=== PATIENT | female | born 1945 | race African-American/Black ===

== ENCOUNTER 2016-06-30 15:20 | Emergency (ER) | payer BC ==
[~2016-06-30] VITALS: Ht 160 cm; Wt 79.5 kg
[~2016-06-30 15:20] MED LIST: ASPI81TA28 PO; ATEN-173 PO; ATOR10TA88 PO; BENZ100C84 PO; CETI10CH PO; CHOL100010 PO; CLC100 PO; CYM/30 PO; DICY10CA12 PO; ESTR1CRE PV; FLUT0.15 NAE; FLV1 PO; FLVHFA110 INH; FRS/40 PO; LACT10SO17 PO; META1TAB22 PO; MULT-506 PO; OMEP40CA PO; PRM625 PO; RANI300T2 PO; SALI1SPR3 NAE; VALS40TA2 PO; [UNRECOGNIZED DRUG - CODE] PO
[2016-06-30 15:22] VITALS: TEMP 36.4; Ht 160 cm; Wt 79.5 kg
--- NOTE | 2016-06-30 15:43 | EMERGENCY ROOM VISIT NOTE ---
History Report prepared by Jb: Mojgan Goldsmith Under the Supervision of: Dr. Leonard Chadwick M.D. First contact with patient: 15:33 Chief Complaint: SHOULDER PAIN Stated Complaint: L SHOULDER PAIN History of Present Illness The patient is a 70 year old female who presents to the Emergency Room with complaints of persistent left shoulder pain that began last night. She notes that she sleeps on her side and woke up with the pain while she was sleeping last night. Her pain is worse with movement of her left arm. She denies any recent injuries or straining. She also complains of a mild subjective fever. She has not taken her temperature, but has been feeling intermittently hot and cold today. She is right hand dominant. She has not had shoulder problems in the past. 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 She denies any acute chest pain or shortness of breath. She does not have a history of seizures. She takes 81 mg aspirin daily but is not on any other blood thinners. The patient recently received injections for chronic neck and lower back pain. Denies numbness, weakness, or other complaints. Source of History: patient, spouse/significant other Onset: last night Position: shoulder (left) Timing: other (persistent) Modifying Factors (Worsening): movement Associated Symptoms: No numbness, No weakness Review of Systems See HPI for pertinent positives & negatives. A total of 10 systems reviewed and were otherwise negative. Past Medical & Surgical Medical Problems: (1) Appendectomy (2) colon surgery (3) Heart disease (4) irritable bowel syndrome (5) Lumbar spinal fusion (6) mitral valve repair (7) skin problems (8) stomach problems Old medical records were reviewed. Nurse's notes were reviewed and I agree with. Family History FH: heart disease FH: heart disease FHx: cancer FHx: cancer Hypertension Social History Smoking Status: Never Smoker Alcohol Use: occasionally Drug Use: none Marital Status: Housing Status: lives with family Occupation Status: unemployed Current/Historical Medications Scheduled Aspirin (Aspirin Ec), 81 MG PO BID Atenolol (Tenormin), 37.5 MG PO BID Atorvastatin (Lipitor), 10 MG PO MWF Cholecalciferol (Vitamin D 400 Iu), 800 INTER.UNIT PO DAILY Docusate Sodium (Colace), 1 CAP PO BID Duloxetine HCl (Cymbalta), 1 CAP PO UD Estrogens, Conjugated (Premarin), 0.625 MG PO QAM Estrogens, Conjugated (Premarin), 1 [employer] PV 2XWK Folic Acid (Folvite), 1 MG PO DAILY Furosemide (Lasix), 40 MG PO QAM Multivitamin (Multivitamin), 1 TAB PO QAM Omeprazole (Prilosec), 40 MG PO BID Valsartan (Diovan), 20 MG PO BID Scheduled PRN Benzonatate (Tessalon Perles), 100 MG PO TID PRN for Cough Cetirizine Hcl (Cetirizine Hcl), 10 MG PO HS PRN Dicyclomine Hcl (Dicyclomine Hcl), 1 CAP PO TID PRN for anb pain Fluticasone Propionate (Flovent Hfa), 2 PUFFS INH BID PRN for SOB/Wheezing Fluticasone Propionate (Nasal) (Flonase Allergy Relief), 2 SPRAYS CHRISTOPH DAILY PRN for ALLERGIES Metaxalone (Skelaxin), 800 MG PO Q8H PRN for Muscle Spasms Ranitidine (Zantac), 300 MG PO BID PRN for HIVES Saline (Saline Nasal [place]), 1 SPRAY CHRISTOPH Q2-4H PRN for ALLERGIES Salsalate (Salsalate), 750 MG PO BID PRN for Pain Allergies Coded Allergies: Codeine (Verified Allergy, Mild, SWEATS, PALPITATIONS, RINGING IN EARS, HIVES, 06/30/16) Diazepam (Verified Allergy, Mild, SWEATING, 06/30/16) Grapefruit (Verified Allergy, Mild, "CANNOT TAKE WITH HEART MEDICATION", ) Ibuprofen (Verified Allergy, Mild, NUMBNESS, 06/30/16) Iodinated Contrast Media (Verified Allergy, Mild, HIVES, 06/30/16) Oxycodone (Verified Allergy, Mild, HEART RACES, 06/30/16) Propoxyphene (Verified Allergy, Mild, SWEATS, PALPITATIONS, RINGING IN EARS, 06/30/16) Sulfa Drugs (Verified Allergy, Mild, RASH, HIVES, 06/30/16) Thiopental (Verified Allergy, Mild, "HEART STOPPED", 06/30/16) Tramadol (Verified Allergy, Mild, SWEATS, PALPITATIONS, RINGING IN EARS, ) Aspartame (Verified Allergy, Unknown, DIZZINESS, MIGRAINES, 06/30/16) Aspirin (Verified Allergy, Unknown, SWEATS, PALPITATIONS, RINGING IN EARS , 06/30/16) Benzodiazepines (Verified Allergy, Unknown, SWEATS, PALPITATIONS, RINGING IN EARS, 06/30/16) Ferrous Sulfate (Verified Allergy, Unknown, HIVES, 06/30/16) Ioversol (Verified Allergy, Unknown, HIVES, 06/30/16) Latex1 -Allergic Contact Dermititis (Verified Allergy, Unknown, RASH AND CAN'T BREATHE, 06/30/16) Lorazepam (Verified Allergy, Unknown, HIVES AND SWEATING, 06/30/16) Morphine and Related (Verified Allergy, Unknown, HEART STOPPED AND "I STOPPED LIVING", 06/30/16) NSAIDs (Verified Allergy, Unknown, NUMBNESS, 06/30/16) Nickel (Verified Allergy, Unknown, HIVES AND RASH, 06/30/16) Pantoprazole (Verified Allergy, Unknown, HIVES, PT TAKES NEXIUM AT HOME, ) Pentobarbital (Verified Allergy, Unknown, "HEART STOPPED", 06/30/16) Phenobarbital (Verified Allergy, Unknown, "HEART STOPPED", 06/30/16) Prednisone (Verified Allergy, Unknown, HIVES, 06/30/16) Saccharin (Verified Allergy, Unknown, FROM NUTRASWEET - DIZZINESS, MIGRAINES, 06/30/16) Salicylates (Verified Allergy, Unknown, GERD, IRRITATES STOMACH, HIGH DOSE ONLY, 06/30/16) Caffeine (Verified Adverse Reaction, Mild, JITTERY, 06/30/16) Physical Exam Vital Signs Date Time Temp Pulse Resp B/P Pulse Ox O2 Delivery O2 Flow Rate FiO2 06/30/16 18:21 64 18 138/79 97 06/30/16 15:22 36.4 96 18 150/83 96 Room Air Physical Exam General: Non-ill appearing middle aged female. Well developed well nourished in no acute distress, breathing comfortably on room air. Normal speech HEENT: Normal cephalic atraumatic. Pupils are equal round and reactive to light. Extraocular movements are intact. Oropharynx is pink with moist mucous membranes. No swelling of the mouth lips or tongue. Neck: Supple with a midline trachea. No meningeal signs or stiffness, no JVD or bruits. No Stridor. Chest: Clear to auscultation bilaterally. No wheezes or rhonchi. No increased work of breathing. Heart: regular rate and rhythm. Abdomen: Soft nontender, nondistended without rebound guarding or rigidity. Extremities: No cyanosis clubbing or edema. No calf tenderness or assymetry. Left shoulder is reproducible tender with palpation and movement, particularly abduction. Normal motor and sensation distally. No redness or warmth or deformity. Spine/Back. Non tender to palpation. No CVA tenderness Skin: Good turgor without rashes. Neurologic exam: Cranial nerves two through 12 are intact. Motor and sensation are intact and symmetrical throughout. Medical Decision & Procedures ER Provider Diagnostic Interpretation: X-ray results as stated below per interpretation by me and the radiologist: LEFT SHOULDER MIN 2 VIEWS ROUTINE CLINICAL HISTORY: Left shoulder pain COMPARISON: None. DISCUSSION: No fractures or dislocations are visualized. There are no visible periarticular calcifications. There are postsurgical changes present within the cervical spine. IMPRESSION: Unremarkable conventional radiographic evaluation of the left shoulder for age Electronically signed by: Kyle Vieira M.D. 06/30/2016 5:05 PM Dictated Date/Time: 06/30/2016 5:04 PM CHEST ONE VIEW PORTABLE CLINICAL HISTORY: Atypical chest pain COMPARISON STUDY: 06/05/2013 FINDINGS: A prostatic valve ring is visualized. The heart is mildly enlarged. There is no failure. There is no focal pulmonary consolidation. There is mild elevation right hemidiaphragm. Postsurgical changes are present within the cervical spine[ IMPRESSION: Mild elevation right hemidiaphragm. No evidence of failure. No evidence of lobar consolidation. Electronically signed by: Kyle Vieira M.D. 06/30/2016 5:04 PM Dictated Date/Time: 06/30/2016 5:03 PM Laboratory Results 06/30/16 16:10 Red Blood Count 4.43, Mean Corpuscular Volume 95.0, Mean Corpuscular Hemoglobin 32.3, Mean Corpuscular Hemoglobin Concent 34.0, Mean Platelet Volume 11.6, Neutrophils (%) (Auto) 63.3, Lymphocytes (%) (Auto) 22.2, Monocytes (%) (Auto) 12.5, Eosinophils (%) (Auto) 1.4, Basophils (%) (Auto) 0.3, Neutrophils # (Auto ) 4.41, Lymphocytes # (Auto) 1.55, Monocytes # (Auto) 0.87, Eosinophils # (Auto ) 0.10, Basophils # (Auto) 0.02 06/30/16 16:10 Test 06/30/16 16:10 06/30/16 16:23 White Blood Count 6.97 K/uL (4.8-10.8) Red Blood Count 4.43 M/uL (4.2-5.4) Hemoglobin 14.3 g/dL (12.0-16.0) Hematocrit 42.1 % (37-47) Mean Corpuscular Volume 95.0 fL (80-100) Mean Corpuscular Hemoglobin 32.3 pg (25-34) Mean Corpuscular Hemoglobin Concent 34.0 g/dl (32-36) Platelet Count 283 K/uL (130-400) Mean Platelet Volume 11.6 fL (7.4-10.4) Neutrophils (%) (Auto) 63.3 % Lymphocytes (%) (Auto) 22.2 % Monocytes (%) (Auto) 12.5 % Eosinophils (%) (Auto) 1.4 % Basophils (%) (Auto) 0.3 % Neutrophils # (Auto) 4.41 K/uL (1.4-6.5) Lymphocytes # (Auto) 1.55 K/uL (1.2-3.4) Monocytes # (Auto) 0.87 K/uL (0.11-0.59) Eosinophils # (Auto) 0.10 K/uL (0-0.5) Basophils # (Auto) 0.02 K/uL (0-0.2) RDW Standard Deviation 50.3 fL (36.4-46.3) RDW Coefficient of Variation 14.5 % (11.5-14.5) Immature Granulocyte % (Auto) 0.3 % Immature Granulocyte # (Auto) 0.02 K/uL (0.00-0.02) Anion Gap 13.0 mmol/L (3-11) Est Creatinine Clear Calc Drug Dose 61.8 ml/min Estimated GFR () 79.3 Estimated GFR (Non- 68.5 BUN/Creatinine Ratio 17.2 (10-20) Calcium Level 9.2 mg/dl (8.5-10.1) Chemistry Specimen Hemolysis Bedside Troponin I 0.000 ng/ml (0-0.045) Laboratory studies as stated above per my review. Medications Administered Medications (Trade) Dose Ordered Sig/Rojas Route Start Time Stop Time Status Last Admin Dose Admin Diphenhydramine HCl (Benadryl Cap) 25 mg NOW ONCE PO 06/30/16 17:45 06/30/16 17:46 DC 06/30/16 18:04 25 MG ECG Indication: back/shoulder pain Rate (beats per minute): 65 Rhythm: normal sinus Findings: no acute ischemic change, no ectopy Comparison ECG Date: 09/13/12 Change: no significant change ED Course 153: The patient was evaluated in room C2, and a complete history and physical examination were performed. 1655: I reassessed the patient. 1744: Upon reevaluation, the patient is resting comfortably. I discussed the results and treatment plan with the patient. She verbalized agreement of the treatment plan. The patient was discharged home. Ordered Benadryl Cap 25 mg PO. Medical Decision Differential diagnosis includes infection, inflammation, tendonitis, dislocation , fracture, acute coronary syndrome. This patient comes in as described above. She is having pain in her left shoulder. She has had no injury. She has pain with abduction. She was worried about cardiac disease although her symptoms are very atypical for cardiac and she is very reproducible. IV access established and blood work was obtained .EKG does not suggest acute coronary syndrome or arrhythmia. Troponin is not elevated. She was offered pain medication but declined it and said that she is essentially allergic to all the pain medications. Topical ice was applied. She has no white count or fever to suggest infection. Chest x-ray was clear. X-ray of the shoulder was clear. I talked to the and patient length and again she cannot take any pain medication including aspirin, NSAIDs, Tylenol, narcotics, benzodiazepines. At this point, I will have her use a sling and ice and follow up with orthopedist. The family has requested Dr. Mitchell's group and I gave them contact information. She was encouraged to return if: increasing pain, fever or chills, worsening of symptoms , any new problems concerns and also recommend she follow up with her regular doctor this week for recheck. Impression Primary Impression: Left shoulder pain Scribe Attestation The scribe's documentation has been prepared under my direction and personally reviewed by me in its entirety. I confirm that the note above accurately reflects all work, treatment, procedures, and medical decision making performed by me. Departure Information Dispostion Home / Self-Care Referrals Ramon Jimenez III, M.D. (PCP) Kristopher Mitchell M.D. Forms HOME CARE DOCUMENTATION FORM, IMPORTANT VISIT INFORMATION Patient Instructions My [facility] Additional Instructions Rest Use sling. Ice intermittently. Return if: Increasing pain, fever or chills, numbness or weakness, any new problems or concerns. Follow-up with the orthopedist, Dr. Mitchell, or one of his partners- call the office on Saturday for recheck
[2016-06-30] MEDS ORDERED: OMEP40CA41 PO (15:53)
[2016-06-30] MEDS ORDERED: CHOL400C7 PO (15:53)
[2016-06-30] MEDS ORDERED: PRMVC PV (15:53)
[2016-06-30] MEDS ORDERED: DOCU-94 PO (15:53)
[2016-06-30] MEDS ORDERED: FOLI1TAB7 PO (15:53)
[2016-06-30 16:36] LABS: BASO % 0.3 %; BASO ABS # 0.02 K/uL (0-0.2); COMPLETE YES; EOS % 1.4 %; HEMATOCRIT 42.1 % (37-47); IG% 0.3 %; LYMPH % 22.2 %; LYMPH ABS # 1.55 K/uL (1.2-3.4); MEAN CORPUSCULAR HEMOGLOBIN 32.3 pg (25-34); MEAN PLATELET VOLUME 11.6 fL (7.4-10.4); MONO % 12.5 %; NEUT % 63.3 %; PLATELET COUNT 283 K/uL (130-400); RED BLOOD COUNT 4.43 M/uL (4.2-5.4); WHITE BLOOD COUNT 6.97 K/uL (4.8-10.8)
[2016-06-30 17:01] LABS: BUN/CREATININE RATIO 17.2 (10-20); CALCIUM 9.2 mg/dl (8.5-10.1); CREATININE 0.87 mg/dl (0.60-1.20); POTASSIUM 3.8 mmol/L (3.5-5.1)
--- NOTE | 2016-06-30 17:06 | DIAGNOSTIC IMAGING REPORT ---
LEFT SHOULDER MIN 2 VIEWS ROUTINE CLINICAL HISTORY: Left shoulder pain COMPARISON: None. DISCUSSION: No fractures or dislocations are visualized. There are no visible periarticular calcifications. There are postsurgical changes present within the cervical spine. IMPRESSION: Unremarkable conventional radiographic evaluation of the left shoulder for age Electronically signed by: Kyle Vieira M.D. 06/30/2016 5:05 PM Dictated Date/Time: 06/30/2016 5:04 PM
--- NOTE | 2016-06-30 17:06 | DIAGNOSTIC IMAGING REPORT ---
CHEST ONE VIEW PORTABLE CLINICAL HISTORY: Atypical chest pain COMPARISON STUDY: 06/05/2013 FINDINGS: A prostatic valve ring is visualized. The heart is mildly enlarged. There is no failure. There is no focal pulmonary consolidation. There is mild elevation right hemidiaphragm. Postsurgical changes are present within the cervical spine[ IMPRESSION: Mild elevation right hemidiaphragm. No evidence of failure. No evidence of lobar consolidation. Electronically signed by: Kyle Vieira M.D. 06/30/2016 5:04 PM Dictated Date/Time: 06/30/2016 5:03 PM
[2016-06-30 18:21] VITALS: BP 138/79; PULSE 64; O2SAT 97
== END 2016-06-30 18:22 | disposition home or self-care (01) ==
LOC: C.EDB 15:22 → C.EDC 18:22
DX: M25.512 Pain in left shoulder (principal); Z79.899 Other long term (current) drug therapy; Z79.82 Long term (current) use of aspirin; Z82.49 Family history of ischemic heart disease and other diseases of the circulatory system

== ENCOUNTER → 2017-07-01 | Day surgery (SDC) | payer BC ==
[~2017-07-01] VITALS: Ht 160 cm; Wt 77.3 kg
[~2017-07-01] MED LIST changes: +AMOX1TAB43 PO; +ATOR10TA82 PO; -ATOR10TA88 PO; +ATROPINE SULFATE 0.1 MG/ML 5ML SYR IV PRN; -CHOL100010 PO; +CHOL400C7 PO; -CLC100 PO; +DOCU-94 PO; -ESTR1CRE PV; +EpHEDrine SULFATE INJ 50 MG/ML AMP IV PRN; -FLV1 PO; +FOLI1TAB8 PO; -LACT10SO17 PO; +LIDOCAINE HCL 2% 2 ML VIAL (20MG/ML) ONE; -META1TAB22 PO; -OMEP40CA PO; +OMEP40CA41 PO; +PRMVC PV; +PROPOFOL IV EMULSION 10 MG/ML 20 ML VIAL IV ONE; +SODIUM CHLORIDE 0.9% 500ML 500 ML IV ONE
--- NOTE | 2017-07-01 09:32 | Endo History and Physical ---
History & Physical Date of Service: Jul 01, 2017. Chief Complaint: LLQ Abdominal pain, Bloating Referring Physician: Dr. Jimenez History of Present Illness 71 yo female who presents for colonoscopy secondary to LLQ abdominal pain and bloating. Past Surgical History Hx Cardiac Surgery: Yes (HEART CATH, NO STENTS; OPEN MITRAL VALVE REPAIR 2006) Hx Internal Defibrillator: No Hx Pacemaker: No Hx Abdominal Surgery: Yes (PARTIAL BOWEL RESECTION WITH 1 OOPHORECTOMY FOR TUMOR REMOVALS, APPY) Hx of Implantable Prosthesis: No Hx Post-Op Nausea and Vomiting: No Hx Cancer Surgery: Yes (STAGE 1 UTERINE CANCER, HYSTER) Hx Thoracic Surgery: No Hx Orthopedic: Yes (C2-6 FUSION (LIMITED R>L, AND SOME UP AND DOWN), L4-5 FUSION) Hx Urinary Tract Surgery: No Family History IBD Social History Smoking Status: Never Smoker Hx Substance Use: No Hx Alcohol Use: No Allergies Coded Allergies: Codeine (Verified Allergy, Mild, SWEATS, PALPITATIONS, RINGING IN EARS, HIVES, 07/01/17) Diazepam (Verified Allergy, Mild, SWEATING, 07/01/17) Grapefruit (Verified Allergy, Mild, "CANNOT TAKE WITH HEART MEDICATION", ) Ibuprofen (Verified Allergy, Mild, NUMBNESS, 07/01/17) Iodinated Contrast Media (Verified Allergy, Mild, HIVES, 07/01/17) Oxycodone (Verified Allergy, Mild, HEART RACES, 07/01/17) Propoxyphene (Verified Allergy, Mild, SWEATS, PALPITATIONS, RINGING IN EARS, 07/01/17) Sulfa Drugs (Verified Allergy, Mild, RASH, HIVES, 07/01/17) Thiopental (Verified Allergy, Mild, "HEART STOPPED", 07/01/17) Tramadol (Verified Allergy, Mild, SWEATS, PALPITATIONS, RINGING IN EARS, ) Aspartame (Verified Allergy, Unknown, DIZZINESS, MIGRAINES, 07/01/17) Aspirin (Verified Allergy, Unknown, SWEATS, PALPITATIONS, RINGING IN EARS , 07/01/17) Benzodiazepines (Verified Allergy, Unknown, SWEATS, PALPITATIONS, RINGING IN EARS, 07/01/17) Ferrous Sulfate (Verified Allergy, Unknown, HIVES, 07/01/17) Ioversol (Verified Allergy, Unknown, HIVES, 07/01/17) Latex1 -Allergic Contact Dermititis (Verified Allergy, Unknown, RASH AND CAN'T BREATHE, 07/01/17) Lorazepam (Verified Allergy, Unknown, HIVES AND SWEATING, 07/01/17) Morphine and Related (Verified Allergy, Unknown, HEART STOPPED AND "I STOPPED LIVING", 07/01/17) NSAIDs (Verified Allergy, Unknown, NUMBNESS, 07/01/17) Nickel (Verified Allergy, Unknown, HIVES AND RASH, 07/01/17) Pantoprazole (Verified Allergy, Unknown, HIVES, PT TAKES NEXIUM AT HOME, ) Pentobarbital (Verified Allergy, Unknown, "HEART STOPPED", 07/01/17) Phenobarbital (Verified Allergy, Unknown, "HEART STOPPED", 07/01/17) Prednisone (Verified Allergy, Unknown, HIVES, 07/01/17) Saccharin (Verified Allergy, Unknown, FROM NUTRASWEET - DIZZINESS, MIGRAINES, 07/01/17) Salicylates (Verified Allergy, Unknown, GERD, IRRITATES STOMACH, HIGH DOSE ONLY, 07/01/17) Caffeine (Verified Adverse Reaction, Mild, JITTERY, 07/01/17) Adhesives (Verified Adverse Reaction, Unknown, REDNESS AND HIVES, 07/01/17) Current Medications Reported Home Medications Medications Dose Route/Sig Max Daily Dose Days Date Category Dose Instructions Amoxicillin/Clavulanate P (Amoxicillin & Pot Clavulanate) 1 Tab Tab 1 Tab PO BID 06/14/17 Reported WILL COMPLETE 06-23-17 Premarin (Estrogens, Conjugated) 14 Appln/30 Gm Cr 1 Appl PV 2XWK 06/30/16 Reported Prilosec (Omeprazole) 40 Mg Cap 40 Mg PO BID 06/30/16 Reported Folvite (Folic Acid) 1 Mg Tab 1 Mg PO DAILY 06/30/16 Reported Colace (Docusate Sodium) 100 Mg Cap 1 Cap PO BID 06/30/16 Reported Vitamin D 400 Iu (Cholecalciferol) 400 Unit Cap 800 Inter.unit PO DAILY 06/30/16 Reported Flovent Hfa (Fluticasone Propionate) 120 Puffs/59597 Mcg Aero 2 Puffs INH BID PRN 03/13/16 Reported Tessalon Perles (Benzonatate) 100 Mg Cap 100 Mg PO TID PRN 03/13/16 Reported Zantac (Ranitidine HCl) 300 Mg Tab 300 Mg PO BID PRN 03/13/16 Reported Dicyclomine Hcl 10 Mg Cap 1 Cap PO TID PRN 03/13/16 Reported Lipitor (Atorvastatin Calcium) 10 Mg Tab 10 Mg PO MWF 03/13/16 Reported Lasix (Furosemide) 40 Mg Tab 40 Mg PO QAM 03/13/16 Reported Cymbalta (Duloxetine HCl) 30 Mg Cap 1 Cap PO UD 05/19/15 Reported 1 TAB every morning and 1 TAB every other evening Flonase Allergy Relief (Fluticasone Propionate (Nasal)) 50 Mcg/Act Spr 2 Sprays CHRISTOPH DAILY PRN 05/19/15 Reported Aspirin Ec (Aspirin) 81 Mg Tab 81 Mg PO BID 06/05/13 Reported Tenormin (Atenolol) 25 Mg Tab 37.5 Mg PO BID 06/05/13 Reported Diovan (Valsartan) 40 Mg Tab 20 Mg PO BID 09/15/12 Reported Saline Nasal [place] (Saline) 0.65 % Spr 1 [place] CHRISTOPH Q2-4H PRN 09/15/12 Reported Cetirizine Hcl 10 Mg Chw 10 Mg PO HS PRN 09/15/12 Reported Premarin (Estrogens Conjugated) 0.625 Mg Tab 0.625 Mg PO QAM 09/15/12 Reported Salsalate 750 Mg Tab 750 Mg PO BID PRN 09/15/12 Reported WITH FOOD Multivitamin (Multivitamins) Tab 1 Tab PO QAM 04/07/10 Reported Vital Signs Weight (Kilograms): 77.27 Height (Feet): 5 Height (Inches): 3 Physical Exam General Appearance: WD/WN, no apparent distress Respiratory/Chest: Auscultation: breath sounds normal Cardiovascular: Heart Auscultation: RRR Abdomen: Bowel Sounds: normal Inspection & Palpation: soft, non-distended, no tenderness, guarding & rebound Assessment and Plan Assessment: 71 yo female who presents for colonoscopy secondary to LLQ abdominal pain and bloating. Plan: Proceed with colonoscopy.
[2017-07-01 09:40] VITALS: Ht 160 cm; Wt 77.3 kg
--- NOTE | 2017-07-01 10:30 | Discharge Instructions ---
Endoscopy Patient Instructions Date / Procedure(s) Performed Jul 01, 2017. Colonoscopy Allergy Information Coded Allergies: Codeine (Verified Allergy, Mild, SWEATS, PALPITATIONS, RINGING IN EARS, HIVES, 07/01/17) Diazepam (Verified Allergy, Mild, SWEATING, 07/01/17) Grapefruit (Verified Allergy, Mild, "CANNOT TAKE WITH HEART MEDICATION", ) Ibuprofen (Verified Allergy, Mild, NUMBNESS, 07/01/17) Iodinated Contrast Media (Verified Allergy, Mild, HIVES, 07/01/17) Oxycodone (Verified Allergy, Mild, HEART RACES, 07/01/17) Propoxyphene (Verified Allergy, Mild, SWEATS, PALPITATIONS, RINGING IN EARS, 07/01/17) Sulfa Drugs (Verified Allergy, Mild, RASH, HIVES, 07/01/17) Thiopental (Verified Allergy, Mild, "HEART STOPPED", 07/01/17) Tramadol (Verified Allergy, Mild, SWEATS, PALPITATIONS, RINGING IN EARS, ) Aspartame (Verified Allergy, Unknown, DIZZINESS, MIGRAINES, 07/01/17) Aspirin (Verified Allergy, Unknown, SWEATS, PALPITATIONS, RINGING IN EARS , 07/01/17) Benzodiazepines (Verified Allergy, Unknown, SWEATS, PALPITATIONS, RINGING IN EARS, 07/01/17) Ferrous Sulfate (Verified Allergy, Unknown, HIVES, 07/01/17) Ioversol (Verified Allergy, Unknown, HIVES, 07/01/17) Latex1 -Allergic Contact Dermititis (Verified Allergy, Unknown, RASH AND CAN'T BREATHE, 07/01/17) Lorazepam (Verified Allergy, Unknown, HIVES AND SWEATING, 07/01/17) Morphine and Related (Verified Allergy, Unknown, HEART STOPPED AND "I STOPPED LIVING", 07/01/17) NSAIDs (Verified Allergy, Unknown, NUMBNESS, 07/01/17) Nickel (Verified Allergy, Unknown, HIVES AND RASH, 07/01/17) Pantoprazole (Verified Allergy, Unknown, HIVES, PT TAKES NEXIUM AT HOME, ) Pentobarbital (Verified Allergy, Unknown, "HEART STOPPED", 07/01/17) Phenobarbital (Verified Allergy, Unknown, "HEART STOPPED", 07/01/17) Prednisone (Verified Allergy, Unknown, HIVES, 07/01/17) Saccharin (Verified Allergy, Unknown, FROM NUTRASWEET - DIZZINESS, MIGRAINES, 07/01/17) Salicylates (Verified Allergy, Unknown, GERD, IRRITATES STOMACH, HIGH DOSE ONLY, 07/01/17) Caffeine (Verified Adverse Reaction, Mild, JITTERY, 07/01/17) Adhesives (Verified Adverse Reaction, Unknown, REDNESS AND HIVES, 07/01/17) Discharge Date / Findings Jul 01, 2017. Normal Colonoscopy Medication Instructions Stopped Medication(s): stopped all meds OK to resume all medications today as prescribed Reported Home Medications Medications Dose Route/Sig Max Daily Dose Days Date Category Dose Instructions Premarin (Estrogens, Conjugated) 14 Appln/30 Gm Cr 1 Appl PV 2XWK 06/30/16 Reported Prilosec (Omeprazole) 40 Mg Cap 40 Mg PO BID 06/30/16 Reported Folvite (Folic Acid) 1 Mg Tab 1 Mg PO DAILY 06/30/16 Reported Colace (Docusate Sodium) 100 Mg Cap 1 Cap PO BID 06/30/16 Reported Vitamin D 400 Iu (Cholecalciferol) 400 Unit Cap 800 Inter.unit PO DAILY 06/30/16 Reported Flovent Hfa (Fluticasone Propionate) 120 Puffs/25499 Mcg Aero 2 Puffs INH BID PRN 03/13/16 Reported Tessalon Perles (Benzonatate) 100 Mg Cap 100 Mg PO TID PRN 03/13/16 Reported Zantac (Ranitidine HCl) 300 Mg Tab 300 Mg PO BID PRN 03/13/16 Reported Dicyclomine Hcl 10 Mg Cap 1 Cap PO TID PRN 03/13/16 Reported Lipitor (Atorvastatin Calcium) 10 Mg Tab 10 Mg PO MWF 03/13/16 Reported Lasix (Furosemide) 40 Mg Tab 40 Mg PO QAM 03/13/16 Reported Cymbalta (Duloxetine HCl) 30 Mg Cap 1 Cap PO UD 05/19/15 Reported 1 TAB every morning and 1 TAB every other evening Flonase Allergy Relief (Fluticasone Propionate (Nasal)) 50 Mcg/Act Spr 2 Sprays CHRISTOPH DAILY PRN 05/19/15 Reported Aspirin Ec (Aspirin) 81 Mg Tab 81 Mg PO BID 06/05/13 Reported Tenormin (Atenolol) 25 Mg Tab 37.5 Mg PO BID 06/05/13 Reported Diovan (Valsartan) 40 Mg Tab 20 Mg PO BID 09/15/12 Reported Saline Nasal [place] (Saline) 0.65 % Spr 1 [place] CHRISTOPH Q2-4H PRN 09/15/12 Reported Cetirizine Hcl 10 Mg Chw 10 Mg PO HS PRN 09/15/12 Reported Premarin (Estrogens Conjugated) 0.625 Mg Tab 0.625 Mg PO QAM 09/15/12 Reported Salsalate 750 Mg Tab 750 Mg PO BID PRN 09/15/12 Reported WITH FOOD Multivitamin (Multivitamins) Tab 1 Tab PO QAM 04/07/10 Reported Provider Instructions Activity Restrictions - No exercising or heavy lifting for 24 hours. - Do not drink alcohol the day of the procedure. - Do not drive a car or operate machinery until the day after the procedure. - Do not make any important decisions or sign important papers in 24 hours after the procedure. Following Day: - Return to full activity which may include returning to work/school. Diet Start your diet with liquids and light foods (jello, soup, juice, toast). Then eat your usual diet if not nauseated. Treatment For Common After Affects For mild abdominal pain, bloating, or excessive gas: - Rest - Eat lightly - Lie on right side Follow-Up Information Follow-up with Dr. Jimenez as scheduled Anesthesia Information What You Should Know You have had a procedure that required some medicine to reduce anxiety and discomfort. This treatment is called moderate sedation. After receiving the treatment, you may be sleepy, but you will be able to breathe on your own. The effects of the treatment may last for several hours. Follow these instructions along with Activity/Diet recommendations noted above: * Do NOT do anything where dizziness or clumsiness would be dangerous. * Rest quietly at home today, then you can be up and about tomorrow. * Have a responsible person stay with you the rest of today. * You may have had an I.V. today. If so, you may take the dressing off later today. Recommendations Call your doctor if: * Trouble breathing * Continuous vomiting for more than 24 hours * Temperature above 101 degrees * Severe abdominal pain or bloating * Pain not relieved by pain medicine ordered * There is increased drainage or redness from any incision * A large amount of rectal bleeding greater than 2-3 tablespoons. (If you had a polyp/s removed or have hemorrhoids, a small amount of blood - from the rectum is to be expected.) * You have any unanswered questions or concerns. IN THE EVENT OF A SERIOUS EMERGENCY, GO TO THE NEAREST EMERGENCY ROOM Your discharge instructions were prepared by provider Aron Horton. Patient Instructions Signature Page Smitha Morgan Patient (or Guardian) Signature/Date: I have read and understand the instructions given to me by my caregivers. Caregiver/RN/Doctor Signature/Date: The above-named patient and/or guardian has received patient instructions on this date. + Original Patient Signature Page (only) stays with chart. Please make copy for patient.
--- NOTE | 2017-07-01 10:34 | GI REPORT ---
Procedure Date: 07/01/2017 9:31 AM Procedure: Colonoscopy Indications: Abdominal pain in the left lower quadrant Medicines: Monitored Anesthesia Care Complications: No immediate complications. Estimated Blood Loss: Estimated blood loss: none. Procedure: Pre-Anesthesia Assessment: - Prior to the procedure, a History and Physical was performed, and patient medications and allergies were reviewed. The patient's tolerance of previous anesthesia was also reviewed. The risks and benefits of the procedure and the sedation options and risks were discussed with the patient. All questions were answered, and informed consent was obtained. Prior Anticoagulants: The patient has taken aspirin, last dose was 4 days prior to procedure. ASA Grade Assessment: IV - A patient with severe systemic disease that is a constant threat to life. After reviewing the risks and benefits, the patient was deemed in satisfactory condition to undergo the procedure. After I obtained informed consent, the scope was passed under direct vision. Throughout the procedure, the patient's blood pressure, pulse, and oxygen saturations were monitored continuously. The scope was introduced through the anus and advanced to the terminal ileum. The colonoscopy was performed without difficulty. The patient tolerated the procedure well. The quality of the bowel preparation was good. The terminal ileum, the appendiceal orifice and the rectum were photographed. Findings: The perianal and digital rectal examinations were normal. The entire examined colon appeared normal. Impression: - The entire examined colon is normal. - No specimens collected. Recommendation: - Resume previous diet. - Continue present medications. - No repeat colonoscopy due to age and the absence of advanced adenomas. - Return to primary care physician as previously scheduled. Aron Horton DO 07/01/2017 10:33:40 AM This report has been signed electronically. Note Initiated On: 07/01/2017 9:31 AM I attest to the content of the Intraoperative Record and orders documented therein, exceptions below
--- NOTE | 2017-07-01 10:49 | Anesthesiology Progress Note ---
Anesthesia Post Op Note Date & Time Jul 01, 2017 at 10:49 Vital Signs Pain Intensity: 0 Vital Signs Past 12 Hours Date Time Temp Pulse Resp B/P (MAP) Pulse Ox O2 Delivery O2 Flow Rate FiO2 07/01/17 10:25 58 18 96/50 (65) 98 Room Air 07/01/17 09:46 36.7 70 18 141/70 (93) 99 Room Air Notes Mental Status: alert / awake / arousable, participated in evaluation Pt Amnestic to Procedure: Yes Nausea / Vomiting: adequately controlled Pain: adequately controlled Airway Patency, RR, SpO2: stable & adequate BP & HR: stable & adequate Hydration State: stable & adequate Anesthetic Complications: no major complications apparent
[2017-07-01 10:55] VITALS: BP 124/64; PULSE 63; O2SAT 100
== END | disposition home or self-care (01) ==
LOC: C.GI 08:54
PROVIDERS: ATTEND Internal Medicine
DX: R10.32 Left lower quadrant pain (principal); R14.0 Abdominal distension (gaseous); Z85.42 Personal history of malignant neoplasm of other parts of uterus; Z88.5 Allergy status to narcotic agent; Z88.8 Allergy status to other drugs, medicaments and biological substances; Z88.2 Allergy status to sulfonamides; Z88.6 Allergy status to analgesic agent; Z79.82 Long term (current) use of aspirin; Z79.899 Other long term (current) drug therapy

== ENCOUNTER 2017-07-29 12:06 | Observation (INO) | payer BC ==
[~2017-07-29] VITALS: Ht 160 cm; Wt 78.5 kg
[~2017-07-29 12:06] MED LIST changes: -AMOX1TAB43 PO; -ATROPINE SULFATE 0.1 MG/ML 5ML SYR IV PRN; -EpHEDrine SULFATE INJ 50 MG/ML AMP IV PRN; -LIDOCAINE HCL 2% 2 ML VIAL (20MG/ML) ONE; -PROPOFOL IV EMULSION 10 MG/ML 20 ML VIAL IV ONE; -SODIUM CHLORIDE 0.9% 500ML 500 ML IV ONE
[2017-07-29] MEDS ORDERED: ASPIRIN 81 MG CHEW PO STA (14:40)
[2017-07-29] MEDS ORDERED: NITROGLYCERIN 2% OINTMENT 30GM TUBE EXT ONE (14:45)
--- NOTE | 2017-07-29 14:56 | DIAGNOSTIC IMAGING REPORT ---
CHEST ONE VIEW PORTABLE CLINICAL HISTORY: Chest pain. COMPARISON STUDY: Chest radiograph June 30, 2016. FINDINGS: Note is made of an anterior cervical spine fusion and prosthetic mitral valve. Cardiomegaly is noted without evidence for pulmonary edema. No pneumothorax or pleural effusion is noted. Mild elevation/eventration of the right hemidiaphragm is unchanged. The appearance of the chest is unchanged. IMPRESSION: No acute cardiopulmonary findings. Electronically signed by: Jamil Abdi M.D. 07/29/2017 2:55 PM Dictated Date/Time: 07/29/2017 2:54 PM
[2017-07-29 15:38] LABS: HEMATOCRIT 40.2 % (37-47); HEMOGLOBIN 13.5 g/dL (12.0-16.0); MEAN CELL VOLUME 94.6 fL (80-100); MEAN CORPUSCULAR HEMOGLOBIN 31.8 pg (25-34); MEAN CORPUSCULAR HGB CONC 33.6 g/dl (32-36); MEAN PLATELET VOLUME 11.3 fL (7.4-10.4); PLATELET COUNT 208 K/uL (130-400); RED CELL DISTRIBUTION WIDTH CV 14.3 % (11.5-14.5); WHITE BLOOD COUNT 5.22 K/uL (4.8-10.8)
[2017-07-29 15:47] LABS: PTT PATIENT 23.3 SECONDS (21.0-31.0)
[2017-07-29 16:06] LABS: ALBUMIN 3.4 gm/dl (3.4-5.0); ALKALINE PHOSPHATASE 50 U/L (45-117); ALT/SGPT 16 U/L (12-78); AST/SGOT 19 U/L (15-37); BLOOD UREA NITROGEN 11 mg/dl (7-18); CARBON DIOXIDE 26 mmol/L (21-32); CKMB 0.8 ng/ml (0.5-3.6); GLUCOSE 121 mg/dl (70-99); POTASSIUM 3.9 mmol/L (3.5-5.1); SODIUM 136 mmol/L (136-145); TOTAL PROTEIN 7.2 gm/dl (6.4-8.2)
[2017-07-29] MEDS ORDERED: DC ALL ANTICOAGULANTS SCH (17:00)
--- NOTE | 2017-07-29 17:09 | Cardiology Consultation ---
Cardiology Consultation Date of Service Jul 29, 2017. Cardiology Consultation Indication: Shortness of breath and chest pain. History: This is a 71-year-old female who approximately a decade ago underwent mitral valve repair for severe mitral regurgitation at [facility]. She received a mitral annular ring. At the time of her surgery she had a cardiac catheterization that showed normal coronary arteries. She has done well until recently over the past several months she has had progressive shortness of breath which has been her main complaint. More recently however her shortness of breath has worsened but also she is having some chest pain. 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 Her primary records tech is Dr. Ford who was concerned enough about her symptoms, especially after reviewing a recent transthoracic echocardiogram which showed pulmonary hypertension and new mild to moderate mitral stenosis, that he scheduled her for a transesophageal echocardiogram and right and left heart catheterization next week. The patient's symptoms worsened over the weekend and she came to the emergency department with shortness of breath and chest pain. She was given sublingual nitroglycerin which improved her chest pain. She is currently resting comfortably. Labs are pending. Allergies: The patient has numerous allergies and I recommend that she review the medical record prior to starting medications. Reported Home Medications Medications Dose Route/Sig Max Daily Dose Days Date Category Dose Instructions Premarin (Estrogens, Conjugated) 14 Appln/30 Gm Cr 1 Appl PV 2XWK 06/30/16 Reported Prilosec (Omeprazole) 40 Mg Cap 40 Mg PO BID 06/30/16 Reported Folvite (Folic Acid) 1 Mg Tab 1 Mg PO DAILY 06/30/16 Reported Colace (Docusate Sodium) 100 Mg Cap 1 Cap PO BID 06/30/16 Reported Vitamin D 400 Iu (Cholecalciferol) 400 Unit Cap 800 Inter.unit PO DAILY 06/30/16 Reported Flovent Hfa (Fluticasone Propionate) 120 Puffs/69908 Mcg Aero 2 Puffs INH BID PRN 03/13/16 Reported Tessalon Perles (Benzonatate) 100 Mg Cap 100 Mg PO TID PRN 03/13/16 Reported Zantac (Ranitidine HCl) 300 Mg Tab 300 Mg PO BID 03/13/16 Reported Dicyclomine Hcl 10 Mg Cap 1 Cap PO TID PRN 03/13/16 Reported Lipitor (Atorvastatin Calcium) 10 Mg Tab 10 Mg PO MWF 03/13/16 Reported Lasix (Furosemide) 40 Mg Tab 40 Mg PO QAM 03/13/16 Reported Cymbalta (Duloxetine HCl) 30 Mg Cap 1 Cap PO UD 05/19/15 Reported 1 TAB every morning and 1 TAB every other evening Flonase Allergy Relief (Fluticasone Propionate (Nasal)) 50 Mcg/Act Spr 2 Sprays CHRISTOPH DAILY PRN 05/19/15 Reported Aspirin Ec (Aspirin) 81 Mg Tab 81 Mg PO BID 06/05/13 Reported Tenormin (Atenolol) 25 Mg Tab 37.5 Mg PO BID 06/05/13 Reported Diovan (Valsartan) 40 Mg Tab 20 Mg PO BID 09/15/12 Reported Saline Nasal [place] (Saline) 0.65 % Spr 1 [place] CHRISTOPH Q2-4H PRN 09/15/12 Reported Cetirizine Hcl 10 Mg Chw 10 Mg PO HS PRN 09/15/12 Reported Premarin (Estrogens Conjugated) 0.625 Mg Tab 0.625 Mg PO QAM 09/15/12 Reported Salsalate 750 Mg Tab 750 Mg PO BID PRN 09/15/12 Reported WITH FOOD Multivitamin (Multivitamins) Tab 1 Tab PO QAM 04/07/10 Reported Past medical history: Patient is a Rastafarian. She has had 2 spinal fusions including the cervical spine and lumbar spine. She is treated for hypertension and dyslipidemia. She has no prior history of diabetes. Social history: She lives with her and is a non-smoker. Family medical history: Noncontributory General: The patient denies weight change, night sweats, fever, chills. Head: The patient denies headache and prior head trauma. Cardiovascular: The patient denies chest pain or chest discomfort, dyspnea on exertion, palpitations, PND, orthopnea, edema, spontaneous shortness of breath, syncope and near syncope. Pulmonary: The patient denies cough, wheeze, pleurisy, hemoptysis, sputum, and excessive snoring. Gastrointestinal: The patient denies nausea, vomiting, diarrhea, constipation, bloating, hematemesis, hematochezia, and abdominal pain. Skin: The patient denies diaphoresis and rash. Musculoskeletal: The patient denies joint pain, joint swelling, myalgia, back pain, neck pain and prior injuries. Neurological: The patient denies prior stroke and seizures Vital Signs Past 12 Hours Date Time Temp Pulse Resp B/P (MAP) Pulse Ox O2 Delivery O2 Flow Rate FiO2 07/29/17 16:31 118/65 07/29/17 16:30 64 12 98 Room Air 07/29/17 16:00 65 18 132/81 100 Room Air 07/29/17 15:30 64 15 142/92 100 Room Air 07/29/17 15:04 68 07/29/17 14:54 68 22 130/60 100 Room Air 07/29/17 14:54 68 22 130/60 100 Room Air 07/29/17 13:54 36.6 61 18 133/82 100 07/29/17 12:15 36.4 65 18 124/80 98 Room Air General Appearance: Alert and Oriented x3. NAD. Head: Normocephalic Atraumatic. Eyes: PERRLA, EOMI, conjunctiva and sclera clear Neck: Supple. No carotid bruits noted. No JVD. No HJD. Respiratory: Breath sounds clear to auscultation bilaterally. No w/r/r. Cardiovascular: Reg rate and rhythm. There is a holosystolic murmur at the apex of the heart radiating to the axilla. PMI non displace. Abdomen: Normal bowel sounds, soft nontender. no abdominal bruits. Extremities: No edema, no clubbing or cyanosis. distal pulses 2/4 bilaterally. Neuro: No focal deficits. Psychiatric: Normal affect. Last 24 Hours Test 07/29/17 14:53 07/29/17 15:28 White Blood Count 5.22 K/uL Red Blood Count 4.25 M/uL Hemoglobin 13.5 g/dL Hematocrit 40.2 % Mean Corpuscular Volume 94.6 fL Mean Corpuscular Hemoglobin 31.8 pg Mean Corpuscular Hemoglobin Concent 33.6 g/dl RDW Standard Deviation 49.0 fL RDW Coefficient of Variation 14.3 % Platelet Count 208 K/uL Mean Platelet Volume 11.3 fL Prothrombin Time 10.0 SECONDS Prothromb Time International Ratio 1.0 Activated Partial Thromboplast Time 23.3 SECONDS Partial Thromboplastin Ratio 0.9 Sodium Level 136 mmol/L Potassium Level 3.9 mmol/L Chloride Level 101 mmol/L Carbon Dioxide Level 26 mmol/L Anion Gap 9.0 mmol/L Blood Urea Nitrogen 11 mg/dl Creatinine 0.90 mg/dl Estimated GFR () 75.6 Estimated GFR (Non- 65.2 BUN/Creatinine Ratio 11.8 Random Glucose 121 mg/dl Calcium Level 9.0 mg/dl Total Bilirubin 0.3 mg/dl Aspartate Amino Transf (AST/SGOT) 19 U/L Alanine Aminotransferase (ALT/SGPT) 16 U/L Alkaline Phosphatase 50 U/L Total Creatine Kinase 78 U/L Creatine Kinase MB 0.8 ng/ml Creatine Kinase MB Ratio 1.0 Total Protein 7.2 gm/dl Albumin 3.4 gm/dl Globulin 3.8 gm/dl Albumin/Globulin Ratio 0.9 Bedside Troponin I < 0.030 ng/ml Impression/recommendations: This is a 71-year-old female who underwent open heart surgery over a decade ago to repair a mitral valve due to severe mitral regurgitation. She has developed progressive shortness of breath over the past several months and also is having some chest pain which is somewhat atypical in that it does not always occur with activity. She does have a cervical spine fusion and she certainly could have a cervical radiculopathy causing her discomfort however, her chest pain today when she presented to the emergency department was relieved with nitroglycerin. She has been worked up by her primary records tech and by echocardiogram found that the patient had evidence of pulmonary hypertension along with at least mild to moderate mitral stenosis which is described as new. She was scheduled to undergo a EDER and heart catheterization next week but presented to the emergency department due to worsening symptoms. I would recommend that we proceed to the right and left heart catheterization as well as EDER. We will perform the a heart catheterization tomorrow. The patient understands the risk benefit and intent of the procedure. She is willing to proceed. She is a Rastafarian and will not accept blood products and hopefully we will not have any significant bleeding. She also is allergic to multiple different substances and medications. She is allergic to contrast dye and will need a dye prep. She describes an allergy to prednisone so we will try methyl prednisone orally starting tonight. She will then receive Benadryl and an H2 rubi before the procedure.
[2017-07-29] MEDS ORDERED: ACETAMINOPHEN 325 MG TAB PO PRN (17:30)
[2017-07-29] MEDS ORDERED: NITROGLYCERIN 0.4 MG SL PER TAB CHARGE SL PRN (17:30)
[2017-07-29] MEDS ORDERED: ALUMINUM/MAGNESIUM/SIMETH (MAALOX MAX) 30 ML UDC PO PRN (17:30)
[2017-07-29] MEDS ORDERED: LACT10SO17 PO (17:38)
--- NOTE | 2017-07-29 17:53 | History and Physical ---
History & Physical Date & Time of Service: Jul 29, 2017 at 17:49 Chief Complaint: Chest Pain Primary Care Physician: Ramon Jimenez III, M.D. History of Present Illness Source: patient, clinic records, hospital records Patient is a 71-year-old female with a past medical history of HTN, HLD and [place] valve [place] [facility] [place] as well as other medical problems listed below who presents to the ED with worsening chest pain starting last evening. Over the past few months, patient has had progressive shortness of breath and intermittent squeezing chest pain with exertion. Last evening, patient began experiencing constant, 7/10 squeezing chest pain with radiation to jaw that was worse with exertion. Endorses associated shortness of breath but denies diaphoresis, nausea or vomiting. Chest pain was relieved with nitro paste in the ED but now complains of headache. Denies fever, chills, lightheadedness, near syncope, visual changes, palpitations, abdominal pain, nausea, vomiting, bowel or bladder changes or LE swelling. Patient was seen last week by Dr. Ford in cardiology clinic for intermittent chest pain and shortness of breath. Per chart review, recent echo findings show pulmonary hypertension and new mild-moderate mitral stenosis. EDER and right and left heart catheterization were scheduled for next week to further assess mitral stenosis, mitral regurgitation and the tricuspid valve. 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 Patient is a Sikhism and does not want any blood products. Past Medical/Surgical History Medical Problems: (1) Cervical radiculopathy Status: Chronic (2) Fusion of spine, cervical region Status: Resolved (3) GERD (gastroesophageal reflux disease) Status: Chronic (4) HLD (hyperlipidemia) Status: Chronic (5) HTN (hypertension) Status: Chronic (6) IBS (irritable bowel syndrome) Status: Chronic (7) Rhinitis, non-allergic Status: Chronic Surgical Problems: (1) Fusion of spine of lumbar region Status: Resolved (2) Fusion of spine, cervical region Status: Resolved (3) History of appendectomy Status: Resolved (4) History of partial colectomy Status: Resolved (5) S/P mitral valve repair Status: Resolved Social History Problems: (1) skin problems Status: Chronic Family History FH: heart disease FH: heart disease FHx: cancer FHx: cancer Hypertension Social History Smoking Status: Never Smoker Alcohol Use: occasionally Drug Use: none Marital Status: Housing status: lives with family Occupational Status: unemployed Immunizations History of Influenza Vaccine: Unknown Influenza Vaccine Date: Mar 08, 2012 History of Tetanus Vaccine?: Unknown Tetanus Immunization Date: Dec 31, 2001 History of Pneumococcal: Unknown Pneumococcal Date: Mar 08, 2010 History of Hepatitis B Vaccine: Unknown Allergies Coded Allergies: Codeine (Verified Allergy, Mild, SWEATS, PALPITATIONS, RINGING IN EARS, HIVES, 07/01/17) Diazepam (Verified Allergy, Mild, SWEATING, 07/01/17) Grapefruit (Verified Allergy, Mild, "CANNOT TAKE WITH HEART MEDICATION", ) Ibuprofen (Verified Allergy, Mild, NUMBNESS, 07/01/17) Iodinated Contrast Media (Verified Allergy, Mild, HIVES, 07/01/17) Oxycodone (Verified Allergy, Mild, HEART RACES, 07/01/17) Propoxyphene (Verified Allergy, Mild, SWEATS, PALPITATIONS, RINGING IN EARS, 07/01/17) Sulfa Drugs (Verified Allergy, Mild, RASH, HIVES, 07/01/17) Thiopental (Verified Allergy, Mild, "HEART STOPPED", 07/01/17) Tramadol (Verified Allergy, Mild, SWEATS, PALPITATIONS, RINGING IN EARS, ) Aspartame (Verified Allergy, Unknown, DIZZINESS, MIGRAINES, 07/01/17) Aspirin (Verified Allergy, Unknown, SWEATS, PALPITATIONS, RINGING IN EARS , 07/01/17) Benzodiazepines (Verified Allergy, Unknown, SWEATS, PALPITATIONS, RINGING IN EARS, 07/01/17) Ferrous Sulfate (Verified Allergy, Unknown, HIVES, 07/01/17) Ioversol (Verified Allergy, Unknown, HIVES, 07/01/17) Latex1 -Allergic Contact Dermititis (Verified Allergy, Unknown, RASH AND CAN'T BREATHE, 07/01/17) Lorazepam (Verified Allergy, Unknown, HIVES AND SWEATING, 07/01/17) Morphine and Related (Verified Allergy, Unknown, HEART STOPPED AND "I STOPPED LIVING", 07/01/17) NSAIDs (Verified Allergy, Unknown, NUMBNESS, 07/01/17) Nickel (Verified Allergy, Unknown, HIVES AND RASH, 07/01/17) Pantoprazole (Verified Allergy, Unknown, UNKNOWN - PT TAKES NEXIUM AT HOME , 07/29/17) Pentobarbital (Verified Allergy, Unknown, "HEART STOPPED", 07/01/17) Phenobarbital (Verified Allergy, Unknown, "HEART STOPPED", 07/01/17) Prednisone (Verified Allergy, Unknown, HIVES, 07/01/17) Saccharin (Verified Allergy, Unknown, FROM NUTRASWEET - DIZZINESS, MIGRAINES, 07/01/17) Salicylates (Verified Allergy, Unknown, GERD, IRRITATES STOMACH, HIGH DOSE ONLY, 07/01/17) Caffeine (Verified Adverse Reaction, Mild, JITTERY, 07/01/17) Adhesives (Verified Adverse Reaction, Unknown, REDNESS AND HIVES, 07/01/17) Home Medications Scheduled Aspirin (Aspirin Ec), 81 MG PO BID Atenolol (Tenormin), 37.5 MG PO BID Atorvastatin (Lipitor), 10 MG PO MWF Cholecalciferol (Vitamin D 400 Iu), 1,000 INTER.UNIT PO DAILY Duloxetine HCl (Cymbalta), 1 CAP PO UD Estrogens, Conjugated (Premarin), 0.625 MG PO QAM Estrogens, Conjugated (Premarin), 1 APPL PV 2XWK Folic Acid (Folvite), 1 MG PO DAILY Furosemide (Lasix), 40 MG PO QAM Multivitamin (Multivitamin), 1 TAB PO QAM Omeprazole (Prilosec), 40 MG PO BID Valsartan (Diovan), 20 MG PO BID Scheduled PRN Benzonatate (Tessalon Perles), 100 MG PO TID PRN for Cough Cetirizine Hcl (Cetirizine Hcl), 10 MG PO DAILY PRN Docusate Sodium (Colace), 1 CAP PO BID PRN for Constipation Fluticasone Propionate (Flovent Hfa), 2 PUFFS INH BID PRN for SOB/Wheezing Fluticasone Propionate (Nasal) (Flonase Allergy Relief), 2 SPRAYS CHRISTOPH DAILY PRN for ALLERGIES Lactulose (Chronulac), 1 TBS PO DAILY PRN for Constipation Ranitidine (Zantac), 300 MG PO BID PRN for Allergic Reaction Saline (Saline Nasal [place]), 1 SPRAY CHRISTOPH Q2-4H PRN for ALLERGIES Salsalate (Salsalate), 750 MG PO BID PRN for Pain Review of Systems Ten systems reviewed and negative except as noted in the HPI. Physical Exam Vital Signs Date Time Temp Pulse Resp B/P (MAP) Pulse Ox O2 Delivery O2 Flow Rate FiO2 07/29/17 17:30 62 14 127/58 100 Room Air 07/29/17 17:01 153/83 07/29/17 17:00 64 17 100 Room Air 07/29/17 16:31 118/65 07/29/17 16:30 64 12 98 Room Air 07/29/17 16:00 65 18 132/81 100 Room Air 07/29/17 15:30 64 15 142/92 100 Room Air 07/29/17 15:04 68 07/29/17 14:54 68 22 130/60 100 Room Air 07/29/17 14:54 68 22 130/60 100 Room Air 07/29/17 13:54 36.6 61 18 133/82 100 07/29/17 12:15 36.4 65 18 124/80 98 Room Air General Appearance: WD/WN, no apparent distress Head: normocephalic, atraumatic Eyes: normal inspection, PERRL, sclerae normal ENT: normal ENT inspection, hearing grossly normal, pharynx normal Neck: supple, no JVD, trachea midline Respiratory/Chest: lungs clear, normal breath sounds, no respiratory distress, no accessory muscle use, + pertinent finding (L chest wall with TTP ) Cardiovascular: regular rate, rhythm, + pertinent finding (Holosystolic murmur heard throughout precordium ) Abdomen/GI: non tender, soft, no organomegaly Back: normal inspection Extremities/Musculoskelatal: normal inspection, no calf tenderness, no pedal edema Neurologic/Psych: no motor/sensory deficits, alert, normal mood/affect, oriented x 3 Skin: normal color, warm/dry Diagnostics Laboratory Results Results Past 24 Hours Test 07/29/17 14:53 07/29/17 15:28 Range/Units White Blood Count 5.22 4.8-10.8 K/uL Red Blood Count 4.25 4.2-5.4 M/uL Hemoglobin 13.5 12.0-16.0 g/dL Hematocrit 40.2 37-47 % Mean Corpuscular Volume 94.6 80-100 fL Mean Corpuscular Hemoglobin 31.8 25-34 pg Mean Corpuscular Hemoglobin Concent 33.6 32-36 g/dl RDW Standard Deviation 49.0 36.4-46.3 fL RDW Coefficient of Variation 14.3 11.5-14.5 % Platelet Count 208 130-400 K/uL Mean Platelet Volume 11.3 7.4-10.4 fL Prothrombin Time 10.0 9.0-12.0 SECONDS Prothromb Time International Ratio 1.0 0.9-1.1 Activated Partial Thromboplast Time 23.3 21.0-31.0 SECONDS Partial Thromboplastin Ratio 0.9 Sodium Level 136 136-145 mmol/L Potassium Level 3.9 3.5-5.1 mmol/L Chloride Level 101 98-107 mmol/L Carbon Dioxide Level 26 21-32 mmol/L Anion Gap 9.0 3-11 mmol/L Blood Urea Nitrogen 11 7-18 mg/dl Creatinine 0.90 0.60-1.20 mg/dl Estimated GFR () 75.6 Estimated GFR (Non- 65.2 BUN/Creatinine Ratio 11.8 10-20 Random Glucose 121 70-99 mg/dl Calcium Level 9.0 8.5-10.1 mg/dl Total Bilirubin 0.3 0.2-1 mg/dl Aspartate Amino Transf (AST/SGOT) 19 15-37 U/L Alanine Aminotransferase (ALT/SGPT) 16 12-78 U/L Alkaline Phosphatase 50 45-117 U/L Total Creatine Kinase 78 26-192 U/L Creatine Kinase MB 0.8 0.5-3.6 ng/ml Creatine Kinase MB Ratio 1.0 0-3.0 Total Protein 7.2 6.4-8.2 gm/dl Albumin 3.4 3.4-5.0 gm/dl Globulin 3.8 2.5-4.0 gm/dl Albumin/Globulin Ratio 0.9 0.9-2 Bedside Troponin I < 0.030 0-0.045 ng/ml Diagnostic Radiology CXR: IMPRESSION: No acute cardiopulmonary findings. CXR normal EKG NSR at 63 bpm Normal EKG Impression Assessment and Plan Patient is a 71-year-old female with a past medical history of HTN, HLD and mitral valve repair [place], [place] [facility] as well as other medical problems listed below who presents to the ED with worsening chest pain starting last evening. Chest pain, SOB: -R/o ACS; risk factors include HTN and HLD -H/o a mitral valve repair in 2006 2/2 severe mitral regurg -Could also be 2/2 severe cervical spine DJD -Negative Initial troponin -CXR no acute cardiopulmonary findings; EKG with NSR -Trend serial cardiac enzymes -July 2017 echo with EF 55-59%, grade II diastolic dysfunction, mild mitral stenosis, mod mitral regurg, pulm HTN -Repeat EKG in am -Cardiology consulted -Right and left heart catheterization as well as EDER - Anabaptist and will not accept blood products - Allergic to contrast dye and prednisone--will need a dye prep -Methyl prednisone orally starting tonight -Benadryl and an H2 rubi before the procedure tomorrow -NPO after midnight except meds HTN: -Normotensive -Cont home dose atenolol, diovan, lasix GERD: -Cont PPI HLD: -Cont statin DVT Ppx: SCDs for now Code status: FULL PCP: Tony Dispo: Observation telemetry. Plan to return home once medically stable. Patient seen in collaboration with Dr. Chávez. Please see addendum. ADDENDUM: I have seen and examined the patient and agree with the assessment and plan as above. NPO for cath in am per Cardiology. Steroids overnight with Ranitidine and antihistamine one hour prior to contrast. Kyler DO Resuscitation Status VTE Prophylaxis Will order VTE Prophylaxis: Yes
[2017-07-29 18:30] VITALS: BP 136/65; PULSE 65; TEMP 36.7; Ht 160 cm; Wt 78.5 kg
[2017-07-29] MEDS ORDERED: PATIENT'S HEIGHT AND/OR WEIGHT NEEDED SCH (19:00)
[2017-07-29] MEDS ORDERED: CETIRIZINE HCL 10 MG TAB PO PRN (19:30)
[2017-07-29] MEDS ORDERED: FLUTICASONE PROPIONATE NA SPR 16 GM BTL NAE PRN (19:30)
[2017-07-29] MEDS ORDERED: BENZONATATE 100MG CAP PO PRN (19:30)
[2017-07-29] MEDS ORDERED: DOCUSATE SODIUM 100 MG CAP PO PRN (19:30)
[2017-07-29] MEDS ORDERED: FLUTICASONE HFA 110MCG INHALER INH PRN (19:30)
[2017-07-29] MEDS: METHYLPREDNISOLONE 4 MG TAB PO SCH ×2 (19:42→23:54)
--- NOTE | 2017-07-29 20:01 | EMERGENCY ROOM VISIT NOTE ---
History Report prepared by Jb: Anastasia Bolton Under the Supervision of: Dr. Eddie King M.D. First contact with patient: 14:28 Chief Complaint: CHEST PAIN Stated Complaint: CHEST PAIN Nursing Triage Summary: patient states she has had chest pain since yesterday. this morning it seemed a lot worse took 81 mg asprin and was instructed to come here by dr hyde office. patient has hx of mitral valve replacement. History of Present Illness The patient is a 71 year old female who presents to the Emergency Room with complaints of constant chest pain starting last night. She describes the pain as squeezing. She rates her discomfort as a 7/10. The pain worsens with moving around and improves with lying still. She reports SOB and dizziness. She denies any nausea, diaphoresis, jaw pain, shoulder pain, or arm pain. She has tried taking 81 mg of aspirin to no significant relief. She has a history of mitral valve repair 11 years ago. She has been having more chest pain over the past couple of months. She has had an echo and EKG recently. She is scheduled for a catheterization next week. She denies any history of IA. She has a history of IBS and reflux esophagitis. Source of History: patient, spouse/significant other Onset: last night Position: chest Symptom Intensity: 7/10 Quality: other (squeezing) Timing: constant Modifying Factors (Worsening): movement Modifying Factors (Relieving): other (lying still) Associated Symptoms: + SOB, No diaphoresis, No nausea Note: Pt denies shoulder pain, jaw pain, arm pain. Pt reports dizziness. Review of Systems See HPI for pertinent positives & negatives. A total of 10 systems reviewed and were otherwise negative. Past Medical & Surgical Medical Problems: (1) Cervical radiculopathy (2) Fusion of spine, cervical region (3) GERD (gastroesophageal reflux disease) (4) HLD (hyperlipidemia) (5) HTN (hypertension) (6) IBS (irritable bowel syndrome) (7) Rhinitis, non-allergic Surgical Problems: (1) Fusion of spine of lumbar region (2) Fusion of spine, cervical region (3) History of appendectomy (4) History of partial colectomy (5) S/P mitral valve repair Social History Problems: (1) skin problems Family History FH: heart disease FH: heart disease FHx: cancer FHx: cancer Hypertension Social History Smoking Status: Never Smoker Alcohol Use: occasionally Drug Use: none Marital Status: Housing Status: lives with family Occupation Status: unemployed Current/Historical Medications Scheduled Aspirin (Aspirin Ec), 81 MG PO BID Atenolol (Tenormin), 37.5 MG PO BID Atorvastatin (Lipitor), 10 MG PO MWF Cholecalciferol (Vitamin D 400 Iu), 1,000 INTER.UNIT PO DAILY Duloxetine HCl (Cymbalta), 1 CAP PO UD Estrogens, Conjugated (Premarin), 0.625 MG PO QAM Estrogens, Conjugated (Premarin), 1 APPL PV 2XWK Folic Acid (Folvite), 1 MG PO DAILY Furosemide (Lasix), 40 MG PO QAM Multivitamin (Multivitamin), 1 TAB PO QAM Omeprazole (Prilosec), 40 MG PO BID Valsartan (Diovan), 20 MG PO BID Scheduled PRN Benzonatate (Tessalon Perles), 100 MG PO TID PRN for Cough Cetirizine Hcl (Cetirizine Hcl), 10 MG PO DAILY PRN Docusate Sodium (Colace), 1 CAP PO BID PRN for Constipation Fluticasone Propionate (Flovent Hfa), 2 PUFFS INH BID PRN for SOB/Wheezing Fluticasone Propionate (Nasal) (Flonase Allergy Relief), 2 SPRAYS CHRISTOPH DAILY PRN for ALLERGIES Lactulose (Chronulac), 1 TBS PO DAILY PRN for Constipation Ranitidine (Zantac), 300 MG PO BID PRN for Allergic Reaction Saline (Saline Nasal [place]), 1 SPRAY CHRISTOPH Q2-4H PRN for ALLERGIES Salsalate (Salsalate), 750 MG PO BID PRN for Pain Allergies Coded Allergies: Codeine (Verified Allergy, Mild, SWEATS, PALPITATIONS, RINGING IN EARS, HIVES, 07/01/17) Diazepam (Verified Allergy, Mild, SWEATING, 07/01/17) Grapefruit (Verified Allergy, Mild, "CANNOT TAKE WITH HEART MEDICATION", ) Ibuprofen (Verified Allergy, Mild, NUMBNESS, 07/01/17) Iodinated Contrast Media (Verified Allergy, Mild, HIVES, 07/01/17) Oxycodone (Verified Allergy, Mild, HEART RACES, 07/01/17) Propoxyphene (Verified Allergy, Mild, SWEATS, PALPITATIONS, RINGING IN EARS, 07/01/17) Sulfa Drugs (Verified Allergy, Mild, RASH, HIVES, 07/01/17) Thiopental (Verified Allergy, Mild, "HEART STOPPED", 07/01/17) Tramadol (Verified Allergy, Mild, SWEATS, PALPITATIONS, RINGING IN EARS, ) Aspartame (Verified Allergy, Unknown, DIZZINESS, MIGRAINES, 07/01/17) Aspirin (Verified Allergy, Unknown, SWEATS, PALPITATIONS, RINGING IN EARS , 07/01/17) Benzodiazepines (Verified Allergy, Unknown, SWEATS, PALPITATIONS, RINGING IN EARS, 07/01/17) Ferrous Sulfate (Verified Allergy, Unknown, HIVES, 07/01/17) Ioversol (Verified Allergy, Unknown, HIVES, 07/01/17) Latex1 -Allergic Contact Dermititis (Verified Allergy, Unknown, RASH AND CAN'T BREATHE, 07/01/17) Lorazepam (Verified Allergy, Unknown, HIVES AND SWEATING, 07/01/17) Morphine and Related (Verified Allergy, Unknown, HEART STOPPED AND "I STOPPED LIVING", 07/01/17) NSAIDs (Verified Allergy, Unknown, NUMBNESS, 07/01/17) Nickel (Verified Allergy, Unknown, HIVES AND RASH, 07/01/17) Pantoprazole (Verified Allergy, Unknown, UNKNOWN - PT TAKES NEXIUM AT HOME , 07/29/17) Pentobarbital (Verified Allergy, Unknown, "HEART STOPPED", 07/01/17) Phenobarbital (Verified Allergy, Unknown, "HEART STOPPED", 07/01/17) Prednisone (Verified Allergy, Unknown, HIVES, 07/01/17) Saccharin (Verified Allergy, Unknown, FROM NUTRASWEET - DIZZINESS, MIGRAINES, 07/01/17) Salicylates (Verified Allergy, Unknown, GERD, IRRITATES STOMACH, HIGH DOSE ONLY, 07/01/17) Caffeine (Verified Adverse Reaction, Mild, JITTERY, 07/01/17) Adhesives (Verified Adverse Reaction, Unknown, REDNESS AND HIVES, 07/01/17) Physical Exam Vital Signs Date Time Temp Pulse Resp B/P (MAP) Pulse Ox O2 Delivery O2 Flow Rate FiO2 07/29/17 17:01 153/83 07/29/17 17:00 64 17 100 Room Air 07/29/17 16:31 118/65 07/29/17 16:30 64 12 98 Room Air 07/29/17 16:00 65 18 132/81 100 Room Air 07/29/17 15:30 64 15 142/92 100 Room Air 07/29/17 15:04 68 07/29/17 14:54 68 22 130/60 100 Room Air 07/29/17 14:54 68 22 130/60 100 Room Air 07/29/17 13:54 36.6 61 18 133/82 100 07/29/17 12:15 36.4 65 18 124/80 98 Room Air Physical Exam GENERAL: Patient is in no acute distress. HEENT: No acute trauma, normocephalic atraumatic, mucous membranes moist, no nasal congestion, no scleral icterus. NECK: No stridor, no adenopathy, no meningismus, trachea is midline. CHEST: Mildly tender to the lower sternal chest wall primarily on the left. LUNGS: Clear to auscultation bilaterally, no wheeze, no rhonchi, breath sounds equal. HEART: 2/6 systolic murmur, regular rate and rhythm. ABDOMEN: Soft, nontender, bowel sounds positive, no hernias, no peritonitis. EXTREMITIES: No cyanosis or edema, full range of motion of all the joints without pain or difficulty, no signs for acute trauma. NEUROLOGIC: Oriented x 3, no acute motor or sensory deficits, no focal weakness. SKIN: No rash, no jaundice, no diaphoresis. Medical Decision & Procedures ER Provider Diagnostic Interpretation: X-ray results as stated below per interpretation by me and the radiologist: CHEST ONE VIEW PORTABLE CLINICAL HISTORY: Chest pain. COMPARISON STUDY: Chest radiograph June 30, 2016. FINDINGS: Note is made of an anterior cervical spine fusion and prosthetic mitral valve. Cardiomegaly is noted without evidence for pulmonary edema. No pneumothorax or pleural effusion is noted. Mild elevation/eventration of the right hemidiaphragm is unchanged. The appearance of the chest is unchanged. IMPRESSION: No acute cardiopulmonary findings. Electronically signed by: Jamil Abdi M.D. 07/29/2017 2:55 PM Dictated Date/Time: 07/29/2017 2:54 PM Laboratory Results 07/29/17 14:53 07/29/17 14:53 Test 07/29/17 14:53 07/29/17 15:27 07/29/17 15:28 Red Blood Count 4.25 M/uL (4.2-5.4) Mean Corpuscular Volume 94.6 fL (80-100) Mean Corpuscular Hemoglobin 31.8 pg (25-34) Mean Corpuscular Hemoglobin Concent 33.6 g/dl (32-36) RDW Standard Deviation 49.0 fL (36.4-46.3) RDW Coefficient of Variation 14.3 % (11.5-14.5) Mean Platelet Volume 11.3 fL (7.4-10.4) Prothrombin Time 10.0 SECONDS (9.0-12.0) Prothromb Time International Ratio 1.0 (0.9-1.1) Activated Partial Thromboplast Time 23.3 SECONDS (21.0-31.0) Partial Thromboplastin Ratio 0.9 Anion Gap 9.0 mmol/L (3-11) Estimated GFR () 75.6 Estimated GFR (Non- 65.2 BUN/Creatinine Ratio 11.8 (10-20) Calcium Level 9.0 mg/dl (8.5-10.1) Total Bilirubin 0.3 mg/dl (0.2-1) Aspartate Amino Transf (AST/SGOT) 19 U/L (15-37) Alanine Aminotransferase (ALT/SGPT) 16 U/L (12-78) Alkaline Phosphatase 50 U/L (45-117) Total Protein 7.2 gm/dl (6.4-8.2) Albumin 3.4 gm/dl (3.4-5.0) Globulin 3.8 gm/dl (2.5-4.0) Albumin/Globulin Ratio 0.9 (0.9-2) Hepatitis C Antibody Screen NEG (NEG) Bedside Troponin I < 0.030 ng/ml (0-0.045) Laboratory results reviewed by me. Medications Administered Medications (Trade) Dose Ordered Sig/Rojas Route Start Time Stop Time Status Last Admin Dose Admin Aspirin (Aspirin Chew) 324 mg NOW STAT PO 07/29/17 14:40 07/29/17 14:43 DC 07/29/17 14:52 324 MG Nitroglycerin (Nitroglycerin 2% Oint) 0.5 inch NOW ONCE EXT 07/29/17 14:45 07/29/17 14:46 DC 07/29/17 14:53 0.5 INCH ECG Per My Interpretation Indication: chest pain Rate (beats per minute): 63 Rhythm: normal sinus Findings: no ectopy, other (no ST elevation, no PVC) ED Course 1432: The patient was evaluated in room A9B. A complete history and physical exam was performed. 1440: Aspirin 324 mg PO. 1445: Nitroglycerin 0.5 inch EXT. 1455: I discussed the patient's case with Sary Schneider cardiology. He will evaluate the patient. 1558: I discussed the patient's case with VIRGIL Kenny hospitalist. The patient will be evaluated for further management. 1634: Upon reexamination the patient is resting comfortably. She feels better with the nitroglycerin. I discussed results and treatment plan with the patient. She verbalizes agreement and understanding. The patient will be evaluated for further management. Medical Decision Differential diagnoses considered include musculoskeletal pain, aortic dissection, PE, pneumothorax, IA, cardiac ischemia, anemia, electrolyte imbalance. There is no leukocytosis or concerning anemia. No significant electrolyte abnormality, kidney failure or hepatitis. EKG shows a normal sinus rhythm, no acute ischemia. Cardiac enzyme testing 1 is not consistent with acute cardiac injury. Chest x-ray does not show pneumonia, mediastinal widening or pneumothorax. On exam, the patient did have some tenderness across the chest wall although she felt this pain was different than the pain that brought her to the ED. The patient was given oral aspirin and Nitropaste, she does feel improved. Given her history, given her description of symptoms, a hospital stay for further cardiac workup was felt warranted. I talked with cardiology, I talked with the patient and case management. The on-call hospitalist was consulted. Medication Reconcilliation Current Medication List: was personally reviewed by me Blood Pressure Screening Patient's blood pressure: Elevated blood pressure Referred to hospitalist. Consults Time Called: 1444 Consulting Physician: Sary Schneider cardiology Returned Call: [phone] I discussed the patient's case with him. He will evaluate the patient. Additional Consults: Time Called: 1556 Consulted Physician: VIRGIL Kenny hospitalist Returned Call: [phone] Additional Comments: Discussed the patient's case. The patient will be evaluated for further management. Impression Primary Impression: Precordial chest pain Scribe Attestation The scribe's documentation has been prepared under my direction and personally reviewed by me in its entirety. I confirm that the note above accurately reflects all work, treatment, procedures, and medical decision making performed by me. Departure Information Dispostion Being Evaluated By Hospitalist Referrals Ramon Jimenez III, M.D. (PCP) Patient Instructions My [facility]
[2017-07-29] MEDS: VALSARTAN 80 MG TAB PO SCH (20:30)
[2017-07-29] MEDS ORDERED: ATORVASTATIN 10 MG TAB PO SCH (21:00)
[2017-07-29] MEDS: ASPIRIN 81 MG ECTAB PO SCH (21:20)
[2017-07-29] MEDS: PANTOprazole SOD 40 MG TAB PO SCH (21:20)
[2017-07-30] VITALS (11 sets, daily range): BP systolic 98–139; BP diastolic 49–91; PULSE 58–67; TEMP 36.3–36.8; O2SAT 97–100
[2017-07-30] MEDS ORDERED: SODIUM CHLORIDE 0.9% 1000ML 1,000 ML IV SCH
[2017-07-30 03:36] LABS: HEMATOCRIT 37.3 % (37-47); HEMOGLOBIN 12.5 g/dL (12.0-16.0); MEAN CORPUSCULAR HEMOGLOBIN 31.2 pg (25-34); MEAN CORPUSCULAR HGB CONC 33.5 g/dl (32-36); MEAN PLATELET VOLUME 10.8 fL (7.4-10.4); PLATELET COUNT 240 K/uL (130-400); RED CELL DISTRIBUTION WIDTH CV 14.2 % (11.5-14.5); RED CELL DISTRIBUTION WIDTH SD 48.5 fL (36.4-46.3); WHITE BLOOD COUNT 4.72 K/uL (4.8-10.8)
[2017-07-30 03:45] LABS: PTT PATIENT 24.5 SECONDS (21.0-31.0)
[2017-07-30 03:54] LABS: BLOOD UREA NITROGEN 11 mg/dl (7-18); CALCIUM 9.1 mg/dl (8.5-10.1); CARBON DIOXIDE 26 mmol/L (21-32); CREATININE 0.85 mg/dl (0.60-1.20); GLUCOSE 122 mg/dl (70-99); SODIUM 136 mmol/L (136-145)
[2017-07-30] MEDS: METHYLPREDNISOLONE 4 MG TAB PO SCH ×3 (05:32→18:26)
[2017-07-30] MEDS ORDERED: PANTOprazole SOD 40 MG TAB PO SCH (09:00)
[2017-07-30] MEDS ORDERED: FUROSEMIDE 40 MG TAB PO SCH (09:00)
[2017-07-30] MEDS: DULOXETINE (CYMBALTA) 30 MG CAP PO SCH (10:14)
[2017-07-30] MEDS: VALSARTAN 80 MG TAB PO SCH ×2 (10:14→20:38)
[2017-07-30] MEDS: PANTOprazole SOD 40 MG TAB PO SCH ×2 (10:14→20:38)
[2017-07-30] MEDS ORDERED: FENTANYL CITRATE INJ 50 MCG/1 ML 2 ML VIAL ONE (12:12)
[2017-07-30] MEDS ORDERED: MIDAZOLAM HCL 1 MG/ML 2ML VIAL ONE (12:12)
[2017-07-30] MEDS ORDERED: LIDOCAINE HCL 1% 20 ML VIAL ONE (12:13)
[2017-07-30] MEDS ORDERED: RANITIDINE HCL 25 MG/ML INJ ONE (12:33)
[2017-07-30] MEDS ORDERED: DiphenhydrAMINE HCL 50 MG/ML VIAL ONE (12:34)
[2017-07-30] MEDS ORDERED: SODIUM CHLORIDE 0.9% 1000ML 250 ML IV PRN (13:22)
[2017-07-30] MEDS ORDERED: ATROPINE SULFATE 0.1 MG/ML 5ML SYR IV PRN (13:30)
[2017-07-30] MEDS ORDERED: ACETAMINOPHEN 325 MG TAB PO PRN (13:30)
[2017-07-30] MEDS ORDERED: ONDANSETRON INJ 2 MG/ML 2 ML VIAL IV PRN (13:30)
--- NOTE | 2017-07-30 13:43 | Procedure Note ---
Cardiac Cath Report Procedure: 1. Right heart catheterization 2. Left heart catheterization 3. Coronary angiography 4. Left ventriculogram History: This is a 71-year-old female who underwent mitral valve repair approximately 11 years ago. She has had progressive shortness of breath over the past several months along with some atypical chest pain. An outpatient transthoracic echocardiogram indicated severe pulmonary hypertension along with mitral regurgitation and possible mitral stenosis. The patient is here to have her valvular heart disease further evaluated along with her coronary anatomy. Procedure summary: After informed consent was obtained the patient was prepped and and draped in usual manner for right transfemoral approach. Preformed diagnostic catheters were utilized for the coronary angiograms. A [place] catheter was utilized for the right heart pressures and cardiac outputs. A pigtail catheter was utilized for the left ventriculogram. Following the procedure the arterial site was closed with the minx device. The patient then was recovered in the holding area the Office Workforce Planner and then returned to her room in stable condition. Hemodynamic data: Cardiac output by thermal dilution was 3.1 L/min and by Bruce equation was 3.6 L/ min Right atrial pressure is 10 mmHg Right ventricular pressure is 75/15 mmHg Pulmonary artery pressure 70/36 mmHg Pulmonary capillary wedge pressure 22 mmHg Left ventricular pressure is 146/6 mmHg Aortic pressure is 158/72 mmHg The mean gradient across the mitral valve is 8.56 mmHg with an estimated mitral valve area 3.86 cm. The pulmonary capillary wedge pressure has a large V wave consistent with severe mitral regurgitation. Left ventriculogram: The left ventricle is of normal size with normal systolic function. There is severe mitral regurgitation. The aortic root and ascending aorta have normal morphology. The estimated left ventricular ejection fraction is 60%. Coronary angiography: Selective injections of the left coronary artery revealed the left main trunk to be widely patent. The left circumflex artery consists of several small release medium size marginal branches the left circumflex artery is smooth in appearance widely patent and within normal limits. The LAD gives off a medium to large size ramus branch and then bifurcates into an equal sized diagonal and LAD branch which both continue to the apex of the heart. The LAD system is smooth in appearance widely patent and within normal limits. Selective injections of the right coronary artery reveal it to be dominant. Right coronary artery is smooth appearance widely patent and within normal limits. Summary: This patient has severe mitral regurgitation by left ventriculography. There is also a large V wave noted with the pulmonary capillary wedge pressure. The morphology of the pressure tracings does not suggest mitral stenosis and calculation of the valve gradient and area of the mitral valve do not suggest significant mitral stenosis. Patient has widely patent and normal coronary arteries and normal LV function. She does however, have severe pulmonary hypertension most likely on the basis of valvular heart disease. Recommendations: Counseling and continued medical therapy. Potential re-surgery on the mitral valve with mitral valve replacement. The patient is to have a transesophageal echocardiogram next week.
--- NOTE | 2017-07-30 13:47 | Cardiac Catheterization ---
Procedure Note Procedure Date Jul 30, 2017. Pre-Procedure Diagnosis Valvular Disease AUC Score 9 Post-Procedure Diagnosis Normal Coronary Arteries, Elevated Intracardiac Pressures Procedure(s) Performed Coronary Angiography, Left Heart Cath, Right Heart Cath, LV Angiography Crop Roller Dr. Gao Color Maker Formulator(s) None Estimated Blood Loss None Medication(s) Lidocaine 1%, Diphenhydramine Summary of Findings See dictated report Hemodynamics Rest Ao: 160/78 Final Ao: 158/72 LV: 152/21 Recommendations Medical therapy and/or Counseling Specimens None Radiation Exposure (mGy) 934 Contrast (mls) 94 Procedural Complication(s) None Disposition PCU ACC Data Cardiac Status Clinical evaluation leading to the procedure CAD Presntation: No Sxs, no angina Anginal Classification: No symptoms Heart Failure: Yes, NYHA Class: CCS III Cardiogenic Shock w/in 24Hrs: No Cardiac Arrest w/in 24Hrs: No Imaging studies past 6 months: Yes Stress studies past 6 months: No Coronary Anatomy Dominant: Right Left Main (% Stenosis): Normal LAD (% Stenosis): Normal Circumflex (% Stenosis): Normal RCA (% Stenosis): Normal Left Ventricular Angiography EF (%): 60% Mitral Regurgitation: 4+ Diagnostic Status: Urgent Closure Device Percutaneous Entry Location: Femoral Closure Device: Mynx Recommendations: management recommendations (The patient's data will be reviewed and a transesophageal echocardiogram is planned to further evaluate the mitral valve.)
[2017-07-30] MEDS: CHOLECALCIFEROL 1000 INTER.UNIT TAB PO SCH (18:26)
[2017-07-30] MEDS: ASPIRIN 81 MG ECTAB PO SCH ×2 (18:26→20:39)
[2017-07-30] MEDS: ESTROGENS, CONJUGATED 0.625 MG TAB PO SCH (18:26)
--- NOTE | 2017-07-30 20:34 | Progress Note ---
Internal Med Progress Note Date of Service: Jul 30, 2017. Provider Documentation: SUBJECTIVE: resting comfortably says has chest pain whenever she moves no sob no nausea no cough afebrile awaiting cardiac cath today OBJECTIVE: Vital Signs-as noted below Exam: General-alert and oriented. Not in distress ENT-normal hearing. Neck-No neck masses Lungs-CTA b/l no wheezing or crackles Heart-S1 and S2 heard regular rate and rhythm murmur in mitral area Abdomen-soft Bowels sounds present non tender no distension Extremities-no edema no erythema Neuro-alert and oriented moves extremities Lab data as noted below. ASSESSMENT & PLAN: Patient is a 71-year-old female with a past medical history of HTN, HLD and mitral valve repair (2006, at [facility] [place] as well as other medical problems listed below who presents to the ED with worsening chest pain starting last evening. Chest pain, SOB: R/o ACS; risk factors include HTN and HLD H/o a mitral valve repair in 2006 05/ severe mitral regurg enzymes negative July 2017 echo with EF 55-59%, grade II diastolic dysfunction, mild mitral stenosis, mod mitral regurg, pulm HTN Protestant and will not accept blood products plan for left and right heart cardiac cath and EDER Allergic to contrast dye and prednisone--will need a dye prep started on Methyl prednisone Benadryl and an H2 rubi before the procedure today s/p cardiac left abd right heart cath-normal coronaries plan for TEEnext week cardiology recommends medical management and may need re repair of mitral valve or MVR. HTN: on atenolol, diovan, lasix will monitor GERD: on PPI HLD: on statin DVT Ppx: SCDs for now DISPOSITION to be determined Vital Signs: Date Time Temp Pulse Resp B/P (MAP) Pulse Ox O2 Delivery O2 Flow Rate FiO2 07/30/17 18:47 36.7 67 18 111/58 (75) 98 Room Air 07/30/17 16:00 Room Air 07/30/17 15:15 36.6 64 18 113/91 (98) 97 Room Air 07/30/17 14:45 36.7 62 18 123/60 (81) 100 Room Air 07/30/17 14:23 36.5 64 16 133/68 (89) 100 Room Air 07/30/17 14:05 36.8 65 16 109/60 (76) 100 Room Air 07/30/17 14:00 Room Air 07/30/17 13:45 65 16 118/62 (80) 95 Room Air 07/30/17 13:30 63 16 112/60 (77) 95 Room Air 07/30/17 13:24 63 16 129/60 (83) 95 Room Air 07/30/17 13:09 63 16 145/76 (99) 95 Room Air 07/30/17 11:56 36.6 58 20 139/74 (95) 99 Room Air 07/30/17 08:00 Room Air 07/30/17 07:11 36.7 61 20 127/67 (87) 100 Room Air 07/30/17 04:00 Room Air 07/30/17 03:51 36.6 62 16 98/49 (65) 97 Room Air 07/30/17 00:04 36.5 62 16 114/68 (83) 98 Room Air 07/29/17 23:59 Room Air Lab Results: Results Past 24 Hours Test 07/29/17 21:57 07/30/17 03:25 07/30/17 12:52 07/30/17 13:00 Range/Units Total Creatine Kinase 62 69 26-192 U/L Creatine Kinase MB 1.0 1.0 0.5-3.6 ng/ml Creatine Kinase MB Ratio 1.6 1.4 0-3.0 Troponin I < 0.015 < 0.015 0-0.045 ng/ml White Blood Count 4.72 4.8-10.8 K/uL Red Blood Count 4.01 4.2-5.4 M/uL Hemoglobin 12.5 12.0-16.0 g/dL Hematocrit 37.3 37-47 % Mean Corpuscular Volume 93.0 80-100 fL Mean Corpuscular Hemoglobin 31.2 25-34 pg Mean Corpuscular Hemoglobin Concent 33.5 32-36 g/dl RDW Standard Deviation 48.5 36.4-46.3 fL RDW Coefficient of Variation 14.2 11.5-14.5 % Platelet Count 240 130-400 K/uL Mean Platelet Volume 10.8 7.4-10.4 fL Prothrombin Time 10.2 9.0-12.0 SECONDS Prothromb Time International Ratio 1.0 0.9-1.1 Activated Partial Thromboplast Time 24.5 21.0-31.0 SECONDS Partial Thromboplastin Ratio 0.9 Sodium Level 136 136-145 mmol/L Potassium Level 4.0 3.5-5.1 mmol/L Chloride Level 105 98-107 mmol/L Carbon Dioxide Level 26 21-32 mmol/L Anion Gap 5.0 3-11 mmol/L Blood Urea Nitrogen 11 7-18 mg/dl Creatinine 0.85 0.60-1.20 mg/dl Est Creatinine Clear Calc Drug Dose 61.8 ml/min Estimated GFR () 81.0 Estimated GFR (Non- 69.9 BUN/Creatinine Ratio 13.2 10-20 Random Glucose 122 70-99 mg/dl Calcium Level 9.1 8.5-10.1 mg/dl Bedside Blood Gas pH (LAB) 7.42 7.48 7.35-7.45 Bedside Blood Gas pCO2 (LAB) 36 29 35-46 mmHg Bedside Blood Gas pO2 (LAB) < 32 99 80-95 mmHg Bedside Blood Gas HCO3 (LAB) 23 22 19-24 meq/L Bedside Blood Gas Total CO2 24 22 24-31 mEq/l Bedside Blood Gas Base Excess (LAB) -1.0 -2.0 -9-1.8 meq/L Bedside Blood Gas O2 Saturation 60.0 98.0 90-95 %
[2017-07-30] MEDS: SODIUM CHLORIDE 0.9% 1000ML 1,000 ML IV SCH (20:37)
[2017-07-30] MEDS ORDERED: DULOXETINE (CYMBALTA) 30 MG CAP PO SCH (21:00)
[2017-07-30] MEDS ORDERED: NURSING VERBAL MED ORDER ONE (22:00)
[2017-07-31 03:20] VITALS: BP 123/62; PULSE 55; TEMP 36.4; O2SAT 99
[2017-07-31 04:00] VITALS: O2SAT 99
[2017-07-31 07:16] VITALS: BP 133/77; PULSE 60; TEMP 36.3; O2SAT 100
[2017-07-31] MEDS: PANTOprazole SOD 40 MG TAB PO SCH (09:56)
[2017-07-31] MEDS: DULOXETINE (CYMBALTA) 30 MG CAP PO SCH (09:56)
[2017-07-31] MEDS: VALSARTAN 80 MG TAB PO SCH (09:58)
--- NOTE | 2017-07-31 11:08 | Cardiology Follow-Up ---
Subjective Subjective Date of Service: Jul 31, 2017. Pt evaluation today including: conversation w/ patient, conversation w/ family , physical exam, chart review, lab review, review of inpatient medication list Additional Details: The patient had no new complaints overnight. She is anxious to return home. She denies shortness of breath, chest pain or heart palpitations. Problem List Medical Problems: (1) Left shoulder pain Status: Acute (2) Precordial chest pain Status: Acute Social History Problems: (1) Cough Status: Acute (2) Left sided abdominal pain Status: Acute (3) skin problems Status: Chronic Objective Vital Signs Last Vital Signs Documentation Date Time Temp Pulse Resp B/P (MAP) Pulse Ox O2 Delivery O2 Flow Rate FiO2 07/31/17 07:16 36.3 60 20 133/77 (95) 100 Room Air Physical Exam: General Appearance: no apparent distress ENT: normal ENT inspection Neck: no adenopathy, thyroid normal, no JVD Respiratory/Chest: lungs clear, normal breath sounds Cardiovascular: regular rate, rhythm, no edema, no JVD, + systolic murmur Abdomen: non tender, soft, no organomegaly Extremities: non-tender, normal inspection, no pedal edema Neurologic/Psychiatric: no motor/sensory deficits, alert, normal mood/affect Skin: normal color, warm/dry, no rash Lymphatic: no adenopathy Assessment and Plan Impression: 1. Severe mitral regurgitation 2. Previous mitral valve repair 3. Pulmonary hypertension due to valvular heart disease Recommendations: I believe the patient may be discharged home with outpatient follow-up. She has a EDER scheduled for Saturday of next week which she should complete. Her primary clerical proofreader will also return next week and have further recommendations. Medications: Current Inpatient Medications Medications (Trade) Dose Ordered Sig/Rojas Route Start Time Stop Time Status Last Admin Dose Admin Miscellaneous (Dc All Anticoagulants) 1 ea UD N/A 07/29/17 17:00 08/28/17 16:59 Al Hydrox/Mg Hydrox/Simethicone (Maalox Max Susp) 15 ml Q4H PRN PO 07/29/17 17:30 08/28/17 17:29 Nitroglycerin (Nitrostat Tab) 0.4 mg UD PRN SL 07/29/17 17:30 08/28/17 17:29 Atenolol (Tenormin Tab) 37.5 mg BID PO 07/29/17 21:00 08/28/17 20:59 07/31/17 09:57 37.5 MG Atorvastatin Calcium (Lipitor Tab) 10 mg MoWeFr@HS PO 07/29/17 21:00 08/28/17 20:59 07/29/17 20:29 10 MG Benzonatate (Tessalon Perles Cap) 100 mg TID PRN PO 07/29/17 19:30 08/28/17 19:29 Cholecalciferol (Vitamin D Tab) 1,000 inter.unit DAILY PO 07/30/17 09:00 08/29/17 08:59 07/30/17 18:26 1,000 INTER.UNIT Docusate Sodium (coLACE CAP) 100 mg BID PRN PO 07/29/17 19:30 08/28/17 19:29 Duloxetine HCl (Cymbalta Cap) 30 mg DAILY PO 07/30/17 09:00 08/29/17 08:59 07/31/17 09:56 30 MG Estrogens Conjugated (Premarin Tab) 0.625 mg QAM PO 07/30/17 09:00 08/29/17 08:59 07/30/17 18:26 0.625 MG Fluticasone Propionate (Flovent Hfa 110MCG Inhaler) 2 puffs BID PRN INH 07/29/17 19:30 08/28/17 19:29 Fluticasone Propionate (Flonase Nasal [place]) 2 sprays DAILY PRN CHRISTOPH 07/29/17 19:30 08/28/17 19:29 Folic Acid (Folvite Tab) 1 mg DAILY PO 07/30/17 09:00 08/29/17 08:59 07/31/17 09:56 1 MG Furosemide (Lasix Tab) 40 mg QAM PO 07/30/17 09:00 08/29/17 08:59 Future Hold Valsartan (Diovan Tab) 20 mg BID PO 07/29/17 21:00 08/28/17 20:59 07/31/17 09:58 20 MG Cetirizine HCl (zyrTEC TAB) 10 mg DAILY PRN PO 07/29/17 19:30 08/28/17 19:29 Duloxetine HCl (Cymbalta Cap) 30 mg Q2D@HS PO 07/30/17 21:00 08/29/17 20:59 07/30/17 20:39 30 MG Pantoprazole Sodium (Protonix Tab) 40 mg BID PO 07/29/17 21:00 08/29/17 08:59 07/31/17 09:56 40 MG Aspirin (Ecotrin Tab) 81 mg BID PO 07/29/17 21:00 08/28/17 20:59 07/30/17 20:39 81 MG Sodium Chloride 1,000 ml @ 50 mls/hr Q20H IV 07/30/17 13:22 08/29/17 13:21 07/30/17 20:37 50 MLS/HR Acetaminophen (Tylenol Tab) 650 mg Q4H PRN PO 07/30/17 13:30 08/29/17 13:29 Sodium Chloride 250 ml @ 999 mls/hr Q16M PRN IV 07/30/17 13:22 08/29/17 13:21 Atropine Sulfate (Atropine Sulfate 0.1mg/ml Inj) 0.6 mg PRN PRN IV 07/30/17 13:30 08/29/17 13:29 Ondansetron HCl (Zofran Inj) 4 mg Q6H PRN IV 07/30/17 13:30 08/29/17 13:29 Lab Results: Last 24 Hours Test 07/30/17 12:52 07/30/17 13:00 Bedside Blood Gas pH (LAB) 7.42 7.48 Bedside Blood Gas pCO2 (LAB) 36 mmHg 29 mmHg Bedside Blood Gas pO2 (LAB) < 32 mmHg 99 mmHg Bedside Blood Gas HCO3 (LAB) 23 meq/L 22 meq/L Bedside Blood Gas Total CO2 24 mEq/l 22 mEq/l Bedside Blood Gas Base Excess (LAB) -1.0 meq/L -2.0 meq/L Bedside Blood Gas O2 Saturation 60.0 % 98.0 %
[2017-07-31] MEDS: ASPIRIN 81 MG ECTAB PO SCH (11:38)
[2017-07-31] MEDS: ESTROGENS, CONJUGATED 0.625 MG TAB PO SCH (11:38)
[2017-07-31] MEDS: SODIUM CHLORIDE 0.9% 1000ML 1,000 ML IV SCH (11:38)
[2017-07-31] MEDS: CHOLECALCIFEROL 1000 INTER.UNIT TAB PO SCH (11:38)
--- NOTE | 2017-07-31 12:22 | Discharge Instructions ---
Discharge Instructions Date of Service Jul 31, 2017. Admission Reason for Admission: Chest Pain Discharge Discharge Diagnosis / Problem: sob/chest pain Discharge Goals Goal(s): Decrease discomfort, Improve function Activity Recommendations Activity Limitations: resume your previous activity Lifting Limitations: no more than 5 pounds (until seen by cardiology next week) . Instructions / Follow-Up Instructions / Follow-Up FOLLOWUP WITH FAMILY DOCTOR ON July AT 1:45PM FOLLOWUP WITH CARDIOLOGY SCHEDULED. Current Hospital Diet Patient's current hospital diet: AHA Diet (Heart Healthy) Discharge Diet Recommended Diet: AHA Diet (Heart Healthy) Pending Studies Studies pending at discharge: no Medical Emergencies . Who to Call and When: Medical Emergencies: If at any time you feel your situation is an emergency, please call 911 immediately. . Non-Emergent Contact Non-Emergency issues call your: Primary Care Provider . . "Provider Documentation" section prepared by Roscoe Bush. .
[2017-07-31 12:56] VITALS: BP 133/77; PULSE 60; TEMP 36.3; O2SAT 100
--- NOTE | 2017-07-31 18:27 | Progress Note ---
Internal Med Progress Note Date of Service: Jul 31, 2017. Provider Documentation: SUBJECTIVE: resting comfortably s/p cardiac yesterday chest pain improved some sob on exertion afebrile ok for d/c today OBJECTIVE: Vital Signs-as noted below Exam: General-alert and oriented. Not in distress ENT-normal hearing. Neck-No neck masses Lungs-CTA b/l no wheezing or crackles Heart-S1 and S2 heard regular rate and rhythm murmur in mitral area Abdomen-soft Bowels sounds present non tender no distension Extremities-no edema no erythema right groin cath site fine Neuro-alert and oriented moves extremities Lab data as noted below. ASSESSMENT & PLAN: Patient is a 71-year-old female with a past medical history of HTN, HLD and mitral valve repair (2006, at [facility] [place]) as well as other medical problems listed below who presents to the ED with worsening chest pain starting last evening. Chest pain, SOB: R/o ACS; risk factors include HTN and HLD H/o a mitral valve repair in 2006 2/2 severe mitral regurg enzymes negative July 2017 echo with EF 55-59%, grade II diastolic dysfunction, mild mitral stenosis, mod mitral regurg, pulm HTN Zoroastrian and will not accept blood products plan for left and right heart cardiac cath and EDER Allergic to contrast dye and prednisone--will need a dye prep started on Methyl prednisone Benadryl and an H2 rubi before the procedure today s/p cardiac left abd right heart cath-normal coronaries plan for TEEnext week cardiology recommends medical management for now and may need re repair of mitral valve or MVR. f/u with cardiology HTN: on atenolol, diovan, lasix will monitor GERD: on PPI HLD: on statin discharged home Vital Signs: Date Time Temp Pulse Resp B/P (MAP) Pulse Ox O2 Delivery O2 Flow Rate FiO2 07/31/17 12:56 36.3 60 20 100 Room Air 07/31/17 08:00 Room Air 07/31/17 07:16 36.3 60 20 133/77 (95) 100 Room Air 07/31/17 04:00 99 Room Air 07/31/17 03:20 36.4 55 16 123/62 (82) 99 Room Air 07/30/17 23:59 99 Room Air 07/30/17 23:45 36.3 63 16 113/55 (74) 99 Room Air 07/30/17 20:00 Room Air 07/30/17 18:47 36.7 67 18 111/58 (75) 98 Room Air
--- NOTE | 2017-07-31 18:30 | Discharge Summary ---
Discharge Summary Date of Service Jul 31, 2017. Discharge Summary Admission Date: Jul 29, 2017 at 17:20 Discharge Date: Jul 31, 2017 Discharge Disposition: Home Principal Diagnosis: CHEST PAIN SOB Secondary Diagnoses/Problems: 1) Cervical radiculopathy Status: Chronic (2) Fusion of spine, cervical region Status: Resolved (3) GERD (gastroesophageal reflux disease) Status: Chronic (4) HLD (hyperlipidemia) Status: Chronic (5) HTN (hypertension) Status: Chronic (6) IBS (irritable bowel syndrome) Status: Chronic (7) Rhinitis, non-allergic Status: Chronic Procedures: CXR: No acute cardiopulmonary findings S/P RIGHT AND LEFT HEART CATH: Summary: This patient has severe mitral regurgitation by left ventriculography. There is also a large V wave noted with the pulmonary capillary wedge pressure. The morphology of the pressure tracings does not suggest mitral stenosis and calculation of the valve gradient and area of the mitral valve do not suggest significant mitral stenosis. Patient has widely patent and normal coronary arteries and normal LV function. She does however, have severe pulmonary hypertension most likely on the basis of valvular heart disease. Recommendations: Counseling and continued medical therapy. Potential re-surgery on the mitral valve with mitral valve replacement. The patient is to have a transesophageal echocardiogram next week. Consultations: CARDIOLOGY Medication Reconciliation Continued Medications: Aspirin (Aspirin Ec) 81 Mg Tab 81 MG PO BID Atenolol (Tenormin) 25 Mg Tab 37.5 MG PO BID Atorvastatin (Lipitor) 10 Mg Tab 10 MG PO MWF Benzonatate (Tessalon Perles) 100 Mg Cap 100 MG PO TID PRN for Cough Cetirizine Hcl (Cetirizine Hcl) 10 Mg Chw 10 MG PO DAILY PRN Cholecalciferol (Vitamin D 400 Iu) 400 Unit Cap 1000 INTER.UNIT PO DAILY Docusate Sodium (Colace) 100 Mg Cap 1 CAP PO BID PRN for Constipation Duloxetine HCl (Cymbalta) 30 Mg Cap 1 CAP PO UD 1 TAB every morning and 1 TAB every other evening Estrogens, Conjugated (Premarin) 0.625 Mg Tab 0.625 MG PO QAM Estrogens, Conjugated (Premarin) 14 Appln/30 Gm Cr 1 APPL PV 2XWK Fluticasone Propionate (Flovent Hfa) 120 Puffs/48049 Mcg Aero 2 PUFFS INH BID PRN for SOB/Wheezing Fluticasone Propionate (Nasal) (Flonase Allergy Relief) 50 Mcg/Act Spr 2 SPRAYS CHRISTOPH DAILY PRN for ALLERGIES Folic Acid (Folvite) 1 Mg Tab 1 MG PO DAILY Furosemide (Lasix) 40 Mg Tab 40 MG PO QAM Lactulose (Chronulac) 10 Gm/15 Ml Syrp 1 TBS PO DAILY PRN for Constipation Multivitamin (Multivitamin) Tab 1 TAB PO QAM Omeprazole (Prilosec) 40 Mg Cap 40 MG PO BID Ranitidine (Zantac) 300 Mg Tab 300 MG PO BID PRN for Allergic Reaction Saline (Saline Nasal [place]) 0.65 % Spr 1 SPRAY CHRISTOPH Q2-4H PRN for ALLERGIES Salsalate (Salsalate) 750 Mg Tab 750 MG PO BID PRN for Pain WITH FOOD Valsartan (Diovan) 40 Mg Tab 20 MG PO BID Admission Information HPI (per Admitting provider): Patient is a 71-year-old female with a past medical history of HTN, HLD and mitral valve repair (2006, at [facility]) as well as other medical problems listed below who presents to the ED with worsening chest pain starting last evening. Over the past few months, patient has had progressive shortness of breath and intermittent squeezing chest pain with exertion. Last evening, patient began experiencing constant, 7/10 squeezing chest pain with radiation to jaw that was worse with exertion. Endorses associated shortness of breath but denies diaphoresis, nausea or vomiting. Chest pain was relieved with nitro paste in the ED but now complains of headache. Denies fever, chills, lightheadedness, near syncope, visual changes, palpitations, abdominal pain, nausea, vomiting, bowel or bladder changes or LE swelling. Patient was seen last week by Dr. Ford in cardiology clinic for intermittent chest pain and shortness of breath. Per chart review, recent echo findings show pulmonary hypertension and new mild-moderate mitral stenosis. EDER and right and left heart catheterization were scheduled for next week to further assess mitral stenosis, mitral regurgitation and the tricuspid valve. 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 Patient is a Christian and does not want any blood products. Physical Exam (per Admitting): General Appearance: WD/WN, no apparent distress Head: normocephalic, atraumatic Eyes: normal inspection, PERRL, sclerae normal ENT: normal ENT inspection, hearing grossly normal, pharynx normal Neck: supple, no JVD, trachea midline Respiratory/Chest: lungs clear, normal breath sounds, no respiratory distress, no accessory muscle use, + pertinent finding (L chest wall with TTP ) Cardiovascular: regular rate, rhythm, + pertinent finding (Holosystolic murmur heard throughout precordium ) Abdomen/GI: non tender, soft, no organomegaly Back: normal inspection Extremities/Musculoskelatal: normal inspection, no calf tenderness, no pedal edema Neurologic/Psych: no motor/sensory deficits, alert, normal mood/affect, oriented x 3 Skin: normal color, warm/dry Hospital Course Patient is a 71-year-old female with a past medical history of HTN, HLD and mitral valve repair (2006, at [facility]) as well as other medical problems listed below who presents to the ED with worsening chest pain starting last evening. Chest pain, SOB: R/o ACS; risk factors include HTN and HLD H/o a mitral valve repair in 2006 2/2 severe mitral regurg enzymes negative July 2017 echo with EF 55-59%, grade II diastolic dysfunction, mild mitral stenosis, mod mitral regurg, pulm HTN Jain and will not accept blood products plan for left and right heart cardiac cath and EDER Allergic to contrast dye and prednisone--will need a dye prep started on Methyl prednisone Benadryl and an H2 rubi before the procedure today s/p cardiac left abd right heart cath-normal coronaries plan for TEEnext week cardiology recommends medical management for now and may need re repair of mitral valve or MVR. f/u with cardiology HTN: on atenolol, diovan, lasix will monitor GERD: on PPI HLD: on statin discharged home Total time spent on discharge = 35MINUTES This includes examination of the patient, discharge planning, medication reconciliation, and communication with other providers. Discharge Instructions Discharge Instructions Date of Service Jul 31, 2017. Admission Reason for Admission: Chest Pain Discharge Discharge Diagnosis / Problem: sob/chest pain Discharge Goals Goal(s): Decrease discomfort, Improve function Activity Recommendations Activity Limitations: resume your previous activity Lifting Limitations: no more than 5 pounds (until seen by cardiology next week) . Instructions / Follow-Up Instructions / Follow-Up FOLLOWUP WITH FAMILY DOCTOR ON July AT 1:45PM FOLLOWUP WITH CARDIOLOGY SCHEDULED. Current Hospital Diet Patient's current hospital diet: AHA Diet (Heart Healthy) Discharge Diet Recommended Diet: AHA Diet (Heart Healthy) Pending Studies Studies pending at discharge: no Medical Emergencies . Who to Call and When: Medical Emergencies: If at any time you feel your situation is an emergency, please call 911 immediately. . Non-Emergent Contact Non-Emergency issues call your: Primary Care Provider . .
== END 2017-07-31 13:43 | disposition home or self-care (01) ==
LOC: C.EDB 12:07 → C.2E 17:20 → ENRESERV 17:30
PROVIDERS: ADMIT Hospitalist; ATTEND Internal Medicine
DX: R07.2 Precordial pain (principal); R06.02 Shortness of breath; K21.9 Gastro-esophageal reflux disease without esophagitis; E78.5 Hyperlipidemia, unspecified; I10 Essential (primary) hypertension; K58.9 Irritable bowel syndrome, unspecified; Z98.1 Arthrodesis status; Z90.89 Acquired absence of other organs; Z82.49 Family history of ischemic heart disease and other diseases of the circulatory system; Z79.82 Long term (current) use of aspirin; Z88.2 Allergy status to sulfonamides; Z91.041 Radiographic dye allergy status; Z88.6 Allergy status to analgesic agent; Z88.5 Allergy status to narcotic agent; Z91.018 Allergy to other foods; Z91.040 Latex allergy status; Z91.048 Other nonmedicinal substance allergy status

== ENCOUNTER → 2017-08-05 | Day surgery (SDC) | payer BC ==
[2017-08-05] VITALS (11 sets, daily range): BP systolic 106–151; BP diastolic 54–99; PULSE 57–66; TEMP 36.5; O2SAT 97–100; Ht 160 cm; Wt 79.0 kg
[~2017-08-05] VITALS: Ht 160 cm; Wt 79.0 kg
[~2017-08-05] MED LIST changes: -DICY10CA12 PO; +LACT10SO17 PO; +LIDOCAINE HCL 2% 2 ML VIAL (20MG/ML) ONE; +PROPOFOL IV EMULSION 10 MG/ML 20 ML VIAL IV ONE; +SALI-3 NAE; -SALI1SPR3 NAE
--- NOTE | 2017-08-05 07:32 | History & Physical Bridge Note ---
H&P Re-Evaluation Bridge Note: I have examined the patient, reviewed the History & Physical and in the interval since the performance of the History & Physical I have noted the following changes of clinical significance: Since patient's recent outpatient visit , she was admitted last week for complaint of chest discomfort and shortness of breath. Myocardial infarction was excluded. She was seen by Dr Gao of practice and left and right heart catheterization with coronary angiography was performed with findings of no obstructive CAD and elevated PA pressures with hemodynamic tracings suggestive of severe mitral regurgitations. Plan to proceed with EDER for further evaluation of valvular heart disease. Informed consent was obtained. Exam: BP 139/71, HR 63, SR. CV: 2/6 SM. Lungs : CTAB, Ext: no edema. Plan: EDER as discussed.
--- NOTE | 2017-08-05 08:22 | Cardiology Procedure Brief Nt ---
Preliminary Cardiology Note Procedure Date Aug 05, 2017. Pre-Procedure Diagnosis mitral regurgitation Post-Procedure Diagnosis mild MS, severe MR Procedure(s) Performed EDER Policyholder Information Clerk Steph Ford DO Fiber Technician(s) GIRISH Mora Estimated Blood Loss none Preliminary Findings Severe Mitral regurgitation. Mild mitral stenosis. Recommendations Continue present medications. Plan for outpatient CT surgery consultation. Specimens none Anesthesia Propofol 220 mg Complication(s) None Disposition recover in the post cardiac cath suite, then discharge to home.
--- NOTE | 2017-08-05 08:25 | Discharge Instructions ---
Discharge Instructions Procedure Procedure Date: Aug 05, 2017. Reason for Visit: Mitral Stenosis,Mitral Regurgitation. Discharge Discharge Date: Aug 05, 2017. Discharge Diagnosis: same Last Recorded Wt (Kilograms): 79 Anesthesia Post Anesthesia Instructions: If you have had General Anesthesia or IV Sedation: * Do not drive today. * Resume driving when surgeon permits. * Do not make important decisions or sign legal documents today. * Call surgeon for: 1. Temperature elevations greater than 101 degrees F. 2. Uncontrollable pain. 3. Excessive bleeding. 4. Persistent nausea and vomiting. 5. Medication intolerance (nausea, vomiting or rash). * For nausea and vomiting use only clear liquids such as: tea, soda, bouillon until nausea subsides, then gradually increase diet as tolerated. * If you have any concerns or questions, call your surgeon's office. If physician is unavailable and it is an emergency, call 911 or go to the nearest emergency room. Instructions Activity Recommendations: limitations as noted below Recommended Home Diet: resume previous diet Allergies: Coded Allergies: Codeine (Verified Allergy, Mild, SWEATS, PALPITATIONS, RINGING IN EARS, HIVES, 07/01/17) Diazepam (Verified Allergy, Mild, SWEATING, 07/01/17) Grapefruit (Verified Allergy, Mild, "CANNOT TAKE WITH HEART MEDICATION", ) Ibuprofen (Verified Allergy, Mild, NUMBNESS, 07/01/17) Iodinated Contrast Media (Verified Allergy, Mild, HIVES, 07/01/17) Oxycodone (Verified Allergy, Mild, HEART RACES, 07/01/17) Propoxyphene (Verified Allergy, Mild, SWEATS, PALPITATIONS, RINGING IN EARS, 07/01/17) Sulfa Drugs (Verified Allergy, Mild, RASH, HIVES, 07/01/17) Thiopental (Verified Allergy, Mild, "HEART STOPPED", 07/01/17) Tramadol (Verified Allergy, Mild, SWEATS, PALPITATIONS, RINGING IN EARS, ) Aspartame (Verified Allergy, Unknown, DIZZINESS, MIGRAINES, 07/01/17) Aspirin (Verified Allergy, Unknown, SWEATS, PALPITATIONS, RINGING IN EARS , 07/01/17) Benzodiazepines (Verified Allergy, Unknown, SWEATS, PALPITATIONS, RINGING IN EARS, 07/01/17) Ferrous Sulfate (Verified Allergy, Unknown, HIVES, 07/01/17) Ioversol (Verified Allergy, Unknown, HIVES, 07/01/17) Latex1 -Allergic Contact Dermititis (Verified Allergy, Unknown, RASH AND CAN'T BREATHE, 07/01/17) Lorazepam (Verified Allergy, Unknown, HIVES AND SWEATING, 07/01/17) Morphine and Related (Verified Allergy, Unknown, HEART STOPPED AND "I STOPPED LIVING", 07/01/17) NSAIDs (Verified Allergy, Unknown, NUMBNESS, 07/01/17) Nickel (Verified Allergy, Unknown, HIVES AND RASH, 07/01/17) Pantoprazole (Verified Allergy, Unknown, UNKNOWN - PT TAKES NEXIUM AT HOME , 07/29/17) Pentobarbital (Verified Allergy, Unknown, "HEART STOPPED", 07/01/17) Phenobarbital (Verified Allergy, Unknown, "HEART STOPPED", 07/01/17) Prednisone (Verified Allergy, Unknown, HIVES, 07/01/17) Saccharin (Verified Allergy, Unknown, FROM NUTRASWEET - DIZZINESS, MIGRAINES, 07/01/17) Salicylates (Verified Allergy, Unknown, GERD, IRRITATES STOMACH, HIGH DOSE ONLY, 07/01/17) Caffeine (Verified Adverse Reaction, Mild, JITTERY, 07/01/17) Adhesives (Verified Adverse Reaction, Unknown, REDNESS AND HIVES, 07/01/17) Provider Instructions ACTIVITY RECOMMENDATIONS: Resume activities as tolerated with no limitations unless specified. _x_ No lifting over _10_ pounds for 24 hours. _x_ Do not engage in vigorous exercise, sexual activity, or sports for 24 hours. _x_ Do not drive or operate any motorized equipment for 24 hours. _x_ You may return to work/school tomorrow. _x_ Nothing to eat or drink until gag reflex returns. x__ No HOT or WARM liquids for _24_ hours. _x_ Avoid "scratchy" foods such as potato chips or pretzels for 24 hours following procedure. SPECIAL CARE: If you experience coughing up or vomiting of blood, contact _Dr Ford __ Follow Up Follow-up with: Follow up with Dr Ford. Will make arrangements for outpatient cardiac surgery consultation . Tom Covington Recommendations: Call your doctor if: * Temperature above 101 degrees * Pain not relieved by pain medicine ordered * There is increased drainage or redness from any incision * You have any unanswered questions or concerns. Your Doctors Instructions noted above were prepared by provider Bryan Ford. Patient Signature Section: Patient Instructions Signature Page Smitha Morgan Patient (or Guardian) Signature/Date: I have read and understand the instructions given to me by my caregivers. Caregiver/RN/Doctor Signature/Date: The above-named patient and/or guardian has received patient instructions on this date. + Original Patient Signature Page (only) stays with chart. Please make copy for patient.
--- NOTE | 2017-08-05 08:36 | Anesthesiology Progress Note ---
Anesthesia Post Op Note Date & Time Aug 05, 2017 at 08:36 Vital Signs Pain Intensity: 0 Vital Signs Past 12 Hours Date Time Temp Pulse Resp B/P (MAP) Pulse Ox O2 Delivery O2 Flow Rate FiO2 08/05/17 08:15 62 16 106/61 (76) 99 Room Air 08/05/17 08:13 58 18 115/88 100 Nasal Cannula 4 08/05/17 08:08 57 18 113/54 100 Nasal Cannula 4 08/05/17 08:03 65 18 118/55 100 Nasal Cannula 4 08/05/17 07:58 65 18 134/64 100 Nasal Cannula 4 08/05/17 07:53 65 18 116/58 100 Nasal Cannula 4 08/05/17 07:48 65 18 151/77 100 Nasal Cannula 4 08/05/17 07:43 64 18 147/99 100 Nasal Cannula 4 08/05/17 07:38 66 18 146/64 100 Nasal Cannula 4 08/05/17 07:33 65 18 134/74 100 Nasal Cannula 4 08/05/17 07:12 36.5 65 16 139/71 (93) 99 Room Air Notes Mental Status: alert / awake / arousable, participated in evaluation Pt Amnestic to Procedure: Yes Nausea / Vomiting: adequately controlled Pain: adequately controlled Airway Patency, RR, SpO2: stable & adequate BP & HR: stable & adequate Hydration State: stable & adequate Anesthetic Complications: no major complications apparent
--- NOTE | 2017-08-06 14:15 | TEE ---
*NOTICE TO RECEIVING LIBERTARIAN AGENCY This information is strictly Confidential and protected under [place] law. [place] law prohibits you from making any further disclosure of this information unless further disclosure is expressly permitted by the written consent of the person to whom it pertains or is authorized by law. A general authorization for the release of medical or other information is not sufficient for this purpose. Hospital accepts no responsibility if the information is made available to any other person, INCLUDING THE PATIENT. 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 * The left ventricular ejection Fraction = 60-65%. * There is evidence of a prior mitral valve repair and annuloplasty ring. * Mild mitral stenosis is present with a mean mitral valve gradient of 5 mmHg. * Mitral valve regurgitation is present. * The mitral valve regurgitation appears to be moderate in severity based on assessment of the size of the color-flow jet, and the calculated mitral regurgitation regurgitant fraction of 33%. * The color jet however is eccentric, and based on the clinical presentation, and recent invasive cardiac catheterization data suggesting severe pulmonary hypertension with tracings consistent with severe mitral regurgitation, severe mitral regurgitation is suspected clinically. * There is mild tricuspid regurgitation. * Trace aortic regurgitation. Procedure Details * EDER Probe #1 utilized for procedure. * The study was performed in Cardiac Catheterization Lab. * Time out was conducted by the physician, nurse, and astro technician with positive identification of patient and procedure. * Informed consent for Transesophageal Echocardiogram was obtained prior to the procedure. * An intravenous line was placed. A topical anesthetic agent was used for oropharangeal anesthesia. A bite block was inserted. * The patient's vital signs, including blood pressure, heart rate, pulse oximetry and cardiac rhythm were monitored throughout the procedure . * Sedation Medications: 40 LIDOCAINE \T\ 220 PROPOFOL Procedure Start Time - 729 Procedure Stop Time - 814 * Sedation performed by the anesthesia department. * A multifrequency, multiplane transesopheageal echocardiographic endoscope was inserted and manipulated in the standard fashion to achieve multiplane views. * The transesophageal probe was passed without difficulty. * Contrast injection with agitated saline was performed. * The usual views were obtained; basal, mid-esophageal, transgastric and aortic views. * The patient tolerated the procedure well without evidence of orophangeal or esophageal trauma. * A 2D transesophageal echocardiogram was performed. * A 2D transesophageal echocardiogram with color flow Doppler was performed. * A 2D transesophageal echocardiogram with Doppler and color flow Doppler was performed. Left Ventricle * The left ventricle is normal in size. * There is normal left ventricular wall thickness. * Left ventricular systolic function is normal. * Ejection Fraction = 60-65%. * The left ventricular wall motion is normal. Right Ventricle * The right ventricle is normal in size and function. Atria * The left atrium is severely dilated. * No thrombus is detected in the left atrial appendage. * No left atrial mass or thrombus visualized. * The right atrium is mildly dilated. * The interatrial septum is intact with no evidence for an atrial septal defect. Mitral Valve * There is evidence of a prior mitral valve repair and annuloplasty ring. * Mild mitral stenosis is present with a mean mitral valve gradient of 5 mmHg. * Mitral valve regurgitation is present. The mitral valve regurgitation appears to be moderate in severity based on assessment of the size of the color-flow jet, and the calculated mitral regurgitation regurgitant fraction of 33%. The color jet however is eccentric, and based on the clinical presentation, and recent invasive cardiac catheterization data suggesting severe pulmonary hypertension with tracings consistent with severe mitral regurgitation, severe mitral regurgitation is suspected clinically. Tricuspid Valve * The tricuspid valve is normal. * There is no tricuspid stenosis. * There is mild tricuspid regurgitation. Aortic Valve * The aortic valve is trileaflet. * No hemodynamically significant valvular aortic stenosis. * Trace aortic regurgitation. Pulmonic Valve * The pulmonic valve is not well seen, but is grossly normal. * Mild pulmonic valvular regurgitation. Great Vessels * The aortic root and proximal ascending aorta are normal sized. * Mild non mobile atheromatous disease is noted in the visualized portion of the descending thoracic aorta. Pericardium * There is no pericardial effusion. MMode 2D Measurements and Calculations MV Diam 1.6 cm LVOT diam 2.1 cm LVOT area 3.5 cm\S\2 Doppler Measurements and Calculations MV V2 mean 102.2 cm/sec MV mean PG 5.0 mmHg MV V2 VTI 49.4 cm MV area (1 diam) 2.0 cm\S\2 MVA(VTI) 1.5 cm\S\2 MV Flow area(1diam) 2.0 cm\S\2 MV P1/2t max el 191.1 cm/sec MV P1/2t 70.2 msec MVA(P1/2t) 3.1 cm\S\2 MV dec slope 797.4 cm/sec\S\2 LV V1 max PG 3.1 mmHg LV V1 mean PG 1.5 mmHg LV V1 max 88.0 cm/sec LV V1 mean 56.1 cm/sec LV V1 VTI 21.1 cm MR max el 655.7 cm/sec MR max PG 172.0 mmHg MR mean el 497.6 cm/sec MR mean PG 110.3 mmHg MR VTI 221.1 cm SV(MV 1 diam) 97.1 ml SI(MV 1 diam) 53.4 ml/m\S\2 SV(LVOT) 73.7 ml SI(LVOT) 40.5 ml/m\S\2 TR max el 318.2 cm/sec RF(MV,LVOT)(1diam) 0.24
== END | disposition home or self-care (01) ==
LOC: C.CATH 06:23
PROVIDERS: ATTEND Specialist
DX: I34.0 Nonrheumatic mitral (valve) insufficiency (principal); R07.9 Chest pain, unspecified; I10 Essential (primary) hypertension; E78.5 Hyperlipidemia, unspecified; K21.9 Gastro-esophageal reflux disease without esophagitis; K58.9 Irritable bowel syndrome, unspecified; Z79.899 Other long term (current) drug therapy; Z79.82 Long term (current) use of aspirin; Z98.1 Arthrodesis status; Z90.89 Acquired absence of other organs; Z95.2 Presence of prosthetic heart valve; Z82.49 Family history of ischemic heart disease and other diseases of the circulatory system; Z88.2 Allergy status to sulfonamides; Z88.6 Allergy status to analgesic agent; Z88.5 Allergy status to narcotic agent; Z88.8 Allergy status to other drugs, medicaments and biological substances; Z91.018 Allergy to other foods; Z91.041 Radiographic dye allergy status; Z91.040 Latex allergy status; Z91.048 Other nonmedicinal substance allergy status

== ENCOUNTER 2018-10-30 10:50 | Observation (INO) ==
--- NOTE | 2018-10-30 11:30 | XRay Report ---
SINGLE VIEW CHEST CLINICAL HISTORY: Atypical chest pain. FINDINGS: An AP, portable, upright chest radiograph is compared to study dated 07/29/2017. The the elizbaeth ent is status post midline sternotomy. The heart is mildly enlarged. The pulmonary vasculature is non congested. There is chronic elevation of the right hemidiaphragm with associated atelectasis. The faby gs and pleural spaces are otherwise clear. No pneumothorax is seen. The skeletal structures are osteo penic. The bony thorax is grossly intact. Fusion hardware is noted in the lower cervical spine. IMPRESSION: Mild cardiac enlargement with no acute cardiopulmonary abnormality. Electronically signed by: Eddie Pop M.D. 10/30/2018 11:29 AM
[2018-10-30 11:35] LABS: Basophils # (auto) 0.01 K/uL (0-0.2); Basophils % (auto) 0.3 %; Eosinophils # (auto) 0.11 K/uL (0-0.5); Eosinophils % (auto) 2.8 %; Hematocrit (blood only) 38.2 % (37-47); Hemoglobin 12.4 g/dL (12.0-16.0); Immature Granulocytes # (auto) 0.01 K/uL (0.00-0.02); Immature Granulocytes % (auto) 0.3 %; Lymphocytes # (auto) 1.46 K/uL (1.2-3.4); Lymphocytes % (auto) 37.2 %; Mean Corpuscular Hgb Conc 32.5 g/dL (32-36); Mean Corpuscular Volume 88.2 fL (80-100); Mean Platelet Volume 10.8 fL (7.4-10.4); Monocytes # (auto) 0.32 K/uL (0.11-0.59); Monocytes % (auto) 8.2 %; Neutrophils # (auto) 2.01 K/uL (1.4-6.5); Neutrophils % (auto) 51.2 %; Platelet Count 261 K/uL (130-400); RDW Coefficient of Variation 17.4 % (11.5-14.5); RDW Standard Deviation 56.5 fL (36.4-46.3); Red Blood Count 4.33 M/uL (4.2-5.4); White Blood Count 3.92 K/uL (4.8-10.8)
[2018-10-30 11:49] LABS: INR 1.5 (0.9-1.1); Partial Thromboplastin Ratio 0.9; Partial Thromboplastin Time 25.1 Seconds (21.0-31.0); Prothrombin Time 15.3 Seconds (9.0-12.0)
[2018-10-30 11:56] LABS: Alanine Aminotransferase 21 U/L (12-78); Albumin Level 3.3 gm/dl (3.4-5.0); Aspartate Aminotransferase 21 U/L (15-37); BUN Creatinine Ratio 19.2 (10-20); Blood Urea Nitrogen 16 mg/dl (7-18); Calcium 9.3 mg/dl (8.5-10.1); Carbon Dioxide 27 mmol/L (21-32); Chloride 106 mmol/L (98-107); Est GFR (African American) 82.8; Est GFR (Non-African American) 71.4; Glucose 101 mg/dl (70-99); Potassium 3.7 mmol/L (3.5-5.1); Sodium 141 mmol/L (136-145)
[2018-10-30] MEDS ORDERED: NITROGLYCERIN 2% OINTMENT 30GM TUBE EXT STA (11:59)
[2018-10-30 12:01] LABS: Albumin Globulin Ratio 0.8 (0.9-2); Alkaline Phosphatase 52 U/L (45-117); Bilirubin,Total 0.4 mg/dl (0.2-1); Total Protein 7.3 gm/dl (6.4-8.2); Troponin I < 0.015 ng/ml (0-0.045)
--- NOTE | 2018-10-30 14:48 | History & Physical Report ---
Date of Service October 30, 2018 Assessment & Plan (1) Chest pain: This is a 72 yo with a PMH of HTN, bioprosthetic mitral valve replacement in September 2017 on coumadin, tricuspid valve repair, atypical a flutter, GERD, HLD and other medical problems listed below who presents with intermittent chest pain x 1 week. -Left sided chest tightness resolved with nitro -EKG with sinus rhythm with PVCs, septal T wave inversion that is new since July 2017 -Initial troponin negative. CXR with mild cardiac enlargement with no acute cardiopulmonary abnormality -Trend serial cardiac enzymes -Most recent echo from Jan 2018 with EF: 50-54% (normal). There is a mitral valve bioprosthesis present. The mitral valve prosthesis systolic gradients are normal for this type prosthesis. There is evidence of previous tricuspid valve repair. -Routine cardiology consut -NPO after midnight -SL ntg PRN (2) S/P mitral valve replacement: (3) Subtherapeutic international normalized ratio (INR): S/p mitral valve replacement at [facility] in September 2017 -On Coumadin, but INR subtherapeutic at 1.5 today -Discussed with Dr. Gao, who agrees with starting IV heparin until INR is therapeutic again -Patient is a [employer] and understands risk of bleeding while on IV heparin -Monitor INR (4) HTN (hypertension): Normotensive. Continue Lopressor (5) HLD (hyperlipidemia): Continue statin (6) GERD (gastroesophageal reflux disease): Continue PPI and H2 rubi DVT Ppx: IV heparin Code status: FULL PCP: Tony Dispo: Observation telemetry. Plan to return home once medically stable. Patient seen in collaboration with Dr. Vogt. Please see addendum. History of Present Illness Chief Complaint: chest pain Primary Care Provider: Ramon Jimenez MD This is a 72yo with a PMH of HTN, bioprosthetic mitral valve replacement in September 2017 on coumadin, tricuspid valve repair, atypical a flutter, GERD, HLD and other medical problems listed below who presents with intermittent chest pain x 1 week. Patient is endorsing chest tightness since last week that is worse with exertion. Noted to have palpitations and faster heart rate this morning, so came to ED for further evaluation. Also noticed that chest tightness was extending into the jaw. Has been experiencing intermittent lightheadedness, usually when changing positions. Denies any associated shortness of breath, diaphoresis or nausea and vomiting. Was given Nitro paste and pain resolved. Has history of mitral valve repair in 2010 and then bioprosthetic replacement at [facility] in September 2017. Is on Coumadin but INR is subtherapeutic at 1.[address] Ford in clinic. Underwent a cardiac cath in July 2017 due to chest pain and was found to have normal coronary arteries. Currently, patient is asymptomatic. Denies fever, chills, headache, lightheadedness, visual changes, sore throat, cough, chest pain, palpitations, shortness of breath, abdominal pain, nausea, vomiting, dysuria or diarrhea. Allergies Allergy/AdvReac Type Severity Reaction Status Date / Time codeine Allergy Mild SWEATS, Verified 10/30/18 13:28 PALPITATIONS, RINGING IN EARS, HIVES diazepam Allergy Mild SWEATING Verified 10/30/18 13:28 grapefruit Allergy Mild "CANNOT Verified 10/30/18 13:28 TAKE WITH HEART MEDICATION" ibuprofen Allergy Mild NUMBNESS Verified 10/30/18 13:28 Iodinated Contrast- Oral and Allergy Mild HIVES Verified 10/30/18 13:28 IV Dye oxycodone Allergy Mild HEART RACES Verified 10/30/18 13:28 propoxyphene Allergy Mild SWEATS, Verified 10/30/18 13:28 PALPITATIONS, RINGING IN EARS Sulfa (Sulfonamide Allergy Mild RASH, HIVES Verified 10/30/18 13:28 Antibiotics) thiopental Allergy Mild "HEART Verified 10/30/18 13:28 STOPPED" tramadol Allergy Mild SWEATS, Verified 10/30/18 13:28 PALPITATIONS, RINGING IN EARS aspartame Allergy Unknown DIZZINESS, Verified 10/30/18 13:28 MIGRAINES aspirin Allergy Unknown SWEATS, Verified 10/30/18 13:28 PALPITATIONS, RINGING IN EARS Benzodiazepines Allergy Unknown SWEATS, Verified 10/30/18 13:28 PALPITATIONS, RINGING IN EARS ferrous sulfate Allergy Unknown HIVES Verified 10/30/18 13:28 ioversol Allergy Unknown HIVES Verified 10/30/18 13:28 latex Allergy Unknown RASH AND Verified 10/30/18 13:28 CAN'T BREATHE lorazepam Allergy Unknown HIVES AND Verified 10/30/18 13:28 SWEATING morphine Allergy Unknown HEART Verified 10/30/18 13:28 STOPPED AND "I STOPPED LIVING" nickel Allergy Unknown HIVES AND Verified 10/30/18 13:28 RASH NSAIDS (Non-Steroidal Allergy Unknown NUMBNESS Verified 10/30/18 13:28 Anti-Inflamma pantoprazole Allergy Unknown UNKNOWN - Verified 10/30/18 13:28 PT TAKES NEXIUM AT HOME pentobarbital Allergy Unknown "HEART Verified 10/30/18 13:28 STOPPED" phenobarbital Allergy Unknown "HEART Verified 10/30/18 13:28 STOPPED" prednisone Allergy Unknown HIVES Verified 10/30/18 13:28 saccharin Allergy Unknown FROM Verified 10/30/18 13:28 NUTRASWEET - DIZZINESS, MIGRAINES salicylates Allergy Unknown GERD, Verified 10/30/18 13:28 IRRITATES STOMACH, HIGH DOSE ONLY caffeine AdvReac Mild JITTERY Verified 10/30/18 13:28 adhesive AdvReac Unknown REDNESS Verified 10/30/18 13:28 AND HIVES Home Medications Home Medications Medication Instructions Recorded Confirmed Type atorvastatin 10 mg PO MOWEFR 10/30/18 10/30/18 History benzonatate [Tessalon Perles] 100 mg PO BID PRN 10/30/18 10/30/18 History cetirizine 5 mg PO DAILY PRN 10/30/18 10/30/18 History cholecalciferol (vitamin D3) 1,000 unit PO DAILY 10/30/18 10/30/18 History conjugated estrogens [Premarin] 0.625 mg PO HS 10/30/18 10/30/18 History conjugated estrogens [Premarin] 1 applic VAGINAL 2XWK 10/30/18 10/30/18 History dicyclomine 10 mg PO DAILY PRN 10/30/18 10/30/18 History docusate sodium [Colace] 100 mg PO BID PRN 10/30/18 10/30/18 History doxycycline hyclate 20 mg PO BID 10/30/18 10/30/18 History duloxetine 30 mg PO UD 10/30/18 10/30/18 History fluticasone propionate [Flonase 2 spray INTRANASAL DAILY PRN 10/30/18 10/30/18 History Allergy Relief] fluticasone propionate [Flovent 2 puff INHALATION BID PRN 10/30/18 10/30/18 History HFA] folic acid 1 mg PO DAILY 10/30/18 10/30/18 History lactulose 5 - 30 ml PO DAILY PRN 10/30/18 10/30/18 History metoprolol tartrate 50 mg PO BID 10/30/18 10/30/18 History multivitamin 1 tab PO DAILY 10/30/18 10/30/18 History omeprazole 40 mg PO BID 10/30/18 10/30/18 History potassium chloride 20 meq PO QAM 10/30/18 10/30/18 History ranitidine HCl 300 mg PO BID PRN 10/30/18 10/30/18 History sodium chloride [Saline Nose] 1 spray INTRANASAL .Q2-4H 10/30/18 10/30/18 History torsemide 10 mg PO DAILY 10/30/18 10/30/18 History warfarin 2.5 mg PO SUTUTH@1600 10/30/18 10/30/18 History warfarin 5 mg PO MOWEFRSA@1600 10/30/18 10/30/18 History Past Med/Surg History Medical History GERD (gastroesophageal reflux disease) (Chronic) Cervical radiculopathy (Chronic) HTN (hypertension) (Chronic) HLD (hyperlipidemia) (Chronic) IBS (irritable bowel syndrome) (Chronic) Surgical History History of mitral valve replacement with bioprosthetic valve (Chronic) History of partial hysterectomy (Chronic) History of tricuspid valve repair (Chronic) Hx of appendectomy (Chronic) S/P lumbar spinal fusion (Chronic) Family History Other Asthma Heart disease Hypertension Social History Preferred Language: Turkmen Communication Ability: Effective Beliefs That Will Affect Care: Taoism Taoism Beliefs: No blood products Current Living Situation: Spouse Feels Safe at Home: Yes Safety Concerns: Feels Safe At This Time Smoking Status: Never smoker Hx Alcohol Use: No Hx Substance Use: No Review of Systems Review of Systems: At least ten systems reviewed and negative except as noted in the HPI. Physical Exam Physical Exam: General Appearance: WD/WN, no apparent distress, resting comfortably Head: normocephalic, atraumatic Eyes: normal inspection, PERRL, EOMI ENT: hearing grossly normal, pharynx normal (moist mucous membranes) Neck: supple, no JVD, no adenopathy Respiratory/Chest: lungs clear to auscultation. No wheezes, rales or rhonci. No respiratory distress or accessory muscle use Cardiovascular: regular rate, rhythm, no murmur appreciated, normal peripheral pulses Abdomen/GI: normal bowel sounds, soft, non-tender to palpation Extremities/Musculoskelatal: normal inspection, no calf tenderness, normal capillary refill, no pedal edema Neurologic/Psych: alert, normal mood/affect, oriented x 3 Skin: normal color, warm/dry Results & Data Vital Signs (Past 12 Hours) Vital Signs Temp Pulse Pulse Resp BP BP Pulse Ox 10/30/18 14:31 86 17 143/71 H 98 10/30/18 14:30 87 17 96 10/30/18 14:20 93 H 18 99 10/30/18 14:10 85 29 H 100 10/30/18 14:00 82 14 150/87 H 100 10/30/18 13:50 77 18 99 10/30/18 13:40 79 13 99 10/30/18 13:30 75 18 140/76 97 10/30/18 13:20 78 10 L 100 10/30/18 13:10 79 16 100 10/30/18 13:00 83 15 100 10/30/18 12:50 88 21 100 10/30/18 12:47 88 20 139/89 99 10/30/18 12:40 83 18 99 10/30/18 12:30 90 24 100 10/30/18 12:24 79 21 139/89 99 10/30/18 12:20 83 20 88 L 10/30/18 12:10 83 23 100 10/30/18 12:00 82 16 139/89 100 10/30/18 11:50 82 13 100 10/30/18 11:40 85 18 98 10/30/18 11:30 84 13 131/79 99 10/30/18 11:20 86 15 100 10/30/18 11:17 84 20 99 10/30/18 11:11 89 14 153/89 H 100 10/30/18 10:53 36.4 C L 95 H 18 139/86 100 10/30/18 10:30 93 H 21 124/84 100 Laboratory Results Short CBC 07/11/19 Range/Units 11:14 WBC 3.92 L (4.8-10.8) K/uL Hgb 12.4 (12.0-16.0) g/dL Hct 38.2 (37-47) % Plt Count 261 (130-400) K/uL BMP 10/30/18 11:14 Sodium 141 Potassium 3.7 Chloride 106 Carbon Dioxide 27 BUN 16 Creatinine 0.83 Glucose 101 H Calcium 9.3 Cardiac Enzymes 10/30/18 Range/Units 11:14 Troponin I < 0.015 (0-0.045) ng/ml Liver Function 10/30/18 Range/Units 11:14 Total Bilirubin 0.4 (0.2-1) mg/dl AST 21 (15-37) U/L ALT 21 (12-78) U/L Alkaline Phosphatase 52 (45-117) U/L Albumin 3.3 L (3.4-5.0) gm/dl Diagnostic Findings CXR: IMPRESSION: Mild cardiac enlargement with no acute cardiopulmonary abnormality. ECG Rhythm: sinus rhythm Findings: + PVC and + T-wave inversion Supervising Physician Co-Signing Physician Notes Attending addendum The patient was seen and examined in telemetry unit He has been complaining of chest pain off and on for a while Worse this morning and that is typical of angina Has been feeling better since admission On examination Denies any symptoms during my examination Hemodynamically stable Chest-clear to auscultate bilaterally Heart-S1-S2, 2/6 systolic murmur over precordium Abdomen-benign Extremities-no edema Admission labs and EKG noted Seems to have angina with subtherapeutic INR 1.5 Please start heparin, serial cardiac enzymes and EKG, cardiology consulted Agree with assessment plan as outlined above by VIRGIL Raymond Dr
[2018-10-30] MEDS ORDERED: DICYCLOMINE HCL 10 MG CAP PO PRN (15:50)
[2018-10-30] MEDS ORDERED: FLUTICASONE PROPIONATE NA SPR 16 GM BTL NAE PRN (15:50)
[2018-10-30] MEDS ORDERED: ONDANSETRON INJ 2 MG/ML 2 ML VIAL IV PRN (15:50)
[2018-10-30] MEDS ORDERED: CETIRIZINE HCL 10 MG TABLET PO PRN (15:50)
[2018-10-30] MEDS ORDERED: DOCUSATE SODIUM 100 MG CAP PO PRN (15:50)
[2018-10-30] MEDS ORDERED: FLUTICASONE HFA 110MCG INHALER INH PRN (15:50)
[2018-10-30] MEDS ORDERED: WARFARIN SOD 2.5 MG TAB PO SCH (16:00)
[2018-10-30] MEDS ORDERED: NITROGLYCERIN SL 0.4 MG/TAB TAB SL PRN (16:05)
[2018-10-30] MEDS ORDERED: HEPARIN IV BOLUS 5,000 UNITS in SYRINGE 0 ML IV ONE (16:30)
[2018-10-30] MEDS ORDERED: HEPARIN SODIUM/DEXTROSE 25,000 UNITS/500 ML BAG IV SCH (16:30)
--- NOTE | 2018-10-30 16:44 | Emergency Department Note ---
Entered by Samuel Cheng acting as a scribe for History of Present Illness General Chief complaint: Chest Pain Stated complaint: DIZZY,SOB Source: patient Limitations: no limitations History of Present Illness Provider complaint: Chest pain Onset (ago): week(s) 1 Location: chest Radiation: non-radiation Severity: mild Pain Consistency: + constant Maximum Pain Intensity: 2 Current Pain Intensity: 2 Quality: + other (tightening) Relieved By: + none Exacerbated By: + movement Associated symptoms: + shortness of breath; no cough, no fever/chills and no weakness Treatments prior to arrival: none The patient is a 72 year old female who presents to the Emergency Department with complaints of pressure in her chest. The patient states that for the past week she has had some chest discomfort that goes up into her neck and shoulders. The patient feels a pressure on her chest that is constant, however, when the patient exerts herself it hurts more. The patient currently has rates her pain as a 2 out of 10 in severity. The patient denies any fever or cough. The patient states she always has difficulty breathing since her mitral valve rep lacement. The patient is on Coumadin. The patient has some leg swelling that is not new. She denies leg pain. Home Medications Home Medications Medication Instructions Recorded Confirmed Type atorvastatin 10 mg PO MOWEFR 10/30/18 10/30/18 History benzonatate [Tessalon Perles] 100 mg PO BID PRN 10/30/18 10/30/18 History cetirizine 5 mg PO DAILY PRN 10/30/18 10/30/18 History cholecalciferol (vitamin D3) 1,000 unit PO DAILY 10/30/18 10/30/18 History conjugated estrogens [Premarin] 0.625 mg PO HS 10/30/18 10/30/18 History conjugated estrogens [Premarin] 1 applic VAGINAL 2XWK 10/30/18 10/30/18 History dicyclomine 10 mg PO DAILY PRN 10/30/18 10/30/18 History docusate sodium [Colace] 100 mg PO BID PRN 10/30/18 10/30/18 History doxycycline hyclate 20 mg PO BID 10/30/18 10/30/18 History duloxetine 30 mg PO UD 10/30/18 10/30/18 History fluticasone propionate [Flonase 2 spray INTRANASAL DAILY PRN 10/30/18 10/30/18 History Allergy Relief] fluticasone propionate [Flovent 2 puff INHALATION BID PRN 10/30/18 10/30/18 History HFA] folic acid 1 mg PO DAILY 10/30/18 10/30/18 History lactulose 5 - 30 ml PO DAILY PRN 10/30/18 10/30/18 History metoprolol tartrate 50 mg PO BID 10/30/18 10/30/18 History multivitamin 1 tab PO DAILY 10/30/18 10/30/18 History omeprazole 40 mg PO BID 10/30/18 10/30/18 History potassium chloride 20 meq PO QAM 10/30/18 10/30/18 History ranitidine HCl 300 mg PO BID PRN 10/30/18 10/30/18 History sodium chloride [Saline Nose] 1 spray INTRANASAL .Q2-4H 10/30/18 10/30/18 History torsemide 10 mg PO DAILY 10/30/18 10/30/18 History warfarin 2.5 mg PO SUTUTH@1600 10/30/18 10/30/18 History warfarin 5 mg PO MOWEFRSA@1600 10/30/18 10/30/18 History Allergies Allergy/AdvReac Type Severity Reaction Status Date / Time codeine Allergy Mild SWEATS, Verified 10/30/18 13:28 PALPITATIONS, RINGING IN EARS, HIVES diazepam Allergy Mild SWEATING Verified 10/30/18 13:28 grapefruit Allergy Mild "CANNOT Verified 10/30/18 13:28 TAKE WITH HEART MEDICATION" ibuprofen Allergy Mild NUMBNESS Verified 10/30/18 13:28 Iodinated Contrast- Oral and Allergy Mild HIVES Verified 10/30/18 13:28 IV Dye oxycodone Allergy Mild HEART RACES Verified 10/30/18 13:28 propoxyphene Allergy Mild SWEATS, Verified 10/30/18 13:28 PALPITATIONS, RINGING IN EARS Sulfa (Sulfonamide Allergy Mild RASH, HIVES Verified 10/30/18 13:28 Antibiotics) thiopental Allergy Mild "HEART Verified 10/30/18 13:28 STOPPED" tramadol Allergy Mild SWEATS, Verified 10/30/18 13:28 PALPITATIONS, RINGING IN EARS aspartame Allergy Unknown DIZZINESS, Verified 10/30/18 13:28 MIGRAINES aspirin Allergy Unknown SWEATS, Verified 10/30/18 13:28 PALPITATIONS, RINGING IN EARS Benzodiazepines Allergy Unknown SWEATS, Verified 10/30/18 13:28 PALPITATIONS, RINGING IN EARS ferrous sulfate Allergy Unknown HIVES Verified 10/30/18 13:28 ioversol Allergy Unknown HIVES Verified 10/30/18 13:28 latex Allergy Unknown RASH AND Verified 10/30/18 13:28 CAN'T BREATHE lorazepam Allergy Unknown HIVES AND Verified 10/30/18 13:28 SWEATING morphine Allergy Unknown HEART Verified 10/30/18 13:28 STOPPED AND "I STOPPED LIVING" nickel Allergy Unknown HIVES AND Verified 10/30/18 13:28 RASH NSAIDS (Non-Steroidal Allergy Unknown NUMBNESS Verified 10/30/18 13:28 Anti-Inflamma pantoprazole Allergy Unknown UNKNOWN - Verified 10/30/18 13:28 PT TAKES NEXIUM AT HOME pentobarbital Allergy Unknown "HEART Verified 10/30/18 13:28 STOPPED" phenobarbital Allergy Unknown "HEART Verified 10/30/18 13:28 STOPPED" prednisone Allergy Unknown HIVES Verified 10/30/18 13:28 saccharin Allergy Unknown FROM Verified 10/30/18 13:28 NUTRASWEET - DIZZINESS, MIGRAINES salicylates Allergy Unknown GERD, Verified 10/30/18 13:28 IRRITATES STOMACH, HIGH DOSE ONLY caffeine AdvReac Mild JITTERY Verified 10/30/18 13:28 adhesive AdvReac Unknown REDNESS Verified 10/30/18 13:28 AND HIVES Past Med/Surg History Medical History GERD (gastroesophageal reflux disease) (Chronic) Cervical radiculopathy (Chronic) HTN (hypertension) (Chronic) HLD (hyperlipidemia) (Chronic) IBS (irritable bowel syndrome) (Chronic) Surgical History History of mitral valve replacement with bioprosthetic valve (Chronic) History of partial hysterectomy (Chronic) History of tricuspid valve repair (Chronic) Hx of appendectomy (Chronic) S/P lumbar spinal fusion (Chronic) Family History Other Asthma Heart disease Hypertension Social History Current Living Situation: Spouse Feels Safe at Home: Yes Smoking Status: Never smoker Hx Alcohol Use: No Review of Systems See HPI for pertinent positives & negatives. and A total of 10 systems reviewed and were otherwise negative Physical Exam Vital Signs Vital Signs - 24 hr 10/30/18 10:30 10/30/18 10:53 10/30/18 11:11 Temperature 36.4 C L Temperature Source Oral Sepsis Recent Fever Within 48 Hours No Sepsis New/Unexplained Change in Mental Status No Sepsis Action Taken by Nursing No Action Required Pulse Rate 93 H 95 H 89 Pulse Rate [Apical] Pulse Rate from SpO2 Sensor 93 H 85 Pulse Rhythm Respiratory Rate 21 18 14 Blood Pressure 124/84 139/86 153/89 H Blood Pressure [Left Arm] Blood Pressure Mean 97 103 110 Blood Pressure Mean [Left Arm] Pulse Oximetry 100 100 100 Oxygen Delivery Method Room Air 10/30/18 11:17 10/30/18 11:20 10/30/18 11:30 Temperature Temperature Source Sepsis Recent Fever Within 48 Hours Sepsis New/Unexplained Change in Mental Status Sepsis Action Taken by Nursing Pulse Rate 84 86 84 Pulse Rate [Apical] Pulse Rate from SpO2 Sensor 87 84 Pulse Rhythm Regular Respiratory Rate 20 15 13 Blood Pressure 131/79 Blood Pressure [Left Arm] Blood Pressure Mean 96 Blood Pressure Mean [Left Arm] Pulse Oximetry 99 100 99 Oxygen Delivery Method Room Air 10/30/18 11:40 10/30/18 11:50 10/30/18 12:00 Temperature Temperature Source Sepsis Recent Fever Within 48 Hours Sepsis New/Unexplained Change in Mental Status Sepsis Action Taken by Nursing Pulse Rate 85 82 82 Pulse Rate [Apical] Pulse Rate from SpO2 Sensor 83 82 82 Pulse Rhythm Respiratory Rate 18 13 16 Blood Pressure 139/89 Blood Pressure [Left Arm] Blood Pressure Mean 105 Blood Pressure Mean [Left Arm] Pulse Oximetry 98 100 100 Oxygen Delivery Method 10/30/18 12:10 10/30/18 12:20 10/30/18 12:24 Temperature Temperature Source Sepsis Recent Fever Within 48 Hours Sepsis New/Unexplained Change in Mental Status Sepsis Action Taken by Nursing Pulse Rate 83 83 79 Pulse Rate [Apical] Pulse Rate from SpO2 Sensor 84 85 80 Pulse Rhythm Respiratory Rate 23 20 21 Blood Pressure 139/89 Blood Pressure [Left Arm] Blood Pressure Mean 105 Blood Pressure Mean [Left Arm] Pulse Oximetry 100 88 L 99 Oxygen Delivery Method 10/30/18 12:30 10/30/18 12:40 10/30/18 12:47 Temperature Temperature Source Sepsis Recent Fever Within 48 Hours Sepsis New/Unexplained Change in Mental Status Sepsis Action Taken by Nursing Pulse Rate 90 83 Pulse Rate [Apical] 88 Pulse Rate from SpO2 Sensor 89 79 Pulse Rhythm Respiratory Rate 24 18 20 Blood Pressure Blood Pressure [Left Arm] 139/89 Blood Pressure Mean Blood Pressure Mean [Left Arm] 105 Pulse Oximetry 100 99 99 Oxygen Delivery Method Room Air 10/30/18 12:50 10/30/18 13:00 10/30/18 13:10 Temperature Temperature Source Sepsis Recent Fever Within 48 Hours Sepsis New/Unexplained Change in Mental Status Sepsis Action Taken by Nursing Pulse Rate 88 83 79 Pulse Rate [Apical] Pulse Rate from SpO2 Sensor 86 83 79 Pulse Rhythm Respiratory Rate 21 15 16 Blood Pressure Blood Pressure [Left Arm] Blood Pressure Mean Blood Pressure Mean [Left Arm] Pulse Oximetry 100 100 100 Oxygen Delivery Method 10/30/18 13:20 10/30/18 13:30 10/30/18 13:40 Temperature Temperature Source Sepsis Recent Fever Within 48 Hours Sepsis New/Unexplained Change in Mental Status Sepsis Action Taken by Nursing Pulse Rate 78 75 79 Pulse Rate [Apical] Pulse Rate from SpO2 Sensor 77 77 79 Pulse Rhythm Respiratory Rate 10 L 18 13 Blood Pressure 140/76 Blood Pressure [Left Arm] Blood Pressure Mean 97 Blood Pressure Mean [Left Arm] Pulse Oximetry 100 97 99 Oxygen Delivery Method 10/30/18 13:50 10/30/18 14:00 10/30/18 14:10 Temperature Temperature Source Sepsis Recent Fever Within 48 Hours Sepsis New/Unexplained Change in Mental Status Sepsis Action Taken by Nursing Pulse Rate 77 82 85 Pulse Rate [Apical] Pulse Rate from SpO2 Sensor 78 79 85 Pulse Rhythm Respiratory Rate 18 14 29 H Blood Pressure 150/87 H Blood Pressure [Left Arm] Blood Pressure Mean 108 Blood Pressure Mean [Left Arm] Pulse Oximetry 99 100 100 Oxygen Delivery Method 10/30/18 14:20 10/30/18 14:30 10/30/18 14:31 Temperature Temperature Source Sepsis Recent Fever Within 48 Hours Sepsis New/Unexplained Change in Mental Status Sepsis Action Taken by Nursing Pulse Rate 93 H 87 86 Pulse Rate [Apical] Pulse Rate from SpO2 Sensor 91 H 87 86 Pulse Rhythm Respiratory Rate 18 17 17 Blood Pressure 143/71 H Blood Pressure [Left Arm] Blood Pressure Mean 95 Blood Pressure Mean [Left Arm] Pulse Oximetry 99 96 98 Oxygen Delivery Method Constitutional: Vital signs reviewed. Eyes: Pupils are equal round reactive to light. Conjunctiva are noninjected. ENT: Pharynx is clear without erythema or exudate. Mucous membranes are moist. Neck supple without meningeal signs. Respiratory: Clear to auscultation bilaterally. Breath sounds are equal bilaterally. Cardiovascular: Regular rate and rhythm. No rubs or gallops. GI: Soft, nondistended and nontender. Bowel sounds are present. Musculoskeletal: No peripheral edema. No lower extremity tenderness. Integumentary: No cyanosis. Neurological: The patient is awake and alert. No focal deficits. Psychiatric: Normal affect. Course 1148: The patient was seen in room B12B. A physical examination was performed. 1242: I checked on the patient who states she still has chest pain. The patient has not received Nitro yet because she has not gotten an IV port yet. I also recommended hospitalization. 1245: The patient received the IV and is getting an EKG. 1321: The patient received Nitro and her chest discomfort has gone away. 1330: I spoke with Kyleigh Brooke PA-C under Dr. Vogt, about the patient's case and she agreed to accept the patient for further evaluation. 1335: The patient will be admitted. Consultations Consultation #1: I spoke with Kyleigh Brooke PA-C under Dr. Vogt, about the patient's case and she agreed to accept the patient for further evaluation. Time: 13:30 Administered Medications Discontinued Medications Nitroglycerin (Nitro-Bid 2%) 0.5 inch EXT NOW STA Stop: 10/30/18 12:00 Last Admin: 10/30/18 13:00 Dose: 0.5 inch Documented by: [id number] Medical Decision Making Differential Diagnosis Differential Diagnosis: Unstable angina, MS, GERD, PNA, pleurisy Medical Records Attestation: I reviewed the patient's medical records. I did perform a limited focused review of portions of the patient's old chart on the electronic medical record. The patient had a cardiac catheterization on August 07, 2017. Home Medications Current Medication List: was personally reviewed by me Laboratory Data Attestation: I reviewed the patient's lab results. Result diagrams: 10/30/18 11:14 10/30/18 11:14 Lab Results 10/30/18 10/30/18 10/30/18 Range/Units 11:14 11:14 11:14 WBC 3.92 L (4.8-10.8) K/uL RBC 4.33 (4.2-5.4) M/uL Hgb 12.4 (12.0-16.0) g/dL Hct 38.2 (37-47) % MCV 88.2 (80-100) fL MCH 28.6 (25-34) pg MCHC 32.5 (32-36) g/dL RDW Std Deviation 56.5 H (36.4-46.3) fL RDW Coeff of Angelique 17.4 H (11.5-14.5) % Plt Count 261 (130-400) K/uL MPV 10.8 H (7.4-10.4) fL Immature Gran % (Auto) 0.3 % Neut % (Auto) 51.2 % Lymph % (Auto) 37.2 % [place] % (Auto) 8.2 % Eos % (Auto) 2.8 % Baso % (Auto) 0.3 % Immature Gran # (Auto) 0.01 (0.00-0.02) K/uL Neut # (Auto) 2.01 (1.4-6.5) K/uL Lymph # (Auto) 1.46 (1.2-3.4) K/uL [place] # (Auto) 0.32 (0.11-0.59) K/uL Eos # (Auto) 0.11 (0-0.5) K/uL Baso # (Auto) 0.01 (0-0.2) K/uL PT 15.3 H (9.0-12.0) Seconds INR 1.5 H (0.9-1.1) APTT 25.1 (21.0-31.0) Seconds PTT Ratio 0.9 Sodium 141 (136-145) mmol/L Potassium 3.7 (3.5-5.1) mmol/L Chloride 106 (98-107) mmol/L Carbon Dioxide 27 (21-32) mmol/L Anion Gap 8.0 (3-11) BUN 16 (7-18) mg/dl Creatinine 0.83 (0.6-1.2) mg/dl Est Cr Clr Drug Dosing 64.0 ml/min Est GFR ( Amer) 82.8 Est GFR (Non-Af Amer) 71.4 BUN/Creatinine Ratio 19.2 (10-20) Glucose 101 H (70-99) mg/dl Calcium 9.3 (8.5-10.1) mg/dl Total Bilirubin 0.4 (0.2-1) mg/dl AST 21 (15-37) U/L ALT 21 (12-78) U/L Alkaline Phosphatase 52 (45-117) U/L Troponin I < 0.015 (0-0.045) ng/ml Total Protein 7.3 (6.4-8.2) gm/dl Albumin 3.3 L (3.4-5.0) gm/dl Globulin 4.0 (2.5-4.0) gm/dl Albumin/Globulin Ratio 0.8 L (0.9-2) Imaging Data Attestation: I personally reviewed and interpreted this imaging study as follows: Radiologist's Impression: Radiology results as stated below per my review and the radiologist's interpretation: SINGLE VIEW CHEST CLINICAL HISTORY: Atypical chest pain. FINDINGS: An AP, portable, upright chest radiograph is compared to study dated 07/29/2017. The the patient is status post midline sternotomy. The heart is mildly enlarged. The pulmonary vasculature is noncongested. There is chronic elevation of the right hemidiaphragm with associated atelectasis. The lungs and pleural spaces are otherwise clear. No pneumothorax is seen. The skeletal structures are osteopenic. The bony thorax is grossly intact. Fusion hardware is noted in the lower cervical spine. IMPRESSION: Mild cardiac enlargement with no acute cardiopulmonary abnormality. Electronically signed by: Eddie Pop M.D. 10/30/2018 11:29 AM ECG Data Attestation: I personally reviewed and interpreted this ECG as follows: Indication: chest pain Rate (beats per minute): 82 Rhythm: normal sinus Findings: + PVC and + T-wave inversion (persistent in V2 and V3) Comparison ECG Date: from (August 07, 2017) Change: the following changes noted (T-waves are new) Blood Pressure Blood Pressure Findings: Elevated blood pressure MDM Narrative I did evaluate the patient as noted above. Patient is presenting with chest pressure radiating to her shoulders and neck. She states is been going on for about a week. It is worse with exertion. IV access was established. The patient was placed on a continuous equipment monitor phototypesetting. I did order and personally review the patient's 12-lead EKG as described above. Her twelve-lead EKG is abnormal with T wave inversions septally. I did treat the patient with nitroglycerin paste. Her chest discomfort resolved with the nitroglycerin. A repeat twelve-lead EKG was obtained which per my interpretation shows persistent T wave inversions without STEMI. I did order and personally reviewed the images of the patient's chest x-ray as described above. There is no evidence of acute cardiopulmonary disease. I did order and review the patient's blood work as noted in the electronic medical record. Troponin is negative. I did discuss the test results with the patient. I did recommend hospitalization for further evaluation of her symptoms. I did discuss case with the hospitalist and family preservation caseworker. Impression & Plan Chest pain, exertional, Subtherapeutic international normalized ratio (INR), Abnormal EKG Discharge Plan Visit Data *Final* Discharge Date/Time: 10/30/18 15:30 Chief Complaint: Chest Pain Stated Complaint: DIZZY,SOB ED Provider: Matt Tadeo Discharge Problem: Chest pain, exertional, Subtherapeutic international normalized ratio (INR), Abnormal EKG Patient Disposition: Being Evaluated by Hospitalist Discharge Instructions Interventions: ED Discharge Assessment Last Done: 10/30/18 15:30 The scribe's documentation has been prepared under my direction and personally reviewed by me in its entirety. I confirm that the note above accurately reflects all work, treatment, procedures, and medical decision making performed by me.
--- NOTE | 2018-10-30 16:46 | Cardiology Consultation ---
Date of Consultation October 30, 2018 Assessment & Plan (1) Chest pain, exertional: The patient will be admitted to the telemetry unit. Cardiac markers will be obtained. An echocardiogram is planned. We will have further recommendations following the above. (2) S/P mitral valve replacement: (3) GERD (gastroesophageal reflux disease): History of Present Illness Attending Physician: Nigel Vogt MD History of Present Illness This is a 72-year-old female who is well-known to myself and Dr. Ford with a complex valvular history as outlined below. She had done well following her recent surgery in [place]. It should be noted that she has never had coronary artery disease and with both open heart surgery she has never had bypasses. She has some chest heaviness which has been intermittent and she presented to the emergency department where she is been admitted. She is also noted some tachypnea and shortness of breath which is of concern to her. She has a history of atrial arrhythmias but denies heart palpitations or tachycardia. She is now admitted for further observation and management. 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 for which she underwent complex mitral valve repair in 2006 -patient ultimately underwent redo open heart surgery on 10/15/2017 at the [facility] receiving a number [phone] Biocor bioprosthetic mitral valve replacement, and tricuspid valve repair 2.Status post tricuspid valve repair 3.Paroxysmal atrial flutter, without documented recent recurrence 4.Baptist, declines use of blood products Allergies Allergy/AdvReac Type Severity Reaction Status Date / Time codeine Allergy Mild SWEATS, Verified 10/30/18 13:28 PALPITATIONS, RINGING IN EARS, HIVES diazepam Allergy Mild SWEATING Verified 10/30/18 13:28 grapefruit Allergy Mild "CANNOT Verified 10/30/18 13:28 TAKE WITH HEART MEDICATION" ibuprofen Allergy Mild NUMBNESS Verified 10/30/18 13:28 Iodinated Contrast- Oral and Allergy Mild HIVES Verified 10/30/18 13:28 IV Dye oxycodone Allergy Mild HEART RACES Verified 10/30/18 13:28 propoxyphene Allergy Mild SWEATS, Verified 10/30/18 13:28 PALPITATIONS, RINGING IN EARS Sulfa (Sulfonamide Allergy Mild RASH, HIVES Verified 10/30/18 13:28 Antibiotics) thiopental Allergy Mild "HEART Verified 10/30/18 13:28 STOPPED" tramadol Allergy Mild SWEATS, Verified 10/30/18 13:28 PALPITATIONS, RINGING IN EARS aspartame Allergy Unknown DIZZINESS, Verified 10/30/18 13:28 MIGRAINES aspirin Allergy Unknown SWEATS, Verified 10/30/18 13:28 PALPITATIONS, RINGING IN EARS Benzodiazepines Allergy Unknown SWEATS, Verified 10/30/18 13:28 PALPITATIONS, RINGING IN EARS ferrous sulfate Allergy Unknown HIVES Verified 10/30/18 13:28 ioversol Allergy Unknown HIVES Verified 10/30/18 13:28 latex Allergy Unknown RASH AND Verified 10/30/18 13:28 CAN'T BREATHE lorazepam Allergy Unknown HIVES AND Verified 10/30/18 13:28 SWEATING morphine Allergy Unknown HEART Verified 10/30/18 13:28 STOPPED AND "I STOPPED LIVING" nickel Allergy Unknown HIVES AND Verified 10/30/18 13:28 RASH NSAIDS (Non-Steroidal Allergy Unknown NUMBNESS Verified 10/30/18 13:28 Anti-Inflamma pantoprazole Allergy Unknown UNKNOWN - Verified 10/30/18 13:28 PT TAKES NEXIUM AT HOME pentobarbital Allergy Unknown "HEART Verified 10/30/18 13:28 STOPPED" phenobarbital Allergy Unknown "HEART Verified 10/30/18 13:28 STOPPED" prednisone Allergy Unknown HIVES Verified 10/30/18 13:28 saccharin Allergy Unknown FROM Verified 10/30/18 13:28 NUTRASWEET - DIZZINESS, MIGRAINES salicylates Allergy Unknown GERD, Verified 10/30/18 13:28 IRRITATES STOMACH, HIGH DOSE ONLY caffeine AdvReac Mild JITTERY Verified 10/30/18 13:28 adhesive AdvReac Unknown REDNESS Verified 10/30/18 13:28 AND HIVES Home Medications Home Medications Medication Instructions Recorded Confirmed Type atorvastatin 10 mg PO MOWEFR 10/30/18 10/30/18 History benzonatate [Tessalon Perles] 100 mg PO BID PRN 10/30/18 10/30/18 History cetirizine 5 mg PO DAILY PRN 10/30/18 10/30/18 History cholecalciferol (vitamin D3) 1,000 unit PO DAILY 10/30/18 10/30/18 History conjugated estrogens [Premarin] 0.625 mg PO HS 10/30/18 10/30/18 History conjugated estrogens [Premarin] 1 applic VAGINAL 2XWK 10/30/18 10/30/18 History dicyclomine 10 mg PO DAILY PRN 10/30/18 10/30/18 History docusate sodium [Colace] 100 mg PO BID PRN 10/30/18 10/30/18 History doxycycline hyclate 20 mg PO BID 10/30/18 10/30/18 History duloxetine 30 mg PO UD 10/30/18 10/30/18 History fluticasone propionate [Flonase 2 spray INTRANASAL DAILY PRN 10/30/18 10/30/18 History Allergy Relief] fluticasone propionate [Flovent 2 puff INHALATION BID PRN 10/30/18 10/30/18 History HFA] folic acid 1 mg PO DAILY 10/30/18 10/30/18 History lactulose 5 - 30 ml PO DAILY PRN 10/30/18 10/30/18 History metoprolol tartrate 50 mg PO BID 10/30/18 10/30/18 History multivitamin 1 tab PO DAILY 10/30/18 10/30/18 History omeprazole 40 mg PO BID 10/30/18 10/30/18 History potassium chloride 20 meq PO QAM 10/30/18 10/30/18 History ranitidine HCl 300 mg PO BID PRN 10/30/18 10/30/18 History sodium chloride [Saline Nose] 1 spray INTRANASAL .Q2-4H 10/30/18 10/30/18 History torsemide 10 mg PO DAILY 10/30/18 10/30/18 History warfarin 2.5 mg PO SUTUTH@1600 10/30/18 10/30/18 History warfarin 5 mg PO MOWEFRSA@1600 10/30/18 10/30/18 History Patient History Medical History GERD (gastroesophageal reflux disease) (Chronic) Cervical radiculopathy (Chronic) HTN (hypertension) (Chronic) HLD (hyperlipidemia) (Chronic) IBS (irritable bowel syndrome) (Chronic) Surgical History History of mitral valve replacement with bioprosthetic valve (Chronic) History of partial hysterectomy (Chronic) History of tricuspid valve repair (Chronic) Hx of appendectomy (Chronic) S/P lumbar spinal fusion (Chronic) Family History Other Asthma Heart disease Hypertension Social History Preferred Language: Croatian Communication Ability: Effective Beliefs That Will Affect Care: Roman Catholic Roman Catholic Beliefs: No blood products Current Living Situation: Spouse Feels Safe at Home: Yes Safety Concerns: Feels Safe At This Time Smoking Status: Never smoker Hx Alcohol Use: No Hx Substance Use: No Review of Systems Review of Systems: All systems reviewed & are unremarkable except as noted in HPI & below No additional information Physical Exam Physical Exam: General: no acute distress and stated age Head: normocephalic, no masses, lesions, tenderness or abnormalities Eyes: conjunctiva are pink and non-injected, sclera clear Neck: supple, no adenopathy, no bruits, normal jugular venous pulse, no hepatojugular reflux Chest: normal shape and normal respiratory effort Lungs: clear to auscultation and percussion Cardiac Exam: - regular rate & rhythm, no murmurs gallops or rubs - normal S1, normal S2 Pulses: 2(+) throughout Abdomen: abdomen soft, non-tender, no abnormal masses and no hepatosplenomegaly Musculoskeletal: no gait disturbance, no joint inflammation, no deforming arthritis Extremities: no edema and no cyanosis Neuro: grossly normal exam Results & Data Vital Signs (Past 12 Hours) Vital Signs Temp Pulse Pulse Resp BP BP BP 10/30/18 15:59 36.7 C 86 17 141/79 H 10/30/18 15:30 21 10/30/18 15:07 86 21 150/70 H 10/30/18 14:31 86 17 143/71 H 10/30/18 14:30 87 17 10/30/18 14:20 93 H 18 10/30/18 14:10 85 29 H 10/30/18 14:00 82 14 150/87 H 10/30/18 13:50 77 18 10/30/18 13:40 79 13 10/30/18 13:30 75 18 140/76 10/30/18 13:20 78 10 L 10/30/18 13:10 79 16 10/30/18 13:00 83 15 10/30/18 12:50 88 21 10/30/18 12:47 88 20 139/89 10/30/18 12:40 83 18 10/30/18 12:30 90 24 10/30/18 12:24 79 21 139/89 10/30/18 12:20 83 20 10/30/18 12:10 83 23 10/30/18 12:00 82 16 139/89 10/30/18 11:50 82 13 10/30/18 11:40 85 18 10/30/18 11:30 84 13 131/79 10/30/18 11:20 86 15 10/30/18 11:17 84 20 10/30/18 11:11 89 14 153/89 H 10/30/18 10:53 36.4 C L 95 H 18 139/86 10/30/18 10:30 93 H 21 124/84 Pulse Ox 10/30/18 15:59 99 10/30/18 15:30 98 10/30/18 15:07 98 10/30/18 14:31 98 10/30/18 14:30 96 10/30/18 14:20 99 10/30/18 14:10 100 10/30/18 14:00 100 10/30/18 13:50 99 10/30/18 13:40 99 10/30/18 13:30 97 10/30/18 13:20 100 10/30/18 13:10 100 10/30/18 13:00 100 10/30/18 12:50 100 10/30/18 12:47 99 10/30/18 12:40 99 10/30/18 12:30 100 10/30/18 12:24 99 10/30/18 12:20 88 L 10/30/18 12:10 100 10/30/18 12:00 100 10/30/18 11:50 100 10/30/18 11:40 98 10/30/18 11:30 99 10/30/18 11:20 100 10/30/18 11:17 99 10/30/18 11:11 100 10/30/18 10:53 100 10/30/18 10:30 100 Laboratory Results Laboratory Results - last 24 hr 10/30/18 10/30/18 10/30/18 11:14 11:14 11:14 WBC 3.92 L RBC 4.33 Hgb 12.4 Hct 38.2 MCV 88.2 MCH 28.6 MCHC 32.5 RDW Std Deviation 56.5 H RDW Coeff of Angelique 17.4 H Plt Count 261 MPV 10.8 H Immature Gran % (Auto) 0.3 Neut % (Auto) 51.2 Lymph % (Auto) 37.2 [place] % (Auto) 8.2 Eos % (Auto) 2.8 Baso % (Auto) 0.3 Immature Gran # (Auto) 0.01 Neut # (Auto) 2.01 Lymph # (Auto) 1.46 [place] # (Auto) 0.32 Eos # (Auto) 0.11 Baso # (Auto) 0.01 PT 15.3 H INR 1.5 H APTT 25.1 PTT Ratio 0.9 Sodium 141 Potassium 3.7 Chloride 106 Carbon Dioxide 27 Anion Gap 8.0 BUN 16 Creatinine 0.83 Est Cr Clr Drug Dosing 64.0 Est GFR ( Amer) 82.8 Est GFR (Non-Af Amer) 71.4 BUN/Creatinine Ratio 19.2 Glucose 101 H Calcium 9.3 Total Bilirubin 0.4 AST 21 ALT 21 Alkaline Phosphatase 52 Troponin I < 0.015 Total Protein 7.3 Albumin 3.3 L Globulin 4.0 Albumin/Globulin Ratio 0.8 L Medications Administered Current Inpatient Medications Acetaminophen (Tylenol) 650 mg PO Q4H PRN PRN Reason: Pain or Fever Stop: 11/29/18 15:49 Atorvastatin Calcium (Lipitor) 10 mg PO MoWeFr@0900 [facility] Stop: 11/30/18 08:59 Cetirizine HCl (Zyrtec) 5 mg PO DAILY PRN PRN Reason: allergies Stop: 11/29/18 15:49 Dicyclomine HCl (Bentyl) 10 mg PO DAILY PRN PRN Reason: Abdominal Pain/Cramping Stop: 11/29/18 15:49 Docusate Sodium (Colace) 100 mg PO BID PRN PRN Reason: Constipation Stop: 11/29/18 15:49 Duloxetine HCl (Cymbalta) 30 mg PO DAILY [facility] Stop: 11/30/18 08:59 Duloxetine HCl (Cymbalta) 30 mg PO Q2D@2100 [facility] Stop: 11/29/18 20:59 Estrogens Conjugated (Premarin) 0.625 mg PO HS [facility] Stop: 11/29/18 20:59 Fluticasone Propionate (Flovent Hfa 110mch) 2 puffs INH BID PRN PRN Reason: Breathing difficulties Stop: 11/29/18 15:49 Fluticasone Propionate (Flonase) 2 sprays CHRISTOPH DAILY PRN PRN Reason: allergies Stop: 11/29/18 15:49 Folic Acid (Folvite) 1 mg PO DAILY [facility] Stop: 11/30/18 08:59 Heparin Sodium/Dextrose (Heparin Sodium/Dextrose) 25,000 units in 500 mls @ 23 mls/hr IV .[id number] [facility]; Protocol Stop: 11/29/18 16:29 Metoprolol Tartrate (Lopressor) 50 mg PO BID [facility] Stop: 11/29/18 15:59 Miscellaneous (Order Awaiting Action) 1 ea N/A QS [facility] Stop: 11/30/18 00:00 Multivitamins (Multivitamin Tab) 1 tab PO DAILY [facility] Stop: 11/30/18 08:59 Nitroglycerin (Nitrostat) 0.4 mg SL PRN PRN PRN Reason: Chest Pain Stop: 11/29/18 16:04 Omeprazole (Prilosec) 40 mg PO BID [facility] Stop: 11/29/18 20:59 Ondansetron HCl (Zofran) 4 mg IV Q6H PRN PRN Reason: Nausea Stop: 11/29/18 15:49 Potassium Chloride (Klor-Con M10) 20 meq PO QAM [facility] Stop: 11/30/18 08:59 Ranitidine HCl (Zantac) 300 mg PO BID PRN PRN Reason: Acid Reflux Stop: 11/29/18 15:49 Sodium Chloride ([place] Nasal) 1 sprays CHRISTOPH Q4HWA [facility] Stop: 11/29/18 15:59 Torsemide (Demadex) 10 mg PO DAILY [facility] Stop: 11/30/18 08:59 Vitamin D (Vitamin D3) 1,000 units PO DAILY [facility] Stop: 11/30/18 08:59 Warfarin Sodium (Coumadin) 2.5 mg PO SUTUTH@1600 [facility] Stop: 11/29/18 15:59 Warfarin Sodium (Coumadin) 5 mg PO MOWEFRSA@1600 [facility] Stop: 11/30/18 15:59
[2018-10-30] MEDS: METOPROLOL TARTRATE 50 MG TAB PO SCH ×2 (17:42→20:28)
[2018-10-30] MEDS: SODIUM CHLORIDE 0.65% NA SOLN 45 ML (OCEAN) NAE SCH ×2 (18:03→19:52)
[2018-10-30] MEDS: OMEPRAZOLE 20 MG CAPCR PO SCH (20:37)
[2018-10-30] MEDS: ACETAMINOPHEN 325 MG TAB PO PRN (20:40)
[2018-10-30] MEDS ORDERED: DULOXETINE HCL 30 MG CAP PO SCH (21:00)
[2018-10-30] MEDS ORDERED: ESTROGENS, CONJUGATED 0.625 MG TAB PO SCH (21:00)
[2018-10-31 00:16] LABS: Partial Thromboplastin Ratio 3.3
[2018-10-31 00:33] LABS: Partial Thromboplastin Time 89.9 Seconds (21.0-31.0)
[2018-10-31] MEDS: ACETAMINOPHEN 325 MG TAB PO PRN ×2 (01:29→08:16)
[2018-10-31 07:02] LABS: Hemoglobin 11.3 g/dL (12.0-16.0); Mean Corpuscular Hgb Conc 32.3 g/dL (32-36); Mean Corpuscular Volume 87.3 fL (80-100); Mean Platelet Volume 10.3 fL (7.4-10.4); Platelet Count 239 K/uL (130-400); RDW Coefficient of Variation 17.1 % (11.5-14.5); RDW Standard Deviation 54.7 fL (36.4-46.3); Red Blood Count 4.01 M/uL (4.2-5.4); White Blood Count 4.65 K/uL (4.8-10.8)
[2018-10-31 07:21] LABS: INR 1.3 (0.9-1.1); Partial Thromboplastin Ratio 2.3; Prothrombin Time 13.4 Seconds (9.0-12.0)
[2018-10-31 07:38] LABS: Partial Thromboplastin Time 62.7 Seconds (21.0-31.0)
[2018-10-31 07:41] LABS: BUN Creatinine Ratio 17.3 (10-20); Calcium 8.4 mg/dl (8.5-10.1); Creatinine Clr Calc Pharmacy 69.2 ml/min; Est GFR (African American) 90.7; Est GFR (Non-African American) 78.2; Potassium 3.7 mmol/L (3.5-5.1)
[2018-10-31] MEDS: SODIUM CHLORIDE 0.65% NA SOLN 45 ML (OCEAN) NAE SCH ×2 (08:01→13:41)
[2018-10-31] MEDS: METOPROLOL TARTRATE 50 MG TAB PO SCH (08:02)
[2018-10-31] MEDS: OMEPRAZOLE 20 MG CAPCR PO SCH (08:02)
[2018-10-31] MEDS ORDERED: CHOLECALCIFEROL 1,000 UNITS TAB PO SCH (09:00)
[2018-10-31] MEDS ORDERED: POTASSIUM CHLORIDE 10 MEQ TABCR PO SCH (09:00)
[2018-10-31] MEDS ORDERED: TORSEMIDE 10 MG TAB PO SCH (09:00)
[2018-10-31] MEDS ORDERED: MULTIVITAMIN TAB PO SCH (09:00)
[2018-10-31] MEDS ORDERED: ATORVASTATIN 10 MG TAB PO SCH (09:00)
[2018-10-31] MEDS ORDERED: FOLIC ACID 1 MG TAB PO SCH (09:00)
[2018-10-31] MEDS ORDERED: DULOXETINE HCL 30 MG CAP PO SCH (09:00)
--- NOTE | 2018-10-31 09:10 | Cardiology Progress Note ---
Date of Service October 31, 2018 Assessment & Plan (1) Chest pain, exertional: The patient has maintained sinus rhythm throughout her hospital stay. As mentioned above her chest discomfort is reproducible with palpation of the sternum. Cardiac markers have been negative x6 and her EKG has not changed. I would recommend no additional cardiac testing. I would recommend conservative treatment of her chest pain with Tylenol. She is well-known to our group and I believe we can follow her as an outpatient. (2) S/P mitral valve replacement: (3) GERD (gastroesophageal reflux disease): Subjective The patient had an uneventful night. Despite having continuous chest discomfort, her cardiac markers have been negative x6 and her EKG has not changed. She states that her chest discomfort has started to diminish overnight and although it is not gone it is improved. Review of Systems Review of Systems: All systems reviewed & are unremarkable except as noted in HPI & below No additional information Physical Exam Physical Exam: General: no acute distress and stated age Head: normocephalic, no masses, lesions, tenderness or abnormalities Eyes: conjunctiva are pink and non-injected, sclera clear Neck: supple, no adenopathy, no bruits, normal jugular venous pulse, no hepatojugular reflux Chest: Chest pain is reproduced with palpation along the sternum. Lungs: clear to auscultation and percussion Cardiac Exam: - regular rate & rhythm, no murmurs gallops or rubs - normal S1, normal S2 Pulses: 2(+) throughout Abdomen: abdomen soft, non-tender, no abnormal masses and no hepatosplenomegaly Musculoskeletal: no gait disturbance, no joint inflammation, no deforming arthritis Extremities: no edema and no cyanosis Neuro: grossly normal exam Results & Data Vital Signs (Past 12 Hours) Vital Signs Temp Pulse Resp BP Pulse Ox Pulse Ox 10/31/18 08:10 69 18 126/68 99 10/31/18 07:02 37.0 C 75 17 147/76 H 93 10/31/18 04:00 98 10/31/18 03:49 37.0 C 71 17 128/84 96 10/31/18 00:01 36.7 C 67 17 109/61 97 Laboratory Results Laboratory Results - last 24 hr 10/30/18 10/30/18 10/30/18 11:14 11:14 11:14 WBC 3.92 L RBC 4.33 Hgb 12.4 Hct 38.2 MCV 88.2 MCH 28.6 MCHC 32.5 RDW Std Deviation 56.5 H RDW Coeff of Angelique 17.4 H Plt Count 261 MPV 10.8 H Immature Gran % (Auto) 0.3 Neut % (Auto) 51.2 Lymph % (Auto) 37.2 [place] % (Auto) 8.2 Eos % (Auto) 2.8 Baso % (Auto) 0.3 Immature Gran # (Auto) 0.01 Neut # (Auto) 2.01 Lymph # (Auto) 1.46 [place] # (Auto) 0.32 Eos # (Auto) 0.11 Baso # (Auto) 0.01 PT 15.3 H INR 1.5 H APTT 25.1 PTT Ratio 0.9 Sodium 141 Potassium 3.7 Chloride 106 Carbon Dioxide 27 Anion Gap 8.0 BUN 16 Creatinine 0.83 Est Cr Clr Drug Dosing 64.0 Est GFR ( Amer) 82.8 Est GFR (Non-Af Amer) 71.4 BUN/Creatinine Ratio 19.2 Glucose 101 H Calcium 9.3 Total Bilirubin 0.4 AST 21 ALT 21 Alkaline Phosphatase 52 Troponin I < 0.015 Total Protein 7.3 Albumin 3.3 L Globulin 4.0 Albumin/Globulin Ratio 0.8 L 10/30/18 10/30/18 10/30/18 17:14 23:38 23:38 WBC RBC Hgb Hct MCV MCH MCHC RDW Std Deviation RDW Coeff of Angelique Plt Count MPV Immature Gran % (Auto) Neut % (Auto) Lymph % (Auto) [place] % (Auto) Eos % (Auto) Baso % (Auto) Immature Gran # (Auto) Neut # (Auto) Lymph # (Auto) [place] # (Auto) Eos # (Auto) Baso # (Auto) PT INR APTT 89.9 H* PTT Ratio 3.3 Sodium Potassium Chloride Carbon Dioxide Anion Gap BUN Creatinine Est Cr Clr Drug Dosing Est GFR ( Amer) Est GFR (Non-Af Amer) BUN/Creatinine Ratio Glucose Calcium Total Bilirubin AST ALT Alkaline Phosphatase Troponin I < 0.015 < 0.015 Total Protein Albumin Globulin Albumin/Globulin Ratio 10/31/18 10/31/18 10/31/18 06:38 06:38 06:38 WBC 4.65 L RBC 4.01 L Hgb 11.3 L Hct 35.0 L MCV 87.3 MCH 28.2 MCHC 32.3 RDW Std Deviation 54.7 H RDW Coeff of Angelique 17.1 H Plt Count 239 MPV 10.3 Immature Gran % (Auto) Neut % (Auto) Lymph % (Auto) [place] % (Auto) Eos % (Auto) Baso % (Auto) Immature Gran # (Auto) Neut # (Auto) Lymph # (Auto) [place] # (Auto) Eos # (Auto) Baso # (Auto) PT Cancelled INR Cancelled APTT PTT Ratio Sodium 137 Potassium 3.7 Chloride 105 Carbon Dioxide 25 Anion Gap 7.0 BUN 13 Creatinine 0.77 Est Cr Clr Drug Dosing 69.2 Est GFR ( Amer) 90.7 Est GFR (Non-Af Amer) 78.2 BUN/Creatinine Ratio 17.3 Glucose 96 Calcium 8.4 L Total Bilirubin AST ALT Alkaline Phosphatase Troponin I Total Protein Albumin Globulin Albumin/Globulin Ratio 10/31/18 06:38 WBC RBC Hgb Hct MCV MCH MCHC RDW Std Deviation RDW Coeff of Angelique Plt Count MPV Immature Gran % (Auto) Neut % (Auto) Lymph % (Auto) [place] % (Auto) Eos % (Auto) Baso % (Auto) Immature Gran # (Auto) Neut # (Auto) Lymph # (Auto) [place] # (Auto) Eos # (Auto) Baso # (Auto) PT 13.4 H INR 1.3 H APTT 62.7 H* PTT Ratio 2.3 Sodium Potassium Chloride Carbon Dioxide Anion Gap BUN Creatinine Est Cr Clr Drug Dosing Est GFR ( Amer) Est GFR (Non-Af Amer) BUN/Creatinine Ratio Glucose Calcium Total Bilirubin AST ALT Alkaline Phosphatase Troponin I Total Protein Albumin Globulin Albumin/Globulin Ratio Medications Administered Current Inpatient Medications Acetaminophen (Tylenol) 650 mg PO Q4H PRN PRN Reason: Pain or Fever Stop: 11/29/18 15:49 Last Admin: 10/31/18 08:16 Dose: 650 mg Documented by: Atorvastatin Calcium (Lipitor) 10 mg PO MoWeFr@0900 [facility] Stop: 11/30/18 08:59 Last Admin: 10/31/18 07:59 Dose: 10 mg Documented by: Cetirizine HCl (Zyrtec) 5 mg PO DAILY PRN PRN Reason: allergies Stop: 11/29/18 15:49 Dicyclomine HCl (Bentyl) 10 mg PO DAILY PRN PRN Reason: Abdominal Pain/Cramping Stop: 11/29/18 15:49 Docusate Sodium (Colace) 100 mg PO BID PRN PRN Reason: Constipation Stop: 11/29/18 15:49 Duloxetine HCl (Cymbalta) 30 mg PO DAILY [facility] Stop: 11/30/18 08:59 Last Admin: 10/31/18 07:59 Dose: 30 mg Documented by: Duloxetine HCl (Cymbalta) 30 mg PO Q2D@2100 [facility] Stop: 11/29/18 20:59 Last Admin: 10/30/18 20:30 Dose: 30 mg Documented by: Estrogens Conjugated (Premarin) 0.625 mg PO HS [facility] Stop: 11/29/18 20:59 Last Admin: 10/30/18 20:28 Dose: 0.625 mg Documented by: Fluticasone Propionate (Flovent Hfa 110mch) 2 puffs INH BID PRN PRN Reason: Breathing difficulties Stop: 11/29/18 15:49 Fluticasone Propionate (Flonase) 2 sprays CHRISTOPH DAILY PRN PRN Reason: allergies Stop: 11/29/18 15:49 Folic Acid (Folvite) 1 mg PO DAILY [facility] Stop: 11/30/18 08:59 Last Admin: 10/31/18 07:58 Dose: 1 mg Documented by: Heparin Sodium/Dextrose (Heparin Sodium/Dextrose) 25,000 units in 500 mls @ 20 mls/hr IV .Q24H [facility]; Protocol Stop: 11/29/18 16:29 Last Titration: 10/31/18 07:52 Dose: 1,000 units/hr, 20 mls/hr Documented by: Metoprolol Tartrate (Lopressor) 50 mg PO BID [facility] Stop: 11/29/18 15:59 Last Admin: 10/31/18 08:02 Dose: 50 mg Documented by: Miscellaneous (Order Awaiting Action) 1 ea N/A QS [facility] Stop: 11/30/18 00:00 Last Admin: 10/31/18 08:00 Dose: Not Given Documented by: Multivitamins (Multivitamin Tab) 1 tab PO DAILY [facility] Stop: 11/30/18 08:59 Last Admin: 10/31/18 07:59 Dose: 1 tab Documented by: Nitroglycerin (Nitrostat) 0.4 mg SL PRN PRN PRN Reason: Chest Pain Stop: 11/29/18 16:04 Omeprazole (Prilosec) 40 mg PO BID [facility] Stop: 11/29/18 20:59 Last Admin: 10/31/18 08:02 Dose: 40 mg Documented by: Ondansetron HCl (Zofran) 4 mg IV Q6H PRN PRN Reason: Nausea Stop: 11/29/18 15:49 Potassium Chloride (Klor-Con M10) 20 meq PO QAM [facility] Stop: 11/30/18 08:59 Last Admin: 10/31/18 07:58 Dose: 20 meq Documented by: Ranitidine HCl (Zantac) 300 mg PO BID PRN PRN Reason: Acid Reflux Stop: 11/29/18 15:49 Sodium Chloride ([place] Nasal) 1 sprays CHRISTOPH Q4HWA [facility] Stop: 11/29/18 15:59 Last Admin: 10/31/18 08:01 Dose: 1 sprays Documented by: Torsemide (Demadex) 10 mg PO DAILY [facility] Stop: 11/30/18 08:59 Last Admin: 10/31/18 07:59 Dose: 10 mg Documented by: Vitamin D (Vitamin D3) 1,000 units PO DAILY [facility] Stop: 11/30/18 08:59 Last Admin: 10/31/18 07:59 Dose: 1,000 units Documented by: Warfarin Sodium (Coumadin) 2.5 mg PO SUTUTH@1600 [facility] Stop: 11/29/18 15:59 Last Admin: 10/30/18 17:40 Dose: 2.5 mg Documented by: Warfarin Sodium (Coumadin) 5 mg PO MOWEFRSA@1600 [facility] Stop: 11/30/18 15:59
--- NOTE | 2018-10-31 11:46 | Hospitalist Progress Note ---
Date of Service October 31, 2018 Assessment & Plan (1) Chest pain: This is a 72 yo with a PMH of HTN, bioprosthetic mitral valve replacement in September 2017 on coumadin, tricuspid valve repair, atypical a flutter, GERD, HLD and other medical problems listed below who presents with intermittent chest pain x 1 week. -Left sided chest tightness resolved with nitro -EKG with sinus rhythm with PVCs, septal T wave inversion that is new since July 2017 -Initial troponin negative. CXR with mild cardiac enlargement with no acute cardiopulmonary abnormality -Trend serial cardiac enzymes and EKGs remain unremarkable -Most recent echo from Jan 2018 with EF: 50-54% (normal). There is a mitral valv e bioprosthesis present. The mitral valve prosthesis systolic gradients are normal for this type prosthesis. There is evidence of previous tricuspid valve repair. -Appreciate cardiology input and recommendation -No further cardiac work-up -Patient can go home today and will have regular follow-up with the inside barrel polisher as an outpatient (2) S/P mitral valve replacement: S/p mitral valve replacement at [facility] in September 2017 -On Coumadin, but INR subtherapeutic at 1.5 today -Discussed with Dr. 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 Continue Lopressor (5) HLD (hyperlipidemia): Continue statin (6) GERD (gastroesophageal reflux disease): Continue PPI and H2 rubi DVT Ppx: IV heparin Code status: FULL PCP: Tony Dispo: Observation telemetry. Plan to return home once medically stable. Discussed with the patient has been We will send her home this afternoon Will have follow-up with primary care doctor.Coagulation clinic on Saturday Subjective 10/30 The patient was seen and examined in telemetry unit He has been complaining of chest pain off and on for a while Worse this morning and that is typical of angina Has been feeling better since admission 10/31 The patient was seen and examined in telemetry unit She has had some chest pressure this morning but resolved now She did not have any EKG changes with the chest pain and a troponin x6 remained unremarkable Her chest pain seems to be noncardiac She wants to go home today Review of Systems Review of Systems: All systems reviewed and are unremarkable except as noted below Respiratory: Chest pressure without any pain with tenderness of the left costochondral junction Physical Exam Physical Exam: No apparent distress at rest Constitutional: well developed and well nourished; no acute distress and not ill appearing Eyes: PERRL, conjunctivae normal, anicteric sclerae ENMT: external ear and nose normal, oropharynx normal Neck: trachea midline, no thyromegaly Respiratory: normal respiratory effort Auscultation: lungs clear to auscultation bilaterally Cardiovascular: Rate/Rhythm: regular rate and regular rhythm Heart Sounds: + murmur (2/6 ESM precordial) Gastrointestinal (Abdomen): Inspection/Auscultation: abdomen normal to inspection and normal bowel sounds Percussion/Palpation: + abdomen rigid; abdomen nontender Musculoskeletal: Tenderness over left costochondral junctions Neurologic: PERRL, EOMI, accommodation nl, no face palsy, no dysarthria Lymphatic: no cervical or axillary lymphadenopathy Results & Data Vital Signs (Past 12 Hours) Vital Signs Temp Pulse Resp BP Pulse Ox Pulse Ox 10/31/18 08:10 69 18 126/68 99 10/31/18 07:02 37.0 C 75 17 147/76 H 93 10/31/18 04:00 98 10/31/18 03:49 37.0 C 71 17 128/84 96 10/31/18 00:01 36.7 C 67 17 109/61 97 Laboratory Results Short CBC 10/31/18 Range/Units 06:38 WBC 4.65 L (4.8-10.8) K/uL Hgb 11.3 L (12.0-16.0) g/dL Hct 35.0 L (37-47) % Plt Count 239 (130-400) K/uL BMP 07/11/19 07/12/19 11:14 06:38 Sodium 141 137 Potassium 3.7 3.7 Chloride 106 105 Carbon Dioxide 27 25 BUN 16 13 Creatinine 0.83 0.77 Glucose 101 H 96 Calcium 9.3 8.4 L Cardiac Enzymes 10/30/18 10/30/18 10/30/18 Range/Units 11:14 17:14 23:38 Troponin I < 0.015 < 0.015 < 0.015 (0-0.045) ng/ml Liver Function 10/30/18 Range/Units 11:14 Total Bilirubin 0.4 (0.2-1) mg/dl AST 21 (15-37) U/L ALT 21 (12-78) U/L Alkaline Phosphatase 52 (45-117) U/L Albumin 3.3 L (3.4-5.0) gm/dl Medications Administered Current Inpatient Medications Acetaminophen (Tylenol) 650 mg PO Q4H PRN PRN Reason: Pain or Fever Stop: 11/29/18 15:49 Last Admin: 10/31/18 08:16 Dose: 650 mg Documented by: Atorvastatin Calcium (Lipitor) 10 mg PO MoWeFr@0900 [facility] Stop: 11/30/18 08:59 Last Admin: 10/31/18 07:59 Dose: 10 mg Documented by: Cetirizine HCl (Zyrtec) 5 mg PO DAILY PRN PRN Reason: allergies Stop: 11/29/18 15:49 Dicyclomine HCl (Bentyl) 10 mg PO DAILY PRN PRN Reason: Abdominal Pain/Cramping Stop: 11/29/18 15:49 Docusate Sodium (Colace) 100 mg PO BID PRN PRN Reason: Constipation Stop: 11/29/18 15:49 Duloxetine HCl (Cymbalta) 30 mg PO DAILY [facility] Stop: 11/30/18 08:59 Last Admin: 10/31/18 07:59 Dose: 30 mg Documented by: Duloxetine HCl (Cymbalta) 30 mg PO Q2D@2100 [facility] Stop: 11/29/18 20:59 Last Admin: 10/30/18 20:30 Dose: 30 mg Documented by: Estrogens Conjugated (Premarin) 0.625 mg PO HS [facility] Stop: 11/29/18 20:59 Last Admin: 10/30/18 20:28 Dose: 0.625 mg Documented by: Fluticasone Propionate (Flovent Hfa 110mch) 2 puffs INH BID PRN PRN Reason: Breathing difficulties Stop: 11/29/18 15:49 Fluticasone Propionate (Flonase) 2 sprays CHRISTOPH DAILY PRN PRN Reason: allergies Stop: 11/29/18 15:49 Folic Acid (Folvite) 1 mg PO DAILY [facility] Stop: 11/30/18 08:59 Last Admin: 10/31/18 07:58 Dose: 1 mg Documented by: Heparin Sodium/Dextrose (Heparin Sodium/Dextrose) 25,000 units in 500 mls @ 20 mls/hr IV .Q24H [facility]; Protocol Stop: 11/29/18 16:29 Last Titration: 10/31/18 07:52 Dose: 1,000 units/hr, 20 mls/hr Documented by: Metoprolol Tartrate (Lopressor) 50 mg PO BID [facility] Stop: 11/29/18 15:59 Last Admin: 10/31/18 08:02 Dose: 50 mg Documented by: Miscellaneous (Order Awaiting Action) 1 ea N/A QS [facility] Stop: 11/30/18 00:00 Last Admin: 10/31/18 08:00 Dose: Not Given Documented by: Multivitamins (Multivitamin Tab) 1 tab PO DAILY [facility] Stop: 11/30/18 08:59 Last Admin: 10/31/18 07:59 Dose: 1 tab Documented by: Nitroglycerin (Nitrostat) 0.4 mg SL PRN PRN PRN Reason: Chest Pain Stop: 11/29/18 16:04 Omeprazole (Prilosec) 40 mg PO BID [facility] Stop: 11/29/18 20:59 Last Admin: 10/31/18 08:02 Dose: 40 mg Documented by: Ondansetron HCl (Zofran) 4 mg IV Q6H PRN PRN Reason: Nausea Stop: 11/29/18 15:49 Potassium Chloride (Klor-Con M10) 20 meq PO QAM [facility] Stop: 11/30/18 08:59 Last Admin: 10/31/18 07:58 Dose: 20 meq Documented by: Ranitidine HCl (Zantac) 300 mg PO BID PRN PRN Reason: Acid Reflux Stop: 11/29/18 15:49 Sodium Chloride ([place] Nasal) 1 sprays CHRISTOPH Q4HWA [facility] Stop: 11/29/18 15:59 Last Admin: 10/31/18 08:01 Dose: 1 sprays Documented by: Torsemide (Demadex) 10 mg PO DAILY [facility] Stop: 11/30/18 08:59 Last Admin: 10/31/18 07:59 Dose: 10 mg Documented by: Vitamin D (Vitamin D3) 1,000 units PO DAILY [facility] Stop: 11/30/18 08:59 Last Admin: 10/31/18 07:59 Dose: 1,000 units Documented by: Warfarin Sodium (Coumadin) 2.5 mg PO SUTUTH@1600 [facility] Stop: 11/29/18 15:59 Last Admin: 10/30/18 17:40 Dose: 2.5 mg Documented by: Warfarin Sodium (Coumadin) 5 mg PO MOWEFRSA@1600 [facility] Stop: 11/30/18 15:59
[2018-10-31] MEDS ORDERED: WARFARIN SOD 5 MG TAB PO SCH (16:00)
--- NOTE | 2018-11-01 07:53 | Discharge Summary ---
Date of Service November 01, 2018 Admission HPI Per Admitting Provider This is a 72yo with a PMH of HTN, bioprosthetic mitral valve replacement in September 2017 on coumadin, tricuspid valve repair, atypical a flutter, GERD, HLD and other medical problems listed below who presents with intermittent chest pain x 1 week. Patient is endorsing chest tightness since last week that is worse with exertion. Noted to have palpitations and faster heart rate this morning, so came to ED for further evaluation. Also noticed that chest tightness was extending into the jaw. Has been experiencing intermittent lightheadedness, usually when changing positions. Denies any associated shortness of breath, diaphoresis or nausea and vomiting. Was given Nitro paste and pain resolved. Has history of mitral valve repair in 2010 and then bioprosthetic replacement at [facility] in September 2017. Is on Coumadin but INR is subtherapeutic at 1.[address] Ford in clinic. Underwent a cardiac cath in July 2017 due to chest pain and was found to have normal coronary arteries. Currently, patient is asymptomatic. Denies fever, chills, headache, lightheadedness, visual changes, sore throat, cough, chest pain, palpitations, shortness of breath, abdominal pain, nausea, vomiting, dysuria or diarrhea. Admission Exam Per Admitting Provider Physical Exam: General Appearance: WD/WN, no apparent distress, resting comfortably Head: normocephalic, atraumatic Eyes: normal inspection, PERRL, EOMI ENT: hearing grossly normal, pharynx normal (moist mucous membranes) Neck: supple, no JVD, no adenopathy Respiratory/Chest: lungs clear to auscultation. No wheezes, rales or rhonci. No respiratory distress or accessory muscle use Cardiovascular: regular rate, rhythm, no murmur appreciated, normal peripheral pulses Abdomen/GI: normal bowel sounds, soft, non-tender to palpation Extremities/Musculoskelatal: normal inspection, no calf tenderness, normal capillary refill, no pedal edema Neurologic/Psych: alert, normal mood/affect, oriented x 3 Skin: normal color, warm/dry Principal Diagnosis Noncardiac chest pain, history of bioprosthetic mitral valve replacement, GERD Discharge Exam Constitutional well developed and well nourished; no acute distress and not ill appearing Eyes PERRL, conjunctivae normal, anicteric sclerae ENMT external ear and nose normal, oropharynx normal Neck trachea midline, no thyromegaly Respiratory normal respiratory effort Auscultation: lungs clear to auscultation bilaterally Cardiovascular Rate/Rhythm: regular rate and regular rhythm Heart Sounds: + murmur (2/6 ESM precordial) Gastrointestinal (Abdomen) Inspection/Auscultation: abdomen normal to inspection and normal bowel sounds Percussion/Palpation: + abdomen rigid; abdomen nontender Neurologic PERRL, EOMI, accommodation nl, no face palsy, no dysarthria Lymphatic no cervical or axillary lymphadenopathy Discharge Data Allergies Allergy/AdvReac Type Severity Reaction Status Date / Time codeine Allergy Mild SWEATS, Verified 10/30/18 13:28 PALPITATIONS, RINGING IN EARS, HIVES diazepam Allergy Mild SWEATING Verified 10/30/18 13:28 grapefruit Allergy Mild "CANNOT Verified 10/30/18 13:28 TAKE WITH HEART MEDICATION" ibuprofen Allergy Mild NUMBNESS Verified 10/30/18 13:28 Iodinated Contrast- Oral and Allergy Mild HIVES Verified 10/30/18 13:28 IV Dye oxycodone Allergy Mild HEART RACES Verified 10/30/18 13:28 propoxyphene Allergy Mild SWEATS, Verified 10/30/18 13:28 PALPITATIONS, RINGING IN EARS Sulfa (Sulfonamide Allergy Mild RASH, HIVES Verified 10/30/18 13:28 Antibiotics) thiopental Allergy Mild "HEART Verified 10/30/18 13:28 STOPPED" tramadol Allergy Mild SWEATS, Verified 10/30/18 13:28 PALPITATIONS, RINGING IN EARS aspartame Allergy Unknown DIZZINESS, Verified 10/30/18 13:28 MIGRAINES aspirin Allergy Unknown SWEATS, Verified 10/30/18 13:28 PALPITATIONS, RINGING IN EARS Benzodiazepines Allergy Unknown SWEATS, Verified 10/30/18 13:28 PALPITATIONS, RINGING IN EARS ferrous sulfate Allergy Unknown HIVES Verified 10/30/18 13:28 ioversol Allergy Unknown HIVES Verified 10/30/18 13:28 latex Allergy Unknown RASH AND Verified 10/30/18 13:28 CAN'T BREATHE lorazepam Allergy Unknown HIVES AND Verified 10/30/18 13:28 SWEATING morphine Allergy Unknown HEART Verified 10/30/18 13:28 STOPPED AND "I STOPPED LIVING" nickel Allergy Unknown HIVES AND Verified 10/30/18 13:28 RASH NSAIDS (Non-Steroidal Allergy Unknown NUMBNESS Verified 10/30/18 13:28 Anti-Inflamma pantoprazole Allergy Unknown UNKNOWN - Verified 10/30/18 13:28 PT TAKES NEXIUM AT HOME pentobarbital Allergy Unknown "HEART Verified 10/30/18 13:28 STOPPED" phenobarbital Allergy Unknown "HEART Verified 10/30/18 13:28 STOPPED" prednisone Allergy Unknown HIVES Verified 10/30/18 13:28 saccharin Allergy Unknown FROM Verified 10/30/18 13:28 NUTRASWEET - DIZZINESS, MIGRAINES salicylates Allergy Unknown GERD, Verified 10/30/18 13:28 IRRITATES STOMACH, HIGH DOSE ONLY caffeine AdvReac Mild JITTERY Verified 10/30/18 13:28 adhesive AdvReac Unknown REDNESS Verified 10/30/18 13:28 AND HIVES Consultations 10/30/18 13:28 ED Decision to Admit Stat 10/30/18 15:50 Consult Cardiology Routine Hospital Course (1) Chest pain: This is a 72 yo with a PMH of HTN, bioprosthetic mitral valve replacement in September 2017 on coumadin, tricuspid valve repair, atypical a flutter, GERD, HLD and other medical problems listed below who presents with intermittent chest brennon n x 1 week. -Left sided chest tightness resolved with nitro -EKG with sinus rhythm with PVCs, septal T wave inversion that is new since July 2017 -Initial troponin negative. CXR with mild cardiac enlargement with no acute cardiopulmonary abnormality -Trend serial cardiac enzymes and EKGs remain unremarkable -Most recent echo from Jan 2018 with EF: 50-54% (normal). There is a mitral valve bioprosthesis present. The mitral valve prosthesis systolic gradients are normal for this type prosthesis. There is evidence of previous tricuspid valve repair. -Appreciate cardiology input and recommendation -No further cardiac work-up -Patient can go home today and will have regular follow-up with the paraprofessional aide teacher as an outpatient (2) S/P mitral valve replacement: S/p mitral valve replacement at [facility] in September 2017 -On Coumadin, but INR subtherapeutic at 1.5 today -Discussed with Dr. 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 Continue Lopressor (5) HLD (hyperlipidemia): Continue statin (6) GERD (gastroesophageal reflux disease): Continue PPI and H2 rubi DVT Ppx: IV heparin Code status: FULL PCP: Tony Dispo: Observation telemetry. Plan to return home once medically stable. Discussed with the patient has been We will send her home this afternoon Will have follow-up with primary care doctor.Coagulation clinic on Saturday Total Time Total Time Spent Total Time Spent (In Minutes): 35 minutes Total Time Includes: Examination of the Patient, Discharge Planning, Medication Reconciliation and Communication With Other Providers Discharge Plan Discharge Items Patient Disposition: Home - Self-Care Reason For Visit: CHEST PAIN Discharge Diagnosis: Noncardiac chest pain, history of bioprosthetic mitral valve replacement, GERD Condition: Good Discharge Goals: Decrease discomfort, Increase independence and Improve nutritional status Activity: Resume your previous activity Non-emergency contact: Primary Care Provider Call non-emergency contact if: you have any medication questions Follow-up/Referrals: Ramon Jimenez MD [Primary Care Provider] - 11/06/18 1:45 pm (Please follow-up with coagulation clinic on Saturday) Diet: Heart Healthy Addtl Provider Instructions: No change in your medications. Please take Coumadin 5 mg today, tomorrow and day after before you go for the follow-up in Coag Clinic on Saturday Prescriptions: Continued cetirizine 10 mg Tablet 5 mg PO DAILY PRN (Reason: allergies) RF: 0 atorvastatin 10 mg tablet 10 mg PO MOWEFR RF: 0 torsemide 10 mg tablet 10 mg PO DAILY RF: 0 omeprazole 40 mg capsule,delayed release(DR/EC) 40 mg PO BID RF: 0 benzonatate [Tessalon Perles] 100 mg Capsule 100 mg PO BID PRN (Reason: Cough) RF: 0 Premarin 0.625 mg/gram cream 1 applic vaginal 2XWK RF: 0 warfarin 5 mg tablet 2.5 mg PO SUTUTH@1600 RF: 0 warfarin 5 mg tablet 5 mg PO MOWEFRSA@1600 RF: 0 Premarin 0.625 mg tablet 0.625 mg PO HS RF: 0 metoprolol tartrate 50 mg tablet 50 mg PO BID RF: 0 docusate sodium [Colace] 100 mg Capsule 100 mg PO BID PRN (Reason: Constipation) RF: 0 Flovent HFA 110 mcg/actuation Hfa Aerosol Inhaler 2 puff INHALATION BID PRN (Reason: Breathing difficulties) RF: 0 duloxetine 30 mg capsule,delayed release(DR/EC) 30 mg PO UD RF: 0 cholecalciferol (vitamin D3) 1,000 unit Tablet 1,000 unit PO DAILY RF: 0 multivitamin Tablet 1 tab PO DAILY RF: 0 ranitidine HCl 300 mg Tablet 300 mg PO BID PRN (Reason: Acid Reflux) RF: 0 folic acid 1 mg Tablet 1 mg PO DAILY RF: 0 fluticasone propionate [Flonase Allergy Relief] 50 mcg/actuation [place],Suspension 2 spray INTRANASAL DAILY PRN (Reason: allergies) RF: 0 dicyclomine 10 mg Capsule 10 mg PO DAILY PRN (Reason: Abdominal Pain/Cramping) RF: 0 sodium chloride [Saline Nose] 0.65 % Aerosol,[place] 1 spray intranasal .Q2-4H RF: 0 lactulose 10 gram/15 mL Solution 5 - 30 ml PO DAILY PRN (Reason: Constipation) RF: 0 potassium chloride 10 mEq tablet extended release 20 meq PO QAM RF: 0 doxycycline hyclate 20 mg tablet 20 mg PO BID RF: 0 Stand-Alone Forms: Call Back Authorization, [facility]/Other Patient Handouts: Heart Attack Warning Signs, ED Chest Pain NonCardiac, ED GERD Discharge Orders: Discharge Order (Routine); Ordered 10/31/18 Ordered By: Nigel Vogt Admission Data Admit Date/Time: 10/30/18 14:45 Attending Provider: Nigel Vogt Admit Provider: Nigel Vogt Primary Care Provider: Ramon Jimenez Other Providers: Nigel Vogt ; Brendan Gao Service: Telemetry Other Interventions: Discharge Summary Assessment (RN) Last Done: 10/31/18 13:49 DC Date/Time DO NOT enter until pt leaves facility: 10/31/18 14:47
== END 2018-10-31 14:47 | disposition home or self-care (01) ==
LOC: ED 10:50 → 2E 10:50

== ENCOUNTER 2021-10-05 10:19 | Inpatient (IN) ==
[2021-10-05] MEDS ORDERED: SODIUM CHLORIDE 0.9% 1000ML 1,000 ML IV ONE (11:09)
--- NOTE | 2021-10-05 11:11 | Emergency Department Note ---
Impression & Plan Abdominal pain, Abnormal ultrasound of gallbladder, Elevated bilirubin ED Provider Note NAME: MEME TELLEZ AGE: 75 SEX: F : 1945 ARRIVES VIA: Walk-In INFORMANT: Patient ED PROVIDER(S): Jovani Jolly DO CHIEF COMPLAINT: RUQ abd pain HPI: Patient is a 75-year-old female with a past medical history of a cystocele, rectocele, appendectomy, removal of bowel secondary to obstruction, hysterectomy that presents to the ER for right upper quadrant abdominal pain which has been present for the past month. Has been getting worse. She has not been eating and drinking. She admits to nausea but no vomiting. No dysuria, urgency or frequency. She has had a work-up as an outpatient and had an ultrasound which showed a dilated CBD with sludge likely in the CBD as well as the gallbladder. She was referred in. ROS: See above HPI for pertinent positives & negatives. A total of 10 systems reviewed and were otherwise negative. PAST MEDICAL HISTORY:See Below PAST SURGICAL HISTORY:See Below FAMILY HISTORY:See Below SOCIAL HISTORY:See Below HOME MEDICATIONS:See Below ALLERGIES:See Below VITALS:See Below PHYSICAL EXAMINATION: GENERAL: Sitting up in bed, alert, well appearing, well nourished, no distress, non-toxic EYE EXAM: normal conjunctiva. OROPHARYNX: mucous membranes are moist NECK: supple, no nuchal rigidity, no adenopathy, non-tender LUNGS: Clear to auscultation. Normal chest wall mechanics HEART: no murmurs, S1 normal and S2 normal ABDOMEN: abdomen soft, non-tender, normo-active bowel sounds, no masses, no rebound or guarding. UPPER EXTREMITIES: upper extremities are grossly normal. LOWER EXTREMITIES: No pitting edema. NEURO EXAM: Normal sensorium, cranial nerves II-XII grossly intact, normal speech, no gross weakness of arms, no gross weakness of legs. MEDICAL DECISION MAKING: Patient 75-year-old female who presents ER for the above-stated complaint. IV was established blood work was obtained. Labs show mild leukopenia 4.4. No significant anemia. INR 3.7. BMP with mild hypokalemia at 3.4. Mild transaminitis. T bili is up at 2.1. Alk phos at 138. Lipase normal. COVID- negative. Ultrasound performed as an outpatient showed a CBD dilation with likely sludge in the common bile duct as well as sludge in the gallbladder. I favor that this likely choledocholithiasis. Patient denies any fevers. She was given a small dose of morphine. She was given a IV fluids as well as Zofran and a dose of IV Dilaudid. She is updated bedside. Discussed with the hospitalist sreedhar Lam as well as Dr. Horton from gastroenterology and they will follow. Triage Nursing notes reviewed. Limited review of prior medical records performed Vital Signs: reviewed and remarkable for no significant abnormalities Differential diagnosis: Differential diagnoses includes but is not limited to gastritis, peptic ulcer disease, GERD, gallbladder disease, pancreatitis, small bowel obstruction, acute coronary syndrome, pericarditis, ischemic bowel, irritable bowel disease, irritable bowel syndrome, appendicitis, diverticulitis, malignancy, hernia, urinary tract infection, torsion, perforation, trauma, infectious. ER treatment provided: See below Diagnostics interpreted by me: ECG: none Cardiac Monitoring: An order was placed for continuous cardiac monitoring. The monitor shows a rate of 70 with sinus rhythm. Laboratory studies: As stated above and show below. Imaging studies: System reviewed as an outpatient Consultation(s): Discussed with Dr. Horton as stated above Discussed with Georgina Wynn as stated above Procedures: none Critical Care: None Past Med/Surg History Medical History Del Valle's palsy Cervical radiculopathy Chest pain Degenerative disc disease Family history of reaction to anesthesia Gastroparesis GERD (gastroesophageal reflux disease) History of migraine headaches HLD (hyperlipidemia) HTN (hypertension) IBS (irritable bowel syndrome) Lumbar radiculopathy Murmur, heart On anticoagulant therapy Restless leg syndrome Shortness of breath Uterine cancer Surgical History Fusion of spine H/O bilateral salpingo-oophorectomy History of anesthesia reaction History of bilateral tubal ligation History of bowel resection History of cardiac cath History of cataract surgery History of colonoscopy History of esophagogastroduodenoscopy (EGD) History of mitral valve replacement with bioprosthetic valve History of partial hysterectomy History of tooth extraction Hx of appendectomy Hx of mitral valve repair Family History Other Asthma Family history of reaction to anesthesia Heart disease Hypertension Social History Smoking Status: Never smoker Second Hand Exposure: No; Hx Alcohol Use: No Hx Substance Use: No Preferred Language: [place] Communication Ability: Effective Dining Room Supervisor Required: No Beliefs That Will Affect Care: Caodaism Caodaism Beliefs: Jehova's Witness Current Living Situation: Spouse current occupational status: retired Other Information That Helps Us Care for You: No Feels Safe at Home: Yes Safety Concerns: Feels Safe At This Time Assistive Devices: None Allergies Allergies Allergy/AdvReac Type Severity Reaction Status Date / Time latex Allergy Severe RASH AND Verified 10/05/21 11:48 CAN'T BREATHE, HIVES morphine Allergy Severe HEART Verified 10/05/21 11:48 STOPPED AND "I STOPPED LIVING" pentobarbital Allergy Severe "HEART Verified 10/05/21 11:48 STOPPED" phenobarbital Allergy Severe "HEART Verified 10/05/21 11:48 STOPPED" thiopental Allergy Severe "HEART Verified 10/05/21 11:48 STOPPED" adhesive Allergy Intermediate REDNESS Verified 10/05/21 11:48 AND HIVES-TAPE ferrous sulfate Allergy Intermediate HIVES Verified 10/05/21 11:48 Iodinated Contrast Media Allergy Intermediate HIVES Verified 10/05/21 11:48 ioversol Allergy Intermediate HIVES Verified 10/05/21 11:48 lorazepam Allergy Intermediate HIVES AND Verified 10/05/21 11:48 SWEATING nickel Allergy Intermediate HIVES AND Verified 10/05/21 11:48 RASH pantoprazole Allergy Intermediate HIVES AND Verified 10/05/21 11:48 ITCHING prednisone Allergy Intermediate HIVES Verified 10/05/21 11:48 Sulfa (Sulfonamide Allergy Intermediate RASH, HIVES Verified 10/05/21 11:48 Antibiotics) aspartame AdvReac Intermediate DIZZINESS, Verified 10/05/21 11:48 MIGRAINES aspirin AdvReac Intermediate SWEATS, Verified 10/05/21 11:48 PALPITATIONS, RINGING IN EARS Benzodiazepines AdvReac Intermediate SWEATS, Verified 10/05/21 11:48 PALPITATIONS, RINGING IN EARS caffeine AdvReac Intermediate JITTERY Verified 10/05/21 11:48 codeine AdvReac Intermediate SWEATS, Verified 10/05/21 11:48 PALPITATIONS, RINGING IN EARS, HIVES diazepam AdvReac Intermediate SWEATING Verified 10/05/21 11:48 oxycodone AdvReac Intermediate HEART RACES Verified 10/05/21 11:48 propoxyphene AdvReac Intermediate SWEATS, Verified 10/05/21 11:48 PALPITATIONS, RINGING IN EARS saccharin AdvReac Intermediate FROM Verified 10/05/21 11:48 NUTRASWEET - DIZZINESS, MIGRAINES salicylates AdvReac Intermediate GERD, Verified 10/05/21 11:48 IRRITATES STOMACH, HIGH DOSE ONLY tramadol AdvReac Intermediate SWEATS, Verified 10/05/21 11:48 PALPITATIONS, RINGING IN EARS ibuprofen AdvReac Mild NUMBNESS Verified 10/05/21 11:48 NSAIDS (Non-Steroidal AdvReac Mild NUMBNESS Verified 10/05/21 11:48 Anti-Inflamma grapefruit AdvReac Unknown "CANNOT Verified 10/05/21 11:48 TAKE WITH HEART MEDICATION" Home Meds Home Medications Medication Instructions Recorded Confirmed atorvastatin 10 mg tablet 10 mg PO 3XWK 10/30/18 10/05/21 cholecalciferol (vitamin D3) 25 1,000 unit PO QAM 10/30/18 10/05/21 mcg (1,000 unit) tablet docusate sodium 100 mg capsule 100 mg PO BID 10/30/18 10/05/21 (Colace) folic acid 1 mg tablet 1 mg PO QAM 10/30/18 10/05/21 lactulose 10 gram/15 mL oral 5 - 30 ml PO DAILY PRN 10/30/18 10/05/21 solution metoprolol tartrate 50 mg tablet 50 mg PO BID 10/30/18 10/05/21 multivitamin 1 tab PO DAILY 10/30/18 10/05/21 potassium chloride 10 mEq 20 meq PO QAM 10/30/18 10/05/21 tablet,extended release sodium chloride 0.65 % nasal spray 1 spray INTRANASAL .Q2-4H PRN 10/30/18 10/05/21 aerosol (Saline Nose) warfarin 5 mg tablet See Rx Instructions .ROUTE .COMPLEX 10/30/18 10/05/21 albuterol sulfate 90 mcg/actuation 2 puff INHALATION QID PRN 04/19/19 10/05/21 aerosol inhaler (ProAir HFA) duloxetine 60 mg capsule,delayed 60 mg PO QAM 04/19/19 10/05/21 release cyanocobalamin (vitamin B-12) 1,000 mcg PO DAILY 10/19/19 10/05/21 1,000 mcg tablet (Vitamin B-12) gabapentin 300 mg capsule 300 mg PO BID 02/23/21 10/05/21 bioflavonoid products tablet 1 tab PO DAILY 10/05/21 10/05/21 fluticasone propionate 50 2 spray INTRANASAL DAILY PRN 10/05/21 10/05/21 mcg/actuation nasal spray,suspension magnesium oxide 400 mg PO DAILY 10/05/21 10/05/21 omeprazole 40 mg capsule,delayed 40 mg PO BID 10/05/21 10/05/21 release riboflavin (vitamin B2) 400 mg 400 mg PO DAILY 10/05/21 10/05/21 tablet torsemide 20 mg tablet 20 mg PO DAILY 10/05/21 10/05/21 Previous Rx's Medication Instructions Recorded conjugated estrogens 0.625 mg 0.625 mg PO HS #90 tab 05/08/21 tablet (Premarin) conjugated estrogens 0.625 mg/gram 1 applic VAGINAL 2XWK #60 g 05/08/21 vaginal cream (Premarin) dicyclomine 10 mg capsule 10 mg PO TID PRN #270 cap 07/03/21 Results & Data (ED) Vital Signs Vital Signs - 24 hr 10/05/21 10:30 10/05/21 11:06 10/05/21 11:10 Temperature 36.7 C Temperature Source Temporal Artery Scan Pulse Rate 79 80 75 Pulse Rate from SpO2 Sensor 80 72 Respiratory Rate 14 16 16 Blood Pressure 122/78 Blood Pressure Mean 92 Pulse Oximetry 99 100 100 Oxygen Delivery Method Room Air Sepsis Recent Fever Within 48 Hours No Sepsis New/Unexplained Change in Mental Status No Sepsis Action Taken by Nursing No Action Required 10/05/21 11:20 10/05/21 11:30 10/05/21 11:40 Temperature Temperature Source Pulse Rate 73 69 69 Pulse Rate from SpO2 Sensor 73 69 69 Respiratory Rate 19 15 14 Blood Pressure 107/75 Blood Pressure Mean 85 Pulse Oximetry 99 100 100 Oxygen Delivery Method Sepsis Recent Fever Within 48 Hours Sepsis New/Unexplained Change in Mental Status Sepsis Action Taken by Nursing 10/05/21 11:50 10/05/21 12:00 10/05/21 12:01 Temperature Temperature Source Pulse Rate 68 67 66 Pulse Rate from SpO2 Sensor 69 66 66 Respiratory Rate 13 15 13 Blood Pressure 141/55 H Blood Pressure Mean 83 Pulse Oximetry 99 100 100 Oxygen Delivery Method Sepsis Recent Fever Within 48 Hours Sepsis New/Unexplained Change in Mental Status Sepsis Action Taken by Nursing 10/05/21 12:10 10/05/21 12:20 Temperature Temperature Source Pulse Rate 67 67 Pulse Rate from SpO2 Sensor 67 69 Respiratory Rate 16 16 Blood Pressure Blood Pressure Mean Pulse Oximetry 100 100 Oxygen Delivery Method Sepsis Recent Fever Within 48 Hours Sepsis New/Unexplained Change in Mental Status Sepsis Action Taken by Nursing Laboratory Data Result diagrams: 10/05/21 11:06 10/05/21 12:09 Lab Results 10/05/21 10/05/21 10/05/21 Range/Units 11:06 11:06 11:06 WBC 4.49 L (4.8-10.8) K/uL RBC 4.30 (4.2-5.4) M/uL Hgb 13.5 (12.0-16.0) g/dL Hct 39.9 (37-47) % MCV 92.8 (80-100) fL MCH 31.4 (25-34) pg MCHC 33.8 (32-36) g/dL RDW Std Deviation 50.2 H (36.4-46.3) fL RDW Coeff of Angelique 14.8 H (11.5-14.5) % Plt Count 252 (130-400) K/uL MPV 11.7 H (7.4-10.4) fL Immature Gran % (Auto) 0.2 % Neut % (Auto) 59.5 % Lymph % (Auto) 27.8 % Crosby % (Auto) 9.4 % Eos % (Auto) 2.9 % Baso % (Auto) 0.2 % Neut # (Auto) 2.67 (1.4-6.5) K/uL Lymph # (Auto) 1.25 (1.2-3.4) K/uL Crosby # (Auto) 0.42 (0.11-0.59) K/uL Eos # (Auto) 0.13 (0-0.5) K/uL Baso # (Auto) 0.01 (0-0.2) K/uL Immature Gran # (Auto) 0.01 (0.00-0.02) K/uL PT 36.9 H (9.0-12.0) Seconds INR 3.7 H (0.9-1.1) Sodium 141 (136-145) mmol/L Potassium TNP Chloride 101 (98-107) mmol/L Carbon Dioxide 30 (21-32) mmol/L Anion Gap 10 (3-11) BUN 14 (6-23) mg/dl Creatinine 0.93 (0.6-1.2) mg/dl Est Cr Clr Drug Dosing 51.6 ml/min Est GFR ( Amer) 70.7 ml/min Est GFR (Non-Af Amer) 61.0 ml/min BUN/Creatinine Ratio 15.1 (10-20) Glucose 128 H (70-99(Fasting)) mg/dl Calcium 9.3 (8.5-10.1) mg/dl Total Bilirubin 2.1 H (0.2-1.0) mg/dl AST TNP ALT 59 H (7-52) U/L Alkaline Phosphatase 138 H (34-104) U/L Total Protein 7.4 (6.0-8.3) gm/dl Albumin 4.1 (3.4-5.0) gm/dl Globulin 3.3 (2.5-4.0) gm/dl Albumin/Globulin Ratio 1.2 (0.9-2) Lipase 66 (11-82) U/L SARS-CoV-2, RNA, NAAT (NEGATIVE) 10/05/21 10/05/21 Range/Units 11:20 12:09 WBC (4.8-10.8) K/uL RBC (4.2-5.4) M/uL Hgb (12.0-16.0) g/dL Hct (37-47) % MCV (80-100) fL MCH (25-34) pg MCHC (32-36) g/dL RDW Std Deviation (36.4-46.3) fL RDW Coeff of Angelique (11.5-14.5) % Plt Count (130-400) K/uL MPV (7.4-10.4) fL Immature Gran % (Auto) % Neut % (Auto) % Lymph % (Auto) % Crosby % (Auto) % Eos % (Auto) % Baso % (Auto) % Neut # (Auto) (1.4-6.5) K/uL Lymph # (Auto) (1.2-3.4) K/uL Crosby # (Auto) (0.11-0.59) K/uL Eos # (Auto) (0-0.5) K/uL Baso # (Auto) (0-0.2) K/uL Immature Gran # (Auto) (0.00-0.02) K/uL PT (9.0-12.0) Seconds INR (0.9-1.1) Sodium (136-145) mmol/L Potassium 3.4 L Chloride (98-107) mmol/L Carbon Dioxide (21-32) mmol/L Anion Gap (3-11) BUN (6-23) mg/dl Creatinine (0.6-1.2) mg/dl Est Cr Clr Drug Dosing ml/min Est GFR ( Amer) ml/min Est GFR (Non-Af Amer) ml/min BUN/Creatinine Ratio (10-20) Glucose (70-99(Fasting)) mg/dl Calcium (8.5-10.1) mg/dl Total Bilirubin (0.2-1.0) mg/dl AST 46 H ALT (7-52) U/L Alkaline Phosphatase (34-104) U/L Total Protein (6.0-8.3) gm/dl Albumin (3.4-5.0) gm/dl Globulin (2.5-4.0) gm/dl Albumin/Globulin Ratio (0.9-2) Lipase (11-82) U/L SARS-CoV-2, RNA, NAAT NEGATIVE (NEGATIVE) Administered Medications Discontinued Medications Hydromorphone HCl (Hydromorphone Inj 0.5 Mg/0.5 Ml Syr) 0.25 mg IV NOW STA Stop: 10/05/21 13:00 Last Admin: 10/05/21 13:20 Dose: 0.25 mg Documented by: [id number] Sodium Chloride (Nss 1000ml) 1,000 mls @ 999 mls/hr IV .Q1H1M ONE Stop: 10/05/21 12:09 Last Infusion: 10/05/21 15:14 Dose: 0 mls/hr Documented by: [id number] Admin: 10/05/21 11:24 Dose: 999 mls/hr Documented by: [id number] Potassium Chloride (Potassium Chloride Crtab 20 Meq Tabcr) 40 meq PO NOW STA Stop: 10/05/21 13:04 Last Admin: 10/05/21 13:20 Dose: 40 meq Documented by: [id number] Discharge Plan Visit Data Chief Complaint: Abdominal Pain Stated Complaint: GALLBLADDER PAIN, ABDOMINAL PAIN ED Provider: Jovani Jolly Discharge Problem: Abdominal pain, Abnormal ultrasound of gallbladder, Elevated bilirubin Patient Disposition: Admitted As Inpatient Discharge Instructions Interventions: ED Discharge Assessment Last Done: 10/05/21 16:17
[2021-10-05 11:24] LABS: Basophils # (auto) 0.01 K/uL (0-0.2); Basophils % (auto) 0.2 %; Eosinophils # (auto) 0.13 K/uL (0-0.5); Eosinophils % (auto) 2.9 %; Hematocrit (blood only) 39.9 % (37-47); Hemoglobin 13.5 g/dL (12.0-16.0); Immature Granulocytes # (auto) 0.01 K/uL (0.00-0.02); Immature Granulocytes % (auto) 0.2 %; Lymphocytes # (auto) 1.25 K/uL (1.2-3.4); Lymphocytes % (auto) 27.8 %; Mean Corpuscular Hemoglobin 31.4 pg (25-34); Mean Corpuscular Hgb Conc 33.8 g/dL (32-36); Mean Corpuscular Volume 92.8 fL (80-100); Mean Platelet Volume 11.7 fL (7.4-10.4); Monocytes # (auto) 0.42 K/uL (0.11-0.59); Monocytes % (auto) 9.4 %; Neutrophils # (auto) 2.67 K/uL (1.4-6.5); Neutrophils % (auto) 59.5 %; Platelet Count 252 K/uL (130-400); RDW Coefficient of Variation 14.8 % (11.5-14.5); RDW Standard Deviation 50.2 fL (36.4-46.3); White Blood Count 4.49 K/uL (4.8-10.8)
[2021-10-05 11:51] LABS: Alanine Aminotransferase 59 U/L (7-52); Albumin Globulin Ratio 1.2 (0.9-2); Albumin Level 4.1 gm/dl (3.4-5.0); Alkaline Phosphatase 138 U/L (34-104); Anion Gap 10 (3-11); BUN Creatinine Ratio 15.1 (10-20); Bilirubin,Total 2.1 mg/dl (0.2-1.0); Blood Urea Nitrogen 14 mg/dl (6-23); Calcium 9.3 mg/dl (8.5-10.1); Carbon Dioxide 30 mmol/L (21-32); Chloride 101 mmol/L (98-107); Creatinine Clr Calc Pharmacy 51.6 ml/min; Est GFR (African American) 70.7 ml/min; Globulin 3.3 gm/dl (2.5-4.0); Glucose 128 mg/dl (70-99(Fasting)); Lipase 66 U/L (11-82); Sodium 141 mmol/L (136-145); Total Protein 7.4 gm/dl (6.0-8.3)
[2021-10-05 12:35] LABS: Potassium 3.4 mmol/L (3.5-5.1)
[2021-10-05] MEDS ORDERED: HYDROmorphone INJ 0.5 MG/0.5 ML SYR IV STA (12:59)
--- NOTE | 2021-10-05 13:00 | Communication Note ---
Date of Service: October 05, 2021 History and physical exam performed by me History notable for 75-year-old woman who presents with abdominal pain. Patient reports right-sided abdominal pain, chronic intermittent but worsened over the past 2 days, severe, symptoms feels as if radiating to the throat, associated with nausea. Reports stools have become pale over the past couple of weeks and orange urine On physical exam, General: Elderly woman, no acute distress Eyes: PERRL, not pale, EOM intact bilaterally ENMT: External ear and nose normal, oropharynx normal Respiratory: Normal respiratory effort, no respiratory distress, lungs clear to auscultation, no crackles and no wheezes Cardiovascular: RRR S1 S2 Gastrointestinal (Abdomen): Abdomen is not distended, soft, +RUQ tenderness, no guarding, no palpable hepatosplenomegaly, normal bowel sounds Musculoskeletal: No cyanosis or clubbing, all extremities motor strength 5/5, no pedal edema Neurologic: Alert and oriented x 3, No focal weakness, sensation grossly intact Psychiatric: Alert and oriented x 3, euthymic affect, no depressed affect Labs notable for potassium of 3.4, total bilirubin of 2.1, AST of 46, ALT of 59, alkaline phosphatase of 138 Liver ultrasound done yesterday noted dilated CBD measuring 11 mm in caliber, internal echoes which could reflect sludge. No CBD calculi noted though distal CBD was obscured. Large amount of sludge in gallbladder which is moderately distended. No convincing evidence of acute cholecystitis or gallstones. Abdominal pain Obstructive hyberbilirubinemia Possible choledocholithiasis or CBD sludge GI consult for evaluation for ERCP. Will defer to GI about possible cholecystectomy if indicated. Patient is a Jehovah witness and would not like any blood transfusion and request possible bloodless procedures Continue to hold home warfarin for possible procedure. Patient reports that she held it for the past 2 days as her INR was above 4 Follow-up INR pending. Agree with other plans as detailed by Georgina TOVAR
[2021-10-05] MEDS ORDERED: POTASSIUM CHLORIDE CRTAB 20 MEQ TABCR PO STA (13:03)
[2021-10-05 13:16] LABS: INR 3.7 (0.9-1.1); Prothrombin Time 36.9 Seconds (9.0-12.0)
--- NOTE | 2021-10-05 15:22 | Gastrointestinal Consultation ---
Date of Consultation October 05, 2021 Assessment & Plan (1) Elevated LFTs: Likely secondary to passage of gallbladder sludge. MRCP this afternoon. If choledocholithiasis then will go forward with ERCP tomorrow. INR needs to be 1.4 or lower to undergo procedure tomorrow. Supervising Physician Co-Signing Physician Notes Late entry: Patient was seen and examine don 10/05 with GUY Foley whose note reflects our findings and plan. History of Present Illness Reason for Consultation: gallstones, elevated LFTs Requesting Physician: Shante Attending Physician: Tess Frey MD History of Present Illness Ms. Smitha Morgan is a 75 yr old female pt of Dr. Tony acevedo a hx of mitral valve replacement w porcine valve on warfarin who has felt, "no well, some dizziness, poor appetite," for about a month. Abdomen feels ,like a "low storm starting to build up," - present for a month, then "lightening bolt," type intermittent pain for the past 4 days. Has had nausea, dark urine, believes her whites of her eyes were a bit yellow this morning. Had some diarrhea a few days ago. BMs were, "like chalk," a few days ago. BMs are now formed and back to regular color. She follows with Dixie Diaz for IBS-C and had seen her a few wks ago and then Kim Boudreaux yesterday for continued symptoms. US yesterday with dilated Bile duct at 11mm, no clear choledocholithiasis. Here in the ED, she has mildly elevated LFTsT Bili 2.1, AST 46, ALT 59, Alk Phos 138. Lipase is normal at 66. Pt's imaging, labs, hx was reviewed by Dr. Barkley who ordered urgent MRCP and plans for ERCP tomorrow. Pt is NPO, nauseated, but she is awake, alert oriented, pleasantly conversive and hemodynamically stable. Labs do not show any leukocytosis and she is afebrile. Allergies Allergy/AdvReac Type Severity Reaction Status Date / Time latex Allergy Severe RASH AND Verified 10/13/21 12:09 CAN'T BREATHE, HIVES morphine Allergy Severe HEART Verified 10/13/21 12:09 STOPPED AND "I STOPPED LIVING" pentobarbital Allergy Severe "HEART Verified 10/13/21 12:09 STOPPED" phenobarbital Allergy Severe "HEART Verified 10/13/21 12:09 STOPPED" thiopental Allergy Severe "HEART Verified 10/13/21 12:09 STOPPED" adhesive Allergy Intermediate REDNESS Verified 10/13/21 12:09 AND HIVES-TAPE ferrous sulfate Allergy Intermediate HIVES Verified 10/13/21 12:09 Iodinated Contrast Media Allergy Intermediate HIVES Verified 10/13/21 12:09 ioversol Allergy Intermediate HIVES Verified 10/13/21 12:09 lorazepam Allergy Intermediate HIVES AND Verified 10/13/21 12:09 SWEATING nickel Allergy Intermediate HIVES AND Verified 10/13/21 12:09 RASH pantoprazole Allergy Intermediate HIVES AND Verified 10/13/21 12:09 ITCHING prednisone Allergy Intermediate HIVES Verified 10/13/21 12:09 Sulfa (Sulfonamide Allergy Intermediate RASH, HIVES Verified 10/13/21 12:09 Antibiotics) aspartame AdvReac Intermediate DIZZINESS, Verified 10/13/21 12:09 MIGRAINES aspirin AdvReac Intermediate SWEATS, Verified 10/13/21 12:09 PALPITATIONS, RINGING IN EARS Benzodiazepines AdvReac Intermediate SWEATS, Verified 10/13/21 12:09 PALPITATIONS, RINGING IN EARS caffeine AdvReac Intermediate JITTERY Verified 10/13/21 12:09 codeine AdvReac Intermediate SWEATS, Verified 10/13/21 12:09 PALPITATIONS, RINGING IN EARS, HIVES diazepam AdvReac Intermediate SWEATING Verified 10/13/21 12:09 oxycodone AdvReac Intermediate HEART RACES Verified 10/13/21 12:09 propoxyphene AdvReac Intermediate SWEATS, Verified 10/13/21 12:09 PALPITATIONS, RINGING IN EARS saccharin AdvReac Intermediate FROM Verified 10/13/21 12:09 NUTRASWEET - DIZZINESS, MIGRAINES salicylates AdvReac Intermediate GERD, Verified 10/13/21 12:09 IRRITATES STOMACH, HIGH DOSE ONLY tramadol AdvReac Intermediate SWEATS, Verified 10/13/21 12:09 PALPITATIONS, RINGING IN EARS ibuprofen AdvReac Mild NUMBNESS Verified 10/13/21 12:09 NSAIDS (Non-Steroidal AdvReac Mild NUMBNESS Verified 10/13/21 12:09 Anti-Inflamma grapefruit AdvReac Unknown "CANNOT Verified 10/13/21 12:09 TAKE WITH HEART MEDICATION" Home Medications Medication Instructions Recorded Confirmed Type atorvastatin 10 mg tablet 10 mg PO Q2D 10/30/18 10/13/21 History cholecalciferol (vitamin D3) 25 1,000 unit PO QAM 10/30/18 10/13/21 History mcg (1,000 unit) tablet docusate sodium 100 mg capsule 100 mg PO BID 10/30/18 10/13/21 History (Colace) folic acid 1 mg tablet 1 mg PO QAM 10/30/18 10/13/21 History lactulose 10 gram/15 mL oral 5 - 30 ml PO DAILY PRN 10/30/18 10/13/21 History solution metoprolol tartrate 50 mg tablet 50 mg PO BID 10/30/18 10/13/21 History multivitamin 1 tab PO QAM 10/30/18 10/13/21 History potassium chloride 10 mEq 20 meq PO QAM 10/30/18 10/13/21 History tablet,extended release sodium chloride 0.65 % nasal spray 1 spray INTRANASAL .[id number] PRN 10/30/18 10/13/21 History aerosol (Saline Nose) warfarin 5 mg tablet See Rx Instructions .ROUTE .COMPLEX 10/30/18 10/05/21 History albuterol sulfate 90 mcg/actuation 2 puff INHALATION QID PRN 04/19/19 10/13/21 History aerosol inhaler (ProAir HFA) duloxetine 60 mg capsule,delayed 60 mg PO QAM 04/19/19 10/13/21 History release cyanocobalamin (vitamin B-12) 1,000 mcg PO QAM 10/19/19 10/13/21 History 1,000 mcg tablet (Vitamin B-12) gabapentin 300 mg capsule 300 mg PO BID 02/23/21 10/13/21 History conjugated estrogens 0.625 mg 0.625 mg PO HS #90 tab 05/08/21 10/13/21 Rx tablet (Premarin) dicyclomine 10 mg capsule 10 mg PO TID PRN #270 cap 07/03/21 10/13/21 Rx bioflavonoid products tablet 1 tab PO QAM 10/05/21 10/13/21 History fluticasone propionate 50 2 spray INTRANASAL DAILY PRN 10/05/21 10/13/21 History mcg/actuation nasal spray,suspension magnesium oxide 400 mg PO QAM 10/05/21 10/13/21 History omeprazole 40 mg capsule,delayed 40 mg PO BID 10/05/21 10/13/21 History release riboflavin (vitamin B2) 400 mg 400 mg PO QAM 10/05/21 10/13/21 History tablet torsemide 20 mg tablet 20 mg PO QAM 10/05/21 10/13/21 History conjugated estrogens 0.625 mg/gram 1 applic VAGINAL Q3D 10/13/21 10/13/21 History vaginal cream (Premarin) ondansetron 4 mg disintegrating 4 mg PO QAM PRN 10/13/21 10/13/21 History tablet Patient History Medical History (Updated 10/28/21 @ 00:10 by Piero Cruz) Atrial flutter 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 Kemp On anticoagulant therapy S/P MVR 09/2017 Rectocele Restless leg syndrome Rhinitis, non-allergic Shortness of breath SOB ON EXERTION - REASON FOR INHALER - NO USE OF INHALERS COUPLE YEARS PER PT Uterine cancer DX STAGE 1 - SURGERY Surgical History (Updated 10/13/21 @ 12:21 by Nimo Marquez) Fusion of spine HX LUMBAR AND CERVICAL (5 TOTAL SURGERIES) LIMITED ROM FOR NECK MOVING SIDE TO SIDE History of anesthesia reaction SLOW TO WAKE UP + SEE ALLERGIES-"LEFT LEG STAYS NUMB AND CAN'T MOVE LONGER PERIOD OF TIME POST OP History of bowel resection D/T BOWEL OBSTRUCTION History of cardiac cath 2017 (NO STENTS) History of cataract surgery bilat History of colonoscopy History of esophagogastroduodenoscopy (EGD) History of mitral valve replacement with bioprosthetic valve SEPTEMBER 2017 AT [facility] (WILL BRING CARD) (pig valve > [place])-ON WARFARIN History of tooth extraction Hx of appendectomy Hx of mitral valve repair 2006; f/u Dr. 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 + weakness, + dizziness; weight loss approx 3-4 lbs in a month. Eyes: + cataract surgery/procedure was scheduled for today for a hazy vision - but cancelled due to this admission. No eye redness, or pain. Resp: No SOB, no cough Cardio: + lower ant chest pain steady - like a constant heartburn also for a month; No palpitations/irregular beats, no chest pain GI: As per HPI : Denies pain on urination Skin: No jaundice, itching or new rashes Physical Exam Constitutional: well developed, + ill appearing and cooperative Eyes: PERRL, conjunctivae normal, anicteric sclerae Respiratory: normal respiratory effort, lungs clear to auscultation Cardiovascular: RRR, no murmur, no edema Gastrointestinal (Abdomen): normal bowel sounds, soft, nontender, no hepatosplenomegaly Percussion/Palpation: + abdomen tender (Mild diffuse adbdominal msk tenderness. No signs of acute abdomen.) and abdomen soft; no guarding and abdomen not rigid Skin: no rashes, warm and dry normal turgor and + pallor Neurologic: PERRL, EOMI, accommodation nl, no face palsy, no dysarthria awake; not confused Psychiatric: A+Ox3, euthymic affect Results & Data ([facility]) Vital Signs (Past 12 Hours) Vital Signs Temp Pulse Pulse Resp BP BP Pulse Ox 10/05/21 15:15 72 18 144/84 H 100 10/05/21 14:50 68 16 98 10/05/21 14:40 68 15 97 10/05/21 14:31 66 18 143/79 H 98 10/05/21 14:30 66 18 98 10/05/21 14:20 66 22 98 10/05/21 14:10 69 13 99 10/05/21 14:00 68 16 116/74 98 10/05/21 13:50 67 21 98 10/05/21 13:40 72 15 99 10/05/21 13:30 65 13 139/70 98 10/05/21 13:21 67 18 100 10/05/21 13:10 68 17 99 10/05/21 13:00 68 10 L 142/77 H 100 10/05/21 12:50 67 12 100 10/05/21 12:40 69 17 100 10/05/21 12:30 69 20 140/78 100 10/05/21 12:20 67 16 100 10/05/21 12:10 67 16 100 10/05/21 12:01 66 13 141/55 H 100 10/05/21 12:00 67 15 100 10/05/21 11:50 68 13 99 10/05/21 11:40 69 14 100 10/05/21 11:30 69 15 107/75 100 10/05/21 11:20 73 19 99 10/05/21 11:10 75 16 100 10/05/21 11:06 80 16 100 10/05/21 10:30 36.7 C 79 14 122/78 99 Laboratory Results WBC 4.49, Hb 13.5, Hct 39.9, plts 252, PT 36, INR 3.7, Na 141, K 3.4, Cl 101, Co2 30, BUN 14, Cr 0.93. T Bili 2.1, AST 46, ALT 59, Alk Phos 138, lipase 66. Diagnostic Findings US 10/05/21: 1. Dilated common bile duct, measuring 11 mm in caliber. Internal echoes within the common bile duct which could reflect sludge or artifact. No common bile duct calculi identified although distal common bile duct obscured. Correlation with liver function tests is recommended. ERCP might be considered for further evaluation. 2. Large amount of sludge within the gallbladder which is moderately distended. No convincing evidence for acute cholecystitis. No gallstones identified. 3. Partially obscured pancreas.
[2021-10-05] MEDS ORDERED: PHYTONADIONE 5 MG TAB PO STA (16:12)
[2021-10-05] MEDS ORDERED: PIPERACILLIN/TAZOBACTAM 4.5 GM/120 ML BAG IV STA (16:20)
[2021-10-05] MEDS ORDERED: ONDANSETRON INJ 2 MG/ML 2 ML VIAL IV PRN (17:06)
[2021-10-05] MEDS ORDERED: DICYCLOMINE HCL 10 MG CAP PO PRN (17:06)
--- NOTE | 2021-10-05 17:46 | History & Physical Report ---
Date of Service October 05, 2021 Assessment & Plan (1) Elevated LFTs: Plan: Admit to [facility] Patient presenting from home with reports of intermittent, sharp RUQ and RLQ pain x 1 month. Outpatient RUQ US showed dilated CBD and sludge within gallbladder. T bili 2.1, AST 46, ALT 59, alk phos 138. Lipase 66 Transaminitis likely due to passage of gallbladder sludge GI consult MRCP, likely planning for ERCP tomorrow Due to reports of chills, Zosyn added May need general surgery consult for cholecystectomy (2) Atrial flutter: Plan: Anticoagulated on Coumadin, INR 3.7 --received vitamin K in anticipation of ERCP tomorrow Rate controlled on metoprolol (3) Diastolic dysfunction: Plan: Volume status acceptable, hold torsemide for now (4) HLD (hyperlipidemia): Plan: Hold statin due to elevated LFTs (5) DVT prophylaxis: Plan: SCDs when INR <2.0 Admission and Anticipated Discharge Date Admission Date: October 05, 2021 History of Present Illness Chief Complaint: Abdominal pain Primary Care Provider: Ramon Jimenez MD 75-year-old female with PMH dyslipidemia, atrial flutter anticoagulant on Coumadin, history of bioprosthetic mitral valve replacement, tricuspid valve repair, HTN, GERD, IBS, diastolic dysfunction, and other problems listed below who presents the ED for evaluation of abdominal pain. Patient reports intermittent right upper and right lower quadrant pain for the past 1 month. Patient describes intermittent, sharp, shooting pains. She reports some intermittent nausea however no vomiting. Notes that she was having some diarrhea and stools were very light in color. Patient was evaluated by GI and had a right upper quadrant ultrasound showing dilated CBD and large amount of sludge within the gallbladder. Patient was referred to the ED for further evaluation. Patient reports some chills and night sweats however did not take her temperature. No chest pain or shortness of breath. Denies lightheadedness, dizziness, diaphoresis, syncopal events. Reports urine has been very dark in color however denies dysuria. In the ED, patient is found to have mild transaminitis. She is hemodynamically stable and other labs are unremarkable. Patient was given IVF and IV Dilaudid. Allergies Allergy/AdvReac Type Severity Reaction Status Date / Time latex Allergy Severe RASH AND Verified 10/05/21 11:48 CAN'T BREATHE, HIVES morphine Allergy Severe HEART Verified 10/05/21 11:48 STOPPED AND "I STOPPED LIVING" pentobarbital Allergy Severe "HEART Verified 10/05/21 11:48 STOPPED" phenobarbital Allergy Severe "HEART Verified 10/05/21 11:48 STOPPED" thiopental Allergy Severe "HEART Verified 10/05/21 11:48 STOPPED" adhesive Allergy Intermediate REDNESS Verified 10/05/21 11:48 AND HIVES-TAPE ferrous sulfate Allergy Intermediate HIVES Verified 10/05/21 11:48 Iodinated Contrast Media Allergy Intermediate HIVES Verified 10/05/21 11:48 ioversol Allergy Intermediate HIVES Verified 10/05/21 11:48 lorazepam Allergy Intermediate HIVES AND Verified 10/05/21 11:48 SWEATING nickel Allergy Intermediate HIVES AND Verified 10/05/21 11:48 RASH pantoprazole Allergy Intermediate HIVES AND Verified 10/05/21 11:48 ITCHING prednisone Allergy Intermediate HIVES Verified 10/05/21 11:48 Sulfa (Sulfonamide Allergy Intermediate RASH, HIVES Verified 10/05/21 11:48 Antibiotics) aspartame AdvReac Intermediate DIZZINESS, Verified 10/05/21 11:48 MIGRAINES aspirin AdvReac Intermediate SWEATS, Verified 10/05/21 11:48 PALPITATIONS, RINGING IN EARS Benzodiazepines AdvReac Intermediate SWEATS, Verified 10/05/21 11:48 PALPITATIONS, RINGING IN EARS caffeine AdvReac Intermediate JITTERY Verified 10/05/21 11:48 codeine AdvReac Intermediate SWEATS, Verified 10/05/21 11:48 PALPITATIONS, RINGING IN EARS, HIVES diazepam AdvReac Intermediate SWEATING Verified 10/05/21 11:48 oxycodone AdvReac Intermediate HEART RACES Verified 10/05/21 11:48 propoxyphene AdvReac Intermediate SWEATS, Verified 10/05/21 11:48 PALPITATIONS, RINGING IN EARS saccharin AdvReac Intermediate FROM Verified 10/05/21 11:48 NUTRASWEET - DIZZINESS, MIGRAINES salicylates AdvReac Intermediate GERD, Verified 10/05/21 11:48 IRRITATES STOMACH, HIGH DOSE ONLY tramadol AdvReac Intermediate SWEATS, Verified 10/05/21 11:48 PALPITATIONS, RINGING IN EARS ibuprofen AdvReac Mild NUMBNESS Verified 10/05/21 11:48 NSAIDS (Non-Steroidal AdvReac Mild NUMBNESS Verified 10/05/21 11:48 Anti-Inflamma grapefruit AdvReac Unknown "CANNOT Verified 10/05/21 11:48 TAKE WITH HEART MEDICATION" Home Medications Medication Instructions Recorded Confirmed Type atorvastatin 10 mg tablet 10 mg PO 3XWK 10/30/18 10/05/21 History cholecalciferol (vitamin D3) 25 1,000 unit PO QAM 10/30/18 10/05/21 History mcg (1,000 unit) tablet docusate sodium 100 mg capsule 100 mg PO BID 10/30/18 10/05/21 History (Colace) folic acid 1 mg tablet 1 mg PO QAM 10/30/18 10/05/21 History lactulose 10 gram/15 mL oral 5 - 30 ml PO DAILY PRN 10/30/18 10/05/21 History solution metoprolol tartrate 50 mg tablet 50 mg PO BID 10/30/18 10/05/21 History multivitamin 1 tab PO DAILY 10/30/18 10/05/21 History potassium chloride 10 mEq 20 meq PO QAM 10/30/18 10/05/21 History tablet,extended release sodium chloride 0.65 % nasal spray 1 spray INTRANASAL .Q2-4H PRN 10/30/18 10/05/21 History aerosol (Saline Nose) warfarin 5 mg tablet See Rx Instructions .ROUTE .COMPLEX 10/30/18 10/05/21 History albuterol sulfate 90 mcg/actuation 2 puff INHALATION QID PRN 04/19/19 10/05/21 History aerosol inhaler (ProAir HFA) duloxetine 60 mg capsule,delayed 60 mg PO QAM 04/19/19 10/05/21 History release cyanocobalamin (vitamin B-12) 1,000 mcg PO DAILY 10/19/19 10/05/21 History 1,000 mcg tablet (Vitamin B-12) gabapentin 300 mg capsule 300 mg PO BID 02/23/21 10/05/21 History conjugated estrogens 0.625 mg 0.625 mg PO HS #90 tab 05/08/21 10/05/21 Rx tablet (Premarin) conjugated estrogens 0.625 mg/gram 1 applic VAGINAL 2XWK #60 g 05/08/21 10/05/21 Rx vaginal cream (Premarin) dicyclomine 10 mg capsule 10 mg PO TID PRN #270 cap 07/03/21 10/05/21 Rx bioflavonoid products tablet 1 tab PO DAILY 10/05/21 10/05/21 History fluticasone propionate 50 2 spray INTRANASAL DAILY PRN 10/05/21 10/05/21 History mcg/actuation nasal spray,suspension magnesium oxide 400 mg PO DAILY 10/05/21 10/05/21 History omeprazole 40 mg capsule,delayed 40 mg PO BID 10/05/21 10/05/21 History release riboflavin (vitamin B2) 400 mg 400 mg PO DAILY 10/05/21 10/05/21 History tablet torsemide 20 mg tablet 20 mg PO DAILY 10/05/21 10/05/21 History Past Med/Surg History Medical History Atrial flutter 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 Kemp On anticoagulant therapy S/P MVR 09/2017 Rectocele Restless leg syndrome Rhinitis, non-allergic Shortness of breath SOB ON EXERTION - REASON FOR INHALER - NO USE OF INHALERS COUPLE YEARS PER PT Uterine cancer DX STAGE 1 - SURGERY Surgical History Fusion of spine HX LUMBAR AND CERVICAL (5 TOTAL SURGERIES) LIMITED ROM FOR NECK MOVING SIDE TO SIDE H/O bilateral salpingo-oophorectomy History of anesthesia reaction SLOW TO WAKE UP + SEE ALLERGIES-"LEFT LEG STAYS NUMB AND CAN'T MOVE LONGER PERIOD OF TIME POST OP History of bilateral tubal ligation History of bowel resection D/T BOWEL OBSTRUCTION History of cardiac cath 2017 (NO STENTS) History of cataract surgery bilat History of colonoscopy History of esophagogastroduodenoscopy (EGD) History of mitral valve replacement with bioprosthetic valve SEPTEMBER 2017 AT [facility] (WILL BRING CARD) (pig valve > [place])-ON WARFARIN History of partial hysterectomy History of tooth extraction Hx of appendectomy Hx of mitral valve repair 2007 Family History Other Asthma Family history of reaction to anesthesia Heart disease Hypertension Social History Smoking Status: Never smoker Second Hand Exposure: No; Hx Alcohol Use: No Hx Substance Use: No Preferred Language: Tamazight Communication Ability: Effective Fire Code Inspector Required: No Beliefs That Will Affect Care: Alevism Alevism Beliefs: Jehova's Witness Current Living Situation: Spouse current occupational status: retired Other Information That Helps Us Care for You: No Feels Safe at Home: Yes Safety Concerns: Feels Safe At This Time Assistive Devices: None Review of Systems Review of Systems: ROS per HPI, all other systems reviewed and negative Physical Exam Physical Exam: please refer to Dr. Frey's addendum for physical exam Results & Data Results & Data ([facility]) Vital Signs (Past 12 Hours) Vital Signs Temp Pulse Pulse Resp BP BP BP 10/05/21 17:10 36.7 C 72 18 115/84 10/05/21 17:07 36.7 C 72 18 115/84 10/05/21 16:04 70 18 126/62 10/05/21 15:15 72 18 144/84 H 10/05/21 14:50 68 16 10/05/21 14:40 68 15 10/05/21 14:31 66 18 143/79 H 10/05/21 14:30 66 18 10/05/21 14:20 66 22 10/05/21 14:10 69 13 10/05/21 14:00 68 16 116/74 10/05/21 13:50 67 21 10/05/21 13:40 72 15 10/05/21 13:30 65 13 139/70 10/05/21 13:21 67 18 10/05/21 13:10 68 17 10/05/21 13:00 68 10 L 142/77 H 10/05/21 12:50 67 12 10/05/21 12:40 69 17 10/05/21 12:30 69 20 140/78 10/05/21 12:20 67 16 10/05/21 12:10 67 16 10/05/21 12:01 66 13 141/55 H 10/05/21 12:00 67 15 10/05/21 11:50 68 13 10/05/21 11:40 69 14 10/05/21 11:30 69 15 107/75 10/05/21 11:20 73 19 10/05/21 11:10 75 16 10/05/21 11:06 80 16 10/05/21 10:30 36.7 C 79 14 122/78 Pulse Ox 10/05/21 17:10 99 10/05/21 17:07 99 10/05/21 16:04 99 10/05/21 15:15 100 10/05/21 14:50 98 10/05/21 14:40 97 10/05/21 14:31 98 10/05/21 14:30 98 10/05/21 14:20 98 10/05/21 14:10 99 10/05/21 14:00 98 10/05/21 13:50 98 10/05/21 13:40 99 10/05/21 13:30 98 10/05/21 13:21 100 10/05/21 13:10 99 10/05/21 13:00 100 10/05/21 12:50 100 10/05/21 12:40 100 10/05/21 12:30 100 10/05/21 12:20 100 10/05/21 12:10 100 10/05/21 12:01 100 10/05/21 12:00 100 10/05/21 11:50 99 10/05/21 11:40 100 10/05/21 11:30 100 10/05/21 11:20 99 10/05/21 11:10 100 10/05/21 11:06 100 10/05/21 10:30 99 Laboratory Results Short CBC 10/05/21 Range/Units 11:06 WBC 4.49 L (4.8-10.8) K/uL Hgb 13.5 (12.0-16.0) g/dL Hct 39.9 (37-47) % Plt Count 252 (130-400) K/uL BMP 10/05/21 10/05/21 11:06 12:09 Sodium 141 Potassium TNP 3.4 L Chloride 101 Carbon Dioxide 30 BUN 14 Creatinine 0.93 Glucose 128 H Calcium 9.3 Liver Function 06/16/22 06/16/22 Range/Units 11:06 12:09 Total Bilirubin 2.1 H (0.2-1.0) mg/dl AST TNP 46 H ALT 59 H (7-52) U/L Alkaline Phosphatase 138 H (34-104) U/L Albumin 4.1 (3.4-5.0) gm/dl Code Status & VTE Plan Code Status Patient is a full code as per Dr. Frey's discussion with her. Supervising Physician Co-Signing Physician Notes Date of Service: October 05, 2021 History and physical exam performed by co History notable for 75-year-old woman who presents with abdominal pain. Patient reports right-sided abdominal pain, chronic intermittent but worsened over the past 2 days, severe, symptoms feels as if radiating to the throat, associated with nausea. Reports stools have become pale over the past couple of weeks and orange urine On physical exam, General: Elderly woman, no acute distress Eyes: PERRL, not pale, EOM intact bilaterally ENMT: External ear and nose normal, oropharynx normal Respiratory: Normal respiratory effort, no respiratory distress, lungs clear to auscultation, no crackles and no wheezes Cardiovascular: RRR S1 S2 Gastrointestinal (Abdomen): Abdomen is not distended, soft, +RUQ tenderness, no guarding, no palpable hepatosplenomegaly, normal bowel sounds Musculoskeletal: No cyanosis or clubbing, all extremities motor strength 5/5, no pedal edema Neurologic: Alert and oriented x 3, No focal weakness, sensation grossly intact Psychiatric: Alert and oriented x 3, euthymic affect, no depressed affect Labs notable for potassium of 3.4, total bilirubin of 2.1, AST of 46, ALT of 59, alkaline phosphatase of 138 Liver ultrasound done yesterday noted dilated CBD measuring 11 mm in caliber, internal echoes which could reflect sludge. No CBD calculi noted though distal CBD was obscured. Large amount of sludge in gallbladder which is moderately distended. No convincing evidence of acute cholecystitis or gallstones. Abdominal pain Obstructive hyberbilirubinemia Possible choledocholithiasis or CBD sludge GI consult for evaluation for ERCP. Will defer to GI about possible cholecystectomy if indicated. Patient is a Jehovah witness and would not like any blood transfusion and request possible bloodless procedures Continue to hold home warfarin for possible procedure. Patient reports that she held it for the past 2 days as her INR was above 4 Got Vit K by GI to correct supratherapeutic INR in view of possible ERCP Agree with other plans as detailed by Georgina TOVAR
[2021-10-05] MEDS: ACETAMINOPHEN 325 MG TAB PO PRN (18:29)
--- NOTE | 2021-10-05 19:18 | Magnetic Resonance Report ---
MR MRCP CLINICAL HISTORY: eval for CBD stones TECHNIQUE: Multiplanar multisequence MR images of the abdomen were obtained, as per MRCP protocol. . COMPARISON: None available at the time of this dictation. FINDINGS: Lower chest: No acute abnormality Liver: A few hepatic cysts are seen. Gallbladder and biliary tree: The gallbladder is markedly distended. No definite pericholecystic flui d is seen. There is dilation and tortuosity of the cystic duct and proximal extrahepatic bile duct. T here is a rounded filling density in the mid to distal common bile duct measuring approximately 7 mm. The intrahepatic bile ducts are relatively under distended. Pancreas: Dilation of the pancreatic duct is noted. Spleen: Unremarkable. Adrenals: Unremarkable. Kidneys and ureters: Unremarkable. Bowel: Unremarkable. Lymph nodes Retroperitoneal: Unremarkable. Mesenteric: Unremarkable. Peritoneum: Normal Vessels: Unremarkable. Abdominal wall: Unremarkable. Bones: Unremarkable. IMPRESSION: Findings are compatible with obstructive stone in the mid to distal common bile duct measuring approx imately 7 mm. Prominence of the pancreatic duct is seen which also likely reflects this distal obstru ction. ACT 112: Negative or not required by law. Electronically signed by: Mariusz Wallace M.D. 10/05/2021 7:16 PM
[2021-10-05] MEDS: GABAPENTIN 300 MG CAP PO SCH (21:11)
[2021-10-05] MEDS: OMEPRAZOLE 20 MG CAPCR PO SCH (21:11)
[2021-10-05] MEDS: METOPROLOL TARTRATE 50 MG TAB PO SCH (21:11)
[2021-10-05] MEDS: ESTROGENS, CONJUGATED 0.625 MG TAB PO SCH (21:11)
[2021-10-05] MEDS: PIPERACILLIN/TAZOBACTAM 3.375 GM in DEXTROSE 5% 100 ML IV SCH (22:18)
[2021-10-06 02:42] LABS: Appearance Urine Clear (Clear); Bacteria Urine Automated Negative (Negative); Blood Urine Negative (Negative); Cast Urine Automated 0 /lpf (0-5); Color Urine Dark Yellow; Epithelial Cell Urine Auto 20-30 /lpf (0-5); Glucose Urine UA Negative (Negative); Ketones Urine Negative (Negative); Leukocyte Esterase Urine Trace (Negative); Nitrite Urine Negative (Negative); Protein Urine Negative (Negative); Urobilinogen Urine Negative (Negative)
[2021-10-06 03:45] LABS: Bilirubin Urine 1+ (Negative)
[2021-10-06] MEDS: PIPERACILLIN/TAZOBACTAM 3.375 GM in DEXTROSE 5% 100 ML IV SCH ×3 (06:13→22:11)
[2021-10-06] MEDS: METOPROLOL TARTRATE 50 MG TAB PO SCH ×2 (08:37→20:05)
[2021-10-06] MEDS: GABAPENTIN 300 MG CAP PO SCH ×2 (08:37→20:05)
[2021-10-06] MEDS: OMEPRAZOLE 20 MG CAPCR PO SCH ×2 (08:37→20:05)
[2021-10-06 08:55] LABS: Basophils # (auto) 0.01 K/uL (0-0.2); Basophils % (auto) 0.3 %; Eosinophils # (auto) 0.16 K/uL (0-0.5); Eosinophils % (auto) 4.3 %; Hematocrit (blood only) 39.8 % (37-47); Hemoglobin 13.3 g/dL (12.0-16.0); Lymphocytes # (auto) 1.28 K/uL (1.2-3.4); Lymphocytes % (auto) 34.3 %; Mean Corpuscular Hemoglobin 31.3 pg (25-34); Mean Corpuscular Hgb Conc 33.4 g/dL (32-36); Mean Corpuscular Volume 93.6 fL (80-100); Mean Platelet Volume 11.4 fL (7.4-10.4); Monocytes # (auto) 0.31 K/uL (0.11-0.59); Monocytes % (auto) 8.3 %; Neutrophils # (auto) 1.97 K/uL (1.4-6.5); Neutrophils % (auto) 52.8 %; Platelet Count 255 K/uL (130-400); RDW Coefficient of Variation 14.8 % (11.5-14.5); RDW Standard Deviation 50.4 fL (36.4-46.3); Red Blood Count 4.25 M/uL (4.2-5.4); White Blood Count 3.73 K/uL (4.8-10.8)
[2021-10-06] MEDS ORDERED: DULoxetine HCL 60 MG CAP PO SCH (09:00)
[2021-10-06] MEDS ORDERED: MAGNESIUM OXIDE 400 MG TAB PO SCH (09:00)
[2021-10-06] MEDS ORDERED: POTASSIUM CHLORIDE CRTAB 20 MEQ TABCR PO SCH (09:00)
[2021-10-06 09:04] LABS: INR 2.6 (0.9-1.1); Prothrombin Time 26.6 Seconds (9.0-12.0)
[2021-10-06] MEDS ORDERED: PHYTONADIONE 5 MG TAB PO STA (09:07)
[2021-10-06 09:25] LABS: Albumin Globulin Ratio 1.2 (0.9-2); Albumin Level 3.8 gm/dl (3.4-5.0); BUN Creatinine Ratio 14.3 (10-20); Bilirubin,Total 3.6 mg/dl (0.2-1.0); Calcium 8.8 mg/dl (8.5-10.1); Est GFR (African American) 66.3 ml/min; Est GFR (Non-African American) 57.2 ml/min; Globulin 3.1 gm/dl (2.5-4.0); Total Protein 6.9 gm/dl (6.0-8.3)
--- NOTE | 2021-10-06 10:16 | Surgery Consultation ---
Date of Consultation October 06, 2021 Assessment & Plan (1) Choledocholithiasis: This is a 75yF with a PMH of mitral valve replacement, HTN, GERD, aflutter on coumadin, HLD, h/o bowel resection for SBO, hysterectomy, appendectomy, b/l salpingo oophorectomy who presents to the [facility] ED on 10/05/21 with complaints of abdominal pain. An outpatient RUQ US revealed findings of a dilated common bile duct measuring 11mm and cannot rule out stones/sludge in the CBD. Along with a sludge filled and moderately distended gallbladder. She was admitted under medicine and GI consultation placed. She underwent an MRCP that confirmed choledocholithiasis. Today WBC 3.7. LFTs are elevated with Tb: 3.6, AST: 50, ALT: 52, ALkP: 126. Her INR is currently 2.6. Vital signs are stable. On exam patient's abdomen is . GI is planning on performing an ERCP today As above. Patient seen. Agree she will need laparoscopic cholecystectomy. Would be preferable to do under 1 anesthetic this afternoon if we can get her INR at 1.5 or lower. Discussed the options with her and her . Discussed risks which include bleeding, infection, injury to another organ, bile duct leaks or injury, DVT, PE, MO, CVA etc. Following our discussion I answered all their questions. They are agreeable. We will plan laparoscopic cholecystectomy in coordination with her ERCP once the INR is adequate. History of Present Illness Attending Physician: Alfie Mason MD History of Present Illness This is a 75yF with a PMH of mitral valve replacement, HTN, GERD, aflutter on coumadin, HLD, h/o bowel resection for SBO, hysterectomy, appendectomy, b/l salpingo oophorectomy who presents to the [facility] ED on 10/05/21 with complaints of abdominal pain. An outpatient RUQ US revealed findings of a dilated common bile duct measuring 11mm and cannot rule out stones/sludge in the CBD, along with a sludge filled and moderately distended gallbladder and she was referred here. She was admitted under medicine and GI consultation placed. She underwent an MRCP that confirmed choledocholithiasis. Allergies Allergy/AdvReac Type Severity Reaction Status Date / Time latex Allergy Severe RASH AND Verified 10/05/21 11:48 CAN'T BREATHE, HIVES morphine Allergy Severe HEART Verified 10/05/21 11:48 STOPPED AND "I STOPPED LIVING" pentobarbital Allergy Severe "HEART Verified 10/05/21 11:48 STOPPED" phenobarbital Allergy Severe "HEART Verified 10/05/21 11:48 STOPPED" thiopental Allergy Severe "HEART Verified 10/05/21 11:48 STOPPED" adhesive Allergy Intermediate REDNESS Verified 10/05/21 11:48 AND HIVES-TAPE ferrous sulfate Allergy Intermediate HIVES Verified 10/05/21 11:48 Iodinated Contrast Media Allergy Intermediate HIVES Verified 10/05/21 11:48 ioversol Allergy Intermediate HIVES Verified 10/05/21 11:48 lorazepam Allergy Intermediate HIVES AND Verified 10/05/21 11:48 SWEATING nickel Allergy Intermediate HIVES AND Verified 10/05/21 11:48 RASH pantoprazole Allergy Intermediate HIVES AND Verified 10/05/21 11:48 ITCHING prednisone Allergy Intermediate HIVES Verified 10/05/21 11:48 Sulfa (Sulfonamide Allergy Intermediate RASH, HIVES Verified 10/05/21 11:48 Antibiotics) aspartame AdvReac Intermediate DIZZINESS, Verified 10/05/21 11:48 MIGRAINES aspirin AdvReac Intermediate SWEATS, Verified 10/05/21 11:48 PALPITATIONS, RINGING IN EARS Benzodiazepines AdvReac Intermediate SWEATS, Verified 10/05/21 11:48 PALPITATIONS, RINGING IN EARS caffeine AdvReac Intermediate JITTERY Verified 10/05/21 11:48 codeine AdvReac Intermediate SWEATS, Verified 10/05/21 11:48 PALPITATIONS, RINGING IN EARS, HIVES diazepam AdvReac Intermediate SWEATING Verified 10/05/21 11:48 oxycodone AdvReac Intermediate HEART RACES Verified 10/05/21 11:48 propoxyphene AdvReac Intermediate SWEATS, Verified 10/05/21 11:48 PALPITATIONS, RINGING IN EARS saccharin AdvReac Intermediate FROM Verified 10/05/21 11:48 NUTRASWEET - DIZZINESS, MIGRAINES salicylates AdvReac Intermediate GERD, Verified 10/05/21 11:48 IRRITATES STOMACH, HIGH DOSE ONLY tramadol AdvReac Intermediate SWEATS, Verified 10/05/21 11:48 PALPITATIONS, RINGING IN EARS ibuprofen AdvReac Mild NUMBNESS Verified 10/05/21 11:48 NSAIDS (Non-Steroidal AdvReac Mild NUMBNESS Verified 10/05/21 11:48 Anti-Inflamma grapefruit AdvReac Unknown "CANNOT Verified 10/05/21 11:48 TAKE WITH HEART MEDICATION" Home Medications Medication Instructions Recorded Confirmed Type atorvastatin 10 mg tablet 10 mg PO 3XWK 10/30/18 10/05/21 History cholecalciferol (vitamin D3) 25 1,000 unit PO QAM 10/30/18 10/05/21 History mcg (1,000 unit) tablet docusate sodium 100 mg capsule 100 mg PO BID 10/30/18 10/05/21 History (Colace) folic acid 1 mg tablet 1 mg PO QAM 10/30/18 10/05/21 History lactulose 10 gram/15 mL oral 5 - 30 ml PO DAILY PRN 10/30/18 10/05/21 History solution metoprolol tartrate 50 mg tablet 50 mg PO BID 10/30/18 10/05/21 History multivitamin 1 tab PO DAILY 10/30/18 10/05/21 History potassium chloride 10 mEq 20 meq PO QAM 10/30/18 10/05/21 History tablet,extended release sodium chloride 0.65 % nasal spray 1 spray INTRANASAL .Q2-4H PRN 10/30/18 10/05/21 History aerosol (Saline Nose) warfarin 5 mg tablet See Rx Instructions .ROUTE .COMPLEX 10/30/18 10/05/21 History albuterol sulfate 90 mcg/actuation 2 puff INHALATION QID PRN 04/19/19 10/05/21 History aerosol inhaler (ProAir HFA) duloxetine 60 mg capsule,delayed 60 mg PO QAM 04/19/19 10/05/21 History release cyanocobalamin (vitamin B-12) 1,000 mcg PO DAILY 10/19/19 10/05/21 History 1,000 mcg tablet (Vitamin B-12) gabapentin 300 mg capsule 300 mg PO BID 02/23/21 10/05/21 History conjugated estrogens 0.625 mg 0.625 mg PO HS #90 tab 05/08/21 10/05/21 Rx tablet (Premarin) conjugated estrogens 0.625 mg/gram 1 applic VAGINAL 2XWK #60 g 05/08/21 10/05/21 Rx vaginal cream (Premarin) dicyclomine 10 mg capsule 10 mg PO TID PRN #270 cap 07/03/21 10/05/21 Rx bioflavonoid products tablet 1 tab PO DAILY 10/05/21 10/05/21 History fluticasone propionate 50 2 spray INTRANASAL DAILY PRN 10/05/21 10/05/21 History mcg/actuation nasal spray,suspension magnesium oxide 400 mg PO DAILY 10/05/21 10/05/21 History omeprazole 40 mg capsule,delayed 40 mg PO BID 10/05/21 10/05/21 History release riboflavin (vitamin B2) 400 mg 400 mg PO DAILY 10/05/21 10/05/21 History tablet torsemide 20 mg tablet 20 mg PO DAILY 10/05/21 10/05/21 History Patient History Medical History Atrial 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 Kemp On anticoagulant therapy S/P MVR 09/2017 Rectocele Restless leg syndrome Rhinitis, non-allergic Shortness of breath SOB ON EXERTION - REASON FOR INHALER - NO USE OF INHALERS COUPLE YEARS PER PT Uterine cancer DX STAGE 1 - SURGERY Surgical History Fusion of spine HX LUMBAR AND CERVICAL (5 TOTAL SURGERIES) LIMITED ROM FOR NECK MOVING SIDE TO SIDE H/O bilateral salpingo-oophorectomy History of anesthesia reaction SLOW TO WAKE UP + SEE ALLERGIES-"LEFT LEG STAYS NUMB AND CAN'T MOVE LONGER PERIOD OF TIME POST OP History of bilateral tubal ligation History of bowel resection D/T BOWEL OBSTRUCTION History of cardiac cath 2017 (NO STENTS) History of cataract surgery bilat History of colonoscopy History of esophagogastroduodenoscopy (EGD) History of mitral valve replacement with bioprosthetic valve SEPTEMBER 2017 AT [facility] (WILL BRING CARD) (pig valve > [facility])-ON WARFARIN History of partial hysterectomy History of tooth extraction Hx of appendectomy Hx of mitral valve repair 2007 Family History Other Asthma Family history of reaction to anesthesia Heart disease Hypertension Social History Smoking Status: Never smoker Second Hand Exposure: No; Hx Alcohol Use: No Hx Substance Use: No Preferred Language: Romanian Communication Ability: Effective Political Director Required: No Beliefs That Will Affect Care: Catholic Catholic Beliefs: Jehova's Witness Current Living Situation: Spouse current occupational status: retired Other Information That Helps Us Care for You: No Feels Safe at Home: Yes Safety Concerns: Feels Safe At This Time Assistive Devices: None Results & Data ([facility]) Vital Signs (Past 12 Hours) Vital Signs Temp Pulse Resp BP BP Pulse Ox 10/06/21 07:06 36.6 C 66 16 98/54 L 126/72 100 10/05/21 22:32 36.6 C 60 16 103/66 100 Diagnostic Findings US liver CLINICAL HISTORY: R19.5 - Other fecal abnormalities. Acholic stool. COMPARISON STUDY: Abdominal ultrasound October 26, 2006. CT of the abdomen and pelvis August 12, 2017. FINDINGS: Several hepatic cysts are noted, including a 2.5 cm cluster of cysts within the right hepatic lobe. No intrahepatic biliary ductal dilatation is identified. The common bile duct is dilated, measuring 11 mm in caliber. Risk Tech al echoes within the common bile duct are noted. These could be artifactual or reflect sludge. No common bile duct calculi are identified although the distal common bile duct is obscured. The gallbladder is moderately distended. There is extensive sludge within the gallbladder. Possible sludge within the cystic duct is also noted. There is no gallbladder wall thickening. No sonographic Mercer sign was elicited. No gallstones are identified. Pancreatic body is normal. Head and tail are obscured. There is no right hydronephrosis. IMPRESSION: 1. Dilated common bile duct, measuring 11 mm in caliber. Internal echoes within the common bile duct which could reflect sludge or artifact. No common bile duct calculi identified although distal common bile duct obscured. Correlation with liver function tests is recommended. ERCP might be considered for further evaluation. 2. Large amount of sludge within the gallbladder which is moderately distended. No convincing evidence for acute cholecystitis. No gallstones identified. 3. Partially obscured pancreas. ACT 112: Negative or not required by law Electronically signed by: Jamil Abdi M.D. 10/04/2021 6:07 PM MR MRCP CLINICAL HISTORY: eval for CBD stones TECHNIQUE: Multiplanar multisequence MR images of the abdomen were obtained, as per MRCP protocol. . COMPARISON: None available at the time of this dictation. FINDINGS: Lower chest: No acute abnormality Liver: A few hepatic cysts are seen. Gallbladder and biliary tree: The gallbladder is markedly distended. No definite pericholecystic fluid is seen. There is dilation and tortuosity of the cystic duct and proximal extrahepatic bile duct. There is a rounded filling density in the mid to distal common bile duct measuring approximately 7 mm. The intrahepatic bile ducts are relatively under distended. Pancreas: Dilation of the pancreatic duct is noted. Spleen: Unremarkable. Adrenals: Unremarkable. Kidneys and ureters: Unremarkable. Bowel: Unremarkable. Lymph nodes Retroperitoneal: Unremarkable. Mesenteric: Unremarkable. Peritoneum: Normal Vessels: Unremarkable. Abdominal wall: Unremarkable. Bones: Unremarkable. IMPRESSION: Findings are compatible with obstructive stone in the mid to distal common bile duct measuring approximately 7 mm. Prominence of the pancreatic duct is seen which also likely reflects this distal obstruction. ACT 112: Negative or not required by law. Electronically signed by: Mariusz Wallace M.D. 10/05/2021 7:16 PM PG Care Time/CCT Total # of Minutes Spent Total Time Spent with Patient: Total time spent is greater than 50% in coordination of care (as documented) at patient's floor/unit and/or counseling patient: Coding Level of Care Code 66676 Initial Inpt Care Lvl 3 Diagnoses Choledocholithiasis K80.50
--- NOTE | 2021-10-06 10:48 | Gastroenterology Progress Note ---
Date of Service October 06, 2021 Assessment & Plan (1) Choledocholithiasis: Plan: And symptomatic cholelithiasis. (2) Blood transfusion declined because patient is Protestant: Plan: Unable to give FFPs. Plan: A second dose of Vit K was given this morning to reverse the INR. Will recheck INR and hopefully be able to go forward with ERCP for choledocholithiasis this afternoon. Seen by surgery who will do eventual cholecystectomy. They may be able to follow the ERCP case this afternoon. Admission and Anticipated Discharge Date Admission Date: October 05, 2021 Supervising Physician Co-Signing Physician Notes I saw and evaluated the patient. She has a history of intermittent abdominal discomfort and was found to have jaundice as an outpatient. She also notes having fevers and chills at home. Given this we are somewhat concerned about underlying cholangitis. Thus we are planning to proceed with ERCP today for urgent biliary decompression. I have discussed the risks and benefits of the procedures to include bleeding, infection perforation, pain bleeding and need for follow-up studies. Subjective 75 yr old female admitted on 10/05 for upper abd pain. Some chills/sweats at night, no measured fevers. Imaging with cholelithiasis and choledocholithiasis. On INR for porcine mitral valve replacement and repair. Vit K 10mg given yesterday. INR this morning 2.6. Another dose of VIt K given at 9Am and INR is ordered for noon. Protestant - so does not agree to any blood products. This morning she is awake, alert, oriented and free of pain. NPO except med. Review of Systems Review of Systems: ROS: Gen: + night sweats for 3-4 wks but no measured fevers. + weakness, + dizziness; weight loss approx 3-4 lbs in a month. Eyes: + cataract surgery/procedure was scheduled for today for a hazy vision - but cancelled due to this admission. No eye redness, or pain. Resp: No SOB, no cough Cardio: + lower ant chest pain steady - like a constant heartburn also for a month; No palpitations/irregular beats, no chest pain GI: As per HPI : Denies pain on urination Skin: No jaundice, itching or new rashes Physical Exam Constitutional: well developed, + ill appearing and cooperative Eyes: PERRL, conjunctivae normal, anicteric sclerae Respiratory: normal respiratory effort, lungs clear to auscultation Cardiovascular: RRR, no murmur, no edema Gastrointestinal (Abdomen): normal bowel sounds, soft, nontender, no hepatosplenomegaly Percussion/Palpation: + abdomen tender (Mild diffuse upper adbdominal tenderness. No signs of acute abdomen.) and abdomen soft; no guarding and abdomen not rigid Skin: no rashes, warm and dry normal turgor and + pallor Neurologic: PERRL, EOMI, accommodation nl, no face palsy, no dysarthria awake; not confused Psychiatric: A+Ox3, euthymic affect Lymphatic: no cervical or axillary lymphadenopathy Results & Data ([facility]) Vital Signs (Past 12 Hours) Vital Signs Temp Pulse Resp BP BP Pulse Ox 10/06/21 07:06 36.6 C 66 16 98/54 L 126/72 100 Laboratory Results WBC 3.3, Hb 13.3, Hct 89.9, [id number], INR 2.6, Na 138, K 3.0, Cl 100, CO2 29, BUN 14, Cr 0.9, glucose 128 Diagnostic Findings MRCP 10/05/21: Findings are compatible with obstructive stone in the mid to distal common bile duct measuring approximately 7 mm. Prominence of the pancreatic duct is seen which also likely reflects this distal obstruction.
[2021-10-06] MEDS: POTASSIUM CHLORIDE / WTR 10 MEQ/100 ML PLCT IV SCH ×3 (12:21→16:41)
[2021-10-06 13:36] LABS: INR 2.5 (0.9-1.1); Prothrombin Time 24.9 Seconds (9.0-12.0)
--- NOTE | 2021-10-06 14:20 | History & Physical Bridge Note ---
Date of Service October 06, 2021 History & Physical Bridge Note I have examined the patient, reviewed the History & Physical and in the interval since the performance of the History & Physical I have noted the following changes of clinical significance: no changes noted. As the patient has choledocholithiasis and I am concerned about underlying cholangitis we have decided to proceed with urgent ERCP for biliary decompression. The patient her I did discuss the risks and benefits of the procedure and the higher than average risk for complications given her coagulopathy of 2.4.
[2021-10-06] MEDS ORDERED: ATROPINE SULFATE 0.1 MG/ML 10ML SYR IV PRN (14:36)
[2021-10-06] MEDS ORDERED: PROMETHAZINE HCL 12.5 MG in SODIUM CHLORIDE 0.9% 50 ML IV PRN (14:36)
[2021-10-06] MEDS ORDERED: ePHEDrine sulfate 50 MG/ML AMP IV PRN (14:36)
[2021-10-06] MEDS ORDERED: NALOXONE HCL 0.4 MG/1 ML VIAL/CARP IV PRN (14:36)
[2021-10-06] MEDS ORDERED: ONDANSETRON INJ 2 MG/ML 2 ML VIAL IV PRN (14:36)
[2021-10-06] MEDS ORDERED: fentaNYL citrate 100 MCG/2 ML VIAL IV PRN (14:36)
[2021-10-06] MEDS ORDERED: LABETALOL HCL IV 5 MG/ML 20ML IV PRN (14:36)
--- NOTE | 2021-10-06 14:36 | Anesthesiology Consultation ---
Date of Service October 06, 2021 Assessment & Plan Chart Review Chart Review: Acceptable Risk for Surgery and Patient NOT seen in Pre Admission Testing Consults Requested none ASA ASA3 Proposed Anesthesia Anesthesia Type: General Risk / Benefits Reviewed With: PT / POA / Parent / Guardian, Accepts Plan and Informed Consent Obtained Additional Comments: covid test neg. History Surgery Operation Date: 10/06/21 12:55 Proposed Procedures p Endoscopic Retrograde Cholangiopancreatogram, - Bruno Barkley, Operation Date: 10/07/21 07:30 Proposed Procedures p Laparoscopic Cholecystectomy - Larry Hess, Height/Weight Height: 5 ft 3 in Weight: 73.2 kg Allergies Allergy/AdvReac Type Severity Reaction Status Date / Time latex Allergy Severe RASH AND Verified 10/05/21 11:48 CAN'T BREATHE, HIVES morphine Allergy Severe HEART Verified 10/05/21 11:48 STOPPED AND "I STOPPED LIVING" pentobarbital Allergy Severe "HEART Verified 10/05/21 11:48 STOPPED" phenobarbital Allergy Severe "HEART Verified 10/05/21 11:48 STOPPED" thiopental Allergy Severe "HEART Verified 10/05/21 11:48 STOPPED" adhesive Allergy Intermediate REDNESS Verified 10/05/21 11:48 AND HIVES-TAPE ferrous sulfate Allergy Intermediate HIVES Verified 10/05/21 11:48 Iodinated Contrast Media Allergy Intermediate HIVES Verified 10/05/21 11:48 ioversol Allergy Intermediate HIVES Verified 10/05/21 11:48 lorazepam Allergy Intermediate HIVES AND Verified 10/05/21 11:48 SWEATING nickel Allergy Intermediate HIVES AND Verified 10/05/21 11:48 RASH pantoprazole Allergy Intermediate HIVES AND Verified 10/05/21 11:48 ITCHING prednisone Allergy Intermediate HIVES Verified 10/05/21 11:48 Sulfa (Sulfonamide Allergy Intermediate RASH, HIVES Verified 10/05/21 11:48 Antibiotics) aspartame AdvReac Intermediate DIZZINESS, Verified 10/05/21 11:48 MIGRAINES aspirin AdvReac Intermediate SWEATS, Verified 10/05/21 11:48 PALPITATIONS, RINGING IN EARS Benzodiazepines AdvReac Intermediate SWEATS, Verified 10/05/21 11:48 PALPITATIONS, RINGING IN EARS caffeine AdvReac Intermediate JITTERY Verified 10/05/21 11:48 codeine AdvReac Intermediate SWEATS, Verified 10/05/21 11:48 PALPITATIONS, RINGING IN EARS, HIVES diazepam AdvReac Intermediate SWEATING Verified 10/05/21 11:48 oxycodone AdvReac Intermediate HEART RACES Verified 10/05/21 11:48 propoxyphene AdvReac Intermediate SWEATS, Verified 10/05/21 11:48 PALPITATIONS, RINGING IN EARS saccharin AdvReac Intermediate FROM Verified 10/05/21 11:48 NUTRASWEET - DIZZINESS, MIGRAINES salicylates AdvReac Intermediate GERD, Verified 10/05/21 11:48 IRRITATES STOMACH, HIGH DOSE ONLY tramadol AdvReac Intermediate SWEATS, Verified 10/05/21 11:48 PALPITATIONS, RINGING IN EARS ibuprofen AdvReac Mild NUMBNESS Verified 10/05/21 11:48 NSAIDS (Non-Steroidal AdvReac Mild NUMBNESS Verified 10/05/21 11:48 Anti-Inflamma grapefruit AdvReac Unknown "CANNOT Verified 10/05/21 11:48 TAKE WITH HEART MEDICATION" Medications Home Medications Medication Instructions Recorded Confirmed Last Taken atorvastatin 10 mg tablet 10 mg PO 3XWK 10/30/18 10/05/21 10/04/21 cholecalciferol (vitamin D3) 25 1,000 unit PO QAM 10/30/18 10/05/21 10/04/21 mcg (1,000 unit) tablet docusate sodium 100 mg capsule 100 mg PO BID 10/30/18 10/05/21 10/04/21 (Colace) folic acid 1 mg tablet 1 mg PO QAM 10/30/18 10/05/21 10/04/21 lactulose 10 gram/15 mL oral 5 - 30 ml PO DAILY PRN 10/30/18 10/05/21 06/04/21 solution metoprolol tartrate 50 mg tablet 50 mg PO BID 10/30/18 10/05/21 10/04/21 multivitamin 1 tab PO DAILY 10/30/18 10/05/21 10/04/21 potassium chloride 10 mEq 20 meq PO QAM 10/30/18 10/05/21 10/04/21 tablet,extended release sodium chloride 0.65 % nasal spray 1 spray INTRANASAL .Q2-4H PRN 10/30/18 10/05/21 01/07/19 aerosol (Saline Nose) warfarin 5 mg tablet See Rx Instructions .ROUTE .COMPLEX 10/30/18 10/05/21 10/03/21 albuterol sulfate 90 mcg/actuation 2 puff INHALATION QID PRN 04/19/19 10/05/21 Unknown aerosol inhaler (ProAir HFA) duloxetine 60 mg capsule,delayed 60 mg PO QAM 04/19/19 10/05/21 10/04/21 release cyanocobalamin (vitamin B-12) 1,000 mcg PO DAILY 10/19/19 10/05/21 10/04/21 1,000 mcg tablet (Vitamin B-12) gabapentin 300 mg capsule 300 mg PO BID 02/23/21 10/05/21 10/04/21 conjugated estrogens 0.625 mg 0.625 mg PO HS #90 tab 05/08/21 10/05/21 10/04/21 tablet (Premarin) conjugated estrogens 0.625 mg/gram 1 applic VAGINAL 2XWK #60 g 05/08/21 10/05/21 10/02/21 vaginal cream (Premarin) dicyclomine 10 mg capsule 10 mg PO TID PRN #270 cap 07/03/21 10/05/21 Unknown bioflavonoid products tablet 1 tab PO DAILY 10/05/21 10/05/21 10/04/21 fluticasone propionate 50 2 spray INTRANASAL DAILY PRN 10/05/21 10/05/21 Unknown mcg/actuation nasal spray,suspension magnesium oxide 400 mg PO DAILY 10/05/21 10/05/21 10/04/21 omeprazole 40 mg capsule,delayed 40 mg PO BID 10/05/21 10/05/21 10/04/21 release riboflavin (vitamin B2) 400 mg 400 mg PO DAILY 10/05/21 10/05/21 10/04/21 tablet torsemide 20 mg tablet 20 mg PO DAILY 10/05/21 10/05/21 Unknown Active Medications Generic Name Dose Route Start Last Admin Trade Name Freq PRN Reason Stop Dose Admin Acetaminophen 650 mg 10/05/21 17:06 10/05/21 18:29 Acetaminophen 325 Mg Tab PO 11/04/21 17:05 650 mg Q4H PRN Administration pain/fever Duloxetine HCl 60 mg 10/06/21 09:00 10/06/21 08:37 Duloxetine Hcl 60 Mg Cap PO 11/05/21 08:59 60 mg QAM SHWETA Administration Estrogens Conjugated 0.625 mg 06/16/22 21:00 10/05/21 21:11 Estrogens, Conjugated 0.625 Mg Tab PO 11/04/21 20:59 0.625 mg HS SHWETA Administration Gabapentin 300 mg 10/05/21 21:00 10/06/21 08:37 Gabapentin 300 Mg Cap PO 11/04/21 20:59 300 mg BID SHWETA Administration Piperacillin Sod/Tazobactam 115 mls @ 28.75 mls/hr 10/05/21 22:00 10/06/21 10:20 Sod 3.375 gm/ Dextrose IV 10/15/21 21:59 Infused Q8H SHWETA Infusion Protocol Potassium Chloride 10 meq in 100 mls @ 100 mls/hr 10/06/21 12:15 10/06/21 14:08 K Levon / Wtr IV 10/06/21 16:14 Infused Q1H SHWETA Infusion Protocol Magnesium Oxide 400 mg 10/06/21 09:00 10/06/21 08:37 Magnesium Oxide 400 Mg Tab PO 11/05/21 08:59 400 mg DAILY SHWETA Administration Metoprolol Tartrate 50 mg 10/05/21 21:00 10/06/21 08:37 Metoprolol Tartrate 50 Mg Tab PO 11/04/21 20:59 50 mg BID SHWETA Administration Omeprazole 40 mg 10/05/21 21:00 10/06/21 08:37 Omeprazole 20 Mg Capcr PO 11/04/21 20:59 40 mg BID SHWETA Administration Potassium Chloride 20 meq 10/06/21 09:00 10/06/21 08:37 Potassium Chloride Crtab 20 Meq Tabcr PO 11/05/21 08:59 20 meq QAM SHWETA Administration NPO Date Last Intake of Fluids: 10/05/21 Time Last Intake of Fluids: 18:00 Date Last Intake of Solids: 10/04/21 Time Last Intake of Solids: 23:59 Past Medical History Medical History Atrial flutter 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 Kemp On anticoagulant therapy S/P MVR 09/2017 Rectocele Restless leg syndrome Rhinitis, non-allergic Shortness of breath SOB ON EXERTION - REASON FOR INHALER - NO USE OF INHALERS COUPLE YEARS PER PT Uterine cancer DX STAGE 1 - SURGERY Exercise / Class Metabolic Activity II 4-5 Yardwork/Stairs/Walk up hill Past Family History Family History Other Asthma Family history of reaction to anesthesia Heart disease Hypertension Past Surgical History Surgical History Fusion of spine HX LUMBAR AND CERVICAL (5 TOTAL SURGERIES) LIMITED ROM FOR NECK MOVING SIDE TO SIDE H/O bilateral salpingo-oophorectomy History of anesthesia reaction SLOW TO WAKE UP + SEE ALLERGIES-"LEFT LEG STAYS NUMB AND CAN'T MOVE LONGER PERIOD OF TIME POST OP History of bilateral tubal ligation History of bowel resection D/T BOWEL OBSTRUCTION History of cardiac cath 2017 (NO STENTS) History of cataract surgery bilat History of colonoscopy History of esophagogastroduodenoscopy (EGD) History of mitral valve replacement with bioprosthetic valve SEPTEMBER [address] [facility] (WILL BRING CARD) (pig valve > [facility])-ON WARFARIN History of partial hysterectomy History of tooth extraction Hx of appendectomy Hx of mitral valve repair 2006 Past Anesthesia History No Hx of Anesthesia Complications and No Family Hx of Anesthesia Complications History of PONV No Hx of PONV and No Hx of Motion Sickness Social History Smoking Status: Never smoker Hx Alcohol Use: No alcohol intake frequency: holidays/special occasions only Hx Substance Use: No substance use type: does not use Physical Exam Vital Signs Last Vital Signs Temp 36.5 C 10/06/21 14:17 Pulse 65 10/06/21 14:17 Resp 18 10/06/21 14:17 BP 147/70 H 10/06/21 14:17 Pulse Ox 100 10/06/21 14:17 Constitutional + obese ENMT Mouth: no dentition abnormality Thyromental Distance: < 3.5 Finger Breadths Mallampati Class: II Neck normal visual inspection and trachea midline; neck extension not limited Respiratory normal respiratory effort Auscultation: lungs clear to auscultation bilaterally Cardiovascular Rate/Rhythm: regular rate and regular rhythm Heart Sounds: no murmur Vessels: no carotid bruit Musculoskeletal Spine: normal cervical ROM Extremities: extremities normal to inspection Neurologic moves all extremities Motor/Sensory: no sensory deficit Psychiatric Orientation: alert and oriented x 3 Testing Laboratory Results 10/06/21 08:27 10/06/21 12:58 PT 24.9 Seconds (9.0-12.0) H 10/06/21 12:58 INR 2.5 (0.9-1.1) H 10/06/21 12:58 Urine Color Dark Yellow 10/06/21 02:30 Urine Appearance Clear (Clear) 10/06/21 02:30 Urine pH 5.0 (4.5-7.5) 10/06/21 02:30 Ur Specific Magna 1.020 (1.000-1.030) 10/06/21 02:30 Urine Protein Negative (Negative) 10/06/21 02:30 Urine Glucose (UA) Negative (Negative) 10/06/21 02:30 Urine Ketones Negative (Negative) 10/06/21 02:30 Urine Nitrite Negative (Negative) 10/06/21 02:30 Ur Leukocyte Esterase Trace (Negative) H 10/06/21 02:30 Urine WBC (Auto) 10-30 /hpf (0-5) H 10/06/21 02:30 Urine RBC (Auto) 5-10 /hpf (0-4) H 10/06/21 02:30 U Hyaline Cast (Auto) 0 /lpf (0-5) 10/06/21 02:30 U Epithel Cells (Auto) 20-30 /lpf (0-5) H 10/06/21 02:30 Urine Bacteria (Auto) Negative (Negative) 10/06/21 02:30
--- NOTE | 2021-10-06 14:42 | Communication Note ---
Date of Service: October 06, 2021 Unfortunately the hospital has run out of the disposable tip that is used for the ERCP endoscopes. It is unclear when this will be available. Thus the pat ient will need to be referred to a tertiary center with ERCP capabilities. I did discuss this with the patient and her family who are quite upset, unfortunately this type of issue is out of my personal control.
[2021-10-06] MEDS: ACETAMINOPHEN 325 MG TAB PO PRN ×2 (15:52→20:04)
[2021-10-06] MEDS ORDERED: D5W AND 1/2NSS 1,000 ML IV SCH (16:15)
[2021-10-06] MEDS ORDERED: POTASSIUM CHLORIDE CRTAB 20 MEQ TABCR PO ONE (16:38)
--- NOTE | 2021-10-06 19:44 | Discharge Summary ---
Date of Service October 06, 2021 Admission HPI Per Admitting Provider 75-year-old female with PMH dyslipidemia, atrial flutter anticoagulant on Coumadin, history of bioprosthetic mitral valve replacement, tricuspid valve repair, HTN, GERD, IBS, diastolic dysfunction, and other problems listed below who presents the ED for evaluation of abdominal pain. Patient reports intermittent right upper and right lower quadrant pain for the past 1 month. Patient describes intermittent, sharp, shooting pains. She reports some intermittent nausea however no vomiting. Notes that she was having some diarrhea and stools were very light in color. Patient was evaluated by GI and had a right upper quadrant ultrasound showing dilated CBD and large amount of sludge within the gallbladder. Patient was referred to the ED for further evaluation. Patient reports some chills and night sweats however did not take her temperature. No chest pain or shortness of breath. Denies lightheadedness, dizziness, diaphoresis, syncopal events. Reports urine has been very dark in color however denies dysuria. In the ED, patient is found to have mild transaminitis. She is hemodynamically stable and other labs are unremarkable. Patient was given IVF and IV Dilaudid. Admission Exam Per Admitting Provider General: Elderly woman, no acute distress Eyes: PERRL, not pale, EOM intact bilaterally ENMT: External ear and nose normal, oropharynx normal Respiratory: Normal respiratory effort, no respiratory distress, lungs clear to auscultation, no crackles and no wheezes Cardiovascular: RRR S1 S2 Gastrointestinal (Abdomen): Abdomen is not distended, soft, +RUQ tenderness, no guarding, no palpable hepatosplenomegaly, normal bowel sounds Musculoskeletal: No cyanosis or clubbing, all extremities motor strength 5/5, no pedal edema Neurologic: Alert and oriented x 3, No focal weakness, sensation grossly intact Psychiatric: Alert and oriented x 3, euthymic affect, no depressed affect Principal Diagnosis Choledocholithiasis with possible cholangitis Supratherapeutic INR Jehovah witness Discharge Exam General: Sitting in bed, not in acute distress, on room air HEENT: EOMI, ANASTACIO, MMM Chest: Clear breath sounds bilaterally, no wheezes or crackles CVS: Regular rate and rhythm, normal heart sounds, no murmur Abdomen: Soft, RUQ tenderness, normal bowel sounds Neuro: Awake, alert, oriented, conversing well, non focal Extremities: No cyanosis, clubbing or edema Discharge Data Allergies Allergy/AdvReac Type Severity Reaction Status Date / Time latex Allergy Severe RASH AND Verified 10/05/21 11:48 CAN'T BREATHE, HIVES morphine Allergy Severe HEART Verified 10/05/21 11:48 STOPPED AND "I STOPPED LIVING" pentobarbital Allergy Severe "HEART Verified 10/05/21 11:48 STOPPED" phenobarbital Allergy Severe "HEART Verified 10/05/21 11:48 STOPPED" thiopental Allergy Severe "HEART Verified 10/05/21 11:48 STOPPED" adhesive Allergy Intermediate REDNESS Verified 10/05/21 11:48 AND HIVES-TAPE ferrous sulfate Allergy Intermediate HIVES Verified 10/05/21 11:48 Iodinated Contrast Media Allergy Intermediate HIVES Verified 10/05/21 11:48 ioversol Allergy Intermediate HIVES Verified 10/05/21 11:48 lorazepam Allergy Intermediate HIVES AND Verified 10/05/21 11:48 SWEATING nickel Allergy Intermediate HIVES AND Verified 10/05/21 11:48 RASH pantoprazole Allergy Intermediate HIVES AND Verified 10/05/21 11:48 ITCHING prednisone Allergy Intermediate HIVES Verified 10/05/21 11:48 Sulfa (Sulfonamide Allergy Intermediate RASH, HIVES Verified 10/05/21 11:48 Antibiotics) aspartame AdvReac Intermediate DIZZINESS, Verified 10/05/21 11:48 MIGRAINES aspirin AdvReac Intermediate SWEATS, Verified 10/05/21 11:48 PALPITATIONS, RINGING IN EARS Benzodiazepines AdvReac Intermediate SWEATS, Verified 10/05/21 11:48 PALPITATIONS, RINGING IN EARS caffeine AdvReac Intermediate JITTERY Verified 10/05/21 11:48 codeine AdvReac Intermediate SWEATS, Verified 10/05/21 11:48 PALPITATIONS, RINGING IN EARS, HIVES diazepam AdvReac Intermediate SWEATING Verified 10/05/21 11:48 oxycodone AdvReac Intermediate HEART RACES Verified 10/05/21 11:48 propoxyphene AdvReac Intermediate SWEATS, Verified 10/05/21 11:48 PALPITATIONS, RINGING IN EARS saccharin AdvReac Intermediate FROM Verified 10/05/21 11:48 NUTRASWEET - DIZZINESS, MIGRAINES salicylates AdvReac Intermediate GERD, Verified 10/05/21 11:48 IRRITATES STOMACH, HIGH DOSE ONLY tramadol AdvReac Intermediate SWEATS, Verified 10/05/21 11:48 PALPITATIONS, RINGING IN EARS ibuprofen AdvReac Mild NUMBNESS Verified 10/05/21 11:48 NSAIDS (Non-Steroidal AdvReac Mild NUMBNESS Verified 10/05/21 11:48 Anti-Inflamma grapefruit AdvReac Unknown "CANNOT Verified 10/05/21 11:48 TAKE WITH HEART MEDICATION" Consultations 10/05/21 12:17 ED Decision to Admit Stat 10/05/21 17:06 Consult Gastroenterology Routine 10/06/21 09:04 Consult General Surgery Routine 10/06/21 17:37 Burn CD for patient Routine Procedures Performed Operation Date: 10/06/21 12:55 <No data on this case meets the specified criteria> Operation Date: 10/07/21 07:30 <No data on this case meets the specified criteria> Ordered Studies 10/05/21 13:14 MR MRCP Stat Hospital Course (1) Choledocholithiasis: (2) Supratherapeutic INR: (3) Patient is Buddhism: (4) Abnormal urinalysis: (5) Paroxysmal atrial flutter: (6) Diastolic dysfunction: (7) HLD (hyperlipidemia): 75 year old female who presented to the ED yesterday with right sided abdominal pain with nausea, chills, night sweats at home. Found to have choledocholithiasis with 7 mm stone in mid-distal CBD with obstruction. Bili trending up, ALP and AST mildly up. No leucocytosis. Afebrile here. Started on zosyn- seen by GI with plan for ERCP as well as surgery with plan for lap norman. Also has paroxysmal A flutter on coumadin and had supratherapeutic INR with INR of 3.7 on arrival. Since she is a Jehovah witness, no FFP could be given. Given oral vitamin K 10 mg x2 per GI and INR was down to 2.[address] ([address] above 1.4), however GI decided to do ERCP given the concern for cholangitis. However, ran out of disposable endoscope tip and ERCP could not be done and unclear when this will be available. GI recommended transfer to tertiary center for ERCP. Spoke to [facility], however with her insurance, she required prior auth first and it could not be done until Saturday per CM. Spoke to [facility] (Dr Gibbs, hospitalist and Dr Ramirez, GI) and patient was accepted for transfer. Spoke in length with patient and at bedside who were very upset with the whole scenario and in the end were appreciative of my efforts. She is currently on IVF and zosyn for possible cholangitis as well as suspected UTI, pending culture results. Her hypokalemia was repleted prior to discharge. Total Time Total Time Spent Total Time Spent (In Minutes): 50 Discharge Plan Discharge Items Patient Disposition: Transfer Acute Care Hospital Reason For Visit: CHOLEDOCHOLITHIASIS Discharge Diagnosis: choledocolithiasis with possible cholangitis, supratherapeutic INR, Jehovah witness Activity: Per Instructions section Non-emergency contact: Primary Care Provider Call non-emergency contact if: you have any medication questions and you have a fever Follow-up/Referrals: Ramon Jimenez MD [Primary Care Provider] - Diet: Other - See Diet Comment Diet Comment: npo Addtl Attending Provider Instructions: Continue zosyn for cholangitis and UTI You will need ERCP and lap cholecystectomy Further management per GI and surgery You were on the following medications here and [facility] Current Inpatient Medications Acetaminophen (Acetaminophen 325 Mg Tab) 650 mg PO Q4H PRN PRN Reason: pain/fever Stop: 11/04/21 17:05 Last Admin: 10/06/21 15:52 Dose: 650 mg Documented by: Atropine Sulfate (Atropine Sulfate 0.1 Mg/Ml 10ml Syr) 0.5 mg IV Q1M PRN PRN Reason: PACU Use-HR<40 &/or Bradycardi Stop: 10/06/21 22:37 Duloxetine HCl (Duloxetine Hcl 60 Mg Cap) 60 mg PO QAM SHWETA Stop: 11/05/21 08:59 Last Admin: 10/06/21 08:37 Dose: 60 mg Documented by: Ephedrine Sulfate (Ephedrine Sulfate 50 Mg/Ml Amp) 5 mg IV Q5M PRN PRN Reason: PACU Use Only-SBP<90 mmHg Stop: 10/06/21 22:37 Estrogens Conjugated (Estrogens, Conjugated 0.625 Mg Tab) 0.625 mg PO HS SHWETA Stop: 11/04/21 20:59 Last Admin: 10/05/21 21:11 Dose: 0.625 mg Documented by: Fentanyl Citrate (Fentanyl Citrate 100 Mcg/2 Ml Vial) 25 mcg IV Q5M PRN PRN Reason: PACU Use Only-Pain Stop: 10/06/21 22:37 Gabapentin (Gabapentin 300 Mg Cap) 300 mg PO BID [facility] Stop: 11/04/21 20:59 Last Admin: 10/06/21 08:37 Dose: 300 mg Documented by: Piperacillin Sod/Tazobactam (Sod 3.375 gm/ Dextrose) 115 mls @ 28.75 mls/hr IV Q8H [facility]; Protocol Stop: 10/15/21 21:59 Last Admin: 10/06/21 15:38 Dose: 28.8 mls/hr Documented by: Promethazine HCl 12.5 mg/ (Sodium Chloride) 50.5 mls @ 204 mls/hr IV ONCE PRN PRN Reason: PACU Use Only-Nausea/Vomiting Stop: 10/06/21 22:37 Dextrose/Sodium Chloride (D5w And 1/2nss) 1,000 mls @ 80 mls/hr IV .[id number] [facility] Stop: 11/05/21 16:14 Labetalol HCl (Labetalol Hcl Iv 5 Mg/Ml 20ml) 5 mg IV Q5M PRN PRN Reason: PACU Use-SBP>160 or DBP>100 Stop: 10/06/21 22:38 Magnesium Oxide (Magnesium Oxide 400 Mg Tab) 400 mg PO DAILY [facility] Stop: 11/05/21 08:59 Last Admin: 10/06/21 08:37 Dose: 400 mg Documented by: Metoprolol Tartrate (Metoprolol Tartrate 50 Mg Tab) 50 mg PO BID [facility] Stop: 11/04/21 20:59 Last Admin: 10/06/21 08:37 Dose: 50 mg Documented by: Naloxone HCl (Naloxone Hcl 0.4 Mg/1 Ml Vial/Carp) 0.2 mg IV Q2M PRN PRN Reason: PACU Use Only-Opiate Reversal Stop: 10/06/21 22:37 Omeprazole (Omeprazole 20 Mg Capcr) 40 mg PO BID [facility] Stop: 11/04/21 20:59 Last Admin: 10/06/21 08:37 Dose: 40 mg Documented by: Ondansetron HCl (Ondansetron Inj 2 Mg/Ml 2 Ml Vial) 4 mg IV Q6H PRN PRN Reason: Nausea And Vomiting Stop: 11/04/21 17:05 Ondansetron HCl (Ondansetron Inj 2 Mg/Ml 2 Ml Vial) 4 mg IV ONCE PRN PRN Reason: PACU Use Only-Nausea/Vomiting Stop: 10/06/21 22:37 Potassium Chloride (Potassium Chloride Crtab 20 Meq Tabcr) 20 meq PO QAM SHWETA Stop: 11/05/21 08:59 Last Admin: 10/06/21 08:37 Dose: 20 meq Documented by: Pending Studies at Discharge: Yes (urine culture) Stand-Alone Forms: My [facility] Skilled Items Patient informed of condition?: Yes DNR: No Discharge Level of Care: Other Communicable Disease: No Discharge Prognosis: Stable Lines: Peripheral IV Urinary Catheter: No Medications and DC Order Prescriptions: Continued Premarin 0.625 mg tablet 0.625 mg PO HS Qty: 90 RF: 2 Premarin 0.625 mg/gram cream 1 applic vaginal 2XWK Qty: 60 RF: 2 gabapentin 300 mg capsule 300 mg PO BID RF: 0 dicyclomine 10 mg capsule 10 mg PO TID PRN (Reason: Abdominal Pain/Cramping) Qty: 270 RF: 1 atorvastatin 10 mg tablet 10 mg PO 3XWK RF: 0 warfarin 5 mg tablet See Rx Instructions .ROUTE .COMPLEX RF: 0 metoprolol tartrate 50 mg tablet 50 mg PO BID RF: 0 docusate sodium [Colace] 100 mg Capsule 100 mg PO BID RF: 0 cholecalciferol (vitamin D3) 1,000 unit Tablet 1,000 unit PO QAM RF: 0 multivitamin Tablet 1 tab PO DAILY RF: 0 folic acid 1 mg Tablet 1 mg PO QAM RF: 0 Saline Nose 0.65 % Aerosol,Cameron 1 spray intranasal .Q2-4H PRN (Reason: Nasal Congestion) RF: 0 lactulose 10 gram/15 mL Solution 5 - 30 ml PO DAILY PRN (Reason: Constipation) RF: 0 potassium chloride 10 mEq tablet extended release 20 meq PO QAM RF: 0 albuterol sulfate [ProAir HFA] 90 mcg/actuation HFA aerosol inhaler 2 puff INHALATION QID PRN (Reason: Shortness Of Breath Or Wheezing) RF: 0 duloxetine 60 mg capsule,delayed release(DR/EC) 60 mg PO QAM RF: 0 cyanocobalamin (vitamin B-12) [Vitamin B-12] 1,000 mcg Tablet 1,000 mcg PO DAILY RF: 0 bioflavonoid products Tablet 1 tab PO DAILY RF: 0 fluticasone propionate [Flonase] 50 mcg/actuation Cameron,Suspension 2 spray INTRANASAL DAILY PRN (Reason: Congestion) RF: 0 riboflavin (vitamin B2) 400 mg Tablet 400 mg PO DAILY RF: 0 magnesium oxide 400 mg magnesium Tablet 400 mg PO DAILY RF: 0 omeprazole 40 mg capsule,delayed release(DR/EC) 40 mg PO BID RF: 0 torsemide 20 mg tablet 20 mg PO DAILY RF: 0 Discharge Orders: Discharge Order (Routine); Ordered 10/06/21 Ordered By: Alfie Mason Admission Data Admit Date/Time: 10/05/21 12:28 Attending Provider: Alfie Mason Admit Provider: Tess Frey I. Primary Care Provider: Ramon Jimenez Other Providers: Tess Fery I. ; Aron Horton ; Jonnie Richards ; Wade Ma ; Radha Choe ; Lissette Barkley ; Dk Leon ; Brendan Rey ; Marcela Ugalde ; Aby Baker ; Ciro Mccallum Jr ; Joselito Aj ; Larry Reynolds ; Sindy García
[2021-10-06] MEDS: ESTROGENS, CONJUGATED 0.625 MG TAB PO SCH (20:05)
== END 2021-10-06 23:10 | disposition short-term general hospital (02) | DRG 445 ==
LOC: ED 10:19 → EDINP 12:28 → SUATTDRO 12:28 → 3N 16:17

== ENCOUNTER 2022-08-15 20:52 | Inpatient (IN) ==
[2022-08-15] MEDS ORDERED: ONDANSETRON INJ 2 MG/ML 2 ML VIAL IV STA (21:55)
[2022-08-15] MEDS ORDERED: FAMOTIDINE 20MG IV PUSH 20 MG/5 ML SYR IV STA (21:55)
[2022-08-15] MEDS ORDERED: SODIUM CHLORIDE 0.9% 1000ML 1,000 ML IV SCH (22:00)
--- NOTE | 2022-08-15 22:15 | Emergency Department Note ---
History of Present Illness General Chief complaint: Vomiting Stated complaint: CANCER PT,VOMIT,NAUSEA,BLOOD IN VOMIT Time Seen by Provider: 08/15/22 21:51 History of Present Illness This is a 76-year-old female presenting to the emergency department for evaluation of hematemesis that began earlier today. The patient has a history of pancreatic cancer and is following through the [facility] for treatment. She saw oncology yesterday for an infusion treatment for her cancer. She has had some vomiting symptoms for 2 to 3 days, and it was recommended that she try Compazine. Patient did take Compazine and Bentyl today without significant improvement of symptoms. She is on Coumadin for history of atrial fibrillation, but was unable to take the medication today because of her emesis. She has had some fatigue symptoms but no distinct fever. She will occasionally have pain associated with treatments and her cancer, for which she has Dilaudid at home. She has not required any pain medication today. She states that she had some streaking blood in the emesis bag today. She reached out to the [facility] hematology team, and they recommended that she come to the ER for evaluation. Home Medications Medication Instructions Recorded Confirmed Type atorvastatin 10 mg tablet 10 mg PO Q2D 10/30/18 08/16/22 History cholecalciferol (vitamin D3) 25 1,000 unit PO QAM 10/30/18 08/16/22 History mcg (1,000 unit) tablet docusate sodium 100 mg capsule 100 mg PO BID 10/30/18 08/16/22 History (Colace) folic acid 1 mg tablet 1 mg PO QAM 10/30/18 08/16/22 History lactulose 10 gram/15 mL oral 5 - 30 ml PO DAILY PRN Constipation 10/30/18 08/16/22 History solution metoprolol tartrate 50 mg tablet 50 mg PO BID 10/30/18 08/16/22 History multivitamin 1 tab PO QAM 10/30/18 08/16/22 History potassium chloride 10 mEq 20 meq PO QAM 10/30/18 08/16/22 History tablet,extended release sodium chloride 0.65 % nasal spray 1 spray intranasal .[id number] PRN 10/30/18 08/16/22 History aerosol (Saline Nose) Nasal Congestion warfarin 5 mg tablet 5 mg PO DIRECTED 10/30/18 08/16/22 History albuterol sulfate 90 mcg/actuation 2 puff inhalation QID PRN 04/19/19 08/16/22 History aerosol inhaler (ProAir HFA) Shortness Of Breath Or Wheezing duloxetine 60 mg capsule,delayed 60 mg PO QAM 04/19/19 08/16/22 History release cyanocobalamin (vitamin B-12) 1,000 mcg PO QAM 10/19/19 08/16/22 History 1,000 mcg tablet (Vitamin B-12) gabapentin 300 mg capsule 300 mg PO BID 02/23/21 08/16/22 History dicyclomine 10 mg capsule 10 mg PO TID PRN Abdominal 07/03/21 08/16/22 Rx Pain/Cramping #270 caps bioflavonoid products tablet 1 tab PO QAM 10/05/21 08/16/22 History fluticasone propionate 50 2 spray intranasal DAILY PRN 10/05/21 08/16/22 History mcg/actuation nasal Congestion spray,suspension magnesium oxide 400 mg PO QAM 10/05/21 08/16/22 History riboflavin (vitamin B2) 400 mg 400 mg PO QAM 10/05/21 08/16/22 History tablet torsemide 20 mg tablet 20 mg PO QAM 10/05/21 08/16/22 History ondansetron 4 mg disintegrating 4 mg PO QAM PRN nausea and vomiting 10/13/21 08/16/22 History tablet omeprazole 40 mg capsule,delayed 40 mg PO BID #180 caps 06/05/22 08/16/22 Rx release conjugated estrogens 0.625 mg/gram 0.625 mg vaginal 2XWK #30 grams 07/11/22 08/16/22 Rx vaginal cream (Premarin) hydromorphone 2 mg tablet 1 - 2 mg PO Q4 PRN Pain 08/16/22 08/16/22 History gdnemf-nhwpswwg-lcvkkyx 2 cap PO .SNACKS 08/16/22 08/16/22 History 24,000-76,000-120,000 unit capsule,delayed rel (Creon) lmcjiq-phhskwfr-nlasgtw 3 - 4 cap PO TIDWMEAL 08/16/22 08/16/22 History 24,000-76,000-120,000 unit capsule,delayed rel (Creon) Allergies Allergy/AdvReac Type Severity Reaction Status Date / Time latex Allergy Severe RASH AND Verified 08/16/22 01:43 CAN'T BREATHE, HIVES morphine Allergy Severe HEART Verified 08/16/22 01:43 STOPPED AND "I STOPPED LIVING" pentobarbital Allergy Severe "HEART Verified 08/16/22 01:43 STOPPED" phenobarbital Allergy Severe "HEART Verified 08/16/22 01:43 STOPPED" thiopental Allergy Severe "HEART Verified 08/16/22 01:43 STOPPED" adhesive Allergy Intermediate REDNESS Verified 08/16/22 01:43 AND HIVES-TAPE ferrous sulfate Allergy Intermediate HIVES Verified 08/16/22 01:43 Iodinated Contrast Media Allergy Intermediate HIVES Verified 08/16/22 01:43 ioversol Allergy Intermediate HIVES Verified 08/16/22 01:43 lorazepam Allergy Intermediate HIVES AND Verified 08/16/22 01:43 SWEATING nickel Allergy Intermediate HIVES AND Verified 08/16/22 01:43 RASH pantoprazole Allergy Intermediate HIVES AND Verified 08/16/22 01:43 ITCHING prednisone Allergy Intermediate HIVES Verified 08/16/22 01:43 Sulfa (Sulfonamide Allergy Intermediate RASH, HIVES Verified 08/16/22 01:43 Antibiotics) aspartame AdvReac Intermediate DIZZINESS, Verified 08/16/22 01:43 MIGRAINES aspirin AdvReac Intermediate SWEATS, Verified 08/16/22 01:43 PALPITATIONS, RINGING IN EARS Benzodiazepines AdvReac Intermediate SWEATS, Verified 08/16/22 01:43 PALPITATIONS, RINGING IN EARS caffeine AdvReac Intermediate JITTERY Verified 08/16/22 01:43 codeine AdvReac Intermediate SWEATS, Verified 08/16/22 01:43 PALPITATIONS, RINGING IN EARS, HIVES diazepam AdvReac Intermediate SWEATING Verified 08/16/22 01:43 oxycodone AdvReac Intermediate HEART RACES Verified 08/16/22 01:43 propoxyphene AdvReac Intermediate SWEATS, Verified 08/16/22 01:43 PALPITATIONS, RINGING IN EARS saccharin AdvReac Intermediate FROM Verified 08/16/22 01:43 NUTRASWEET - DIZZINESS, MIGRAINES salicylates AdvReac Intermediate GERD, Verified 08/16/22 01:43 IRRITATES STOMACH, HIGH DOSE ONLY tramadol AdvReac Intermediate SWEATS, Verified 08/16/22 01:43 PALPITATIONS, RINGING IN EARS ibuprofen AdvReac Mild NUMBNESS Verified 08/16/22 01:43 NSAIDS (Non-Steroidal AdvReac Mild NUMBNESS Verified 08/16/22 01:43 Anti-Inflamma grapefruit AdvReac Unknown "CANNOT Verified 08/16/22 01:43 TAKE WITH HEART MEDICATION" Past Med/Surg History Medical History Atrial flutter 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 Kemp On anticoagulant therapy S/P MVR 09/2017 Rectocele Restless leg syndrome Rhinitis, non-allergic Shortness of breath SOB ON EXERTION - REASON FOR INHALER - NO USE OF INHALERS COUPLE YEARS PER PT Uterine cancer DX STAGE 1 - SURGERY Surgical History Fusion of spine HX LUMBAR AND CERVICAL (5 TOTAL SURGERIES) LIMITED ROM FOR NECK MOVING SIDE TO SIDE History of anesthesia reaction SLOW TO WAKE UP + SEE ALLERGIES-"LEFT LEG STAYS NUMB AND CAN'T MOVE LONGER PERIOD OF TIME POST OP History of bowel resection D/T BOWEL OBSTRUCTION History of cardiac cath 2017 (NO STENTS) History of cataract surgery bilat History of colonoscopy History of esophagogastroduodenoscopy (EGD) History of mitral valve replacement with bioprosthetic valve SEPTEMBER 2017 AT [facility] (WILL BRING CARD) (pig valve > [place])-ON WARFARIN History of tooth extraction Hx of appendectomy Hx of mitral valve repair 2006; f/u Dr. Kemp Hx of total hysterectomy with removal of both tubes and ovaries Family History Other Asthma Family history of reaction to anesthesia Heart disease Hypertension Social History Smoking Status: Never smoker Second Hand Exposure: No; Hx Alcohol Use: No Hx Substance Use: No Preferred Language: Qatari Communication Ability: Effective Quencher Operator Required: No Beliefs That Will Affect Care: Judaism Judaism Beliefs: Lutheran Current Living Situation: Spouse current occupational status: retired Feels Safe at Home: Yes Assistive Devices: Cane and Glasses Review of Systems A total of 10 systems reviewed and were otherwise negative Physical Exam Vital Signs Vital Signs - 24 hr 08/15/22 20:58 08/16/22 00:25 08/16/22 00:23 Temperature 36.8 C Temperature Source Temporal Artery Scan Pulse Rate 113 H 91 H 93 H Pulse Rate from SpO2 Sensor 91 H Respiratory Rate 18 17 Respiratory Depth Normal Blood Pressure 135/84 Blood Pressure Mean 101 Pulse Oximetry 99 100 Oxygen Delivery Method Room Air Sepsis Recent Fever Within 48 Hours No Sepsis New/Unexplained Change in Mental Status No Sepsis Action Taken by Nursing No Action Required 08/16/22 00:30 08/16/22 01:00 08/16/22 01:00 Temperature Temperature Source Pulse Rate 90 93 H Pulse Rate from SpO2 Sensor 89 Respiratory Rate 23 17 Respiratory Depth Blood Pressure 136/73 Blood Pressure Mean 94 Pulse Oximetry 100 Oxygen Delivery Method Sepsis Recent Fever Within 48 Hours Sepsis New/Unexplained Change in Mental Status Sepsis Action Taken by Nursing 08/16/22 01:30 08/16/22 02:33 Temperature Temperature Source Pulse Rate 87 89 Pulse Rate from SpO2 Sensor 87 90 Respiratory Rate 16 18 Respiratory Depth Blood Pressure Blood Pressure Mean Pulse Oximetry 98 100 Oxygen Delivery Method Sepsis Recent Fever Within 48 Hours Sepsis New/Unexplained Change in Mental Status Sepsis Action Taken by Nursing VITALS: Vitals are noted on the nurse's note and reviewed by myself. Vital signs stable. GENERAL: Elderly black female who appears in no acute distress. She is comfortable and answering questions appropriately. HEAD: Normocephalic atraumatic. HEART: Regular rate and rhythm without murmurs gallops or rubs. LUNGS: Clear to auscultation bilaterally without wheezes, rales or rhonchi. No retractions or accessory muscle use. ABDOMEN: Positive normal bowel sounds x 4. Soft, nontender, without masses or organomegaly. No guarding or rebound tenderness. MUSCULOSKELETAL: No muscle atrophy, erythema, or edema noted. Full range of motion in all extremities. NEURO: Patient was alert and oriented to person place and time. CN II through XII grossly intact. Course Administered Medications Magnesium Sulfate/Dextrose (Magnesium Sulfate / D5w) 1 gm in 100 mls @ 50 mls/hr IV Q2H SHWETA Stop: 08/16/22 05:29 Last Admin: 08/16/22 03:29 Dose: 50 mls/hr Documented By: ENS Discontinued Medications Sodium Chloride (Nss 1000ml) 1,000 mls @ 999 mls/hr IV .Q1H1M SHWETA Stop: 08/15/22 23:00 Last Admin: 08/15/22 23:27 Dose: 999 mls/hr Documented By: ENS Famotidine (Pepcid 20mg Iv Push) 20 mg in 5 mls @ 2.5 mls/min IV NOW STA Stop: 08/15/22 21:56 Last Admin: 08/15/22 23:26 Dose: 2.5 mls/min Documented By: Potassium Chloride (K Levon / Wtr) 10 meq in 100 mls @ 100 mls/hr IV ONE ONE; Protocol Stop: 08/16/22 00:22 Last Admin: 08/16/22 00:50 Dose: 100 mls/hr Documented By: Vancomycin HCl 1,250 mg/ (Sodium Chloride) 525 mls @ 200 mls/hr IV NOW ONE Stop: 08/16/22 02:10 Last Admin: 08/16/22 00:51 Dose: 200 mls/hr Documented By: Piperacillin Sod/Tazobactam Sod (Zosyn) 4.5 gm in 120 mls @ 240 mls/hr IV NOW ONE Stop: 08/16/22 00:02 Last Admin: 08/15/22 23:55 Dose: 240 mls/hr Documented By: Ondansetron HCl (Ondansetron Inj 2 Mg/Ml 2 Ml Vial) 4 mg IV NOW STA Stop: 08/15/22 21:56 Last Admin: 08/15/22 23:26 Dose: 4 mg Documented By: Potassium Chloride (Potassium Chloride Crtab 20 Meq Tabcr) 40 meq PO NOW STA Stop: 08/16/22 01:02 Last Admin: 08/16/22 03:31 Dose: 40 meq Documented By: Medical Decision Making Differential Diagnosis Differential diagnosis: Etiologies such as gastroenteritis, food borne illness, infections, appendicitis, diverticulitis, inflammatory bowel disease, obstruction, GI bleed, biliary pathology, cardiac process, intracranial process, as well as others were entertained. Laboratory Data 08/15/22 22:48 08/15/22 22:48 Lab Results 08/15/22 08/15/22 08/15/22 Range/Units 22:48 22:48 22:48 WBC 20.03 H (4.8-10.8) K/ul RBC 3.63 L (4.20-5.40) M/uL Hgb 11.1 L (12.0-16.0) g/dl Hct 32.3 L (37.0-47.0) % MCV 89.0 (80.0-100.0) fL MCH 30.6 (25.0-34.0) pg MCHC 34.4 (32.0-36.0) g/dL RDW Std Deviation 45.9 (36.4-46.3) fL RDW Coeff of Angelique 14.5 (11.5-14.5) % Plt Count 116 L (130-400) K/uL MPV 9.9 (9.4-12.4) fL Immature Gran % (Auto) 6.9 % Neut % (Auto) 76.2 % Lymph % (Auto) 4.9 % [place] % (Auto) 11.3 % Eos % (Auto) 0.0 % Baso % (Auto) 0.7 % Neut # (Auto) 15.22 H (1.40-6.50) K/uL Lymph # (Auto) 0.99 L (1.2-3.4) K/uL [place] # (Auto) 2.27 H (0.11-0.59) K/uL Eos # (Auto) 0.01 (0-0.50) K/uL Baso # (Auto) 0.15 (0-0.2) K/uL Immature Gran # (Auto) 1.39 H (0.01-0.20) K/uL Absolute Nucleated RBC 0.02 (0-0.12) K/uL Nucleated RBC % (auto) 0.1 % RBC Morphology Unremarkable PT 21.0 H (9.0-12.0) Seconds INR 2.0 H (0.9-1.1) APTT 33.8 H (21.0-31.0) Seconds PTT Ratio 1.2 Sodium 141 (136-145) mmol/L Potassium 2.8 L (3.5-5.1) mmol/L Chloride 102 (98-107) mmol/L Carbon Dioxide 27 (21-32) mmol/L Anion Gap 12 H (3-11) BUN 9 (6-23) mg/dl Creatinine 0.92 (0.6-1.2) mg/dl Est Cr Clr Drug Dosing 48.0 ml/min Est GFR ( Amer) 71.1 ml/min Est GFR (Non-Af Amer) 61.3 ml/min BUN/Creatinine Ratio 9.8 L (10-20) Glucose 162 H (70-99(Fasting)) mg/dl Lactate (0.4-2.0) mmol/L Calcium 9.7 (8.6-10.3) mg/dl Magnesium 1.6 L (1.7-2.4) mg/dl Total Bilirubin 0.4 (0.2-1.0) mg/dl AST 35 (13-39) U/L ALT 42 (7-52) U/L Alkaline Phosphatase 230 H (34-104) U/L Troponin I High Sens 37.6 H (0-14) pg/ml Total Protein 7.1 (6.0-8.3) gm/dl Albumin 3.6 (3.4-5.0) gm/dl Globulin 3.5 (2.5-4.0) gm/dl Albumin/Globulin Ratio 1.0 (0.9-2) Lipase 6 L (11-82) U/L Adenovirus (PCR) (NotDetected) B. pertussis DNA (PCR) (NotDetected) B.parapertussis DNA PCR (NotDetected) C. pneumoniae DNA (PCR) (NotDetected) Coronavirus OC43 (PCR) (NotDetected) Coronavirus HKU1 (PCR) (NotDetected) Coronavirus 229E (PCR) (NotDetected) SARS-CoV-2 (PCR) (NotDetected) Coronavirus NL63 (PCR) (NotDetected) Human Metapneumovir PCR (NotDetected) Influenza Type A (PCR) (NotDetected) Influenza Type B (PCR) (NotDetected) M. pneumoniae (PCR) (NotDetected) Parainfluenza 1 (PCR) (NotDetected) Parainfluenza 2 (PCR) (NotDetected) Parainfluenza 3 (PCR) (NotDetected) Parainfluenza 4 (PCR) (NotDetected) RSV (PCR) (NotDetected) Entero/Rhino (PCR) (NotDetected) Blood Type Antibody Screen 08/15/22 08/15/22 08/15/22 Range/Units 22:48 22:50 23:45 WBC (4.8-10.8) K/ul RBC (4.20-5.40) M/uL Hgb (12.0-16.0) g/dl Hct (37.0-47.0) % MCV (80.0-100.0) fL MCH (25.0-34.0) pg MCHC (32.0-36.0) g/dL RDW Std Deviation (36.4-46.3) fL RDW Coeff of Angelique (11.5-14.5) % Plt Count (130-400) K/uL MPV (9.4-12.4) fL Immature Gran % (Auto) % Neut % (Auto) % Lymph % (Auto) % [place] % (Auto) % Eos % (Auto) % Baso % (Auto) % Neut # (Auto) (1.40-6.50) K/uL Lymph # (Auto) (1.2-3.4) K/uL [place] # (Auto) (0.11-0.59) K/uL Eos # (Auto) (0-0.50) K/uL Baso # (Auto) (0-0.2) K/uL Immature Gran # (Auto) (0.01-0.20) K/uL Absolute Nucleated RBC (0-0.12) K/uL Nucleated RBC % (auto) % RBC Morphology PT (9.0-12.0) Seconds INR (0.9-1.1) APTT (21.0-31.0) Seconds PTT Ratio Sodium (136-145) mmol/L Potassium (3.5-5.1) mmol/L Chloride (98-107) mmol/L Carbon Dioxide (21-32) mmol/L Anion Gap (3-11) BUN (6-23) mg/dl Creatinine (0.6-1.2) mg/dl Est Cr Clr Drug Dosing ml/min Est GFR ( Amer) ml/min Est GFR (Non-Af Amer) ml/min BUN/Creatinine Ratio (10-20) Glucose (70-99(Fasting)) mg/dl Lactate 2.3 H* (0.4-2.0) mmol/L Calcium (8.6-10.3) mg/dl Magnesium (1.7-2.4) mg/dl Total Bilirubin (0.2-1.0) mg/dl AST (13-39) U/L ALT (7-52) U/L Alkaline Phosphatase (34-104) U/L Troponin I High Sens (0-14) pg/ml Total Protein (6.0-8.3) gm/dl Albumin (3.4-5.0) gm/dl Globulin (2.5-4.0) gm/dl Albumin/Globulin Ratio (0.9-2) Lipase (11-82) U/L Adenovirus (PCR) Not Detected (NotDetected) B. pertussis DNA (PCR) Not Detected (NotDetected) B.parapertussis DNA PCR Not Detected (NotDetected) C. pneumoniae DNA (PCR) Not Detected (NotDetected) Coronavirus OC43 (PCR) Not Detected (NotDetected) Coronavirus HKU1 (PCR) Not Detected (NotDetected) Coronavirus 229E (PCR) Not Detected (NotDetected) SARS-CoV-2 (PCR) Not Detected (NotDetected) Coronavirus NL63 (PCR) Not Detected (NotDetected) Human Metapneumovir PCR Not Detected (NotDetected) Influenza Type A (PCR) Not Detected (NotDetected) Influenza Type B (PCR) Not Detected (NotDetected) M. pneumoniae (PCR) Not Detected (NotDetected) Parainfluenza 1 (PCR) Not Detected (NotDetected) Parainfluenza 2 (PCR) Not Detected (NotDetected) Parainfluenza 3 (PCR) Not Detected (NotDetected) Parainfluenza 4 (PCR) Not Detected (NotDetected) RSV (PCR) Not Detected (NotDetected) Entero/Rhino (PCR) Not Detected (NotDetected) Blood Type A Positive Antibody Screen NEGATIVE 08/16/22 Range/Units 01:16 WBC (4.8-10.8) K/ul RBC (4.20-5.40) M/uL Hgb (12.0-16.0) g/dl Hct (37.0-47.0) % MCV (80.0-100.0) fL MCH (25.0-34.0) pg MCHC (32.0-36.0) g/dL RDW Std Deviation (36.4-46.3) fL RDW Coeff of Angelique (11.5-14.5) % Plt Count (130-400) K/uL MPV (9.4-12.4) fL Immature Gran % (Auto) % Neut % (Auto) % Lymph % (Auto) % [place] % (Auto) % Eos % (Auto) % Baso % (Auto) % Neut # (Auto) (1.40-6.50) K/uL Lymph # (Auto) (1.2-3.4) K/uL [place] # (Auto) (0.11-0.59) K/uL Eos # (Auto) (0-0.50) K/uL Baso # (Auto) (0-0.2) K/uL Immature Gran # (Auto) (0.01-0.20) K/uL Absolute Nucleated RBC (0-0.12) K/uL Nucleated RBC % (auto) % RBC Morphology PT (9.0-12.0) Seconds INR (0.9-1.1) APTT (21.0-31.0) Seconds PTT Ratio Sodium (136-145) mmol/L Potassium (3.5-5.1) mmol/L Chloride (98-107) mmol/L Carbon Dioxide (21-32) mmol/L Anion Gap (3-11) BUN (6-23) mg/dl Creatinine (0.6-1.2) mg/dl Est Cr Clr Drug Dosing ml/min Est GFR ( Amer) ml/min Est GFR (Non-Af Amer) ml/min BUN/Creatinine Ratio (10-20) Glucose (70-99(Fasting)) mg/dl Lactate 2.0 (0.4-2.0) mmol/L Calcium (8.6-10.3) mg/dl Magnesium (1.7-2.4) mg/dl Total Bilirubin (0.2-1.0) mg/dl AST (13-39) U/L ALT (7-52) U/L Alkaline Phosphatase (34-104) U/L Troponin I High Sens (0-14) pg/ml Total Protein (6.0-8.3) gm/dl Albumin (3.4-5.0) gm/dl Globulin (2.5-4.0) gm/dl Albumin/Globulin Ratio (0.9-2) Lipase (11-82) U/L Adenovirus (PCR) (NotDetected) B. pertussis DNA (PCR) (NotDetected) B.parapertussis DNA PCR (NotDetected) C. pneumoniae DNA (PCR) (NotDetected) Coronavirus OC43 (PCR) (NotDetected) Coronavirus HKU1 (PCR) (NotDetected) Coronavirus 229E (PCR) (NotDetected) SARS-CoV-2 (PCR) (NotDetected) Coronavirus NL63 (PCR) (NotDetected) Human Metapneumovir PCR (NotDetected) Influenza Type A (PCR) (NotDetected) Influenza Type B (PCR) (NotDetected) M. pneumoniae (PCR) (NotDetected) Parainfluenza 1 (PCR) (NotDetected) Parainfluenza 2 (PCR) (NotDetected) Parainfluenza 3 (PCR) (NotDetected) Parainfluenza 4 (PCR) (NotDetected) RSV (PCR) (NotDetected) Entero/Rhino (PCR) (NotDetected) Blood Type Antibody Screen Imaging Data Radiologist's Impression: Abdomen/Pelvis CT 08/15/22 23:39 Exam(s): CT ABDOMEN + PELVIS Without Contrast EXAM: CT Abdomen and Pelvis Without Intravenous Contrast CLINICAL HISTORY: Reason for exam: n/v. Hx pancreatic cancer. Sepsis.. TECHNIQUE: Axial computed tomography images of the abdomen and pelvis without intravenous contrast. CTDI is 5.71 mGy and DLP is 268.89 mGy-cm. Automated exposure control was utilized for the study. A dose lowering technique was utilized adhering to the principles of ALARA. COMPARISON: No relevant prior studies available. FINDINGS: Lung bases: Unremarkable. No mass. No consolidation. Mediastinum: Small hiatus hernia. ABDOMEN: Liver: Cyst within the right lobe of the liver. Liver otherwise unremarkable. Gallbladder and bile ducts: Large common bile duct stent in place. Intrahepatic pneumobilia. No calcified stones. Pancreas: Clips in the region of the pancreatic head. Spleen: Unremarkable. No splenomegaly. Adrenals: Unremarkable. No mass. Kidneys and ureters: Unremarkable. No obstructing stones. No hydronephrosis. Stomach and bowel: There is ill definition of the colon wall from the distal left colon through the sigmoid colon with mild inflammation in the surrounding fat. This is consistent with colitis. No obstruction. PELVIS: Appendix: No findings to suggest acute appendicitis. Bladder: Unremarkable. No stones. Reproductive: Hysterectomy. ABDOMEN and PELVIS: Intraperitoneal space: Small amount of free fluid. No free air. Bones/joints: No acute fracture. No dislocation. Soft tissues: Unremarkable. Vasculature: Unremarkable. No abdominal aortic aneurysm. Lymph nodes: Unremarkable. No enlarged lymph nodes. IMPRESSION: Evidence of nonspecific colitis involving the lower left colon and sigmoid colon. Electronically signed by: Ciro Arriola MD 08/16/22 00:51 AM MDM Narrative Physical exam and history were performed. Nursing notes, EMR, and Medication List were personally reviewed. No social concerns were identified as barriers to patients care. Patient appears to have nausea and vomiting bringing her to the ER. She does have a history of pancreatic cancer and is being followed through the [facility] system. The patient did have hematemesis today and is on Coumadin. IV access was established and labs were obtained. We were able to access her port. She was hydrated with normal saline. Cultures were gathered. An order was placed for continuous cardiac monitoring. The monitor shows a rate of 90 with normal sinus rhythm. Patient's blood work is as above and was reviewed. She does have an elevated white blood cell count of greater than 20,000. It is difficult to determine if this is infectious or related to her chemotherapy. She does not have significant anemia. Her potassium is low and this was repleted in part through her IV. INR is 2.0. Her troponin is slightly elevated at 38, but her EKG is nonischemic. I do not have other comparable troponins to know if this is her baseline. Initial lactic was 2.3 and she was hydrated with 2 L total normal saline, and this did normalize to 2.0. She was given vancomycin and Zosyn here in the ER. Bio fire was performed and negative. CT scan of the belly was performed and reviewed by myself and radiology showing no acute process to account for the patient's symptoms. Case was discussed with both my attending, Dr. Dickerson, as well as the on-call hospitalist for [facility]. The patient does not seem well for discharge home. She could certainly could be septic contributing to many of her symptoms. It is also difficult to determine the reason for her elevated troponin and white count at this time. Please see the hospitalist dictation for further patient course, plan, and disposition. The chart was completed utilizing [employer] Speech Voice Recognition Software. Grammatical errors, random word insertions, pronoun errors, and incomplete s entences are an occasional consequence of this system due to software limitations, ambient noise, and hardware issues. Any formal questions or concerns about the content, text, or information contained within the body of this dictation should be directly addressed to the provider for clarification. . Impression & Plan Hematemesis, Pancreatic cancer, Patient on antineoplastic chemotherapy regimen, Elevated lactic acid level, Elevated troponin Discharge Plan Visit Data Chief Complaint: Vomiting Stated Complaint: CANCER PT,VOMIT,NAUSEA,BLOOD IN VOMIT ED Provider: Ramon Dickerson ED Midlevel Provider: Bryan Lozano Discharge Problem: Hematemesis, Pancreatic cancer, Patient on antineoplastic chemotherapy regimen, Elevated lactic acid level, Elevated troponin Forms Stand Alone Forms: My [facility] [employer] Prescriptions Prescriptions: No Action omeprazole 40 mg capsule,delayed release(DR/EC) 40 mg PO BID Qty: 180 3RF Rx Instructions: Take 1 capsule by mouth twice daily Premarin 0.625 mg/gram cream 0.625 mg vaginal 2XWK Qty: 30 1RF Rx Instructions: Use on Mon and Fri gabapentin 300 mg capsule 300 mg PO BID dicyclomine 10 mg capsule 10 mg PO TID PRN (Reason: Abdominal Pain/Cramping) Qty: 270 1RF atorvastatin 10 mg tablet 10 mg PO Q2D Rx Instructions: TAKES MON, WED, & FRI. warfarin 5 mg tablet 5 mg PO DIRECTED Rx Instructions: as directed by anti-coagulation clinic metoprolol tartrate 50 mg tablet 50 mg PO BID docusate sodium [Colace] 100 mg Capsule 100 mg PO BID cholecalciferol (vitamin D3) 1,000 unit Tablet 1,000 unit PO QAM multivitamin Tablet 1 tab PO QAM folic acid 1 mg Tablet 1 mg PO QAM Saline Nose 0.65 % Aerosol,[place] 1 spray intranasal .[id number] PRN (Reason: Nasal Congestion) lactulose 10 gram/15 mL Solution 5 - 30 ml PO DAILY PRN (Reason: Constipation) potassium chloride 10 mEq tablet extended release 20 meq PO QAM albuterol sulfate [ProAir HFA] 90 mcg/actuation HFA aerosol inhaler 2 puff INHALATION QID PRN (Reason: Shortness Of Breath Or Wheezing) duloxetine 60 mg capsule,delayed release(DR/EC) 60 mg PO QAM cyanocobalamin (vitamin B-12) [Vitamin B-12] 1,000 mcg Tablet 1,000 mcg PO QAM Creon 24,000-76,000 -120,000 unit capsule,delayed release(DR/EC) 3 - 4 cap PO TIDWMEAL Creon 24,000-76,000 -120,000 unit capsule,delayed release(DR/EC) 2 cap PO .SNACKS hydromorphone 2 mg tablet 1 - 2 mg PO Q4 PRN (Reason: Pain) ondansetron 4 mg tablet,disintegrating 4 mg PO QAM PRN (Reason: nausea and vomiting) bioflavonoid products Tablet 1 tab PO QAM fluticasone propionate 50 mcg/actuation [place],Suspension 2 spray INTRANASAL DAILY PRN (Reason: Congestion) riboflavin (vitamin B2) 400 mg Tablet 400 mg PO QAM magnesium oxide 400 mg magnesium Tablet 400 mg PO QAM torsemide 20 mg tablet 20 mg PO QAM Referrals Referrals: Ramon Jimenez MD [Primary Care Provider] -
[2022-08-15 23:06] LABS: Hematocrit (blood only) 32.3 % (37.0-47.0); Hemoglobin 11.1 g/dl (12.0-16.0); Mean Corpuscular Hemoglobin 30.6 pg (25.0-34.0); Mean Corpuscular Hgb Conc 34.4 g/dL (32.0-36.0); Mean Platelet Volume 9.9 fL (9.4-12.4); Nucleated RBC # (auto) 0.02 K/uL (0-0.12); Nucleated RBC % (auto) 0.1 %; Platelet Count 116 K/uL (130-400); RDW Coefficient of Variation 14.5 % (11.5-14.5); RDW Standard Deviation 45.9 fL (36.4-46.3); Red Blood Count 3.63 M/uL (4.20-5.40); White Blood Count 20.03 K/ul (4.8-10.8)
[2022-08-15 23:21] LABS: Albumin Level 3.6 gm/dl (3.4-5.0); BUN Creatinine Ratio 9.8 (10-20); Bilirubin,Total 0.4 mg/dl (0.2-1.0); Calcium 9.7 mg/dl (8.6-10.3); Est GFR (African American) 71.1 ml/min; Est GFR (Non-African American) 61.3 ml/min; Globulin 3.5 gm/dl (2.5-4.0); Magnesium 1.6 mg/dl (1.7-2.4); Potassium 2.8 mmol/L (3.5-5.1); Total Protein 7.1 gm/dl (6.0-8.3)
[2022-08-15] MEDS ORDERED: POTASSIUM CHLORIDE / WTR 10 MEQ/100 ML PLCT IV ONE (23:23)
[2022-08-15 23:26] LABS: Troponin I High Sensitivity 37.6 pg/ml (0-14)
[2022-08-15] MEDS ORDERED: PIPERACILLIN/TAZOBACTAM 4.5 GM/120 ML BAG IV ONE (23:33)
[2022-08-15] MEDS ORDERED: VANCOMYCIN HCL 1,250 MG in SODIUM CHLORIDE 0.9% 500 ML IV ONE (23:33)
[2022-08-15] MEDS ORDERED: VANCOMYCIN CONSULT ACTIVE PRN (23:33)
[2022-08-15 23:36] LABS: Partial Thromboplastin Ratio 1.2; Partial Thromboplastin Time 33.8 Seconds (21.0-31.0)
[2022-08-15 23:44] LABS: Basophils # (auto) 0.15 K/uL (0-0.2); Basophils % (auto) 0.7 %; Eosinophils # (auto) 0.01 K/uL (0-0.50); Immature Granulocytes # (auto) 1.39 K/uL (0.01-0.20); Immature Granulocytes % (auto) 6.9 %; Lymphocytes # (auto) 0.99 K/uL (1.2-3.4); Lymphocytes % (auto) 4.9 %; Monocytes # (auto) 2.27 K/uL (0.11-0.59); Monocytes % (auto) 11.3 %; Neutrophils # (auto) 15.22 K/uL (1.40-6.50); Neutrophils % (auto) 76.2 %; RBC Morphology Unremarkable
[2022-08-16 00:40] LABS: Adenovirus PCR Not Detected (NotDetected); Bordetella parapertussis PCR Not Detected (NotDetected); Bordetella pertussis PCR Not Detected (NotDetected); Chlamydia pneumoniae PCR Not Detected (NotDetected); Coronavirus 229E PCR Not Detected (NotDetected); Coronavirus CoV-2 (COVID19)PCR Not Detected (NotDetected); Coronavirus HKU1 PCR Not Detected (NotDetected); Coronavirus NL63 PCR Not Detected (NotDetected); Coronavirus OC43PCR Not Detected (NotDetected); Human Metapneumovirus PCR Not Detected (NotDetected); Influenza A PCR Not Detected (NotDetected); Influenza B PCR Not Detected (NotDetected); Mycoplasma pneumoniae PCR Not Detected (NotDetected); Parainfluenza Virus 1 PCR Not Detected (NotDetected); Parainfluenza Virus 2 PCR Not Detected (NotDetected); Parainfluenza Virus 3 PCR Not Detected (NotDetected); Parainfluenza Virus 4 PCR Not Detected (NotDetected); Respiratory Syncytial VirusPCR Not Detected (NotDetected); Rhinovirus/Enterovirus PCR Not Detected (NotDetected)
--- NOTE | 2022-08-16 00:53 | CT Scan Report ---
Exam(s): CT ABDOMEN + PELVIS Without Contrast EXAM: CT Abdomen and Pelvis Without Intravenous Contrast CLINICAL HISTORY: Reason for exam: n/v. Hx pancreatic cancer. Sepsis.. TECHNIQUE: Axial computed tomography images of the abdomen and pelvis without intravenous contrast. CTDI is 5.71 mGy and DLP is 268.89 mGy-cm. Automated exposure control was utilized for the study. A dose lowering technique was utilized adhering to the principles of ALARA. COMPARISON: No relevant prior studies available. FINDINGS: Lung bases: Unremarkable. No mass. No consolidation. Mediastinum: Small hiatus hernia. ABDOMEN: Liver: Cyst within the right lobe of the liver. Liver otherwise unremarkable. Gallbladder and bile ducts: Large common bile duct stent in place. Intrahepatic pneumobilia. No calcified stones. Pancreas: Clips in the region of the pancreatic head. Spleen: Unremarkable. No splenomegaly. Adrenals: Unremarkable. No mass. Kidneys and ureters: Unremarkable. No obstructing stones. No hydronephrosis. Stomach and bowel: There is ill definition of the colon wall from the distal left colon through the sigmoid colon with mild inflammation in the surrounding fat. This is consistent with colitis. No obstruction. PELVIS: Appendix: No findings to suggest acute appendicitis. Bladder: Unremarkable. No stones. Reproductive: Hysterectomy. ABDOMEN and PELVIS: Intraperitoneal space: Small amount of free fluid. No free air. Bones/joints: No acute fracture. No dislocation. Soft tissues: Unremarkable. Vasculature: Unremarkable. No abdominal aortic aneurysm. Lymph nodes: Unremarkable. No enlarged lymph nodes. IMPRESSION: Evidence of nonspecific colitis involving the lower left colon and sigmoid colon. Electronically signed by: Ciro Arriola MD 08/16/22 00:51 AM
[2022-08-16] MEDS ORDERED: POTASSIUM CHLORIDE CRTAB 20 MEQ TABCR PO STA (01:01)
[2022-08-16] MEDS: POTASSIUM CHLORIDE / WTR 10 MEQ/100 ML PLCT IV SCH ×4 (02:25→07:52)
[2022-08-16] MEDS ORDERED: HYDROmorphone INJ 0.5 MG/0.5 ML SYR IV STA (03:16)
[2022-08-16] MEDS ORDERED: PROMETHAZINE HCL 12.5 MG in SODIUM CHLORIDE 0.9% 50 ML IV STA (03:16)
[2022-08-16] MEDS ORDERED: PROMETHAZINE 12.5 MG/50.5 ML BAG IV STA (03:28)
[2022-08-16] MEDS: MAGNESIUM SULFATE / D5W 1 GM/100 ML BAG IV SCH ×2 (03:29→07:52)
[2022-08-16] MEDS ORDERED: FLUTICASONE PROPIONATE NA SPR 16 GM BTL PRN (04:24)
[2022-08-16] MEDS ORDERED: PANTOprazole 80 MG in DEXTROSE 5% 100 ML IV ONE (04:24)
[2022-08-16] MEDS ORDERED: PANTOprazole 40 MG in DEXTROSE 5% 100 ML IV SCH (04:24)
[2022-08-16] MEDS ORDERED: PANCREAZE (LIPASE 16,800U) CAP PO PRN (04:24)
[2022-08-16] MEDS ORDERED: ALBUTEROL HFA 8 GM INHALER INH PRN (04:24)
[2022-08-16] MEDS ORDERED: ACETAMINOPHEN 325 MG TAB PO PRN (04:24)
[2022-08-16] MEDS ORDERED: NITROGLYCERIN SL 0.4 MG/TAB TAB SL PRN (04:24)
[2022-08-16] MEDS ORDERED: METOPROLOL TARTRATE 1 MG/ML VIAL IV PRN (04:24)
[2022-08-16] MEDS ORDERED: SODIUM CHLORIDE 0.65% NA SOLN 45 ML (OCEAN) PRN (04:24)
[2022-08-16] MEDS ORDERED: PHYTONADIONE 2.5 MG in DEXTROSE 5% 50 ML IV ONE (04:45)
[2022-08-16] MEDS: SODIUM CHLORIDE 0.9% 1000ML 1,000 ML IV SCH ×3 (05:26→20:24)
[2022-08-16] MEDS: PROMETHAZINE HCL 12.5 MG in SODIUM CHLORIDE 0.9% 50 ML IV PRN ×2 (05:26→22:26)
--- NOTE | 2022-08-16 05:33 | History and Physical Report ---
Error. Please delete the document. Thank you LISSET
[2022-08-16 06:08] LABS: BUN Creatinine Ratio 8.4 (10-20); Calcium 8.4 mg/dl (8.6-10.3); Creatinine Clr Calc Pharmacy 49.2 ml/min; Est GFR (African American) 80.5 ml/min; Est GFR (Non-African American) 69.5 ml/min; Potassium 3.1 mmol/L (3.5-5.1)
[2022-08-16 06:15] LABS: Troponin I High Sensitivity 47.3 pg/ml (0-14)
[2022-08-16] MEDS: PIPERACILLIN/TAZOBACTAM 4.5 GM in DEXTROSE 5% 100 ML IV SCH ×3 (06:23→21:42)
[2022-08-16 06:33] LABS: Hemoglobin 9.3 g/dl (12.0-16.0); Mean Corpuscular Hemoglobin 31.5 pg (25.0-34.0); Mean Corpuscular Hgb Conc 34.4 g/dL (32.0-36.0); Mean Corpuscular Volume 91.5 fL (80.0-100.0); Mean Platelet Volume 10.1 fL (9.4-12.4); Platelet Count 101 K/uL (130-400); RDW Coefficient of Variation 14.3 % (11.5-14.5); RDW Standard Deviation 46.5 fL (36.4-46.3); Red Blood Count 2.95 M/uL (4.20-5.40); White Blood Count 18.88 K/ul (4.8-10.8)
[2022-08-16 06:39] LABS: INR 1.9 (0.9-1.1); Prothrombin Time 19.7 Seconds (9.0-12.0)
[2022-08-16 06:52] LABS: Basophils # (auto) 0.06 K/uL (0-0.2); Basophils % (auto) 0.3 %; Dohle Bodies 1+; Eosinophils # (auto) 0.02 K/uL (0-0.50); Eosinophils % (auto) 0.1 %; Immature Granulocytes % (auto) 7.9 %; Lymphocytes # (auto) 0.64 K/uL (1.2-3.4); Lymphocytes % (auto) 3.4 %; Monocytes % (auto) 11.7 %; Neutrophils # (auto) 14.46 K/uL (1.40-6.50); Neutrophils % (auto) 76.6 %; Toxic Granulation 1+
--- NOTE | 2022-08-16 07:07 | History and Physical Report ---
DATE OF ADMISSION: 08/16/2022. CHIEF COMPLAINT: Nausea, vomiting, hematemesis. HISTORY OF PRESENT ILLNESS: A 76-year-old female with past medical history significant for pancreatic cancer, status post surgery, radiation, currently on chemo, history of hyperlipidemia, diabetes, chronic cough, chronic pharyngitis, atrial flutter, hypertension, irritable bowel syndrome, esophagitis, GERD, history of dysphagia, history of cervical radiculopathy, history of status post mitral valve replacement with bioprosthetic valve, status post tricuspid valve repair, Denominational, lives at home, ambulates with a cane. Lives with her , presents with nausea, vomiting, diarrhea going on for the last 2-3 days. She says she also had couple episodes of 2 spoons of blood in the vomitus. She has chronic abdominal pain, feeling dizzy. Denies any headache. No blurred visions, no earache, no runny nose, no sore throat, no chest pain, no shortness of breath. Denies any blood in the stools. Normal bladder movements. Currently, resting comfortably and hemodynamically stable. Patient was her in 10/11 with abdominal pain and was transferred to [place] for ercp for gall stones and found to have pancreatic cancer. HAd Surgery at [facility]. Planned for whipple procedure but when opened found some spots on abdominal wall as per so whipple was not done. S/p radiation treatment and first chem. Currently on second chemo as per which she gets weekly for 3 weeks and then one week off. Currently she is off week. ALLERGIES: LATEX, MORPHINE, PHENOBARBITAL, THIOPENTAL, ADHESIVE, FERROUS SULFATE, IODINATED CONTRAST MEDIA, IOVERSOL, LORAZEPAM, NICKEL, PROTONIX, PREDNISONE, SULFA ANTIBIOTICS, ASPARTAME, ASPIRIN, BENZODIAZEPINE, CAFFEINE, CODEINE, DIAZEPAM, OXYCODONE, PROPOXYPHENE,SACCHARIN, SALICYLATES, TRAMADOL, IBUPROFEN, NSAIDS, GRAPEFRUIT. PAST MEDICAL HISTORY: As mentioned above. PAST SURGICAL HISTORY: Colonoscopy, Pap screen, lumbar fusion surgery, cervical fusion surgery, partial hysterectomy, mitral valve repair, removal of ruptured appendix, removal of ovaries for tumor, repair of tricuspid valve. MEDICATIONS: The patient is on albuterol 2 puffs inhalation q.i.d. p.r.n., atorvastatin 10 mg p.o. every other day, vitamin D 1000 units p.o. daily, conjugated estrogen 0.625 mg vaginally 2 times a week, vitamin B12 1000 mcg p.o. daily, dicyclomine 10 mg p.o. t.i.d. p.r.n., Colace 100 mg p.o. b.i.d., duloxetine 60 mg p.o. a.m., Flonase 2 sprays intranasal daily p.r.n., folic acid 1 mg p.o. daily, gabapentin 300 mg p.o. b.i.d., hydromorphone 1-2 mg p.o. q. 4 hours p.r.n., lactulose 500 mL p.o. daily p.r.n., Creon 3-4 capsules with meals, Creon 2 capsules with snacks, magnesium oxide 400 mg p.o. daily, metoprolol tartrate 50 mg p.o. b.i.d., multivitamin 1 tablet p.o. daily, omeprazole 40 mg p.o. b.i.d., Zofran 4 mg p.o. p.r.n., potassium chloride 20 mEq p.o. daily, vitamin B12 400 mg p.o. daily, nasal spray p.r.n., furosemide 20 mg p.o. a.m., warfarin 5 mg as directed. FAMILY HISTORY: Significant for mother has allergies, asthma, cirrhosis, heart disorder, hypertension. Brother has heart disorder. SOCIAL HISTORY: , no smoking, no alcohol, no drug use. REVIEW OF SYSTEMS: As per HPI. Rest of review of systems is negative. PHYSICAL EXAMINATION: GENERAL: The patient is of moderate build, not in acute distress. VITAL SIGNS: Temperature 36.8, pulse 89, respiratory rate 18, blood pressure 136/73, and oxygen 100% on room air. HEENT: Pupils equal, round and reactive to light. Oral mucosa moist. NECK: No JVD. No neck masses. CARDIOVASCULAR: S1 and S2 heard. Regular rate and rhythm. No murmur, no gallop. RESPIRATORY SYSTEM: Normal AP diameter. No accessory muscle use. No wheezing or crackles. ABDOMEN: Soft, bowel sounds present. Mild diffuse tenderness. No guarding. No rigidity. No distention. CENTRAL NERVOUS SYSTEM: Alert and oriented. Speech is clear. No facial droop. Obeys simple commands. Moves extremities. EXTREMITIES: No edema, no erythema. LABORATORY DATA: WBC 20, hemoglobin 11.1, hematocrit 32.3, platelets 116. PT 21, INR 2, APTT 33.8. Sodium 141, potassium 2.8, chloride 102, bicarbonate 27, BUN 9, creatinine 0.9, serum glucose 162. Lactate was 2.3, repeat is 2, calcium 9.7, magnesium 1.6, total bilirubin 0.4, AST 35, ALT 42, alkaline phosphatase 238. Troponin I high sensitivity 37.6. Lipase 6. Respiratory BioFire negative. IMAGING DATA: CT abdomen and pelvis without contrast shows evidence of nonspecific colitis involving the left colon and sigmoid colon. Chest x-ray, no acute findings. EKG, normal sinus rhythm, rate of 97, nonspecific T-wave abnormalities. ASSESSMENT AND PLAN: This is a 76-year-old female, who presents with nausea, vomiting, diarrhea, and also hematemesis. 1. Nausea, vomiting, hematemesis. The patient is Orthodox. Hemoglobin stable at 11.1. Allergic to PROTONIX. Placed on IV Pepcid, antiemetics, IV fluids, n.p.o. Consult GI in the a.m. Closely monitor in the tele floor. 2. Diarrhea, nonspecific colitis in the CAT scan elevated white count and also lactic acid 2.2 at presentation. Possible sepsis. Empirically started on vancomycin and Zosyn, which will be continued. Follow the cultures. Await GI input. 3. Pancreatic cancer. Had surgery at [facility] and for chemo following with Lana. she is status post chemoradiation, currently undergoing chemo every week for 3 weeks and a week off. Currently, she is on off week. She also had Neulasta last week.. Elevated white count could be from Neulasta. We will monitor. If any concern, we will discuss with oncology at [place]. 4. Thrombocytopenia, platelets 116, mostly from chemo. We will follow the repeat labs. 5. History of atrial flutter. Continue her metoprolol. Holding Coumadin because of hematemesis. INR is 2. We will give a dose of vitamin K. 6. History of hypokalemia. We will replace.follow labs 7. Hypomagnesemia. We will replace. 8. Hyperlipidemia, on statin. 9. Diabetes, not on any medication. We will place on insulin sliding scale as the patient is in hospital. Follow HbA1c levels. 10. Status post mitral valve repair with prosthetic valve on diuretic which is on hold. Monitor for any volume overload. 11. Mild elevation of troponin. Mostly demand ischemia. Will follow serial ce. 12. Deep venous thrombosis prophylaxis. Sequential compression devices for now. DISPOSITION: Closely monitor in the tele floor. Level 1 full code. Expect to discharge home and follow with family doctor. Job ID: [id number] [facility]
--- NOTE | 2022-08-16 08:06 | XRay Report ---
XR chest 1V portable HISTORY: vomiting blood COMPARISON: Chest 02/20/2020. FINDINGS: The lungs are clear. Cardiac silhouette is normal in size. No pleural effusions. No pneumot horax. There are poststernotomy changes. There is elevation of the right hemidiaphragm, unchanged. Ri ght Port-A-Cath terminates in the SVC. Cervical spinal fusion hardware is partially visualized. IMPRESSION: No significant change compared to the prior study. No acute process. ACT 112: Negative or not required by law. Electronically signed by: Michael Heart M.D. 08/16/2022 8:05 AM
[2022-08-16] MEDS: FOLIC ACID 1 MG TAB PO SCH (09:30)
[2022-08-16] MEDS: CYANOCOBALAMIN (B-12) 500 MCG TABLET PO SCH (09:31)
[2022-08-16] MEDS: CHOLECALCIFEROL 1,000 UNITS 25 MCG TAB PO SCH (09:31)
[2022-08-16] MEDS: PANCREAZE (LIPASE 16,800U) CAP PO SCH ×3 (09:32→16:44)
[2022-08-16] MEDS: METOPROLOL TARTRATE 50 MG TAB PO SCH ×2 (09:33→20:23)
[2022-08-16] MEDS: MULTIVITAMIN TAB PO SCH (09:33)
[2022-08-16] MEDS: DULoxetine HCL 60 MG CAP PO SCH (09:34)
[2022-08-16] MEDS: FAMOTIDINE 20 MG in SYRINGE 3 ML IV SCH ×2 (09:34→20:23)
[2022-08-16] MEDS: MAGNESIUM OXIDE 400 MG TAB PO SCH (09:34)
[2022-08-16] MEDS: GABAPENTIN 300 MG CAP PO SCH ×2 (09:34→20:22)
--- NOTE | 2022-08-16 09:40 | Gastrointestinal Consultation ---
Date of Consultation August 16, 2022 Assessment & Plan (1) Pancreatic cancer: (2) Hematemesis: Plan Patient is a 76 y.o. female with a history of GERD, IBS and pancreatic CA s/p Whipple on chemotherapy admitted with abdominal pain, n/v, single episode of hematemesis and abnormal CT of nonspecific colitis. Suspect sx related to known malignancy and treatment. She is not having any diarrhea at this time. -Continue IV Zosyn to cover for enteric pathogens. -NPO for now. Hold off on invasive GI work up unless sig drop in H&H or further overt GIB. -As allergic to Protonix and no other PPI on formulary, continue BID Famotidine. -Add Carafate 1g ACHS x 10 days. -IV Emend 150 mg x 1 dose now for n/v. -Continue supportive care. -Will continue to follow and make further recommendations pending clinical response. Thank you for allowing us to participate in the care of this patient. If you have any questions or concerns, please do not hesitate to contact us. History of Present Illness Reason for Consultation: Hematemesis and colitis Requesting Physician: Dr. Bush Attending Physician: Nigel Vogt MD History of Present Illness Patient is a very pleasant 76 y.o. female known to our office for GERD and IBS diagnosed with pancreatic CA. She is status post Whipple at [facility] and receiving chemotherapy. Last dose was one week ago. She reports that over the past several days, she has had intractable nausea with vomiting and unable to tolerate PO intake. Yesterday, she developed a single episode of hematemesis of approximately one teaspoon. Last emesis was last evening. She has chronic abdominal pain which is currently rated as 5/10 in intensity but increases to 7/10 with movement. The pain increases her nausea as well. She has been using PO Compazine at home and is prescribed Zofran but has only taken a single dose due to concerns of arrhythmias. On admission, H&H remains relatively stable. CT with findings on nonspecific colitis. She denies any significant diarrhea. Has been placed on IV Zosyn. Allergies Allergy/AdvReac Type Severity Reaction Status Date / Time latex Allergy Severe RASH AND Verified 08/16/22 01:43 CAN'T BREATHE, HIVES morphine Allergy Severe HEART Verified 08/16/22 01:43 STOPPED AND "I STOPPED LIVING" pentobarbital Allergy Severe "HEART Verified 08/16/22 01:43 STOPPED" phenobarbital Allergy Severe "HEART Verified 08/16/22 01:43 STOPPED" thiopental Allergy Severe "HEART Verified 08/16/22 01:43 STOPPED" adhesive Allergy Intermediate REDNESS Verified 08/16/22 01:43 AND HIVES-TAPE ferrous sulfate Allergy Intermediate HIVES Verified 08/16/22 01:43 Iodinated Contrast Media Allergy Intermediate HIVES Verified 08/16/22 01:43 ioversol Allergy Intermediate HIVES Verified 08/16/22 01:43 lorazepam Allergy Intermediate HIVES AND Verified 08/16/22 01:43 SWEATING nickel Allergy Intermediate HIVES AND Verified 08/16/22 01:43 RASH pantoprazole Allergy Intermediate HIVES AND Verified 08/16/22 01:43 ITCHING prednisone Allergy Intermediate HIVES Verified 08/16/22 01:43 Sulfa (Sulfonamide Allergy Intermediate RASH, HIVES Verified 08/16/22 01:43 Antibiotics) aspartame AdvReac Intermediate DIZZINESS, Verified 08/16/22 01:43 MIGRAINES aspirin AdvReac Intermediate SWEATS, Verified 08/16/22 01:43 PALPITATIONS, RINGING IN EARS Benzodiazepines AdvReac Intermediate SWEATS, Verified 08/16/22 01:43 PALPITATIONS, RINGING IN EARS caffeine AdvReac Intermediate JITTERY Verified 08/16/22 01:43 codeine AdvReac Intermediate SWEATS, Verified 08/16/22 01:43 PALPITATIONS, RINGING IN EARS, HIVES diazepam AdvReac Intermediate SWEATING Verified 08/16/22 01:43 oxycodone AdvReac Intermediate HEART RACES Verified 08/16/22 01:43 propoxyphene AdvReac Intermediate SWEATS, Verified 08/16/22 01:43 PALPITATIONS, RINGING IN EARS saccharin AdvReac Intermediate FROM Verified 08/16/22 01:43 NUTRASWEET - DIZZINESS, MIGRAINES salicylates AdvReac Intermediate GERD, Verified 08/16/22 01:43 IRRITATES STOMACH, HIGH DOSE ONLY tramadol AdvReac Intermediate SWEATS, Verified 08/16/22 01:43 PALPITATIONS, RINGING IN EARS ibuprofen AdvReac Mild NUMBNESS Verified 08/16/22 01:43 NSAIDS (Non-Steroidal AdvReac Mild NUMBNESS Verified 08/16/22 01:43 Anti-Inflamma grapefruit AdvReac Unknown "CANNOT Verified 08/16/22 01:43 TAKE WITH HEART MEDICATION" Home Medications Medication Instructions Recorded Confirmed Type atorvastatin 10 mg tablet 10 mg PO Q2D 10/30/18 08/16/22 History cholecalciferol (vitamin D3) 25 1,000 unit PO QAM 10/30/18 08/16/22 History mcg (1,000 unit) tablet docusate sodium 100 mg capsule 100 mg PO BID 10/30/18 08/16/22 History (Colace) folic acid 1 mg tablet 1 mg PO QAM 10/30/18 08/16/22 History lactulose 10 gram/15 mL oral 5 - 30 ml PO DAILY PRN Constipation 10/30/18 08/16/22 History solution metoprolol tartrate 50 mg tablet 50 mg PO BID 10/30/18 08/16/22 History multivitamin 1 tab PO QAM 10/30/18 08/16/22 History potassium chloride 10 mEq 20 meq PO QAM 10/30/18 08/16/22 History tablet,extended release sodium chloride 0.65 % nasal spray 1 spray intranasal .[id number] PRN 10/30/18 08/16/22 History aerosol (Saline Nose) Nasal Congestion warfarin 5 mg tablet 5 mg PO DIRECTED 10/30/18 08/16/22 History albuterol sulfate 90 mcg/actuation 2 puff inhalation QID PRN 04/19/19 08/16/22 History aerosol inhaler (ProAir HFA) Shortness Of Breath Or Wheezing duloxetine 60 mg capsule,delayed 60 mg PO QAM 04/19/19 08/16/22 History release cyanocobalamin (vitamin B-12) 1,000 mcg PO QAM 10/19/19 08/16/22 History 1,000 mcg tablet (Vitamin B-12) gabapentin 300 mg capsule 300 mg PO BID 02/23/21 08/16/22 History dicyclomine 10 mg capsule 10 mg PO TID PRN Abdominal 07/03/21 08/16/22 Rx Pain/Cramping #270 caps bioflavonoid products tablet 1 tab PO QAM 10/05/21 08/16/22 History fluticasone propionate 50 2 spray intranasal DAILY PRN 10/05/21 08/16/22 History mcg/actuation nasal Congestion spray,suspension magnesium oxide 400 mg PO QAM 10/05/21 08/16/22 History riboflavin (vitamin B2) 400 mg 400 mg PO QAM 10/05/21 08/16/22 History tablet torsemide 20 mg tablet 20 mg PO QAM 10/05/21 08/16/22 History ondansetron 4 mg disintegrating 4 mg PO QAM PRN nausea and vomiting 10/13/21 08/16/22 History tablet omeprazole 40 mg capsule,delayed 40 mg PO BID #180 caps 06/05/22 08/16/22 Rx release conjugated estrogens 0.625 mg/gram 0.625 mg vaginal 2XWK #30 grams 07/11/22 08/16/22 Rx vaginal cream (Premarin) hydromorphone 2 mg tablet 1 - 2 mg PO Q4 PRN Pain 08/16/22 08/16/22 History mhvlez-rwzpilzi-umkfhjp 2 cap PO .SNACKS 08/16/22 08/16/22 History 24,000-76,000-120,000 unit capsule,delayed rel (Creon) elvbpg-rhssuqdy-elyrets 3 - 4 cap PO TIDWMEAL 08/16/22 08/16/22 History 24,000-76,000-120,000 unit capsule,delayed rel (Creon) Patient History Medical History Atrial flutter 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 Kemp On anticoagulant therapy S/P MVR 09/2017 Rectocele Restless leg syndrome Rhinitis, non-allergic Shortness of breath SOB ON EXERTION - REASON FOR INHALER - NO USE OF INHALERS COUPLE YEARS PER PT Uterine cancer DX STAGE 1 - SURGERY Surgical History Fusion of spine HX LUMBAR AND CERVICAL (5 TOTAL SURGERIES) LIMITED ROM FOR NECK MOVING SIDE TO SIDE History of anesthesia reaction SLOW TO WAKE UP + SEE ALLERGIES-"LEFT LEG STAYS NUMB AND CAN'T MOVE LONGER PERIOD OF TIME POST OP History of bowel resection D/T BOWEL OBSTRUCTION History of cardiac cath 2017 (NO STENTS) History of cataract surgery bilat History of colonoscopy History of esophagogastroduodenoscopy (EGD) History of mitral valve replacement with bioprosthetic valve SEPTEMBER 2017 AT [facility] (WILL BRING CARD) (pig valve > [place])-ON [place] History of tooth extraction Hx of appendectomy Hx of mitral valve repair 2006; f/u Dr. 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 Beliefs That Will Affect Care: Tenriism Tenriism Beliefs: Jainism Current Living Situation: Spouse current occupational status: retired Feels Safe at Home: Yes Safety Concerns: Feels Safe At This Time Assistive Devices: Cane and Glasses Review of Systems Constitutional: + fatigue; no fever Respiratory: no problem reported Cardiovascular: no problem reported Gastrointestinal: as per Subjective / HPI Physical Exam Constitutional: + thin; no acute distress Eyes: EOM intact bilaterally Neck: normal visual inspection Respiratory: normal respiratory effort, lungs clear to auscultation Cardiovascular: Rate/Rhythm: regular rate and regular rhythm Gastrointestinal (Abdomen): Inspection/Auscultation: abdomen normal to inspection and normal bowel sounds Percussion/Palpation: + abdomen tender and abdomen soft; no guarding and abdomen not rigid Psychiatric: A+Ox3, euthymic affect Results & Data Vital Signs (Past 12 Hours) Vital Signs Temp Pulse Pulse Resp BP BP Pulse Ox 08/16/22 07:42 36.6 C 82 16 105/59 L 99 08/16/22 04:43 98 H 08/16/22 06:12 37 C 18 109/55 L 100 08/16/22 04:45 08/16/22 04:15 36.7 C 18 154/77 H 100 08/16/22 05:51 37 C 18 112/62 100 08/16/22 02:33 89 18 100 08/16/22 01:30 87 16 98 08/16/22 01:00 93 H 17 08/16/22 01:00 136/73 08/16/22 00:30 90 23 100 08/16/22 00:23 93 H 17 100 08/16/22 00:25 91 H O2 Del Method 08/16/22 07:42 Room Air 08/16/22 04:43 08/16/22 06:12 Room Air 08/16/22 04:45 Room Air 08/16/22 04:15 Room Air 08/16/22 05:51 Room Air 08/16/22 02:33 08/16/22 01:30 08/16/22 01:00 08/16/22 01:00 08/16/22 00:30 08/16/22 00:23 08/16/22 00:25 Diagnostic Findings Laboratory Results WBC 18.88 K/ul (4.8-10.8) H 08/16/22 05:34 RBC 2.95 M/uL (4.20-5.40) L 08/16/22 05:34 Hgb 9.3 g/dl (12.0-16.0) L 08/16/22 05:34 Hct 27.0 % (37.0-47.0) L 08/16/22 05:34 MCV 91.5 fL (80.0-100.0) 08/16/22 05:34 MCH 31.5 pg (25.0-34.0) 08/16/22 05:34 MCHC 34.4 g/dL (32.0-36.0) 08/16/22 05:34 RDW Std Deviation 46.5 fL (36.4-46.3) H 08/16/22 05:34 RDW Coeff of Angelique 14.3 % (11.5-14.5) 08/16/22 05:34 Plt Count 101 K/uL (130-400) L 08/16/22 05:34 MPV 10.1 fL (9.4-12.4) 08/16/22 05:34 Immature Gran % (Auto) 7.9 % 08/16/22 05:34 Neut % (Auto) 76.6 % 08/16/22 05:34 Lymph % (Auto) 3.4 % 08/16/22 05:34 [place] % (Auto) 11.7 % 08/16/22 05:34 Eos % (Auto) 0.1 % 08/16/22 05:34 Baso % (Auto) 0.3 % 08/16/22 05:34 Neut # (Auto) 14.46 K/uL (1.40-6.50) H 08/16/22 05:34 Lymph # (Auto) 0.64 K/uL (1.2-3.4) L 08/16/22 05:34 [place] # (Auto) 2.20 K/uL (0.11-0.59) H 08/16/22 05:34 Eos # (Auto) 0.02 K/uL (0-0.50) 08/16/22 05:34 Baso # (Auto) 0.06 K/uL (0-0.2) 08/16/22 05:34 Immature Gran # (Auto) 1.50 K/uL (0.01-0.20) H 08/16/22 05:34 Absolute Nucleated RBC 0.02 K/uL (0-0.12) 08/15/22 22:48 Nucleated RBC % (auto) 0.1 % 08/15/22 22:48 Toxic Granulation 1+ 08/16/22 05:34 Dohle Bodies 1+ 08/16/22 05:34 RBC Morphology Unremarkable 08/15/22 22:48 PT 19.7 Seconds (9.0-12.0) H 08/16/22 05:34 INR 1.9 (0.9-1.1) H 08/16/22 05:34 APTT 33.8 Seconds (21.0-31.0) H 08/15/22 22:48 PTT Ratio 1.2 08/15/22 22:48 Sodium 139 mmol/L (136-145) 08/16/22 05:34 Potassium 3.1 mmol/L (3.5-5.1) L 08/16/22 05:34 Chloride 108 mmol/L (98-107) H 08/16/22 05:34 Carbon Dioxide 23 mmol/L (21-32) 08/16/22 05:34 Anion Gap 8 (3-11) 08/16/22 05:34 BUN 7 mg/dl (6-23) 08/16/22 05:34 Creatinine 0.83 mg/dl (0.6-1.2) 08/16/22 05:34 Est Cr Clr Drug Dosing 49.2 ml/min 08/16/22 05:34 Est GFR ( Amer) 80.5 ml/min 08/16/22 05:34 Est GFR (Non-Af Amer) 69.5 ml/min 08/16/22 05:34 BUN/Creatinine Ratio 8.4 (10-20) L 08/16/22 05:34 Glucose 171 mg/dl (70-99(Fasting)) H 08/16/22 05:34 Lactate 2.0 mmol/L (0.4-2.0) 08/16/22 01:16 Calcium 8.4 mg/dl (8.6-10.3) L 08/16/22 05:34 Magnesium 2.0 mg/dl (1.7-2.4) 08/16/22 05:34 Total Bilirubin 0.4 mg/dl (0.2-1.0) 08/15/22 22:48 AST 35 U/L (13-39) 08/15/22 22:48 ALT 42 U/L (7-52) 08/15/22 22:48 Alkaline Phosphatase 230 U/L (34-104) H 08/15/22 22:48 Troponin I High Sens 47.3 pg/ml (0-14) H 08/16/22 05:34 Total Protein 7.1 gm/dl (6.0-8.3) 08/15/22 22:48 Albumin 3.6 gm/dl (3.4-5.0) 08/15/22 22:48 Globulin 3.5 gm/dl (2.5-4.0) 08/15/22 22:48 Albumin/Globulin Ratio 1.0 (0.9-2) 08/15/22 22:48 Lipase 6 U/L (11-82) L 08/15/22 22:48 Adenovirus (PCR) Not Detected (NotDetected) 08/15/22 23:45 B. pertussis DNA (PCR) Not Detected (NotDetected) 08/15/22 23:45 B.parapertussis DNA PCR Not Detected (NotDetected) 08/15/22 23:45 C. pneumoniae DNA (PCR) Not Detected (NotDetected) 08/15/22 23:45 Coronavirus OC43 (PCR) Not Detected (NotDetected) 08/15/22 23:45 Coronavirus HKU1 (PCR) Not Detected (NotDetected) 08/15/22 23:45 Coronavirus 229E (PCR) Not Detected (NotDetected) 08/15/22 23:45 SARS-CoV-2 (PCR) Not Detected (NotDetected) 08/15/22 23:45 Coronavirus NL63 (PCR) Not Detected (NotDetected) 08/15/22 23:45 Human Metapneumovir PCR Not Detected (NotDetected) 08/15/22 23:45 Influenza Type A (PCR) Not Detected (NotDetected) 08/15/22 23:45 Influenza Type B (PCR) Not Detected (NotDetected) 08/15/22 23:45 M. pneumoniae (PCR) Not Detected (NotDetected) 08/15/22 23:45 Parainfluenza 1 (PCR) Not Detected (NotDetected) 08/15/22 23:45 Parainfluenza 2 (PCR) Not Detected (NotDetected) 08/15/22 23:45 Parainfluenza 3 (PCR) Not Detected (NotDetected) 08/15/22 23:45 Parainfluenza 4 (PCR) Not Detected (NotDetected) 08/15/22 23:45 RSV (PCR) Not Detected (NotDetected) 08/15/22 23:45 Entero/Rhino (PCR) Not Detected (NotDetected) 08/15/22 23:45 Blood Type A Positive 08/15/22 22:48 Antibody Screen NEGATIVE 08/15/22 22:48 Impressions Chest X-Ray 08/15/22 22:01 XR chest 1V portable HISTORY: vomiting blood COMPARISON: Chest 02/20/2020. FINDINGS: The lungs are clear. Cardiac silhouette is normal in size. No pleural effusions. No pneumothorax. There are poststernotomy changes. There is elevation of the right hemidiaphragm, unchanged. Right Port-A-Cath terminates in the SVC. Cervical spinal fusion hardware is partially visualized. IMPRESSION: No significant change compared to the prior study. No acute process. ACT 112: Negative or not required by law. Electronically signed by: Michael Heart M.D. 08/16/2022 8:05 AM Abdomen/Pelvis CT 08/15/22 23:39 Exam(s): CT ABDOMEN + PELVIS Without Contrast EXAM: CT Abdomen and Pelvis Without Intravenous Contrast CLINICAL HISTORY: Reason for exam: n/v. Hx pancreatic cancer. Sepsis.. TECHNIQUE: Axial computed tomography images of the abdomen and pelvis without intravenous contrast. CTDI is 5.71 mGy and DLP is 268.89 mGy-cm. Automated exposure control was utilized for the study. A dose lowering technique was utilized adhering to the principles of ALARA. COMPARISON: No relevant prior studies available. FINDINGS: Lung bases: Unremarkable. No mass. No consolidation. Mediastinum: Small hiatus hernia. ABDOMEN: Liver: Cyst within the right lobe of the liver. Liver otherwise unremarkable. Gallbladder and bile ducts: Large common bile duct stent in place. Intrahepatic pneumobilia. No calcified stones. Pancreas: Clips in the region of the pancreatic head. Spleen: Unremarkable. No splenomegaly. Adrenals: Unremarkable. No mass. Kidneys and ureters: Unremarkable. No obstructing stones. No hydronephrosis. Stomach and bowel: There is ill definition of the colon wall from the distal left colon through the sigmoid colon with mild inflammation in the surrounding fat. This is consistent with colitis. No obstruction. PELVIS: Appendix: No findings to suggest acute appendicitis. Bladder: Unremarkable. No stones. Reproductive: Hysterectomy. ABDOMEN and PELVIS: Intraperitoneal space: Small amount of free fluid. No free air. Bones/joints: No acute fracture. No dislocation. Soft tissues: Unremarkable. Vasculature: Unremarkable. No abdominal aortic aneurysm. Lymph nodes: Unremarkable. No enlarged lymph nodes. IMPRESSION: Evidence of nonspecific colitis involving the lower left colon and sigmoid colon. Electronically signed by: Ciro Arriola MD 08/16/22 00:51 AM PG Care Time/CCT Total # of Minutes Spent Total Time Spent with Patient: Total time spent is greater than 50% in coordination of care (as documented) at patient's floor/unit and/or counseling patient: Coding Level of Care Code 61721 INT INP/OBS CARE 3/75MIN Diagnoses Pancreatic cancer C25.9 Hematemesis K92.0
[2022-08-16] MEDS ORDERED: FOSAPREPITANT DIMEGLUMINE 150 MG in SODIUM CHLORIDE 0.9% 145 ML IV ONE (09:45)
--- NOTE | 2022-08-16 10:02 | Pharmacy Report ---
Pharmacy Vanc AUC Short Note - Date of Service August 16, 2022 - Assessment & Plan Assessment 76 year old F started on vancomycin/zosyn empirically. PMHx significant for pancreatic cancer - receiving chemotherapy. Admitted with hematemesis and abnormal CT indicating colitis. Leukocytosis on admission, but afebrile. GI consulted to determine if symptoms related to infection vs. malignancy. Blood cultures currently pending. Day # 1 of antimicrobial therapy. Plan Vancomycin * AUC/SHANDRA is the preferred PK/PD target for vancomycin * AUC guided dosing is effective and associated with decreased risk of nephrotoxicity compared to traditional trough targets * Received loading dose of vancomycin 1250 mg x 1 this morning, will start vancomycin 1000 mg iv q 18 hrs * This dosing is estimated to achieve a trough level of ~16 mcg/ml, AUC/SHANDRA of 400-600 mg/L.hr and may be associated with a 11 % risk of nephrotoxicity * Plan to order vancomycin random level if plan is to continue with abx >48 hours Pharmacy will continue to follow and will adjust dose/frequency as necessary. Thank you.
[2022-08-16 11:35] LABS: Hematocrit (blood only) 26.6 % (37.0-47.0); Hemoglobin 8.9 g/dl (12.0-16.0)
[2022-08-16 12:00] LABS: Estimated Average Glucose 171 mg/dl; Hemoglobin A1C 7.6 % (4.5-5.6)
[2022-08-16] MEDS: VANCOMYCIN HCL 1,000 MG in SODIUM CHLORIDE 0.9% 250 ML IV SCH (12:02)
[2022-08-16] MEDS: SUCRALFATE 1 GM/10 ML UDC PO SCH ×3 (12:45→20:22)
--- NOTE | 2022-08-16 15:22 | Hospitalist Progress Note ---
Date of Service August 16, 2022 Assessment & Plan (1) Hematemesis: Plan: She has been getting chemotherapy weekly for 3 weeks with 1 week of from [place] This is her off week and has been complaining of nausea vomiting and diarrhea She has hematemesis and she was admitted to hospital with hemoglobin of 11.1 Has been on Protonix drip and feels a little better since admission without any more hematemesis No melena and diarrhea seems to be stable Appreciate GI input-no plan for EGD Profuse nausea and vomiting Likely secondary to chemotherapy Could be due to epigastric discomfort from pancreatic cancer Appreciate Emend given by GI (2) Colitis: Plan: Noted to have colitis nonspecific on CAT scan Started on IV vancomycin and Zosyn given immunosuppressed condition Lactic acid was 2.2 and which has been normalized (3) Pancreatic cancer: Plan: Has pancreatic cancer and has been getting chemotherapy weekly for 3 weeks and then 1 week off This is her off week (4) Patient on antineoplastic chemotherapy regimen: Plan: As above (5) Patient is [employer]: Plan: Will not get any blood transfusion even though hemoglobin is up to that level (6) Paroxysmal atrial flutter: Plan: Rate is controlled Continue beta-rubi Holding Coumadin due to hematemesis Status post mitral valve repair with prosthetic valve Monitor for any fluid overload Admission and Anticipated Discharge Date Admission Date: August 16, 2022 Subjective 08/16/2022 The patient was seen and examined in telemetry unit She has been feeling better since admission Her abdominal pain is little better, nausea and vomiting are better too Does not have any more hematemesis and did not have any black tarry stool Review of Systems Review of Systems: All systems reviewed and are unremarkable except as noted below Physical Exam Physical Exam: Lying in bed with minimal distress due to abdominal pain Constitutional: + ill appearing and average body habitus Eyes: PERRL, conjunctivae normal, anicteric sclerae ENMT: external ear and nose normal, oropharynx normal Neck: trachea midline, no thyromegaly Respiratory: no respiratory distress Auscultation: lungs clear to auscultation bilaterally Cardiovascular: Rate/Rhythm: regular rate and regular rhythm; not tachycardic Heart Sounds: normal S1 and normal S2; no murmur Extremities: no edema Gastrointestinal (Abdomen): Inspection/Auscultation: + abdomen distended (Mildly distended) and normal bowel sounds Percussion/Palpation: + abdomen tender (Epigastric tenderness) and abdomen soft Musculoskeletal: No acute arthritis involving any joint Neurologic: Alert, awake and oriented x3. She is generally weak and lethargic Results & Data Results & Data Vital Signs (Past 12 Hours) Vital Signs Temp Pulse Pulse Resp BP Pulse Ox O2 Del Method 08/16/22 11:11 36.3 C L 86 16 116/72 97 Room Air 08/16/22 09:00 88 08/16/22 07:42 36.6 C 82 16 105/59 L 99 Room Air 08/16/22 04:43 98 H 08/16/22 06:12 37 C 18 109/55 L 100 Room Air 08/16/22 04:45 Room Air 08/16/22 04:15 36.7 C 18 154/77 H 100 Room Air 08/16/22 05:51 37 C 18 112/62 100 Room Air Laboratory Results Short CBC 08/15/22 08/16/22 08/16/22 Range/Units 22:48 05:34 11:04 WBC 20.03 H 18.88 H (4.8-10.8) K/ul Hgb 11.1 L 9.3 L 8.9 L (12.0-16.0) g/dl Hct 32.3 L 27.0 L 26.6 L (37.0-47.0) % Plt Count 116 L 101 L (130-400) K/uL BMP 08/15/22 08/16/22 22:48 05:34 Sodium 141 139 Potassium 2.8 L 3.1 L Chloride 102 108 H Carbon Dioxide 27 23 BUN 9 7 Creatinine 0.92 0.83 Glucose 162 H 171 H Calcium 9.7 8.4 L Liver Function 08/15/22 Range/Units 22:48 Total Bilirubin 0.4 (0.2-1.0) mg/dl AST 35 (13-39) U/L ALT 42 (7-52) U/L Alkaline Phosphatase 230 H (34-104) U/L Albumin 3.6 (3.4-5.0) gm/dl Medications Administered Current Inpatient Medications Acetaminophen (Acetaminophen 325 Mg Tab) 650 mg PO Q4H PRN PRN Reason: Pain or Fever Stop: 09/15/22 04:23 Albuterol (Albuterol Hfa 8 Gm Inhaler) 2 puffs INH QID PRN PRN Reason: Shortness Of Breath Or Wheezin Stop: 09/15/22 04:23 Lipase/Protease/Amylase (Pancreaze (Lipase 16,800u) Cap) 5 cap PO TIDM [facility] Stop: 09/15/22 08:29 Last Admin: 08/16/22 12:00 Dose: Not Given Lipase/Protease/Amylase (Pancreaze (Lipase 16,800u) Cap) 3 cap PO PRN PRN PRN Reason: with snacks Stop: 09/15/22 04:23 Cyanocobalamin (Cyanocobalamin (B-12) 500 Mcg Tablet) 1,000 mcg PO QAM [facility] Stop: 09/15/22 08:59 Last Admin: 08/16/22 09:31 Dose: Not Given Dicyclomine HCl (Dicyclomine Hcl 10 Mg Cap) 10 mg PO TID PRN PRN Reason: Abdominal Pain/Cramping Stop: 09/15/22 04:23 Duloxetine HCl (Duloxetine Hcl 60 Mg Cap) [facility] [place] Stop: 09/15/22 08:59 Last Admin: 08/16/22 09:34 Dose: 60 mg Fluticasone Propionate (Fluticasone Propionate Na Spr 16 Gm Btl) 2 sprays NA DAILY PRN PRN Reason: Congestion Stop: 09/15/22 04:23 Folic Acid (Folic Acid 1 Mg Tab) 1 mg PO QAM [facility] Stop: 09/15/22 08:59 Last Admin: 08/16/22 09:30 Dose: Not Given Gabapentin (Gabapentin 300 Mg Cap) 300 mg PO BID [facility] Stop: 09/15/22 08:59 Last Admin: 08/16/22 09:34 Dose: 300 mg Hydromorphone HCl (Hydromorphone Inj 0.5 Mg/0.5 Ml Syr) 0.5 mg IV Q3H PRN PRN Reason: Pain Stop: 08/30/22 04:23 Sodium Chloride (Nss 1000ml) 1,000 mls @ 125 mls/hr IV .Q8H [facility] Stop: 09/15/22 04:23 Last Admin: 08/16/22 12:03 Dose: 125 mls/hr Promethazine HCl 12.5 mg/ (Sodium Chloride) 50.5 mls @ 202 mls/hr IV Q6H PRN PRN Reason: Nausea And Vomiting Stop: 09/15/22 04:23 Last Infusion: 08/16/22 05:48 Dose: Infused Piperacillin Sod/Tazobactam (Sod 4.5 gm/ Dextrose) 120 mls @ 30 mls/hr IV Q8H [facility]; Protocol Stop: 08/26/22 05:59 Last Admin: 08/16/22 14:06 Dose: 30 mls/hr Famotidine 20 mg/ Syringe 5 mls @ 2.5 mls/min IV BID [facility] Stop: 09/15/22 08:59 Last Admin: 08/16/22 09:34 Dose: 2.5 mls/min Vancomycin HCl 1,000 mg/ (Sodium Chloride) 270 mls @ 200 mls/hr IV Q18H [facility]; Protocol Stop: 08/26/22 11:59 Last Infusion: 08/16/22 13:40 Dose: Infused Magnesium Oxide (Magnesium Oxide 400 Mg Tab) 400 mg PO QAM [facility] Stop: 09/15/22 08:59 Last Admin: 08/16/22 09:34 Dose: 400 mg Metoprolol Tartrate (Metoprolol Tartrate 50 Mg Tab) 50 mg PO BID [facility] Stop: 09/15/22 08:59 Last Admin: 08/16/22 09:33 Dose: Not Given Metoprolol Tartrate (Metoprolol Tartrate 1 Mg/Ml Vial) 5 mg IV Q6 PRN PRN Reason: Tachycardia Stop: 09/15/22 04:23 Miscellaneous Information (Vancomycin Consult Active) 1 each N/A UD PRN PRN Reason: Consult Stop: 09/14/22 23:32 Multivitamins (Multivitamin Tab) 1 tab PO QAM [facility] Stop: 09/15/22 08:59 Last Admin: 08/16/22 09:33 Dose: Not Given Nitroglycerin (Nitroglycerin Sl 0.4 Mg/Tab Tab) 0.4 mg SL UD PRN PRN Reason: Chest Pain Stop: 09/15/22 04:23 Sodium Chloride (Sodium Chloride 0.65% Na Soln 45 Ml ([place])) 1 sprays NA Q2H PRN PRN Reason: Nasal Congestion Stop: 09/15/22 04:23 Sucralfate (Sucralfate 1 Gm/10 Ml Udc) 1 gm PO QID [facility] Stop: 09/15/22 12:59 Last Admin: 08/16/22 12:45 Dose: 1 gm Vitamin D (Cholecalciferol 1,000 Units 25 Mcg Tab) 1,000 [facility] [place] Stop: 09/15/22 08:59 Last Admin: 08/16/22 09:31 Dose: Not Given
[2022-08-16 17:12] LABS: Hematocrit (blood only) 25.6 % (37.0-47.0); Hemoglobin 8.5 g/dl (12.0-16.0)
[2022-08-16 17:55] LABS: A calco-baum cmplx NotReported Not Detected (NotDetected); Bact fragilis Not Reported Not Detected (NotDetected); C auris Not Reported Not Detected (NotDetected); CTX-M Resistant Gene Not Detected (NotDetected); Calbicans Not Reported Not Detected (NotDetected); Candida glabrata Not Reported Not Detected (NotDetected); Candida krusei Not Reported Not Detected (NotDetected); Cneoformans/gatti Not Reported Not Detected (NotDetected); Cparapsilosis Not Reported Not Detected (NotDetected); Ctropicalis Not Reported Not Detected (NotDetected); E cloacae compx Not Reported Not Detected (NotDetected); Efaecalis Not Reported Not Detected (NotDetected); Efaecium Not Reported Not Detected (NotDetected); Enterobacterales DETECTED (NotDetected); Enterobacterales Not Reported DETECTED (NotDetected); Escherichia coli Not Reported Not Detected (NotDetected); H influenzae Not Reported Not Detected (NotDetected); IMP Resistant Gene Not Detected (NotDetected); K aerogenes Not Reported Not Detected (NotDetected); KPC Resistant Gene Not Detected (NotDetected); Koxytoca Not Reported DETECTED (NotDetected); Kpneumoniae grp Not Reported Not Detected (NotDetected); Lmonocyt Not Reported Not Detected (NotDetected); N meningitidis Not Reported Not Detected (NotDetected); NDM Resistant Gene Not Detected (NotDetected); OXA 48 Like Resistant Gene Not Detected (NotDetected); P aeruginosa Not Reported Not Detected (NotDetected); Proteus spp Not Reported Not Detected (NotDetected); Salmonella spp Not Reported Not Detected (NotDetected); Smarcescens Not Reported Not Detected (NotDetected); Staph lugdunensis Not Reported Not Detected (NotDetected); Staph spp. Not Reported Not Detected (NotDetected); Staphaureus Not Reported Not Detected (NotDetected); Staphepi Not Reported Not Detected (NotDetected); Stenmaltophilia Not Reported Not Detected (NotDetected); Strep agal(GrpB) Not Reported Not Detected (NotDetected); Strep pneum Not Reported Not Detected (NotDetected); Strep pyog (GrpA) Not Reported Not Detected (NotDetected); Strep spp Not Reported Not Detected (NotDetected); VIM Resistant Gene Not Detected (NotDetected); mcr-1 Colistin Resistant Gene Not Detected (NotDetected)
[2022-08-16 21:17] LABS: Appearance Urine Clear (Clear); Bilirubin Urine Negative (Negative); Blood Urine Negative (Negative); Color Urine Yellow; Glucose Urine UA Negative (Negative); Ketones Urine Negative (Negative); Leukocyte Esterase Urine Negative (Negative); Nitrite Urine Negative (Negative); Protein Urine Negative (Negative); Specific Gravity Urine 1.008 (1.000-1.030); Urobilinogen Urine Negative (Negative); pH Urine 7.5 (4.5-7.5)
--- NOTE | 2022-08-16 23:00 | Electrocardiogram Report ---
Test Reason : Blood Pressure : / mmHG Vent. Rate : 097 BPM Atrial Rate : 097 BPM P-R Int : 142 ms QRS Dur : 078 ms QT Int : 372 ms P-R-T Axes : 000 124 122 degrees QTc Int : 472 ms Poor data quality, interpretation may be adversely affected Normal sinus rhythm Right axis deviation Nonspecific T wave abnormality Limb lead reversal suspected Abnormal ECG When compared with ECG of 20-FEB-2020 16:03, QRS axis Shifted right Non-specific change in ST segment in Anterior leads Nonspecific T wave abnormality, worse in Anterior leads Limb lead reversal is now suspected Confirmed by Jin Salmon ([id number]) on 08/16/2022 11:00:02 PM Referred By: REFERRED SELF Confirmed By:Jin Salmon
[2022-08-17] MEDS: SODIUM CHLORIDE 0.9% 1000ML 1,000 ML IV SCH ×2 (04:30→12:38)
[2022-08-17] MEDS: VANCOMYCIN HCL 1,000 MG in SODIUM CHLORIDE 0.9% 250 ML IV SCH (05:08)
[2022-08-17] MEDS: PIPERACILLIN/TAZOBACTAM 4.5 GM in DEXTROSE 5% 100 ML IV SCH (06:29)
[2022-08-17 07:49] LABS: INR 1.1 (0.9-1.1); Prothrombin Time 11.9 Seconds (9.0-12.0)
[2022-08-17 07:52] LABS: Creatinine Clr Calc Pharmacy 36.8 ml/min; Est GFR (African American) 46.8 ml/min; Est GFR (Non-African American) 40.4 ml/min
[2022-08-17] MEDS: MULTIVITAMIN TAB PO SCH (09:44)
[2022-08-17] MEDS: SUCRALFATE 1 GM/10 ML UDC PO SCH ×4 (09:44→20:08)
[2022-08-17] MEDS: FOLIC ACID 1 MG TAB PO SCH (09:44)
[2022-08-17] MEDS: CYANOCOBALAMIN (B-12) 500 MCG TABLET PO SCH (09:44)
[2022-08-17] MEDS: METOPROLOL TARTRATE 50 MG TAB PO SCH ×2 (09:44→20:07)
[2022-08-17] MEDS: GABAPENTIN 300 MG CAP PO SCH ×2 (09:44→20:06)
[2022-08-17] MEDS: DULoxetine HCL 60 MG CAP PO SCH (09:45)
[2022-08-17] MEDS: MAGNESIUM OXIDE 400 MG TAB PO SCH (09:45)
[2022-08-17] MEDS: PANCREAZE (LIPASE 16,800U) CAP PO SCH ×3 (09:45→16:29)
[2022-08-17] MEDS: CHOLECALCIFEROL 1,000 UNITS 25 MCG TAB PO SCH (09:46)
[2022-08-17 10:13] LABS: Basophils # (auto) 0.09 K/uL (0-0.2); Basophils % (auto) 0.7 %; Eosinophils # (auto) 0.08 K/uL (0-0.50); Eosinophils % (auto) 0.6 %; Hematocrit (blood only) 29.2 % (37.0-47.0); Hemoglobin 9.4 g/dl (12.0-16.0); Immature Granulocytes # (auto) 0.55 K/uL (0.01-0.20); Immature Granulocytes % (auto) 4.4 %; Lymphocytes # (auto) 0.57 K/uL (1.2-3.4); Lymphocytes % (auto) 4.5 %; Mean Corpuscular Hgb Conc 32.2 g/dL (32.0-36.0); Mean Corpuscular Volume 96.4 fL (80.0-100.0); Mean Platelet Volume 10.2 fL (9.4-12.4); Monocytes # (auto) 1.26 K/uL (0.11-0.59); Neutrophils # (auto) 10.02 K/uL (1.40-6.50); Neutrophils % (auto) 79.8 %; Platelet Count 95 K/uL (130-400); Platelet Estimate Decreased (Normal); RDW Coefficient of Variation 15.3 % (11.5-14.5); RDW Standard Deviation 51.7 fL (36.4-46.3); Red Blood Count 3.03 M/uL (4.20-5.40); White Blood Count 12.57 K/ul (4.8-10.8)
[2022-08-17] MEDS: FAMOTIDINE 20 MG in SYRINGE 3 ML IV SCH ×2 (10:30→20:15)
[2022-08-17] MEDS: DICYCLOMINE HCL 10 MG CAP PO PRN (10:30)
--- NOTE | 2022-08-17 10:49 | Gastroenterology Progress Note ---
Date of Service August 17, 2022 Assessment & Plan (1) Pancreatic cancer: (2) Hematemesis: (3) Colitis: Plan Patient is a 76 y.o. female with a history of GERD, IBS and pancreatic CA s/p [place] on chemotherapy admitted with abdominal pain, n/v, single episode of hematemesis and abnormal CT of nonspecific colitis. Suspect sx related to known malignancy and treatment. -Continue IV Zosyn to cover for enteric pathogens. Bentyl PRN as prescribed. -Clear liquid diet with advancement as tolerated. -As allergic to Protonix and no other PPI on formulary, continue BID Famotidine. -Add Carafate 1g ACHS x 10 days. -Continue supportive care. Admission and Anticipated Discharge Date Admission Date: August 16, 2022 Subjective Patient reports she is feeling better today. The IV Emend improved her nausea. She is now no longer having any nausea or vomiting. No hematemesis. Reports having 2 loose stools yesterday. Has had one loose bm this morning. +abdominal cramping. Is requesting her Bentyl. Remains NPO. H&H is stable. Review of Systems Constitutional: no fever and no chills Gastrointestinal: as per Subjective / HPI Physical Exam Constitutional: WD/WN, vitals as above Respiratory: normal respiratory effort, lungs clear to auscultation Cardiovascular: RRR, no murmur, no edema Gastrointestinal (Abdomen): normal bowel sounds, soft, nontender, no hepatosplenomegaly Psychiatric: A+Ox3, euthymic affect Results & Data Results & Data Vital Signs (Past 12 Hours) Vital Signs Temp Pulse Pulse Resp BP Pulse Ox O2 Del Method 08/17/22 07:28 58 L 08/17/22 07:02 36.4 C L 63 18 144/72 H 100 Room Air 08/17/22 03:00 36.6 C 58 L 17 100/61 97 Room Air 08/16/22 23:00 36.6 C 64 17 99/58 L 97 Room Air PG Care Time/CCT Total # of Minutes Spent Total Time Spent with Patient: Total time spent is greater than 50% in coordination of care (as documented) at patient's floor/unit and/or counseling patient: Coding Level of Care Code 42943 SUB INP/OBS CARE 3/50MIN Diagnoses Pancreatic cancer C25.9 Hematemesis K92.0 Colitis K52.9
[2022-08-17] MEDS ORDERED: HEPARIN 100 UNIT/ML 5ML FLUSH ONE ×2 (13:46→16:51)
[2022-08-17] MEDS: CEFEPIME 2,000 MG in SYRINGE 0 ML IV SCH (13:49)
--- NOTE | 2022-08-17 14:54 | Hospitalist Progress Note ---
Date of Service August 17, 2022 Assessment & Plan (1) Hematemesis: Plan: She has been getting chemotherapy weekly for 3 weeks with 1 week of from [place] This is her off week and has been complaining of nausea vomiting and diarrhea She has hematemesis and she was admitted to hospital with hemoglobin of 11.1 Has been on Protonix drip and feels a little better since admission without any more hematemesis No melena and diarrhea seems to be stable Appreciate GI input-no plan for EGD No more hematemesis and melena Profuse nausea and vomiting Likely secondary to chemotherapy Could be due to epigastric discomfort from pancreatic cancer Appreciate Emend given by GI Has been tolerating advance diet without any nausea or vomiting (2) Colitis: Plan: Noted to have colitis nonspecific on CAT scan Started on IV vancomycin and Zosyn given immunosuppressed condition Lactic acid was 2.2 and which has been normalized Bacteremia 1 out of 2 bottle gram-negative bacilli and came out to be Enteroba cter Rales and Klebsiella oxytoca Appreciate ID input and recommendation Has been on intravenous cefepime and Flagyl will be added Await sensitivity We will get repeat blood culture Likely course of antibiotic would be 7 days depending on the sensitivity and response (3) Pancreatic cancer: Plan: Has pancreatic cancer and has been getting chemotherapy weekly for 3 weeks and then 1 week off This is her off week (4) Patient on antineoplastic chemotherapy regimen: Plan: As above (5) Patient is [employer]: Plan: Will not get any blood transfusion even though hemoglobin is up to that level (6) Paroxysmal atrial flutter: Plan: Rate is controlled Continue beta-rubi Holding Coumadin due to hematemesis Status post mitral valve repair with prosthetic valve Monitor for any fluid overload Will restart anticoagulation after discussion with the GI Admission and Anticipated Discharge Date Admission Date: August 16, 2022 Subjective 08/16/2022 The patient was seen and examined in telemetry unit She has been feeling better since admission Her abdominal pain is little better, nausea and vomiting are better too Does not have any more hematemesis and did not have any black tarry stool 08/17/2022 The patient was seen and examined in telemetry unit in presence of the She still complains of epigastric pain without any fever and or chills Her diarrhea is controlled and no more hematemesis Clinically better today Review of Systems Review of Systems: All systems reviewed and are unremarkable except as noted below Physical Exam Physical Exam: Lying in bed with minimal distress due to abdominal pain Constitutional: + ill appearing and average body habitus Eyes: PERRL, conjunctivae normal, anicteric sclerae ENMT: external ear and nose normal, oropharynx normal Neck: trachea midline, no thyromegaly Respiratory: no respiratory distress Auscultation: lungs clear to auscultation bilaterally Cardiovascular: Rate/Rhythm: regular rate and regular rhythm; not tachycardic Heart Sounds: normal S1 and normal S2; no murmur Extremities: no edema Gastrointestinal (Abdomen): Inspection/Auscultation: + abdomen distended (Mildly distended) and normal bowel sounds Percussion/Palpation: + abdomen tender (Epigastric tenderness) and abdomen soft Musculoskeletal: No acute arthritis involving any joint Neurologic: normal touch/pain/proprioception and moves all extremities; no focal motor deficits Results & Data Results & Data Vital Signs (Past 12 Hours) Vital Signs Temp Pulse Pulse Resp BP Pulse Ox O2 Del Method 08/17/22 11:01 36.3 C L 55 L 19 135/67 98 Room Air 08/17/22 07:28 58 L 08/17/22 07:02 36.4 C L 63 18 144/72 H 100 Room Air 08/17/22 03:00 36.6 C 58 L 17 100/61 97 Room Air Laboratory Results Short CBC 08/16/22 08/17/22 Range/Units 16:52 09:22 WBC 12.57 H (4.8-10.8) K/ul Hgb 8.5 L 9.4 L (12.0-16.0) g/dl Hct 25.6 L 29.2 L (37.0-47.0) % Plt Count 95 L (130-400) K/uL BMP 08/17/22 06:51 Creatinine 1.30 H D Urine 08/16/22 Range/Units 21:00 Urine Color Yellow Urine Appearance Clear (Clear) Urine pH 7.5 (4.5-7.5) Ur Specific [place] 1.008 (1.000-1.030) Urine Protein Negative (Negative) Urine Glucose (UA) Negative (Negative) Medications Administered Current Inpatient Medications Acetaminophen (Acetaminophen 325 Mg Tab) 650 mg PO Q4H PRN PRN Reason: Pain or Fever Stop: 09/15/22 04:23 Albuterol (Albuterol Hfa 8 Gm Inhaler) 2 puffs INH QID PRN PRN Reason: Shortness Of Breath Or Wheezin Stop: 09/15/22 04:23 Lipase/Protease/Amylase (Pancreaze (Lipase 16,800u) Cap) 5 cap PO TIDM [facility] Stop: 09/15/22 08:29 Last Admin: 08/17/22 12:38 Dose: 5 cap Lipase/Protease/Amylase (Pancreaze (Lipase 16,800u) Cap) 3 cap PO PRN PRN PRN Reason: with snacks Stop: 09/15/22 04:23 Cyanocobalamin (Cyanocobalamin (B-12) 500 Mcg Tablet) 1,000 mcg PO QAM [facility] Stop: 09/15/22 08:59 Last Admin: 08/17/22 09:44 Dose: 1,000 mcg Dicyclomine HCl (Dicyclomine Hcl 10 Mg Cap) 10 mg PO TID PRN PRN Reason: Abdominal Pain/Cramping Stop: 09/15/22 04:23 Last Admin: 08/17/22 10:30 Dose: 10 mg Duloxetine HCl (Duloxetine Hcl 60 Mg Cap) 60 mg PO QAM [facility] Stop: 09/15/22 08:59 Last Admin: 08/17/22 09:45 Dose: 60 mg Fluticasone Propionate (Fluticasone Propionate Na Spr 16 Gm Btl) 2 sprays NA DAILY PRN PRN Reason: Congestion Stop: 09/15/22 04:23 Folic Acid (Folic Acid 1 Mg Tab) 1 mg PO QAM [facility] Stop: 09/15/22 08:59 Last Admin: 08/17/22 09:44 Dose: 1 mg Gabapentin (Gabapentin 300 Mg Cap) 300 mg PO BID [facility] Stop: 09/15/22 08:59 Last Admin: 08/17/22 09:44 Dose: 300 mg Hydromorphone HCl (Hydromorphone Inj 0.5 Mg/0.5 Ml Syr) 0.5 mg IV Q3H PRN PRN Reason: Pain Stop: 08/30/22 04:23 Promethazine HCl 12.5 mg/ (Sodium Chloride) 50.5 mls @ 202 mls/hr IV Q6H PRN PRN Reason: Nausea And Vomiting Stop: 09/15/22 04:23 Last Infusion: 08/16/22 22:43 Dose: Infused Famotidine 20 mg/ Syringe 5 mls @ 2.5 mls/min IV BID [facility] Stop: 09/15/22 08:59 Last Admin: 08/17/22 10:30 Dose: 2.5 mls/min Cefepime HCl 2,000 mg/ Syringe 20 mls @ 5 mls/min IV Q12H [facility]; Protocol Stop: 08/31/22 13:59 Last Admin: 08/17/22 13:49 Dose: 5 mls/min Metronidazole (Flagyl) 500 mg in 100 mls @ 100 mls/hr IV Q8H [facility] Stop: 08/27/22 14:59 Magnesium Oxide (Magnesium Oxide 400 Mg Tab) 400 mg PO [facility] Stop: 09/15/22 08:59 Last Admin: 08/17/22 09:45 Dose: 400 mg Metoprolol Tartrate (Metoprolol Tartrate 50 Mg Tab) 50 mg PO BID [facility] Stop: 09/15/22 08:59 Last Admin: 08/17/22 09:44 Dose: 50 mg Metoprolol Tartrate (Metoprolol Tartrate 1 Mg/Ml Vial) 5 mg IV Q6 PRN PRN Reason: Tachycardia Stop: 09/15/22 04:23 Multivitamins (Multivitamin Tab) 1 tab PO [facility] Stop: 09/15/22 08:59 Last Admin: 08/17/22 09:44 Dose: 1 tab Nitroglycerin (Nitroglycerin Sl 0.4 Mg/Tab Tab) 0.4 mg SL UD PRN PRN Reason: Chest Pain Stop: 09/15/22 04:23 Sodium Chloride (Sodium Chloride 0.65% Na Soln 45 Ml ([place])) 1 sprays NA Q2H PRN PRN Reason: Nasal Congestion Stop: 09/15/22 04:23 Sucralfate (Sucralfate 1 Gm/10 Ml Udc) 1 gm PO QID [facility] Stop: 09/15/22 12:59 Last Admin: 08/17/22 13:48 Dose: 1 gm Torsemide ([facility]semide 20 Mg Tab) [facility] [place] Stop: 09/17/22 08:59 Vitamin D (Cholecalciferol 1,000 Units 25 Mcg Tab) 1,000 units PO [facility] Stop: 09/15/22 08:59 Last Admin: 08/17/22 09:46 Dose: 1,000 units
[2022-08-17] MEDS: metroNIDAZOLE 500 MG/100 ML BAG IV SCH ×2 (15:46→23:15)
[2022-08-17] MEDS: D5W AND NSS 1,000 ML IV SCH (20:15)
[2022-08-17 20:22] LABS: Hematocrit (blood only) 27.4 % (37.0-47.0); Hemoglobin 8.8 g/dl (12.0-16.0)
[2022-08-18] MEDS: CEFEPIME 2,000 MG in SYRINGE 0 ML IV SCH ×2 (02:38→13:50)
[2022-08-18] MEDS: HYDROmorphone INJ 0.5 MG/0.5 ML SYR IV PRN ×5 (04:48→21:09)
[2022-08-18] MEDS: metroNIDAZOLE 500 MG/100 ML BAG IV SCH ×3 (08:05→23:36)
[2022-08-18] MEDS: GABAPENTIN 300 MG CAP PO SCH ×2 (08:10→20:37)
[2022-08-18] MEDS: SUCRALFATE 1 GM/10 ML UDC PO SCH ×4 (08:10→20:38)
[2022-08-18] MEDS: FOLIC ACID 1 MG TAB PO SCH (08:10)
[2022-08-18] MEDS: MULTIVITAMIN TAB PO SCH (08:11)
[2022-08-18] MEDS: CHOLECALCIFEROL 1,000 UNITS 25 MCG TAB PO SCH (08:11)
[2022-08-18] MEDS: TORSEMIDE 20 MG TAB PO SCH (08:11)
[2022-08-18] MEDS: MAGNESIUM OXIDE 400 MG TAB PO SCH (08:11)
[2022-08-18] MEDS: PANCREAZE (LIPASE 16,800U) CAP PO SCH ×3 (08:12→16:31)
[2022-08-18] MEDS: CYANOCOBALAMIN (B-12) 500 MCG TABLET PO SCH (08:12)
[2022-08-18] MEDS: DULoxetine HCL 60 MG CAP PO SCH (08:12)
[2022-08-18] MEDS: METOPROLOL TARTRATE 50 MG TAB PO SCH ×2 (08:13→20:42)
[2022-08-18 08:53] LABS: Hematocrit (blood only) 23.6 % (37.0-47.0); Hemoglobin 7.8 g/dl (12.0-16.0); Mean Corpuscular Hemoglobin 31.6 pg (25.0-34.0); Mean Corpuscular Hgb Conc 33.1 g/dL (32.0-36.0); Mean Corpuscular Volume 95.5 fL (80.0-100.0); Mean Platelet Volume 10.5 fL (9.4-12.4); Platelet Count 83 K/uL (130-400); RDW Coefficient of Variation 15.5 % (11.5-14.5); RDW Standard Deviation 52.7 fL (36.4-46.3); Red Blood Count 2.47 M/uL (4.20-5.40); White Blood Count 10.61 K/ul (4.8-10.8)
[2022-08-18] MEDS: FAMOTIDINE 20 MG in SYRINGE 3 ML IV SCH ×2 (08:55→21:02)
[2022-08-18 09:03] LABS: INR 1.1 (0.9-1.1); Prothrombin Time 12.1 Seconds (9.0-12.0)
[2022-08-18] MEDS: D5W AND NSS 1,000 ML IV SCH ×2 (09:04→21:32)
[2022-08-18 09:08] LABS: Calcium 7.9 mg/dl (8.6-10.3); Creatinine Clr Calc Pharmacy 45.7 ml/min; Est GFR (African American) 63.5 ml/min; Est GFR (Non-African American) 54.8 ml/min
[2022-08-18 09:11] LABS: Basophils # (auto) 0.02 K/uL (0-0.2); Basophils % (auto) 0.2 %; Eosinophils # (auto) 0.06 K/uL (0-0.50); Eosinophils % (auto) 0.6 %; Immature Granulocytes # (auto) 0.51 K/uL (0.01-0.20); Immature Granulocytes % (auto) 4.8 %; Lymphocytes # (auto) 0.54 K/uL (1.2-3.4); Lymphocytes % (auto) 5.1 %; Monocytes # (auto) 1.07 K/uL (0.11-0.59); Monocytes % (auto) 10.1 %; Neutrophils # (auto) 8.41 K/uL (1.40-6.50); Neutrophils % (auto) 79.2 %; RBC Morphology Unremarkable
[2022-08-18] MEDS: POTASSIUM CHLORIDE CRTAB 20 MEQ TABCR PO SCH (11:04)
--- NOTE | 2022-08-18 14:18 | Hospitalist Progress Note ---
Date of Service August 18, 2022 Assessment & Plan (1) Hematemesis: Plan: She has been getting chemotherapy weekly for 3 weeks with 1 week of from [place] This is her off week and has been complaining of nausea vomiting and diarrhea She has hematemesis and she was admitted to hospital with hemoglobin of 11.1 Has been on Protonix drip and feels a little better since admission without any more hematemesis No melena and diarrhea seems to be stable Appreciate GI input-no plan for EGD No more hematemesis and melena No more hematemesis and epigastric pain has been decreased Bright red rectal blood On 2 occasions and very small amount without any associated symptoms Has been on intravenous fluid and clears orally We will monitor hemoglobin As below Profuse nausea and vomiting Likely secondary to chemotherapy Could be due to epigastric discomfort from pancreatic cancer Appreciate Emend given by GI Has been tolerating advance diet without any nausea or vomiting Denies any more vomiting (2) Colitis: Plan: Noted to have colitis nonspecific on CAT scan Started on IV vancomycin and Zosyn given immunosuppressed condition Lactic acid was 2.2 and which has been normalized Has had 2 episodes of small amount bright red rectal bleed-1 last night and another episode this morning Without any abdominal pain Small amount of IV fluids started yesterday and the patient has been started with sips from today Will observe-globin is dropped to 7.8 Bacteremia 1 out of 2 bottle gram-negative bacilli and came out to be Enterobacter Rales and Klebsiella oxytoca Appreciate ID input and recommendation Has been on intravenous cefepime and Flagyl will be added Await sensitivity-Klebsiella oxytoca which is pansensitive except cefazolin We will get repeat blood culture- pending Likely course of antibiotic would be 7 days depending on the sensitivity and response (3) Pancreatic cancer: Plan: Has pancreatic cancer and has been getting chemotherapy weekly for 3 weeks and then 1 week off This is her off week (4) Patient on antineoplastic chemotherapy regimen: Plan: As above (5) Patient is Hoahaoism: Plan: Will not get any blood transfusion even though hemoglobin is up to that level (6) Paroxysmal atrial flutter: Plan: Rate is controlled Continue beta-rubi Holding Coumadin due to hematemesis Status post mitral valve repair with prosthetic valve Monitor for any fluid overload Will restart anticoagulation after discussion with the GI Anticoagulation will not be restarted as she is having ongoing rectal bleed Admission and Anticipated Discharge Date Admission Date: August 16, 2022 Subjective 08/16/2022 The patient was seen and examined in telemetry unit She has been feeling better since admission Her abdominal pain is little better, nausea and vomiting are better too Does not have any more hematemesis and did not have any black tarry stool 08/17/2022 The patient was seen and examined in telemetry unit in presence of the She still complains of epigastric pain without any fever and or chills Her diarrhea is controlled and no more hematemesis Clinically better today 08/18/2022 The patient was seen and examined in telemetry unit in presence of the She has had bright red rectal bleed on 2 episodes, last night and this morning- small amount without any associated symptoms of abdominal pain, distention, nausea vomiting or dizziness Still has epigastric fullness and discomfort but no significant pain No fever and or chills Review of Systems Review of Systems: All systems reviewed and are unremarkable except as noted below Physical Exam Physical Exam: Lying in bed with minimal distress due to abdominal pain Constitutional: + ill appearing and average body habitus Eyes: PERRL, conjunctivae normal, anicteric sclerae ENMT: external ear and nose normal, oropharynx normal Neck: trachea midline, no thyromegaly Respiratory: no respiratory distress Auscultation: lungs clear to auscultation bilaterally Cardiovascular: Rate/Rhythm: regular rate and regular rhythm; not tachycardic Heart Sounds: normal S1 and normal S2; no murmur Extremities: no edema Gastrointestinal (Abdomen): Inspection/Auscultation: normal bowel sounds Percussion/Palpation: + abdomen tender (Epigastric tenderness. No tenderness in the lower quadrants) and abdomen soft Musculoskeletal: No acute arthritis involving any of the joints Neurologic: normal touch/pain/proprioception and moves all extremities; no focal motor deficits Lymphatic: no cervical or axillary lymphadenopathy Results & Data Results & Data Vital Signs (Past 12 Hours) Vital Signs Temp Pulse Pulse Resp BP BP Pulse Ox 08/18/22 08:00 62 08/18/22 07:43 36.4 C L 61 19 95/47 L 97 08/18/22 04:42 67 123/60 96 08/18/22 02:42 62 100/56 L O2 Del Method 08/18/22 08:00 08/18/22 07:43 Room Air 08/18/22 04:42 Room Air 08/18/22 02:42 Laboratory Results Short CBC 08/17/22 08/18/22 Range/Units 15:19 08:04 WBC 10.61 (4.8-10.8) K/ul Hgb 8.8 L 7.8 L (12.0-16.0) g/dl Hct 27.4 L 23.6 L (37.0-47.0) % Plt Count 83 L (130-400) K/uL BMP 08/18/22 08:04 Sodium 141 Potassium 3.0 L Chloride 116 H Carbon Dioxide 21 BUN 5 L Creatinine 1.01 Glucose 181 H Calcium 7.9 L Medications Administered Current Inpatient Medications Acetaminophen (Acetaminophen 325 Mg Tab) 650 mg PO Q4H PRN PRN Reason: Pain or Fever Stop: 09/15/22 04:23 Albuterol (Albuterol Hfa 8 Gm Inhaler) 2 puffs INH QID PRN PRN Reason: Shortness Of Breath Or Wheezin Stop: 09/15/22 04:23 Lipase/Protease/Amylase (Pancreaze (Lipase 16,800u) Cap) 5 cap PO TIDM [facility] Stop: 09/15/22 08:29 Last Admin: 08/18/22 11:35 Dose: Not Given Lipase/Protease/Amylase (Pancreaze (Lipase 16,800u) Cap) 3 cap PO PRN PRN PRN Reason: with snacks Stop: 09/15/22 04:23 Cyanocobalamin (Cyanocobalamin (B-12) 500 Mcg Tablet) 1,000 mcg PO QAM [facility] Stop: 09/15/22 08:59 Last Admin: 08/18/22 08:12 Dose: 1,000 mcg Dicyclomine HCl (Dicyclomine Hcl 10 Mg Cap) 10 mg PO TID PRN PRN Reason: Abdominal Pain/Cramping Stop: 09/15/22 04:23 Last Admin: 08/17/22 10:30 Dose: 10 mg Duloxetine HCl (Duloxetine Hcl 60 Mg Cap) 60 mg PO QAM [facility] Stop: 09/15/22 08:59 Last Admin: 08/18/22 08:12 Dose: 60 mg Fluticasone Propionate (Fluticasone Propionate Na Spr 16 Gm Btl) 2 sprays NA DAILY PRN PRN Reason: Congestion Stop: 09/15/22 04:23 Folic Acid (Folic Acid 1 Mg Tab) 1 mg PO QAM [facility] Stop: 09/15/22 08:59 Last Admin: 08/18/22 08:10 Dose: 1 mg Gabapentin (Gabapentin 300 Mg Cap) 300 mg PO BID [facility] Stop: 09/15/22 08:59 Last Admin: 08/18/22 08:10 Dose: 300 mg Hydromorphone HCl (Hydromorphone Inj 0.5 Mg/0.5 Ml Syr) 0.5 mg IV Q3H PRN PRN Reason: Pain Stop: 08/30/22 04:23 Last Admin: 08/18/22 08:21 Dose: 0.5 mg Promethazine HCl 12.5 mg/ (Sodium Chloride) 50.5 mls @ 202 mls/hr IV Q6H PRN PRN Reason: Nausea And Vomiting Stop: 09/15/22 04:23 Last Infusion: 08/16/22 22:43 Dose: Infused Famotidine 20 mg/ Syringe 5 mls @ 2.5 mls/min IV BID [facility] Stop: 09/15/22 08:59 Last Admin: 08/18/22 08:55 Dose: 2.5 mls/min Cefepime HCl 2,000 mg/ Syringe 20 mls @ 5 mls/min IV Q12H [facility]; Protocol Stop: 08/31/22 13:59 Last Admin: 08/18/22 13:50 Dose: 5 mls/min Metronidazole (Flagyl) 500 mg in 100 mls @ 100 mls/hr IV Q8H [facility] Stop: 08/27/22 14:59 Last Admin: 08/18/22 13:52 Dose: 100 mls/hr Dextrose/Sodium Chloride (D5w And Nss) 1,000 mls @ 80 mls/hr IV .[id number] [facility] Stop: 09/16/22 19:44 Last Admin: 08/18/22 09:04 Dose: 80 mls/hr Magnesium Oxide (Magnesium Oxide 400 Mg Tab) 400 mg PO QAM [facility] Stop: 09/15/22 08:59 Last Admin: 08/18/22 08:11 Dose: 400 mg Metoprolol Tartrate (Metoprolol Tartrate 50 Mg Tab) 50 mg PO BID [facility] Stop: 09/15/22 08:59 Last Admin: 08/18/22 08:13 Dose: Not Given Metoprolol Tartrate (Metoprolol Tartrate 1 Mg/Ml Vial) 5 mg IV Q6 PRN PRN Reason: Tachycardia Stop: 09/15/22 04:23 Multivitamins ([facility]ivitamin Tab) [facility] [place]: 09/15/22 08:59 Last Admin: 08/18/22 08:11 Dose: 1 tab Nitroglycerin (Nitroglycerin Sl 0.4 Mg/Tab Tab) 0.4 mg SL UD PRN PRN Reason: Chest Pain Stop: 09/15/22 04:23 Potassium Chloride (Potassium Chloride Crtab 20 Meq Tabcr) 20 meq PO [facility] Stop: 09/17/22 08:59 Last Admin: 08/18/22 11:04 Dose: 20 meq Sodium Chloride (Sodium Chloride 0.65% Na Soln 45 Ml (Rotan)) 1 sprays NA Q2H PRN PRN Reason: Nasal Congestion Stop: 09/15/22 04:23 Sucralfate (Sucralfate 1 Gm/10 Ml Udc) 1 gm PO QID [facility] Stop: 09/15/22 12:59 Last Admin: 08/18/22 13:51 Dose: 1 gm Torsemide (Torsemide 20 Mg Tab) 20 mg PO [facility] Stop: 09/17/22 08:59 Last Admin: 08/18/22 08:11 Dose: 20 mg Vitamin D (Cholecalciferol 1,000 Units 25 Mcg Tab) 1,000 units PO [facility] Stop: 09/15/22 08:59 Last Admin: 08/18/22 08:11 Dose: 1,000 units
[2022-08-19] MEDS: CEFEPIME 2,000 MG in SYRINGE 0 ML IV SCH ×2 (02:19→14:39)
[2022-08-19] MEDS: HYDROmorphone INJ 0.5 MG/0.5 ML SYR IV PRN ×3 (03:14→20:11)
[2022-08-19] MEDS: metroNIDAZOLE 500 MG/100 ML BAG IV SCH ×3 (06:18→23:17)
[2022-08-19 07:45] LABS: Basophils # (auto) 0.02 K/uL (0-0.2); Basophils % (auto) 0.2 %; Eosinophils # (auto) 0.12 K/uL (0-0.50); Eosinophils % (auto) 1.2 %; Hematocrit (blood only) 26.1 % (37.0-47.0); Hemoglobin 8.7 g/dl (12.0-16.0); Immature Granulocytes # (auto) 0.46 K/uL (0.01-0.20); Immature Granulocytes % (auto) 4.7 %; Lymphocytes # (auto) 0.59 K/uL (1.2-3.4); Mean Corpuscular Hemoglobin 31.2 pg (25.0-34.0); Mean Corpuscular Hgb Conc 33.3 g/dL (32.0-36.0); Mean Corpuscular Volume 93.5 fL (80.0-100.0); Mean Platelet Volume 10.5 fL (9.4-12.4); Monocytes # (auto) 1.11 K/uL (0.11-0.59); Monocytes % (auto) 11.3 %; Neutrophils # (auto) 7.49 K/uL (1.40-6.50); Neutrophils % (auto) 76.6 %; Platelet Count 119 K/uL (130-400); RDW Coefficient of Variation 15.5 % (11.5-14.5); Red Blood Count 2.79 M/uL (4.20-5.40); White Blood Count 9.79 K/ul (4.8-10.8)
[2022-08-19 08:08] LABS: BUN Creatinine Ratio 4.1 (10-20); Calcium 7.9 mg/dl (8.6-10.3); Creatinine Clr Calc Pharmacy 46.7 ml/min; Est GFR (African American) 65.9 ml/min; Est GFR (Non-African American) 56.8 ml/min; Potassium 3.1 mmol/L (3.5-5.1)
[2022-08-19 08:09] LABS: INR 1.1 (0.9-1.1); Prothrombin Time 12.2 Seconds (9.0-12.0)
[2022-08-19] MEDS: DULoxetine HCL 60 MG CAP PO SCH (08:34)
[2022-08-19] MEDS: FOLIC ACID 1 MG TAB PO SCH (08:34)
[2022-08-19] MEDS: MULTIVITAMIN TAB PO SCH (08:34)
[2022-08-19] MEDS: CHOLECALCIFEROL 1,000 UNITS 25 MCG TAB PO SCH (08:34)
[2022-08-19] MEDS: MAGNESIUM OXIDE 400 MG TAB PO SCH (08:34)
[2022-08-19] MEDS: POTASSIUM CHLORIDE CRTAB 20 MEQ TABCR PO SCH (08:34)
[2022-08-19] MEDS: CYANOCOBALAMIN (B-12) 500 MCG TABLET PO SCH (08:34)
[2022-08-19] MEDS: METOPROLOL TARTRATE 50 MG TAB PO SCH ×2 (08:34→20:11)
[2022-08-19] MEDS: SUCRALFATE 1 GM/10 ML UDC PO SCH ×4 (08:34→20:11)
[2022-08-19] MEDS: GABAPENTIN 300 MG CAP PO SCH ×2 (08:34→20:11)
[2022-08-19] MEDS: TORSEMIDE 20 MG TAB PO SCH (08:34)
[2022-08-19] MEDS: PANCREAZE (LIPASE 16,800U) CAP PO SCH ×3 (08:35→16:55)
[2022-08-19] MEDS: FAMOTIDINE 20 MG in SYRINGE 3 ML IV SCH ×2 (08:37→20:11)
--- NOTE | 2022-08-19 09:29 | Gastroenterology Progress Note ---
Date of Service August 19, 2022 Assessment & Plan (1) Colitis: Plan: She had a few bowel movements with blood in them yesterday but is better today. I explained to her that that is how colitis usually presents itself. I told her that colonoscopy wouldn't add much at this time and with colitis there is nothing we can do about the bleeding. Her did mention that either at [facility] or [facility] they mentioned colitis but not to worry about it. She seems comfortable with our discussion and my telling her that the majority of the time colitis heals on its own. Admission and Anticipated Discharge Date Admission Date: August 16, 2022 Subjective asked by nurse to talk to patient and spouse about rectal bleeding Results & Data Vital Signs (Past 12 Hours) Vital Signs Temp Pulse Pulse Resp BP BP Pulse Ox 08/19/22 07:46 58 L 08/19/22 07:31 36.4 C L 62 18 106/56 L 99 08/19/22 03:01 36.5 C 58 L 18 115/72 100 08/18/22 22:14 63 08/18/22 23:39 36.6 C 60 18 98/53 L 100 O2 Del Method 08/19/22 07:46 08/19/22 07:31 Room Air 08/19/22 03:01 Room Air 08/18/22 22:14 08/18/22 23:39 Room Air
--- NOTE | 2022-08-19 12:50 | Hospitalist Progress Note ---
Date of Service August 19, 2022 Assessment & Plan (1) Hematemesis: Plan: She has been getting chemotherapy weekly for 3 weeks with 1 week of from [facility] This is her off week and has been complaining of nausea vomiting and diarrhea She has hematemesis and she was admitted to hospital with hemoglobin of 11.1 Has been on Protonix drip and feels a little better since admission without any more hematemesis No melena and diarrhea seems to be stable Appreciate GI input-no plan for EGD No more hematemesis and melena No more hematemesis and epigastric pain has been decreased Hemoglobin remains stable at 8.7 Bright red rectal blood On 2 occasions and very small amount without any associated symptoms Has been on intravenous fluid and clears orally We will monitor hemoglobin As below-improves Appreciate GI input and recommendation-no colonoscopy Profuse nausea and vomiting Likely secondary to chemotherapy Could be due to epigastric discomfort from pancreatic cancer Appreciate Emend given by GI Has been tolerating advance diet without any nausea or vomiting Denies any more vomiting (2) Colitis: Plan: Noted to have colitis nonspecific on CAT scan Started on IV vancomycin and Zosyn given immunosuppressed condition Lactic acid was 2.2 and which has been normalized Has had 2 episodes of small amount bright red rectal bleed-1 last night and another episode this morning Without any abdominal pain Small amount of IV fluids started yesterday and the patient has been started with sips from today Will observe-globin is dropped to 7.8 Rectal bleed is improving with repeat hemoglobin today is 8.7 Bacteremia 1 out of 2 bottle gram-negative bacilli and came out to be Enterobacter Rales and Klebsiella oxytoca Appreciate ID input and recommendation Has been on intravenous cefepime and Flagyl will be added Await sensitivity-Klebsiella oxytoca which is pansensitive except cefazolin We will get repeat blood culture- pending Likely course of antibiotic would be 7 days depending on the sensitivity and response Repeat blood cultures negative (3) Pancreatic cancer: Plan: Has pancreatic cancer and has been getting chemotherapy weekly for 3 weeks and then 1 week off This is her off week (4) Patient on antineoplastic chemotherapy regimen: Plan: As above (5) Patient is Yazdanism: Plan: Will not get any blood transfusion even though hemoglobin is up to that level (6) Paroxysmal atrial flutter: Plan: Rate is controlled Continue beta-rubi Holding Coumadin due to hematemesis Status post mitral valve repair with prosthetic valve Monitor for any fluid overload Will restart anticoagulation after discussion with the GI Anticoagulation will not be restarted as she is having ongoing rectal bleed Admission and Anticipated Discharge Date Admission Date: August 16, 2022 Subjective 08/16/2022 The patient was seen and examined in telemetry unit She has been feeling better since admission Her abdominal pain is little better, nausea and vomiting are better too Does not have any more hematemesis and did not have any black tarry stool 08/17/2022 The patient was seen and examined in telemetry unit in presence of the She still complains of epigastric pain without any fever and or chills Her diarrhea is controlled and no more hematemesis Clinically better today 08/18/2022 The patient was seen and examined in telemetry unit in presence of the She has had bright red rectal bleed on 2 episodes, last night and this morning- small amount without any associated symptoms of abdominal pain, distention, nausea vomiting or dizziness Still has epigastric fullness and discomfort but no significant pain No fever and or chills 08/19/2022 The patient was seen and examined in telemetry unit in presence of the Her rectal bleeding seems to have improved but the epigastric fullness and tenderness persist No fever and or chills and no drop in hemoglobin Denies any other symptoms Review of Systems Review of Systems: All systems reviewed and are unremarkable except as noted below Physical Exam Physical Exam: Lying in bed with minimal distress due to abdominal pain Constitutional: + ill appearing and average body habitus Eyes: PERRL, conjunctivae normal, anicteric sclerae ENMT: external ear and nose normal, oropharynx normal Neck: trachea midline, no thyromegaly Respiratory: no respiratory distress Auscultation: lungs clear to auscultation bilaterally Cardiovascular: Rate/Rhythm: regular rate and regular rhythm; not tachycardic Heart Sounds: normal S1 and normal S2; no murmur Extremities: no edema Gastrointestinal (Abdomen): Inspection/Auscultation: + abdomen distended (Mildly distended) and normal bowel sounds Percussion/Palpation: + abdomen tender (Epigastric tenderness. No tenderness in the lower quadrants) and abdomen soft Neurologic: normal touch/pain/proprioception and moves all extremities; no focal motor deficits Lymphatic: no cervical or axillary lymphadenopathy Results & Data Results & Data Vital Signs (Past 12 Hours) Vital Signs Temp Pulse Pulse Resp BP BP Pulse Ox 08/19/22 11:30 36.3 C L 72 18 106/70 99 08/19/22 07:46 58 L 08/19/22 07:31 36.4 C L 62 18 106/56 L 99 08/19/22 03:01 36.5 C 58 L 18 115/72 100 O2 Del Method 08/19/22 11:30 Room Air 08/19/22 07:46 08/19/22 07:31 Room Air 08/19/22 03:01 Room Air Laboratory Results Short CBC 08/19/22 Range/Units 07:15 WBC 9.79 (4.8-10.8) K/ul Hgb 8.7 L (12.0-16.0) g/dl Hct 26.1 L (37.0-47.0) % Plt Count 119 L (130-400) K/uL BMP 08/19/22 07:15 Sodium 142 Potassium 3.1 L Chloride 114 H Carbon Dioxide 22 BUN 4 L Creatinine 0.98 Glucose 105 H Calcium 7.9 L Medications Administered Current Inpatient Medications Acetaminophen (Acetaminophen 325 Mg Tab) 650 mg PO Q4H PRN PRN Reason: Pain or Fever Stop: 09/15/22 04:23 Albuterol (Albuterol Hfa 8 Gm Inhaler) 2 puffs INH QID PRN PRN Reason: Shortness Of Breath Or Wheezin Stop: 09/15/22 04:23 Lipase/Protease/Amylase (Pancreaze (Lipase 16,800u) Cap) 5 cap PO TIDM [facility] Stop: 09/15/22 08:29 Last Admin: 08/19/22 12:38 Dose: 5 cap Lipase/Protease/Amylase (Pancreaze (Lipase 16,800u) Cap) 3 cap PO PRN PRN PRN Reason: with snacks Stop: 09/15/22 04:23 Cyanocobalamin (Cyanocobalamin (B-12) 500 Mcg Tablet) 1,000 mcg PO QAM [facility] Stop: 09/15/22 08:59 Last Admin: 08/19/22 08:34 Dose: 1,000 mcg Dicyclomine HCl (Dicyclomine Hcl 10 Mg Cap) 10 mg PO TID PRN PRN Reason: Abdominal Pain/Cramping Stop: 09/15/22 04:23 Last Admin: 08/17/22 10:30 Dose: 10 mg Duloxetine HCl (Duloxetine Hcl 60 Mg Cap) 60 mg PO QAM [facility] Stop: 09/15/22 08:59 Last Admin: 08/19/22 08:34 Dose: 60 mg Fluticasone Propionate (Fluticasone Propionate Na Spr 16 Gm Btl) 2 sprays NA DAILY PRN PRN Reason: Congestion Stop: 09/15/22 04:23 Folic Acid (Folic Acid 1 Mg Tab) 1 mg PO QAM [facility] Stop: 09/15/22 08:59 Last Admin: 08/19/22 08:34 Dose: 1 mg Gabapentin (Gabapentin 300 Mg Cap) 300 mg PO BID [facility] Stop: 09/15/22 08:59 Last Admin: 08/19/22 08:34 Dose: 300 mg Hydromorphone HCl (Hydromorphone Inj 0.5 Mg/0.5 Ml Syr) 0.5 mg IV Q3H PRN PRN Reason: Pain Stop: 08/30/22 04:23 Last Admin: 08/19/22 07:31 Dose: 0.5 mg Promethazine HCl 12.5 mg/ (Sodium Chloride) 50.5 mls @ 202 mls/hr IV Q6H PRN PRN Reason: Nausea And Vomiting Stop: 09/15/22 04:23 Last Infusion: 08/16/22 22:43 Dose: Infused Famotidine 20 mg/ Syringe 5 mls @ 2.5 mls/min IV BID [facility] Stop: 09/15/22 08:59 Last Admin: 08/19/22 08:37 Dose: 2.5 mls/min Cefepime HCl 2,000 mg/ Syringe 20 mls @ 5 mls/min IV Q12H [facility]; Protocol Stop: 08/31/22 13:59 Last Admin: 08/19/22 02:19 Dose: 5 mls/min Metronidazole (Flagyl) 500 mg in 100 mls @ 100 mls/hr IV Q8H [facility] Stop: 08/27/22 14:59 Last Infusion: 08/19/22 07:35 Dose: Infused Dextrose/Sodium Chloride (D5w And Nss) 1,000 mls @ 80 mls/hr IV .[id number] [facility] Stop: 09/16/22 19:44 Last Admin: 08/18/22 21:32 Dose: 80 mls/hr Magnesium Oxide (Magnesium Oxide 400 Mg Tab) 400 mg PO [facility] Stop: 09/15/22 08:59 Last Admin: 08/19/22 08:34 Dose: 400 mg Metoprolol Tartrate (Metoprolol Tartrate 50 Mg Tab) 50 mg PO BID [facility] Stop: 09/15/22 08:59 Last Admin: 08/19/22 08:34 Dose: Not Given Metoprolol Tartrate (Metoprolol Tartrate 1 Mg/Ml Vial) 5 mg IV Q6 PRN PRN Reason: Tachycardia Stop: 09/15/22 04:23 [facility]ivitamins ([facility]ivitamin Tab) [facility] [place]: 09/15/22 08:59 Last Admin: 08/19/22 08:34 Dose: 1 tab Nitroglycerin (Nitroglycerin Sl 0.4 Mg/Tab Tab) 0.4 mg SL UD PRN PRN Reason: Chest Pain Stop: 09/15/22 04:23 Potassium Chloride (Potassium Chloride Crtab 20 Meq Tabcr) 20 meq PO [facility] Stop: 09/17/22 08:59 Last Admin: 08/19/22 08:34 Dose: 20 meq Sodium Chloride (Sodium Chloride 0.65% Na Soln 45 Ml (Carbon)) 1 sprays NA Q2H PRN PRN Reason: Nasal Congestion Stop: 09/15/22 04:23 Sucralfate (Sucralfate 1 Gm/10 Ml Udc) 1 gm PO QID [facility] Stop: 09/15/22 12:59 Last Admin: 08/19/22 12:39 Dose: 1 gm Torsemide (Torsemide 20 Mg Tab) 20 mg PO [facility] Stop: 09/17/22 08:59 Last Admin: 08/19/22 08:34 Dose: 20 mg Vitamin D (Cholecalciferol 1,000 Units 25 Mcg Tab) 1,000 units PO [facility] Stop: 09/15/22 08:59 Last Admin: 08/19/22 08:34 Dose: 1,000 units
[2022-08-19] MEDS: D5W AND NSS 1,000 ML IV SCH ×2 (14:39→23:20)
[2022-08-20] MEDS: CEFEPIME 2,000 MG in SYRINGE 0 ML IV SCH (03:16)
[2022-08-20] MEDS: D5W AND NSS 1,000 ML IV SCH ×2 (03:20→16:20)
[2022-08-20] MEDS: HYDROmorphone INJ 0.5 MG/0.5 ML SYR IV PRN ×4 (05:56→21:13)
[2022-08-20] MEDS: metroNIDAZOLE 500 MG/100 ML BAG IV SCH (06:00)
[2022-08-20 06:45] LABS: Hematocrit (blood only) 26.1 % (37.0-47.0); Hemoglobin 8.8 g/dl (12.0-16.0); Mean Corpuscular Hemoglobin 31.5 pg (25.0-34.0); Mean Corpuscular Hgb Conc 33.7 g/dL (32.0-36.0); Mean Corpuscular Volume 93.5 fL (80.0-100.0); Mean Platelet Volume 10.7 fL (9.4-12.4); Platelet Count 151 K/uL (130-400); RDW Coefficient of Variation 15.6 % (11.5-14.5); Red Blood Count 2.79 M/uL (4.20-5.40); White Blood Count 6.99 K/ul (4.8-10.8)
[2022-08-20 06:59] LABS: BUN Creatinine Ratio 5.6 (10-20); Calcium 7.8 mg/dl (8.6-10.3); Creatinine Clr Calc Pharmacy 51.7 ml/min; Est GFR (Non-African American) 63.8 ml/min; Potassium 2.6 mmol/L (3.5-5.1)
[2022-08-20 07:13] LABS: Basophils # (auto) 0.01 K/uL (0-0.2); Basophils % (auto) 0.1 %; Dohle Bodies 1+; Eosinophils % (auto) 1.4 %; Immature Granulocytes # (auto) 0.39 K/uL (0.01-0.20); Immature Granulocytes % (auto) 5.6 %; Lymphocytes # (auto) 0.57 K/uL (1.2-3.4); Lymphocytes % (auto) 8.2 %; Monocytes # (auto) 1.07 K/uL (0.11-0.59); Monocytes % (auto) 15.3 %; Neutrophils # (auto) 4.85 K/uL (1.40-6.50); Neutrophils % (auto) 69.4 %; Toxic Granulation 1+
[2022-08-20] MEDS: PANCREAZE (LIPASE 16,800U) CAP PO SCH ×3 (07:33→16:21)
[2022-08-20 07:59] LABS: INR 1.2 (0.9-1.1); Prothrombin Time 12.5 Seconds (9.0-12.0)
[2022-08-20] MEDS ORDERED: POTASSIUM CHLORIDE CRTAB 20 MEQ TABCR PO STA (08:00)
[2022-08-20] MEDS: FAMOTIDINE 20 MG in SYRINGE 3 ML IV SCH ×2 (08:59→21:20)
[2022-08-20] MEDS: POTASSIUM CHLORIDE / WTR 10 MEQ/100 ML PLCT IV SCH ×2 (08:59→10:16)
[2022-08-20] MEDS: CYANOCOBALAMIN (B-12) 500 MCG TABLET PO SCH (08:59)
[2022-08-20] MEDS: MULTIVITAMIN TAB PO SCH (09:00)
[2022-08-20] MEDS: CHOLECALCIFEROL 1,000 UNITS 25 MCG TAB PO SCH (09:00)
[2022-08-20] MEDS: TORSEMIDE 20 MG TAB PO SCH (09:01)
[2022-08-20] MEDS: DULoxetine HCL 60 MG CAP PO SCH (09:01)
[2022-08-20] MEDS: SUCRALFATE 1 GM/10 ML UDC PO SCH ×4 (09:01→21:18)
[2022-08-20] MEDS: GABAPENTIN 300 MG CAP PO SCH ×2 (09:02→21:18)
[2022-08-20] MEDS: METOPROLOL TARTRATE 50 MG TAB PO SCH ×2 (09:02→21:18)
[2022-08-20] MEDS: MAGNESIUM OXIDE 400 MG TAB PO SCH (09:02)
[2022-08-20] MEDS: FOLIC ACID 1 MG TAB PO SCH (09:02)
[2022-08-20] MEDS: POTASSIUM CHLORIDE CRTAB 20 MEQ TABCR PO SCH (09:04)
[2022-08-20] MEDS: PROMETHAZINE HCL 12.5 MG in SODIUM CHLORIDE 0.9% 50 ML IV PRN (11:36)
[2022-08-20] MEDS: metroNIDAZOLE 500 MG TAB PO SCH ×2 (13:31→21:17)
--- NOTE | 2022-08-20 14:17 | Hospitalist Progress Note ---
Date of Service August 20, 2022 Assessment & Plan (1) Hematemesis: Plan: She has been getting chemotherapy weekly for 3 weeks with 1 week of from [place] This is her off week and has been complaining of nausea vomiting and diarrhea She has hematemesis and she was admitted to hospital with hemoglobin of 11.1 Has been on Protonix drip and feels a little better since admission without any more hematemesis No melena and diarrhea seems to be stable Appreciate GI input-no plan for EGD No more hematemesis and melena No more hematemesis and epigastric pain has been decreased Hemoglobin remains stable at 8.7 No more hematemesis and the patient likely to be discharged tomorrow Bright red rectal blood On 2 occasions and very small amount without any associated symptoms Has been on intravenous fluid and clears orally We will monitor hemoglobin As below-improves Appreciate GI input and recommendation-no colonoscopy Appreciate GI input following the bleeding and patient does not have any more bleeding per rectum Profuse nausea and vomiting Likely secondary to chemotherapy Could be due to epigastric discomfort from pancreatic cancer Appreciate Emend given by GI Has been tolerating advance diet without any nausea or vomiting Denies any more vomiting (2) Colitis: Plan: Noted to have colitis nonspecific on CAT scan Started on IV vancomycin and Zosyn given immunosuppressed condition Lactic acid was 2.2 and which has been normalized Has had 2 episodes of small amount bright red rectal bleed-1 last night and another episode this morning Without any abdominal pain Small amount of IV fluids started yesterday and the patient has been started with sips from today Will observe-globin is dropped to 7.8 Rectal bleed is improving with repeat hemoglobin today is 8.7 Need to continue oral antibiotic with cefdinir and Flagyl for the next 3 to 4 days to finish the course Bacteremia 1 out of 2 bottle gram-negative bacilli and came out to be Enterobacter Rales and Klebsiella oxytoca Appreciate ID input and recommendation Has been on intravenous cefepime and Flagyl will be added Await sensitivity-Klebsiella oxytoca which is pansensitive except cefazolin We will get repeat blood culture- pending Likely course of antibiotic would be 7 days depending on the sensitivity and response Repeat blood cultures negative Antibiotic as per the infectious disease (3) Pancreatic cancer: Plan: Has pancreatic cancer and has been getting chemotherapy weekly for 3 weeks and then 1 week off This is her off week (4) Patient on antineoplastic chemotherapy regimen: Plan: As above (5) Patient is [employer]: Plan: Will not get any blood transfusion even though hemoglobin is up to that level (6) Paroxysmal atrial flutter: Plan: Rate is controlled Continue beta-rubi Holding Coumadin due to hematemesis Status post mitral valve repair with prosthetic valve Monitor for any fluid overload Will restart anticoagulation after discussion with the GI Anticoagulation will not be restarted as she is having ongoing rectal bleed Will restart anticoagulation on discharge Admission and Anticipated Discharge Date Admission Date: August 16, 2022 Subjective 08/16/2022 The patient was seen and examined in telemetry unit She has been feeling better since admission Her abdominal pain is little better, nausea and vomiting are better too Does not have any more hematemesis and did not have any black tarry stool 08/17/2022 The patient was seen and examined in telemetry unit in presence of the She still complains of epigastric pain without any fever and or chills Her diarrhea is controlled and no more hematemesis Clinically better today 08/18/2022 The patient was seen and examined in telemetry unit in presence of the She has had bright red rectal bleed on 2 episodes, last night and this morning- small amount without any associated symptoms of abdominal pain, distention, nausea vomiting or dizziness Still has epigastric fullness and discomfort but no significant pain No fever and or chills 08/19/2022 The patient was seen and examined in telemetry unit in presence of the Her rectal bleeding seems to have improved but the epigastric fullness and ten derness persist No fever and or chills and no drop in hemoglobin Denies any other symptoms 08/20/2022 The patient was seen and examined in telemetry unit in presence of the She denies any more blood per rectum Abdominal pain is persistent but mom much in reduced state Denies any other symptoms Review of Systems Review of Systems: All systems reviewed and are unremarkable except as noted below Physical Exam Physical Exam: Lying in bed with minimal distress due to abdominal pain Constitutional: + ill appearing and average body habitus Eyes: PERRL, conjunctivae normal, anicteric sclerae ENMT: external ear and nose normal, oropharynx normal Neck: trachea midline, no thyromegaly Respiratory: no respiratory distress Auscultation: lungs clear to auscultation bilaterally Cardiovascular: Rate/Rhythm: regular rate and regular rhythm; not tachycardic Heart Sounds: normal S1 and normal S2; no murmur Extremities: no edema Gastrointestinal (Abdomen): Inspection/Auscultation: + abdomen distended (Mildly distended) and normal bowel sounds Percussion/Palpation: + abdomen tender (Epigastric tenderness. No tenderness in the lower quadrants) and abdomen soft Neurologic: normal touch/pain/proprioception and moves all extremities; no focal motor deficits Lymphatic: no cervical or axillary lymphadenopathy Results & Data Results & Data Vital Signs (Past 12 Hours) Vital Signs Temp Pulse Resp BP BP Pulse Ox O2 Del Method 08/20/22 11:09 36.5 C 76 18 152/79 H 99 Room Air 08/20/22 07:24 36.8 C 65 17 102/57 L 97 Room Air 08/20/22 02:53 36.6 C 67 18 96/49 L 95 Room Air Laboratory Results Short CBC 08/20/22 Range/Units 06:15 WBC 6.99 (4.8-10.8) K/ul Hgb 8.8 L (12.0-16.0) g/dl Hct 26.1 L (37.0-47.0) % Plt Count 151 (130-400) K/uL BMP 08/20/22 06:15 Sodium 143 Potassium 2.6 L Chloride 111 H Carbon Dioxide 25 BUN 5 L Creatinine 0.89 Glucose 122 H Calcium 7.8 L Medications Administered Current Inpatient Medications Acetaminophen (Acetaminophen 325 Mg Tab) 650 mg PO Q4H PRN PRN Reason: Pain or Fever Stop: 09/15/22 04:23 Albuterol (Albuterol Hfa 8 Gm Inhaler) 2 puffs INH QID PRN PRN Reason: Shortness Of Breath Or Wheezin Stop: 09/15/22 04:23 Lipase/Protease/Amylase (Pancreaze (Lipase 16,800u) Cap) 5 cap PO TIDM [facility] Stop: 09/15/22 08:29 Last Admin: 08/20/22 11:36 Dose: 5 cap Lipase/Protease/Amylase (Pancreaze (Lipase 16,800u) Cap) 3 cap PO PRN PRN PRN Reason: with snacks Stop: 09/15/22 04:23 Cefdinir (Cefdinir 300 Mg Cap) 300 mg PO BID [facility] Stop: 08/30/22 20:59 Cyanocobalamin (Cyanocobalamin (B-12) 500 Mcg Tablet) 1,000 mcg PO QAM [facility] Stop: 09/15/22 08:59 Last Admin: 08/20/22 08:59 Dose: 1,000 mcg Dicyclomine HCl (Dicyclomine Hcl 10 Mg Cap) 10 mg PO TID PRN PRN Reason: Abdominal Pain/Cramping Stop: 09/15/22 04:23 Last Admin: 08/17/22 10:30 Dose: 10 mg Duloxetine HCl (Duloxetine Hcl 60 Mg Cap) 60 mg PO QAM [facility] Stop: 09/15/22 08:59 Last Admin: 08/20/22 09:01 Dose: 60 mg Fluticasone Propionate (Fluticasone Propionate Na Spr 16 Gm Btl) 2 sprays NA DAILY PRN PRN Reason: Congestion Stop: 09/15/22 04:23 Folic Acid (Folic Acid 1 Mg Tab) [address] [facility] Stop: 09/15/22 08:59 Last Admin: 08/20/22 09:02 Dose: 1 mg Gabapentin (Gabapentin 300 Mg Cap) 300 mg PO BID [facility] Stop: 09/15/22 08:59 Last Admin: 08/20/22 09:02 Dose: 300 mg Hydromorphone HCl (Hydromorphone Inj 0.5 Mg/0.5 Ml Syr) 0.5 mg IV Q3H PRN PRN Reason: Pain Stop: 08/30/22 04:23 Last Admin: 08/20/22 10:24 Dose: 0.5 mg Promethazine HCl 12.5 mg/ (Sodium Chloride) 50.5 mls @ 202 mls/hr IV Q6H PRN PRN Reason: Nausea And Vomiting Stop: 09/15/22 04:23 Last Infusion: 08/20/22 12:14 Dose: Infused Famotidine 20 mg/ Syringe 5 mls @ 2.5 mls/min IV BID [facility] Stop: 09/15/22 08:59 Last Admin: 08/20/22 08:59 Dose: 2.5 mls/min Dextrose/Sodium Chloride (D5w And Nss) 1,000 mls @ 80 mls/hr IV .[id number] [facility] Stop: 09/16/22 19:44 Last Admin: 08/20/22 03:20 Dose: 80 mls/hr Magnesium Oxide (Magnesium Oxide 400 Mg Tab) [address] [facility] Stop: 09/15/22 08:59 Last Admin: 08/20/22 09:02 Dose: 400 mg Metoprolol Tartrate (Metoprolol Tartrate 50 Mg Tab) 50 mg PO BID [facility] Stop: 09/15/22 08:59 Last Admin: 08/20/22 09:02 Dose: 50 mg Metoprolol Tartrate (Metoprolol Tartrate 1 Mg/Ml Vial) 5 mg IV Q6 PRN PRN Reason: Tachycardia Stop: 09/15/22 04:23 Metronidazole (Metronidazole 500 Mg Tab) 500 mg PO TID [facility] Stop: 08/30/22 13:59 Last Admin: 08/20/22 13:31 Dose: 500 mg Multivitamins (Multivitamin Tab) [address] [facility] Stop: 09/15/22 08:59 Last Admin: 08/20/22 09:00 Dose: 1 tab Nitroglycerin (Nitroglycerin Sl 0.4 Mg/Tab Tab) 0.4 mg SL UD PRN PRN Reason: Chest Pain Stop: 09/15/22 04:23 Potassium Chloride (Potassium Chloride Crtab 20 Meq Tabcr) [address] [facility] Stop: 09/17/22 08:59 Last Admin: 08/20/22 09:04 Dose: 20 meq Sodium Chloride (Sodium Chloride 0.65% Na Soln 45 Ml ([place])) 1 sprays NA Q2H PRN PRN Reason: Nasal Congestion Stop: 09/15/22 04:23 Sucralfate (Sucralfate 1 Gm/10 Ml Udc) 1 gm PO QID [facility] Stop: 09/15/22 12:59 Last Admin: 08/20/22 13:31 Dose: 1 gm Torsemide (Torsemide 20 Mg Tab) [address] [facility] Stop: 09/17/22 08:59 Last Admin: 08/20/22 09:01 Dose: 20 mg Vitamin D (Cholecalciferol 1,000 Units 25 Mcg Tab) 1,[address] [facility] Stop: 09/15/22 08:59 Last Admin: 08/20/22 09:00 Dose: 1,000 units
[2022-08-20] MEDS: DICYCLOMINE HCL 10 MG CAP PO PRN (18:04)
[2022-08-20] MEDS: CEFDINIR 300 MG CAP PO SCH (21:20)
[2022-08-21] MEDS: HYDROmorphone INJ 0.5 MG/0.5 ML SYR IV PRN ×2 (00:55→04:47)
[2022-08-21] MEDS ORDERED: HEPARIN 100 UNIT/ML 5ML FLUSH FLUSH PRN (02:05)
[2022-08-21] MEDS: D5W AND NSS 1,000 ML IV SCH (04:48)
[2022-08-21] MEDS: CEFDINIR 300 MG CAP PO SCH (07:39)
[2022-08-21] MEDS: DICYCLOMINE HCL 10 MG CAP PO PRN (07:40)
[2022-08-21] MEDS: SUCRALFATE 1 GM/10 ML UDC PO SCH ×2 (07:40→11:35)
[2022-08-21] MEDS: metroNIDAZOLE 500 MG TAB PO SCH ×2 (07:40→15:04)
[2022-08-21] MEDS: FOLIC ACID 1 MG TAB PO SCH (07:41)
[2022-08-21] MEDS: CYANOCOBALAMIN (B-12) 500 MCG TABLET PO SCH (07:41)
[2022-08-21] MEDS: DULoxetine HCL 60 MG CAP PO SCH (07:41)
[2022-08-21] MEDS: TORSEMIDE 20 MG TAB PO SCH (07:41)
[2022-08-21] MEDS: MAGNESIUM OXIDE 400 MG TAB PO SCH (07:41)
[2022-08-21] MEDS: CHOLECALCIFEROL 1,000 UNITS 25 MCG TAB PO SCH (07:41)
[2022-08-21] MEDS: GABAPENTIN 300 MG CAP PO SCH (07:42)
[2022-08-21] MEDS: MULTIVITAMIN TAB PO SCH (07:42)
[2022-08-21] MEDS: POTASSIUM CHLORIDE CRTAB 20 MEQ TABCR PO SCH (07:42)
[2022-08-21] MEDS: PANCREAZE (LIPASE 16,800U) CAP PO SCH ×2 (07:42→11:35)
[2022-08-21] MEDS: METOPROLOL TARTRATE 50 MG TAB PO SCH (07:48)
[2022-08-21] MEDS: FAMOTIDINE 20 MG in SYRINGE 3 ML IV SCH (09:10)
[2022-08-21 10:12] LABS: Calcium 8.2 mg/dl (8.6-10.3); Creatinine Clr Calc Pharmacy 44.2 ml/min; Est GFR (African American) 63.5 ml/min; Est GFR (Non-African American) 54.8 ml/min; Potassium 2.8 mmol/L (3.5-5.1)
[2022-08-21] MEDS ORDERED: POTASSIUM CHLORIDE CRTAB 20 MEQ TABCR PO STA (10:19)
[2022-08-21] MEDS: POTASSIUM CHLORIDE / WTR 10 MEQ/100 ML PLCT IV SCH ×2 (11:30→12:37)
--- NOTE | 2022-08-21 13:52 | Hospitalist Progress Note ---
Date of Service August 21, 2022 Assessment & Plan (1) Hematemesis: Plan: She has been getting chemotherapy weekly for 3 weeks with 1 week of from [place] This is her off week and has been complaining of nausea vomiting and diarrhea She has hematemesis and she was admitted to hospital with hemoglobin of 11.1 Has been on Protonix drip and feels a little better since admission without any more hematemesis No melena and diarrhea seems to be stable Appreciate GI input-no plan for EGD No more hematemesis and melena No more hematemesis and epigastric pain has been decreased Hemoglobin remains stable at 8.7 No more hematemesis and the patient likely to be discharged tomorrow GI will call her for a follow-up appointment Bright red rectal blood On 2 occasions and very small amount without any associated symptoms Has been on intravenous fluid and clears orally We will monitor hemoglobin As below-improves Appreciate GI input and recommendation-no colonoscopy Appreciate GI input following the bleeding and patient does not have any more b leeding per rectum No more bleeding and diarrhea is stopped-GI will call with an appointment as an outpatient Profuse nausea and vomiting Likely secondary to chemotherapy Could be due to epigastric discomfort from pancreatic cancer Appreciate Emend given by GI Has been tolerating advance diet without any nausea or vomiting Denies any more vomiting (2) Colitis: Plan: Noted to have colitis nonspecific on CAT scan Started on IV vancomycin and Zosyn given immunosuppressed condition Lactic acid was 2.2 and which has been normalized Has had 2 episodes of small amount bright red rectal bleed-1 last night and another episode this morning Without any abdominal pain Small amount of IV fluids started yesterday and the patient has been started with sips from today Will observe-globin is dropped to 7.8 Rectal bleed is improving with repeat hemoglobin today is 8.7 Need to continue oral antibiotic with cefdinir and Flagyl for the next 3 to 4 days to finish the course Discussed with ID Bacteremia 1 out of 2 bottle gram-negative bacilli and came out to be Enterobacter Rales and Klebsiella oxytoca Appreciate ID input and recommendation Has been on intravenous cefepime and Flagyl will be added Await sensitivity-Klebsiella oxytoca which is pansensitive except cefazolin We will get repeat blood culture- pending Likely course of antibiotic would be 7 days depending on the sensitivity and response Repeat blood cultures negative Antibiotic as per the infectious disease-cefdinir and Flagyl to continue for a few more days (3) Pancreatic cancer: Plan: Has pancreatic cancer and has been getting chemotherapy weekly for 3 weeks and then 1 week off This is her off week Will have an appointment with oncologist as an outpatient (4) Patient on antineoplastic chemotherapy regimen: Plan: As above (5) Patient is [employer]: Plan: Will not get any blood transfusion even though hemoglobin is up to that level (6) Paroxysmal atrial flutter: Plan: Rate is controlled Continue beta-rubi Holding Coumadin due to hematemesis Status post mitral valve repair with prosthetic valve Monitor for any fluid overload Will restart anticoagulation after discussion with the GI Anticoagulation will not be restarted as she is having ongoing rectal bleed Will restart anticoagulation on discharge Coumadin will be restarted on discharge Admission and Anticipated Discharge Date Admission Date: August 16, 2022 Subjective 08/16/2022 The patient was seen and examined in telemetry unit She has been feeling better since admission Her abdominal pain is little better, nausea and vomiting are better too Does not have any more hematemesis and did not have any black tarry stool 08/17/2022 The patient was seen and examined in telemetry unit in presence of the She still complains of epigastric pain without any fever and or chills Her diarrhea is controlled and no more hematemesis Clinically better today 08/18/2022 The patient was seen and examined in telemetry unit in presence of the She has had bright red rectal bleed on 2 episodes, last night and this morning- small amount without any associated symptoms of abdominal pain, distention, nausea vomiting or dizziness Still has epigastric fullness and discomfort but no significant pain No fever and or chills 08/19/2022 The patient was seen and examined in telemetry unit in presence of the Her rectal bleeding seems to have improved but the epigastric fullness and tenderness persist No fever and or chills and no drop in hemoglobin Denies any other symptoms 08/20/2022 The patient was seen and examined in telemetry unit in presence of the She denies any more blood per rectum Abdominal pain is persistent but mom much in reduced state Denies any other symptoms 08/21/2022 The patient was seen and examined in telemetry unit in presence of the She still has epigastric discomfort No more blood in the stool and no more hematemesis Hemoglobin remains stable but potassium is low Review of Systems Review of Systems: All systems reviewed and are unremarkable except as noted below Physical Exam Physical Exam: Lying in bed with minimal distress due to abdominal pain Constitutional: average body habitus; not ill appearing Eyes: PERRL, conjunctivae normal, anicteric sclerae ENMT: external ear and nose normal, oropharynx normal Neck: trachea midline, no thyromegaly Respiratory: no respiratory distress Auscultation: lungs clear to auscultation bilaterally Cardiovascular: Rate/Rhythm: regular rate and regular rhythm; not tachycardic Heart Sounds: normal S1 and normal S2; no murmur Extremities: no edema Gastrointestinal (Abdomen): Inspection/Auscultation: + abdomen distended (Mildly distended) and normal bowel sounds Percussion/Palpation: + abdomen tender (Epigastric tenderness. No tenderness in the lower quadrants) and abdomen soft Neurologic: normal touch/pain/proprioception and moves all extremities; no focal motor deficits Lymphatic: no cervical or axillary lymphadenopathy Results & Data Results & Data Vital Signs (Past 12 Hours) Vital Signs Temp Pulse Pulse Resp BP Pulse Ox O2 Del Method 08/21/22 11:05 36.8 C 74 19 108/73 99 Room Air 08/21/22 09:41 78 101/69 08/21/22 07:35 69 08/21/22 07:00 37.1 C 80 16 89/58 L 99 Room Air 08/21/22 03:00 36.7 C 65 20 98/58 L 97 Room Air Laboratory Results [facility] 08/21/22 09:32 Sodium 144 Potassium 2.8 L Chloride 108 H Carbon Dioxide 30 BUN 5 L Creatinine 1.01 Glucose 155 H Calcium 8.2 L Medications Administered Current Inpatient Medications Acetaminophen (Acetaminophen 325 Mg Tab) 650 mg PO Q4H PRN PRN Reason: Pain or Fever Stop: 09/15/22 04:23 Albuterol (Albuterol Hfa 8 Gm Inhaler) 2 puffs INH QID PRN PRN Reason: Shortness Of Breath Or Wheezin Stop: 09/15/22 04:23 Lipase/Protease/Amylase (Pancreaze (Lipase 16,800u) Cap) 5 cap PO TIDM [facility] Stop: 09/15/22 08:29 Last Admin: 08/21/22 11:35 Dose: 5 cap Lipase/Protease/Amylase (Pancreaze (Lipase 16,800u) Cap) 3 cap PO PRN PRN PRN Reason: with snacks Stop: 09/15/22 04:23 Cefdinir (Cefdinir 300 Mg Cap) 300 mg PO BID [facility] Stop: 08/30/22 20:59 Last Admin: 08/21/22 07:39 Dose: 300 mg Cyanocobalamin (Cyanocobalamin (B-12) 500 Mcg Tablet) 1,000 mcg PO QAM [facility] Stop: 09/15/22 08:59 Last Admin: 08/21/22 07:41 Dose: 1,000 mcg Dicyclomine HCl (Dicyclomine Hcl 10 Mg Cap) 10 mg PO TID PRN PRN Reason: Abdominal Pain/Cramping Stop: 09/15/22 04:23 Last Admin: 08/21/22 07:40 Dose: 10 mg Duloxetine HCl (Duloxetine Hcl 60 Mg Cap) 60 mg PO QAM [facility] Stop: 09/15/22 08:59 Last Admin: 08/21/22 07:41 Dose: 60 mg Fluticasone Propionate (Fluticasone Propionate Na Spr 16 Gm Btl) 2 sprays NA DAILY PRN PRN Reason: Congestion Stop: 09/15/22 04:23 Folic Acid (Folic Acid 1 Mg Tab) 1 mg PO QAM [facility] Stop: 09/15/22 08:59 Last Admin: 08/21/22 07:41 Dose: 1 mg Gabapentin (Gabapentin 300 Mg Cap) 300 mg PO BID [facility] Stop: 09/15/22 08:59 Last Admin: 08/21/22 07:42 Dose: 300 mg Heparin Sodium (Porcine) (Heparin 100 Unit/Ml 5ml Flush) 5 ml FLUSH PRN PRN PRN Reason: Flush Stop: 09/20/22 02:04 Hydromorphone HCl (Hydromorphone Inj 0.5 Mg/0.5 Ml Syr) 0.5 mg IV Q3H PRN PRN Reason: Pain Stop: 08/30/22 04:23 Last Admin: 08/21/22 04:47 Dose: 0.5 mg Promethazine HCl 12.5 mg/ (Sodium Chloride) 50.5 mls @ 202 mls/hr IV Q6H PRN PRN Reason: Nausea And Vomiting Stop: 09/15/22 04:23 Last Infusion: 08/20/22 12:14 Dose: Infused Famotidine 20 mg/ Syringe 5 mls @ 2.5 mls/min IV BID [facility] Stop: 09/15/22 08:59 Last Admin: 08/21/22 09:10 Dose: 2.5 mls/min Dextrose/Sodium Chloride (D5w And Nss) 1,000 mls @ 80 mls/hr IV .[id number] [facility] Stop: 09/16/22 19:44 Last Admin: 08/21/22 04:48 Dose: 80 mls/hr Magnesium Oxide (Magnesium Oxide 400 Mg Tab) 400 mg PO QAM [facility] Stop: 09/15/22 08:59 Last Admin: 08/21/22 07:41 Dose: 400 mg Metoprolol Tartrate (Metoprolol Tartrate 50 Mg Tab) 50 mg PO BID [facility] Stop: 09/15/22 08:59 Last Admin: 08/21/22 07:48 Dose: Not Given Metoprolol Tartrate (Metoprolol Tartrate 1 Mg/Ml Vial) 5 mg IV Q6 PRN PRN Reason: Tachycardia Stop: 09/15/22 04:23 Metronidazole (Metronidazole 500 Mg Tab) 500 mg PO TID [facility] Stop: 08/30/22 13:59 Last Admin: 08/21/22 07:40 Dose: 500 mg Multivitamins (Multivitamin Tab) 1 tab PO [facility] Stop: 09/15/22 08:59 Last Admin: 08/21/22 07:42 Dose: 1 tab Nitroglycerin (Nitroglycerin Sl 0.4 Mg/Tab Tab) 0.4 mg SL UD PRN PRN Reason: Chest Pain Stop: 09/15/22 04:23 Potassium Chloride (Potassium Chloride Crtab 20 Meq Tabcr) [facility] Stop: 09/17/22 08:59 Last Admin: 08/21/22 07:42 Dose: 20 meq Sodium Chloride (Sodium Chloride 0.65% Na Soln 45 Ml ([place])) 1 sprays NA Q2H PRN PRN Reason: Nasal Congestion Stop: 09/15/22 04:23 Sucralfate (Sucralfate 1 Gm/10 Ml Udc) 1 gm PO QID [facility] Stop: 09/15/22 12:59 Last Admin: 08/21/22 11:35 Dose: 1 gm Torsemide (Torsemide 20 Mg Tab) 20 mg PO QAM [facility] Stop: 09/17/22 08:59 Last Admin: 08/21/22 07:41 Dose: 20 mg Vitamin D (Cholecalciferol 1,000 Units 25 Mcg Tab) 1,000 units PO [facility] Stop: 09/15/22 08:59 Last Admin: 08/21/22 07:41 Dose: 1,000 units
[2022-08-21 15:01] LABS: BUN Creatinine Ratio 5.8 (10-20); Calcium 8.4 mg/dl (8.6-10.3); Creatinine Clr Calc Pharmacy 42.9 ml/min; Est GFR (African American) 61.3 ml/min; Est GFR (Non-African American) 52.9 ml/min; Potassium 3.4 mmol/L (3.5-5.1)
--- NOTE | 2022-08-22 12:42 | Discharge Summary ---
Date of Service August 22, 2022 Admission HPI Per Admitting Provider DICTATED BY:Roscoe Bush MD DATE OF ADMISSION: 08/16/2022. CHIEF COMPLAINT: Nausea, vomiting, hematemesis. HISTORY OF PRESENT ILLNESS: A 76-year-old female with past medical history sig nificant for pancreatic cancer, status post surgery, radiation, currently on chemo, history of hyperlipidemia, diabetes, chronic cough, chronic pharyngitis, atrial flutter, hypertension, irritable bowel syndrome, esophagitis, GERD, history of dysphagia, history of cervical radiculopathy, history of status post mitral valve replacement with bioprosthetic valve, status post tricuspid valve repair, Jew, lives at home, ambulates with a cane. Lives with her , presents with nausea, vomiting, diarrhea going on for the last 2-3 days. She says she also had couple episodes of 2 spoons of blood in the vomitus. She has chronic abdominal pain, feeling dizzy. Denies any headache. No blurred visions, no earache, no runny nose, no sore throat, no chest pain, no shortness of breath. Denies any blood in the stools. Normal bladder movements. Currently, resting comfortably and hemodynamically stable. Patient was her in 10/11 with abdominal pain and was transferred to [facility] for ercp for gall stones and found to have pancreatic cancer. HAd Surgery at [facility]. Planned for whipple procedure but when opened found some spots on abdominal wall as per so whipple was not done. S/p radiation treatment and first chem. Currently on second chemo as per which she gets weekly for 3 weeks and then one week off. Currently she is off week. Admission Exam Per Admitting Provider GENERAL: The patient is of moderate build, not in acute distress. VITAL SIGNS: Temperature 36.8, pulse 89, respiratory rate 18, blood pressure 136/73, and oxygen 100% on room air. HEENT: Pupils equal, round and reactive to light. Oral mucosa moist. NECK: No JVD. No neck masses. CARDIOVASCULAR: S1 and S2 heard. Regular rate and rhythm. No murmur, no gallop. RESPIRATORY SYSTEM: Normal AP diameter. No accessory muscle use. No wheezing or crackles. ABDOMEN: Soft, bowel sounds present. Mild diffuse tenderness. No guarding. No rigidity. No distention. CENTRAL NERVOUS SYSTEM: Alert and oriented. Speech is clear. No facial droop. Obeys simple commands. Moves extremities. EXTREMITIES: No edema, no erythema. Principal Diagnosis Hematemesis, nausea vomiting with pancreatic cancer on chemo, epigastric pain, nonspecific colitis, bacteremia secondary to Klebsiella oxytoca Discharge Exam Lying in bed with minimal distress due to abdominal pain Constitutional average body habitus; not ill appearing Eyes PERRL, conjunctivae normal, anicteric sclerae ENMT external ear and nose normal, oropharynx normal Neck trachea midline, no thyromegaly Respiratory no respiratory distress Auscultation: lungs clear to auscultation bilaterally Cardiovascular Rate/Rhythm: regular rate and regular rhythm; not tachycardic Heart Sounds: normal S1 and normal S2; no murmur Extremities: no edema Gastrointestinal (Abdomen) Inspection/Auscultation: + abdomen distended (Mildly distended) and normal bowel sounds Percussion/Palpation: + abdomen tender (Epigastric tenderness. No tenderness in the lower quadrants) and abdomen soft Neurologic normal touch/pain/proprioception and moves all extremities; no focal motor deficits Lymphatic no cervical or axillary lymphadenopathy Discharge Data Allergies Allergy/AdvReac Type Severity Reaction Status Date / Time latex Allergy Severe RASH AND Verified 08/16/22 01:43 CAN'T BREATHE, HIVES morphine Allergy Severe HEART Verified 08/16/22 01:43 STOPPED AND "I STOPPED LIVING" pentobarbital Allergy Severe "HEART Verified 08/16/22 01:43 STOPPED" phenobarbital Allergy Severe "HEART Verified 08/16/22 01:43 STOPPED" thiopental Allergy Severe "HEART Verified 08/16/22 01:43 STOPPED" adhesive Allergy Intermediate REDNESS Verified 08/16/22 01:43 AND HIVES-TAPE ferrous sulfate Allergy Intermediate HIVES Verified 08/16/22 01:43 Iodinated Contrast Media Allergy Intermediate HIVES Verified 08/16/22 01:43 ioversol Allergy Intermediate HIVES Verified 08/16/22 01:43 lorazepam Allergy Intermediate HIVES AND Verified 08/16/22 01:43 SWEATING nickel Allergy Intermediate HIVES AND Verified 08/16/22 01:43 RASH pantoprazole Allergy Intermediate HIVES AND Verified 08/16/22 01:43 ITCHING prednisone Allergy Intermediate HIVES Verified 08/16/22 01:43 Sulfa (Sulfonamide Allergy Intermediate RASH, HIVES Verified 08/16/22 01:43 Antibiotics) aspartame AdvReac Intermediate DIZZINESS, Verified 08/16/22 01:43 MIGRAINES aspirin AdvReac Intermediate SWEATS, Verified 08/16/22 01:43 PALPITATIONS, RINGING IN EARS Benzodiazepines AdvReac Intermediate SWEATS, Verified 08/16/22 01:43 PALPITATIONS, RINGING IN EARS caffeine AdvReac Intermediate JITTERY Verified 08/16/22 01:43 codeine AdvReac Intermediate SWEATS, Verified 08/16/22 01:43 PALPITATIONS, RINGING IN EARS, HIVES diazepam AdvReac Intermediate SWEATING Verified 08/16/22 01:43 oxycodone AdvReac Intermediate HEART RACES Verified 08/16/22 01:43 propoxyphene AdvReac Intermediate SWEATS, Verified 08/16/22 01:43 PALPITATIONS, RINGING IN EARS saccharin AdvReac Intermediate FROM Verified 08/16/22 01:43 NUTRASWEET - DIZZINESS, MIGRAINES salicylates AdvReac Intermediate GERD, Verified 08/16/22 01:43 IRRITATES STOMACH, HIGH DOSE ONLY tramadol AdvReac Intermediate SWEATS, Verified 08/16/22 01:43 PALPITATIONS, RINGING IN EARS ibuprofen AdvReac Mild NUMBNESS Verified 08/16/22 01:43 NSAIDS (Non-Steroidal AdvReac Mild NUMBNESS Verified 08/16/22 01:43 Anti-Inflamma grapefruit AdvReac Unknown "CANNOT Verified 08/16/22 01:43 TAKE WITH HEART MEDICATION" Consultations 08/16/22 08:00 Consult Gastroenterology Routine 08/17/22 08:00 Consult Infectious Diseases Routine Ordered Studies 08/15/22 23:39 CT Abd and Pelvis [CT abd pelvis wo con] Stat Hospital Course (1) Hematemesis: She has been getting chemotherapy weekly for 3 weeks with 1 week of from [facility] This is her off week and has been complaining of nausea vomiting and diarrhea She has hematemesis and she was admitted to hospital with hemoglobin of 11.1 Has been on Protonix drip and feels a little better since admission without any more hematemesis No melena and diarrhea seems to be stable Appreciate GI input-no plan for EGD No more hematemesis and melena No more hematemesis and epigastric pain has been decreased Hemoglobin remains stable at 8.7 No more hematemesis and the patient likely to be discharged tomorrow GI will call her for a follow-up appointment Bright red rectal blood On 2 occasions and very small amount without any associated symptoms Has been on intravenous fluid and clears orally We will monitor hemoglobin As below-improves Appreciate GI input and recommendation-no colonoscopy Appreciate GI input following the bleeding and patient does not have any more bleeding per rectum No more bleeding and diarrhea is stopped-GI will call with an appointment as an outpatient Profuse nausea and vomiting Likely secondary to chemotherapy Could be due to epigastric discomfort from pancreatic cancer Appreciate Emend given by GI Has been tolerating advance diet without any nausea or vomiting Denies any more vomiting (2) Colitis: Noted to have colitis nonspecific on CAT scan Started on IV vancomycin and Zosyn given immunosuppressed condition Lactic acid was 2.2 and which has been normalized Has had 2 episodes of small amount bright red rectal bleed-1 last night and another episode this morning Without any abdominal pain Small amount of IV fluids started yesterday and the patient has been started with sips from today Will observe-globin is dropped to 7.8 Rectal bleed is improving with repeat hemoglobin today is 8.7 Need to continue oral antibiotic with cefdinir and Flagyl for the next 3 to 4 days to finish the course Discussed with ID Bacteremia 1 out of 2 bottle gram-negative bacilli and came out to be Enterobacter Rales and Klebsiella oxytoca Appreciate ID input and recommendation Has been on intravenous cefepime and Flagyl will be added Await sensitivity-Klebsiella oxytoca which is pansensitive except cefazolin We will get repeat blood culture- pending Likely course of antibiotic would be 7 days depending on the sensitivity and response Repeat blood cultures negative Antibiotic as per the infectious disease-cefdinir and Flagyl to continue for a few more days (3) Pancreatic cancer: Has pancreatic cancer and has been getting chemotherapy weekly for 3 weeks and then 1 week off This is her off week Will have an appointment with oncologist as an outpatient (4) Patient on antineoplastic chemotherapy regimen: As above (5) Patient is Denominational: Will not get any blood transfusion even though hemoglobin is up to that level (6) Paroxysmal atrial flutter: Rate is controlled Continue beta-rubi Holding Coumadin due to hematemesis Status post mitral valve repair with prosthetic valve Monitor for any fluid overload Will restart anticoagulation after discussion with the GI Anticoagulation will not be restarted as she is having ongoing rectal bleed Will restart anticoagulation on discharge Coumadin will be restarted on discharge Total Time Total Time Spent Total Time Spent (In Minutes): 35 minutes Discharge Plan Discharge Items Patient Disposition: Home - Self-Care Reason For Visit: N/V, HEMATEMESIS Discharge Diagnosis: Hematemesis, nausea vomiting with pancreatic cancer on chemo, epigastric pain, nonspecific colitis, bacteremia secondary to Klebsiella oxytoca Condition on Discharge: Fair Activity: Resume your previous activity Non-emergency contact: Primary Care Provider Call non-emergency contact if: you have any medication questions and your symptoms worsen Follow-up/Referrals: Ramon Jimenez MD [Primary Care Provider] - (Date & Time 08/24/2022 10:20 AM Provider Ramon Jimenez III, MD Department [facility] ) Diet: Regular Addtl Attending Provider Instructions: Please take precautions to avoid falls Take your medications as advised Please keep appointment with your primary care provider and oncologist GI will give you a call for follow-up appointments Take [id number] probiotics with antibiotic Pending Studies at Discharge: No Stand-Alone Forms: My [employer], Smoking Cessation Medications and DC Order Prescriptions: New sucralfate 100 mg/mL Suspension 1 g PO QID 5 Days Qty: 200 0RF metronidazole 500 mg Tablet 500 mg PO TID 5 Days Qty: 15 0RF cefdinir 300 mg Capsule 300 mg PO BID 5 Days Qty: 10 0RF Continued omeprazole 40 mg capsule,delayed release(DR/EC) 40 mg PO BID Qty: 180 3RF Rx Instructions: Take 1 capsule by mouth twice daily Premarin 0.625 mg/gram cream 0.625 mg vaginal 2XWK Qty: 30 1RF Rx Instructions: Use on Mon and Fri gabapentin 300 mg capsule 300 mg PO BID dicyclomine 10 mg capsule 10 mg PO TID PRN (Reason: Abdominal Pain/Cramping) Qty: 270 1RF atorvastatin 10 mg tablet 10 mg PO Q2D Rx Instructions: TAKES MON, WED, & FRI. warfarin 5 mg tablet 5 mg PO DIRECTED Rx Instructions: as directed by anti-coagulation clinic metoprolol tartrate 50 mg tablet 50 mg PO BID docusate sodium [Colace] 100 mg Capsule 100 mg PO BID cholecalciferol (vitamin D3) 1,000 unit Tablet 1,000 unit PO QAM multivitamin Tablet 1 tab PO QAM folic acid 1 mg Tablet 1 mg PO QAM Saline Nose 0.65 % Aerosol,Stephenson 1 spray intranasal .[id number] PRN (Reason: Nasal Congestion) lactulose 10 gram/15 mL Solution 5 - 30 ml PO DAILY PRN (Reason: Constipation) albuterol sulfate [ProAir HFA] 90 mcg/actuation HFA aerosol inhaler 2 puff INHALATION QID PRN (Reason: Shortness Of Breath Or Wheezing) duloxetine 60 mg capsule,delayed release(DR/EC) 60 mg PO QAM cyanocobalamin (vitamin B-12) [Vitamin B-12] 1,000 mcg Tablet 1,000 mcg PO QAM Creon 24,000-76,000 -120,000 unit capsule,delayed release(DR/EC) 3 - 4 cap PO TIDWMEAL Creon 24,000-76,000 -120,000 unit capsule,delayed release(DR/EC) 2 cap PO .SNACKS hydromorphone 2 mg tablet 1 - 2 mg PO Q4 PRN (Reason: Pain) ondansetron 4 mg tablet,disintegrating 4 mg PO QAM PRN (Reason: nausea and vomiting) bioflavonoid products Tablet 1 tab PO QAM fluticasone propionate 50 mcg/actuation Stephenson,Suspension 2 spray INTRANASAL DAILY PRN (Reason: Congestion) riboflavin (vitamin B2) 400 mg Tablet 400 mg PO QAM magnesium oxide 400 mg magnesium Tablet 400 mg PO QAM torsemide 20 mg tablet 20 mg PO QAM Changed potassium chloride 10 mEq tablet extended release 20 meq PO BID Qty: 1 0RF Discharge Orders: Discharge Order (Routine); Ordered 08/21/22 Ordered By: Nigel Carpenter/Other Patient Handouts: Managing Type 2 Diabetes Admission Data Admit Date/Time: 08/16/22 01:55 Attending Provider: Nigel Vogt Admit Provider: Roscoe Bush Primary Care Provider: Ramon Jimenez Other Providers: Jeff Gutierrez ; Aron Horton ; Corinne Diaz ; Aby Chavez ; Kim Boudreaux ; Elicia Lozano ; Kang Blanco ; Дмитрий Frank ; Bruno Barkley ; Negar Lowe ; Luis Manuel Dumas ; Porsche Mitchell ; Chantell Yu ; Winnie Zelaya ; Sindy Chu ; Marshal Gordon ; Nuno Keys ; Horacio Morrow ; Norma Virk ; Emily Khanna Jr ; Jluis Adler ; Nicol Chance ; Maik Brooke I. ; Saul Gentile II ; Nicci Girard ; Wade Beard ; Ciro De Souza ; Tanja Lara Other Interventions: Discharge Summary Assessment (RN) Last Done: 08/21/22 15:39
== END 2022-08-21 16:16 | disposition home or self-care (01) | DRG 378 ==
LOC: ED 20:52 → 2S 08-16 01:55

== ENCOUNTER 2022-11-19 22:04 | Inpatient (IN) ==
[2022-11-19] MEDS ORDERED: ACETAMINOPHEN 1,000 MG/100 ML VIAL IV STA (22:20)
[2022-11-19] MEDS ORDERED: CEFEPIME 2,000 MG/20 ML VIAL IV STA (22:24)
[2022-11-19] MEDS ORDERED: ONDANSETRON INJ 2 MG/ML 2 ML VIAL IV STA (22:25)
[2022-11-19] MEDS ORDERED: SODIUM CHLORIDE 0.9% 1000ML 1,000 ML IV ONE (22:26)
[2022-11-19] MEDS ORDERED: SODIUM CHLORIDE 0.9% 1000ML 1,000 ML IV SCH (22:30)
[2022-11-19 23:23] LABS: Appearance Urine Clear (Clear); Bilirubin Urine Negative (Negative); Blood Urine Negative (Negative); Color Urine Dark Yellow; Glucose Urine UA Negative (Negative); Ketones Urine 1+ (Negative); Leukocyte Esterase Urine Negative (Negative); Nitrite Urine Negative (Negative); Protein Urine Negative (Negative); Specific Gravity Urine 1.019 (1.000-1.030); Urobilinogen Urine Negative (Negative); pH Urine 6.5 (4.5-7.5)
[2022-11-19 23:25] LABS: Hematocrit (blood only) 32.4 % (37.0-47.0); Hemoglobin 11.1 g/dl (12.0-16.0); Immature Granulocytes # (auto) 0.05 K/uL (0.01-0.20); Immature Granulocytes % (auto) 0.5 %; Lymphocytes # (auto) 0.23 K/uL (1.2-3.4); Lymphocytes % (auto) 2.4 %; Mean Corpuscular Hemoglobin 34.5 pg (25.0-34.0); Mean Corpuscular Hgb Conc 34.3 g/dL (32.0-36.0); Mean Corpuscular Volume 100.6 fL (80.0-100.0); Mean Platelet Volume 10.8 fL (9.4-12.4); Monocytes # (auto) 0.96 K/uL (0.11-0.59); Monocytes % (auto) 9.9 %; Neutrophils # (auto) 8.46 K/uL (1.40-6.50); Neutrophils % (auto) 87.2 %; Platelet Count 180 K/uL (130-400); RDW Coefficient of Variation 18.8 % (11.5-14.5); Red Blood Count 3.22 M/uL (4.20-5.40)
[2022-11-19 23:44] LABS: Albumin Level 3.4 gm/dl (3.4-5.0); BUN Creatinine Ratio 14.3 (10-20); Bilirubin Direct 0.5 mg/dl (0-0.2); Bilirubin,Total 1.4 mg/dl (0.2-1.0); Calcium 9.6 mg/dl (8.6-10.3); Creatinine Clr Calc Pharmacy 59.3 ml/min; Est GFR (African American) 88.2 ml/min; Est GFR (Non-African American) 76.1 ml/min; Magnesium 1.7 mg/dl (1.7-2.4); Potassium 3.5 mmol/L (3.5-5.1); Total Protein 6.8 gm/dl (6.0-8.3)
[2022-11-19 23:49] LABS: Troponin I High Sensitivity 14.1 pg/ml (0-14)
[2022-11-19 23:53] LABS: INR 1.4 (0.9-1.1); Partial Thromboplastin Ratio 1.1; Partial Thromboplastin Time 30.8 Seconds (21.0-31.0); Prothrombin Time 15.1 Seconds (9.0-12.0)
--- NOTE | 2022-11-20 00:21 | CT Scan Report ---
Exam(s): CT ABDOMEN + PELVIS Without Contrast EXAM: CT Abdomen and Pelvis Without Intravenous Contrast CLINICAL HISTORY: Reason for exam: sepsis, pain, Pancreatic CA. TECHNIQUE: Axial computed tomography images of the abdomen and pelvis without intravenous contrast. CTDI is 18.47 mGy and DLP is 914.85 mGy-cm. Automated exposure control was utilized for the study. A dose lowering technique was utilized adhering to the principles of ALARA. COMPARISON: 11/05/2022 FINDINGS: Lung bases: Unremarkable. No mass. No consolidation. ABDOMEN: Liver: Increasing periportal edema. Simple hepatic cysts are again noted. Gallbladder and bile ducts: Increasing the thick-walled gallbladder with surrounding inflammation. Metal biliary stent remains in position. No calcified stones. No ductal dilation. Pancreas: Unremarkable. No ductal dilation. Spleen: Unremarkable. No splenomegaly. Adrenals: Unremarkable. No mass. Kidneys and ureters: Unremarkable. No obstructing stones. No hydronephrosis. Stomach and bowel: Unremarkable. No obstruction. No mucosal thickening. PELVIS: Appendix: No findings to suggest acute appendicitis. Bladder: Unremarkable. No stones. Reproductive: Uterus has been removed. ABDOMEN and PELVIS: Intraperitoneal space: Mild ascites increased from prior exam. No free air. Bones/joints: No acute fracture. No dislocation. Soft tissues: See above. Vasculature: Unremarkable. No abdominal aortic aneurysm. Lymph nodes: Unremarkable. No enlarged lymph nodes. IMPRESSION: 1. Increasing the thick-walled gallbladder with surrounding inflammation. 2. Increasing periportal edema. 3. Mild ascites increased from prior exam. Electronically signed by: Coleman Germain M.D. 11/20/22 00:20 AM
--- NOTE | 2022-11-20 01:01 | Emergency Department Note ---
History of Present Illness General Chief complaint: Weakness Stated complaint: WEAKNESS, NAUSEA. PANCREATIC CA Time Seen by Provider: 11/19/22 22:13 History of Present Illness This 76-year-old female with pancreatic cancer on daily chemo oral medication presents to the ER for nausea, vomiting, generalized weakness today. Patient did not realize she had a fever. No recent radiation. Patient denies chest pain, dyspnea, abdominal pain, diarrhea, urinary symptoms, headache, cough, congestion. Home Medications Medication Instructions Recorded Confirmed Type atorvastatin 10 mg tablet 10 mg PO 3XWK 10/30/18 11/20/22 History cholecalciferol (vitamin D3) 25 1,000 unit PO QAM 10/30/18 11/20/22 History mcg (1,000 unit) tablet docusate sodium 100 mg capsule 200 mg PO BID 10/30/18 11/20/22 History (Colace) folic acid 1 mg tablet 1 mg PO QAM 10/30/18 11/20/22 History lactulose 10 gram/15 mL oral 5 - 30 ml PO DAILY PRN Constipation 10/30/18 11/20/22 History solution metoprolol tartrate 50 mg tablet 50 mg PO BID 10/30/18 11/20/22 History sodium chloride 0.65 % nasal spray 1 spray intranasal UD 10/30/18 11/20/22 History aerosol (Saline Nose) albuterol sulfate 90 mcg/actuation 2 puff inhalation QID 04/19/19 11/20/22 History aerosol inhaler (ProAir HFA) duloxetine 60 mg capsule,delayed 60 mg PO QAM 04/19/19 11/20/22 History release cyanocobalamin (vitamin B-12) 1,000 mcg PO QAM 10/19/19 11/20/22 History 1,000 mcg tablet (Vitamin B-12) gabapentin 300 mg capsule 300 mg PO BID 02/23/21 11/20/22 History dicyclomine 10 mg capsule 10 mg PO TID PRN Abdominal 07/03/21 11/20/22 Rx Pain/Cramping #270 caps fluticasone propionate 50 2 spray intranasal DAILY 10/05/21 11/20/22 History mcg/actuation nasal spray,suspension magnesium oxide 400 mg PO QAM 10/05/21 11/20/22 History riboflavin (vitamin B2) 400 mg 400 mg PO QAM 10/05/21 11/20/22 History tablet torsemide 20 mg tablet 20 mg PO QAM 10/05/21 11/20/22 History conjugated estrogens 0.625 mg/gram 0.625 mg vaginal 2XWK #30 grams 07/11/22 11/20/22 Rx vaginal cream (Premarin) hydromorphone 2 mg tablet 1 mg PO Q4 PRN Pain 08/16/22 11/20/22 History qsphga-tybrbbmz-swuslmk 2 cap PO .SNACKS 08/16/22 11/20/22 History 24,000-76,000-120,000 unit capsule,delayed rel (Creon) vythfx-djqhlwun-adrhckl 3 - 4 cap PO TIDWMEAL 08/16/22 11/20/22 History 24,000-76,000-120,000 unit capsule,delayed rel (Creon) prochlorperazine 25 mg rectal 25 mg AL UD PRN as directed 09/15/22 11/20/22 History suppository (Compro) prochlorperazine maleate 5 mg 5 mg PO Q6 PRN Nausea 09/15/22 11/20/22 History tablet capecitabine 500 mg tablet 500 mg PO UD 11/20/22 11/20/22 History lidocaine-prilocaine 2.5 %-2.5 % 1 applic topical UD 11/20/22 11/20/22 History topical cream morphine 15 mg tablet,extended 15 mg PO AMHS 11/20/22 11/20/22 History release omeprazole 40 mg capsule,delayed 40 mg PO AMHS 11/20/22 11/20/22 History release ondansetron HCl 4 mg tablet 4 mg PO Q8H PRN Nausea 11/20/22 11/20/22 History potassium chloride 10 mEq 20 meq PO QAM 11/20/22 11/20/22 History tablet,extended release warfarin 5 mg tablet 5 mg PO UD 11/20/22 11/20/22 History Allergies Allergy/AdvReac Type Severity Reaction Status Date / Time latex Allergy Severe RASH AND Verified 08/16/22 01:43 CAN'T BREATHE, HIVES morphine Allergy Severe HEART Verified 08/16/22 01:43 STOPPED AND "I STOPPED LIVING" pentobarbital Allergy Severe "HEART Verified 08/16/22 01:43 STOPPED" phenobarbital Allergy Severe "HEART Verified 08/16/22 01:43 STOPPED" thiopental Allergy Severe "HEART Verified 08/16/22 01:43 STOPPED" adhesive Allergy Intermediate REDNESS Verified 08/16/22 01:43 AND HIVES-TAPE ferrous sulfate Allergy Intermediate HIVES Verified 08/16/22 01:43 Iodinated Contrast Media Allergy Intermediate HIVES Verified 08/16/22 01:43 ioversol Allergy Intermediate HIVES Verified 08/16/22 01:43 lorazepam Allergy Intermediate HIVES AND Verified 08/16/22 01:43 SWEATING nickel Allergy Intermediate HIVES AND Verified 08/16/22 01:43 RASH pantoprazole Allergy Intermediate HIVES AND Verified 08/16/22 01:43 ITCHING prednisone Allergy Intermediate HIVES Verified 08/16/22 01:43 Sulfa (Sulfonamide Allergy Intermediate RASH, HIVES Verified 08/16/22 01:43 Antibiotics) aspartame AdvReac Intermediate DIZZINESS, Verified 08/16/22 01:43 MIGRAINES aspirin AdvReac Intermediate SWEATS, Verified 08/16/22 01:43 PALPITATIONS, RINGING IN EARS Benzodiazepines AdvReac Intermediate SWEATS, Verified 08/16/22 01:43 PALPITATIONS, RINGING IN EARS caffeine AdvReac Intermediate JITTERY Verified 08/16/22 01:43 codeine AdvReac Intermediate SWEATS, Verified 08/16/22 01:43 PALPITATIONS, RINGING IN EARS, HIVES diazepam AdvReac Intermediate SWEATING Verified 08/16/22 01:43 oxycodone AdvReac Intermediate HEART RACES Verified 08/16/22 01:43 propoxyphene AdvReac Intermediate SWEATS, Verified 08/16/22 01:43 PALPITATIONS, RINGING IN EARS saccharin AdvReac Intermediate FROM Verified 08/16/22 01:43 NUTRASWEET - DIZZINESS, MIGRAINES salicylates AdvReac Intermediate GERD, Verified 08/16/22 01:43 IRRITATES STOMACH, HIGH DOSE ONLY tramadol AdvReac Intermediate SWEATS, Verified 08/16/22 01:43 PALPITATIONS, RINGING IN EARS ibuprofen AdvReac Mild NUMBNESS Verified 08/16/22 01:43 NSAIDS (Non-Steroidal AdvReac Mild NUMBNESS Verified 08/16/22 01:43 Anti-Inflamma grapefruit AdvReac Unknown "CANNOT Verified 08/16/22 01:43 TAKE WITH HEART MEDICATION" Past Med/Surg History Medical History Atrial flutter 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 Kemp On anticoagulant therapy S/P MVR 09/2017 Rectocele Restless leg syndrome Rhinitis, non-allergic Shortness of breath SOB ON EXERTION - REASON FOR INHALER - NO USE OF INHALERS COUPLE YEARS PER PT Uterine cancer DX STAGE 1 - SURGERY Surgical History Fusion of spine HX LUMBAR AND CERVICAL (5 TOTAL SURGERIES) LIMITED ROM FOR NECK MOVING SIDE TO SIDE History of anesthesia reaction SLOW TO WAKE UP + SEE ALLERGIES-"LEFT LEG STAYS NUMB AND CAN'T MOVE LONGER PERIOD OF TIME POST OP History of bowel resection D/T BOWEL OBSTRUCTION History of cardiac cath 2017 (NO STENTS) History of cataract surgery bilat History of colonoscopy History of esophagogastroduodenoscopy (EGD) History of mitral valve replacement with bioprosthetic valve SEPTEMBER 2017 AT [facility] (WILL BRING CARD) (pig valve > [facility])-ON [place] History of tooth extraction Hx of appendectomy Hx of mitral valve repair 2006; f/u Dr. Kemp Hx of total hysterectomy with removal of both tubes and ovaries Family History Other Asthma Family history of reaction to anesthesia Heart disease Hypertension Social History Smoking Status: Never smoker Second Hand Exposure: No; Do You Dip or Chew Tobacco: No; Hx Alcohol Use: No Hx Substance Use: No Preferred Language: Croatian Communication Ability: Effective Director Data Architecture Required: No Beliefs That Will Affect Care: Baptism Baptism Beliefs: Taoist Current Living Situation: Spouse current occupational status: retired Feels Safe at Home: Yes Assistive Devices: Cane Review of Systems A total of 10 systems reviewed and were otherwise negative Physical Exam Vital Signs Vital Signs - 24 hr 11/19/22 22:16 11/19/22 22:39 11/19/22 22:17 Temperature 39.1 C H 39.1 C H Temperature Source Oral Oral Pulse Rate 105 H 107 H Pulse Rate [Apical] 98 H Pulse Rhythm Regular Pulse Rhythm [Apical] Regular Pulse Strength [Apical] Normal Respiratory Rate 20 19 Respiratory Effort / Characteristics Non-Labored Non-Labored Respiratory Depth Normal Normal Blood Pressure 143/78 H Blood Pressure [Right Arm] 143/78 H Blood Pressure Mean 99 Blood Pressure Mean [Right Arm] 99 Blood Pressure Position Lying Pulse Oximetry 99 97 Oxygen Delivery Method Room Air Room Air Sepsis Recent Fever Within 48 Hours Yes Sepsis New/Unexplained Change in Mental Status No Sepsis Action Taken by Nursing Adv Provider Notified 11/20/22 00:19 11/20/22 00:30 Temperature 37.9 C H Temperature Source Oral Pulse Rate 87 Pulse Rate [Apical] Pulse Rhythm Pulse Rhythm [Apical] Pulse Strength [Apical] Respiratory Rate 20 Respiratory Effort / Characteristics Respiratory Depth Blood Pressure 137/66 Blood Pressure [Right Arm] Blood Pressure Mean 89 Blood Pressure Mean [Right Arm] Blood Pressure Position Pulse Oximetry 96 Oxygen Delivery Method Room Air Sepsis Recent Fever Within 48 Hours Sepsis New/Unexplained Change in Mental Status Sepsis Action Taken by Nursing VITALS: Vitals are noted on the nurse's note and reviewed by myself. Vital signs febrile. GENERAL: Pleasant female ill-appearing, SKIN: The skin was without rashes, erythema, edema, or bruising. There is no tenting of the skin. Capillary reflex less than 2 seconds. HEAD: Normocephalic atraumatic. EARS: External auditory canals clear, tympanic membranes pearly rebollar without erythema or effusion bilaterally. EYES: Pupils equal round and reactive to light and accommodation. Conjunctivae without injection, sclerae without icterus. Extraocular movements intact. NOSE: Patent, turbinates without inflammation or discharge. MOUTH: Mucous membranes moist. Pharynx without erythema or exudate. Uvula midline. Airway patent. Tongue does not deviate. NECK: Supple without nuchal rigidity. No lymphadenopathy. No thyromegaly. Cervical spine is nontender. No JVD. HEART: Regular rate and rhythm LUNGS: Clear to auscultation bilaterally without wheezes, rales or rhonchi. No retractions or accessory muscle use. ABDOMEN: Positive bowel sounds x 4. Normal tympanic percussion. Soft, tender mid abdomen, without masses or organomegaly. Mercer sign negative. No guarding or rebound tenderness. No CVA tenderness MUSCULOSKELETAL: No muscle atrophy, erythema, or edema noted. NEURO: Patient was alert and oriented to person place and time. Normal sensation to light and sharp touch. No focal neurological deficits. Course Administered Medications Discontinued Medications Sodium Chloride (Nss 1000ml) 1,000 mls @ 999 mls/hr IV .Q1H1M SHWETA Stop: 11/19/22 23:30 Last Infusion: 11/20/22 01:43 Dose: 0 mls/hr Documented By: Admin: 11/20/22 00:26 Dose: 999 mls/hr Documented By: SCAR Acetaminophen (Ofirmev) 1,000 mg in 100 mls @ 400 mls/hr IV NOW STA Stop: 11/19/22 22:34 Last Infusion: 11/20/22 00:20 Dose: 0 mls/hr Documented By: Admin: 11/19/22 23:19 Dose: 400 mls/hr Documented By: SCAR Cefepime HCl (Maxipime) 2,000 mg in 20 mls @ 5 mls/min IV NOW STA; Protocol Stop: 11/19/22 22:27 Last Admin: 11/19/22 23:34 Dose: 5 mls/min Documented By: SCAR Sodium Chloride (Nss 1000ml) 1,000 mls @ 999 mls/hr IV .Q1H1M ONE Stop: 11/19/22 23:26 Last Infusion: 11/20/22 00:31 Dose: 0 mls/hr Documented By: Admin: 11/19/22 23:11 Dose: 999 mls/hr Documented By: LUCINDA Potassium Chloride/Sodium Chloride (Normal Saline W/20 Meq Kcl) 20 meq in 1,000 mls @ 60 mls/hr IV .[id number] ONE; Protocol Stop: 11/20/22 17:52 Last Admin: 11/20/22 01:47 Dose: Not Given Documented By: LUCINDA Ondansetron HCl (Ondansetron Inj 2 Mg/Ml 2 Ml Vial) 4 mg IV NOW STA Stop: 11/19/22 22:26 Last Admin: 11/19/22 23:38 Dose: 4 mg Documented By: SCAR Medical Decision Making Medical Records Attestation: I reviewed the patient's medical records. Home Medications Current Medication List: was personally reviewed by me Laboratory Data Attestation: I reviewed the patient's lab results. 11/19/22 23:08 11/19/22 23:08 Lab Results 11/19/22 11/19/22 11/19/22 Range/Units 23:08 23:08 23:08 WBC 9.70 (4.8-10.8) K/ul RBC 3.22 L (4.20-5.40) M/uL Hgb 11.1 L (12.0-16.0) g/dl Hct 32.4 L (37.0-47.0) % MCV 100.6 H (80.0-100.0) fL MCH 34.5 H (25.0-34.0) pg MCHC 34.3 (32.0-36.0) g/dL RDW Std Deviation 69.0 H (36.4-46.3) fL RDW Coeff of Angelique 18.8 H (11.5-14.5) % Plt Count 180 (130-400) K/uL MPV 10.8 (9.4-12.4) fL Immature Gran % (Auto) 0.5 % Neut % (Auto) 87.2 % Lymph % (Auto) 2.4 % [place] % (Auto) 9.9 % Eos % (Auto) 0.0 % Baso % (Auto) 0.0 % Neut # (Auto) 8.46 H (1.40-6.50) K/uL Lymph # (Auto) 0.23 L (1.2-3.4) K/uL [place] # (Auto) 0.96 H (0.11-0.59) K/uL Eos # (Auto) 0.00 (0-0.50) K/uL Baso # (Auto) 0.00 (0-0.2) K/uL Immature Gran # (Auto) 0.05 (0.01-0.20) K/uL PT 15.1 H (9.0-12.0) Seconds INR 1.4 H (0.9-1.1) APTT 30.8 (21.0-31.0) Seconds PTT Ratio 1.1 Sodium 135 L (136-145) mmol/L Potassium 3.5 (3.5-5.1) mmol/L Chloride 101 (98-107) mmol/L Carbon Dioxide 24 (21-32) mmol/L Anion Gap 10 (3-11) BUN 11 (6-23) mg/dl Creatinine 0.77 (0.6-1.2) mg/dl Est Cr Clr Drug Dosing 59.3 ml/min Est GFR ( Amer) 88.2 ml/min Est GFR (Non-Af Amer) 76.1 ml/min BUN/Creatinine Ratio 14.3 (10-20) Glucose 207 H (70-99(Fasting)) mg/dl Lactate (0.4-2.0) mmol/L Calcium 9.6 (8.6-10.3) mg/dl Magnesium 1.7 (1.7-2.4) mg/dl Total Bilirubin 1.4 H (0.2-1.0) mg/dl Direct Bilirubin 0.5 H (0-0.2) mg/dl AST 142 H (13-39) U/L ALT 187 H (7-52) U/L Alkaline Phosphatase 198 H (34-104) U/L Troponin I High Sens 14.1 H (0-14) pg/ml Total Protein 6.8 (6.0-8.3) gm/dl Albumin 3.4 (3.4-5.0) gm/dl Lipase 4 L (11-82) U/L Procalcitonin (0-0.5) ng/ml Urine Color Urine Appearance (Clear) Urine pH (4.5-7.5) Ur Specific Mathews (1.000-1.030) Urine Protein (Negative) Urine Glucose (UA) (Negative) Urine Ketones (Negative) Urine Blood (Negative) Urine Nitrite (Negative) Urine Bilirubin (Negative) Urine Urobilinogen (Negative) Ur Leukocyte Esterase (Negative) Adenovirus (PCR) (NotDetected) B. pertussis DNA (PCR) (NotDetected) B.parapertussis DNA PCR (NotDetected) C. pneumoniae DNA (PCR) (NotDetected) Coronavirus OC43 (PCR) (NotDetected) Coronavirus HKU1 (PCR) (NotDetected) Coronavirus 229E (PCR) (NotDetected) SARS-CoV-2 (PCR) (NotDetected) Coronavirus NL63 (PCR) (NotDetected) Human Metapneumovir PCR (NotDetected) Influenza Type A (PCR) (NotDetected) Influenza Type B (PCR) (NotDetected) M. pneumoniae (PCR) (NotDetected) Parainfluenza 1 (PCR) (NotDetected) Parainfluenza 2 (PCR) (NotDetected) Parainfluenza 3 (PCR) (NotDetected) Parainfluenza 4 (PCR) (NotDetected) RSV (PCR) (NotDetected) Entero/Rhino (PCR) (NotDetected) 11/19/22 11/19/22 11/19/22 Range/Units 23:08 23:08 23:08 WBC (4.8-10.8) K/ul RBC (4.20-5.40) M/uL Hgb (12.0-16.0) g/dl Hct (37.0-47.0) % MCV (80.0-100.0) fL MCH (25.0-34.0) pg MCHC (32.0-36.0) g/dL RDW Std Deviation (36.4-46.3) fL RDW Coeff of Angelique (11.5-14.5) % Plt Count (130-400) K/uL MPV (9.4-12.4) fL Immature Gran % (Auto) % Neut % (Auto) % Lymph % (Auto) % [place] % (Auto) % Eos % (Auto) % Baso % (Auto) % Neut # (Auto) (1.40-6.50) K/uL Lymph # (Auto) (1.2-3.4) K/uL [place] # (Auto) (0.11-0.59) K/uL Eos # (Auto) (0-0.50) K/uL Baso # (Auto) (0-0.2) K/uL Immature Gran # (Auto) (0.01-0.20) K/uL PT (9.0-12.0) Seconds INR (0.9-1.1) APTT (21.0-31.0) Seconds PTT Ratio Sodium (136-145) mmol/L Potassium (3.5-5.1) mmol/L Chloride (98-107) mmol/L Carbon Dioxide (21-32) mmol/L Anion Gap (3-11) BUN (6-23) mg/dl Creatinine (0.6-1.2) mg/dl Est Cr Clr Drug Dosing ml/min Est GFR ( Amer) ml/min Est GFR (Non-Af Amer) ml/min BUN/Creatinine Ratio (10-20) Glucose (70-99(Fasting)) mg/dl Lactate 1.8 (0.4-2.0) mmol/L Calcium (8.6-10.3) mg/dl Magnesium (1.7-2.4) mg/dl Total Bilirubin (0.2-1.0) mg/dl Direct Bilirubin (0-0.2) mg/dl AST (13-39) U/L ALT (7-52) U/L Alkaline Phosphatase (34-104) U/L Troponin I High Sens (0-14) pg/ml Total Protein (6.0-8.3) gm/dl Albumin (3.4-5.0) gm/dl Lipase (11-82) U/L Procalcitonin 0.47 (0-0.5) ng/ml Urine Color Dark Yellow Urine Appearance Clear (Clear) Urine pH 6.5 (4.5-7.5) Ur Specific Mathews 1.019 (1.000-1.030) Urine Protein Negative (Negative) Urine Glucose (UA) Negative (Negative) Urine Ketones 1+ H (Negative) Urine Blood Negative (Negative) Urine Nitrite Negative (Negative) Urine Bilirubin Negative (Negative) Urine Urobilinogen Negative (Negative) Ur Leukocyte Esterase Negative (Negative) Adenovirus (PCR) (NotDetected) B. pertussis DNA (PCR) (NotDetected) B.parapertussis DNA PCR (NotDetected) C. pneumoniae DNA (PCR) (NotDetected) Coronavirus OC43 (PCR) (NotDetected) Coronavirus HKU1 (PCR) (NotDetected) Coronavirus 229E (PCR) (NotDetected) SARS-CoV-2 (PCR) (NotDetected) Coronavirus NL63 (PCR) (NotDetected) Human Metapneumovir PCR (NotDetected) Influenza Type A (PCR) (NotDetected) Influenza Type B (PCR) (NotDetected) M. pneumoniae (PCR) (NotDetected) Parainfluenza 1 (PCR) (NotDetected) Parainfluenza 2 (PCR) (NotDetected) Parainfluenza 3 (PCR) (NotDetected) Parainfluenza 4 (PCR) (NotDetected) RSV (PCR) (NotDetected) Entero/Rhino (PCR) (NotDetected) 11/19/22 Range/Units 23:08 WBC (4.8-10.8) K/ul RBC (4.20-5.40) M/uL Hgb (12.0-16.0) g/dl Hct (37.0-47.0) % MCV (80.0-100.0) fL MCH (25.0-34.0) pg MCHC (32.0-36.0) g/dL RDW Std Deviation (36.4-46.3) fL RDW Coeff of Angelique (11.5-14.5) % Plt Count (130-400) K/uL MPV (9.4-12.4) fL Immature Gran % (Auto) % Neut % (Auto) % Lymph % (Auto) % [place] % (Auto) % Eos % (Auto) % Baso % (Auto) % Neut # (Auto) (1.40-6.50) K/uL Lymph # (Auto) (1.2-3.4) K/uL [place] # (Auto) (0.11-0.59) K/uL Eos # (Auto) (0-0.50) K/uL Baso # (Auto) (0-0.2) K/uL Immature Gran # (Auto) (0.01-0.20) K/uL PT (9.0-12.0) Seconds INR (0.9-1.1) APTT (21.0-31.0) Seconds PTT Ratio Sodium (136-145) mmol/L Potassium (3.5-5.1) mmol/L Chloride (98-107) mmol/L Carbon Dioxide (21-32) mmol/L Anion Gap (3-11) BUN (6-23) mg/dl Creatinine (0.6-1.2) mg/dl Est Cr Clr Drug Dosing ml/min Est GFR ( Amer) ml/min Est GFR (Non-Af Amer) ml/min BUN/Creatinine Ratio (10-20) Glucose (70-99(Fasting)) mg/dl Lactate (0.4-2.0) mmol/L Calcium (8.6-10.3) mg/dl Magnesium (1.7-2.4) mg/dl Total Bilirubin (0.2-1.0) mg/dl Direct Bilirubin (0-0.2) mg/dl AST (13-39) U/L ALT (7-52) U/L Alkaline Phosphatase (34-104) U/L Troponin I High Sens (0-14) pg/ml Total Protein (6.0-8.3) gm/dl Albumin (3.4-5.0) gm/dl Lipase (11-82) U/L Procalcitonin (0-0.5) ng/ml Urine Color Urine Appearance (Clear) Urine pH (4.5-7.5) Ur Specific Mathews (1.000-1.030) Urine Protein (Negative) Urine Glucose (UA) (Negative) Urine Ketones (Negative) Urine Blood (Negative) Urine Nitrite (Negative) Urine Bilirubin (Negative) Urine Urobilinogen (Negative) Ur Leukocyte Esterase (Negative) Adenovirus (PCR) Not Detected (NotDetected) B. pertussis DNA (PCR) Not Detected (NotDetected) B.parapertussis DNA PCR Not Detected (NotDetected) C. pneumoniae DNA (PCR) Not Detected (NotDetected) Coronavirus OC43 (PCR) Not Detected (NotDetected) Coronavirus HKU1 (PCR) Not Detected (NotDetected) Coronavirus 229E (PCR) Not Detected (NotDetected) SARS-CoV-2 (PCR) Not Detected (NotDetected) Coronavirus NL63 (PCR) Not Detected (NotDetected) Human Metapneumovir PCR Not Detected (NotDetected) Influenza Type A (PCR) Not Detected (NotDetected) Influenza Type B (PCR) Not Detected (NotDetected) M. pneumoniae (PCR) Not Detected (NotDetected) Parainfluenza 1 (PCR) Not Detected (NotDetected) Parainfluenza 2 (PCR) Not Detected (NotDetected) Parainfluenza 3 (PCR) Not Detected (NotDetected) Parainfluenza 4 (PCR) Not Detected (NotDetected) RSV (PCR) Not Detected (NotDetected) Entero/Rhino (PCR) Not Detected (NotDetected) Imaging Data Attestation: I personally reviewed and interpreted this imaging study as follows: Radiologist's Impression: Abdomen/Pelvis CT 11/19/22 22:25 Exam(s): CT ABDOMEN + PELVIS Without Contrast EXAM: CT Abdomen and Pelvis Without Intravenous Contrast CLINICAL HISTORY: Reason for exam: sepsis, pain, Pancreatic CA. TECHNIQUE: Axial computed tomography images of the abdomen and pelvis without intravenous contrast. CTDI is 18.47 mGy and DLP is 914.85 mGy-cm. Automated exposure control was utilized for the study. A dose lowering technique was utilized adhering to the principles of ALARA. COMPARISON: 11/05/2022 FINDINGS: Lung bases: Unremarkable. No mass. No consolidation. ABDOMEN: Liver: Increasing periportal edema. Simple hepatic cysts are again noted. Gallbladder and bile ducts: Increasing the thick-walled gallbladder with surrounding inflammation. Metal biliary stent remains in position. No calcified stones. No ductal dilation. Pancreas: Unremarkable. No ductal dilation. Spleen: Unremarkable. No splenomegaly. Adrenals: Unremarkable. No mass. Kidneys and ureters: Unremarkable. No obstructing stones. No hydronephrosis. Stomach and bowel: Unremarkable. No obstruction. No mucosal thickening. PELVIS: Appendix: No findings to suggest acute appendicitis. Bladder: Unremarkable. No stones. Reproductive: Uterus has been removed. ABDOMEN and PELVIS: Intraperitoneal space: Mild ascites increased from prior exam. No free air. Bones/joints: No acute fracture. No dislocation. Soft tissues: See above. Vasculature: Unremarkable. No abdominal aortic aneurysm. Lymph nodes: Unremarkable. No enlarged lymph nodes. IMPRESSION: 1. Increasing the thick-walled gallbladder with surrounding inflammation. 2. Increasing periportal edema. 3. Mild ascites increased from prior exam. Electronically signed by: Coleman Germain M.D. 11/20/22 00:20 AM MDM Narrative Prior records/ancillary studies reviewed. Triage Nursing notes reviewed. Additional history obtained from family. The patient's history was concerning for fever. Differential diagnosis: Etiologies such as neutropenic fever, viral syndrome, otitis, pharyngitis, pneumonia, influenza, meningitis, urinary tract infection, sepsis, bacteremia, as well as others were entertained. Physical examination: As above ER treatment provided: An order was placed for continuous cardiac monitoring. The monitor shows a rate of 60-1 50 with a sinus rhythm per my interpretation. IV fluids per septic protocol, cefepime per chart review that was sensitive to last blood culture On reassessment the patient felt better. Diagnostics interpreted by me: ECG: Ordered for sepsis EKG: Normal sinus, T wave inversions in the anteroseptal leads, rate of 109. Impression sinus tachycardia T wave inversions in the anterior septal leads similar to prior in the field interpreted by myself The labs Independently Interpreted by myself revealed no worsening leukocytosis, anemia, elevated LFTs slightly higher from baseline. Slightly elevated troponin. Negative procalcitonin. Negative lactic. Hyperglycemia without DKA Negative urine Imaging studies: Chest x-ray with no acute consolidation, pneumothorax or free air per my independent interpretation CT of the abdomen pelvis is concerning for increasing thickness of the wall of the gallbladder with surrounding inflammation. Mild ascites per my independent rotation. Report was reviewed as above. Consultation: A consultation was placed with hospitalist. The case was discussed and diagnostics were reviewed. The patient was evaluated in the ER for further treatment. This appears to be consistent with fever and a pancreatic cancer patients. Patient blood cultures from last ER visit was positive for Klebsiella. ID recommended cefepime. Patient was given this from review from the chart. Labs and diagnostics were independent reviewed by myself. Patient had no tenderness in the right upper quadrant. The states has been vomiting all day and has not been eating. Patient is agreeable treatment plan of admission. She was hydrated and medicated as above. Medicine was consulted the case was discussed. She will be admitted for further evaluation and treatment.. By the evaluation outlined above emergent etiologies such as otitis, pharyngitis, pneumonia, meningitis, urinary tract infection, as well as others were deemed relatively unlikely. The pt informed about the findings as listed above. All questions were answered and pleased with the treatment. The chart was completed utilizing [id number] voice recognition software. Grammatical errors, random word insertions, pronoun errors, and incomplete sentences are an occassional consequence of this system due to software limitations, ambient noise, and hardware issues. Any formal questions or concerns about the content, text, or information contained within the body of this dictation should be directly addressed to the physician baking assistant for clarification. Impression & Plan Sepsis, Pancreatic cancer, Fever Discharge Plan Visit Data Chief Complaint: Weakness Stated Complaint: WEAKNESS, NAUSEA. PANCREATIC CA ED Provider: [facility] ED Midlevel Provider: Alexa Ramirez Discharge Problem: Sepsis, Pancreatic cancer, Fever Patient Disposition: Admitted As Inpatient Condition: Fair Forms Stand Alone Forms: [facility] Prescriptions Prescriptions: No Action Premarin 0.625 mg/gram cream 0.625 mg vaginal 2XWK Qty: 30 1RF Rx Instructions: Use on Mon and Fri gabapentin 300 mg capsule 300 mg PO BID Rx Instructions: ordered tid but per caregiver she usually takes twice a day dicyclomine 10 mg capsule 10 mg PO TID PRN (Reason: Abdominal Pain/Cramping) Qty: 270 1RF atorvastatin 10 mg tablet 10 mg PO 3XWK Rx Instructions: TAKES MON, SAT, & FRI. metoprolol tartrate 50 mg tablet 50 mg PO BID docusate sodium [Colace] 100 mg Capsule 200 mg PO BID Rx Instructions: Pt ambulatory care nurse she takes 2 am and 2 pm cholecalciferol (vitamin D3) 1,000 unit Tablet 1,000 unit PO QAM folic acid 1 mg Tablet 1 mg PO QAM Saline Nose 0.65 % Aerosol,[place] 1 spray intranasal UD Rx Instructions: flush each nostril morning and night and every 2-4 hours as needed for nasal dryness or congestion lactulose 10 gram/15 mL Solution 5 - 30 ml PO DAILY PRN (Reason: Constipation) Rx Instructions: 1 tablespoon albuterol sulfate [ProAir HFA] 90 mcg/actuation HFA aerosol inhaler 2 puff INHALATION QID Rx Instructions: morning,noon,evening,before bedtime duloxetine 60 mg capsule,delayed release(DR/EC) 60 mg PO QAM cyanocobalamin (vitamin B-12) [Vitamin B-12] 1,000 mcg Tablet 1,000 mcg PO QAM Creon 24,000-76,000 -120,000 unit capsule,delayed release(DR/EC) 3 - 4 cap PO TIDWMEAL Creon 24,000-76,000 -120,000 unit capsule,delayed release(DR/EC) 2 cap PO .SNACKS hydromorphone 2 mg tablet 1 mg PO Q4 PRN (Reason: Pain) Rx Instructions: per oncologist can take up to 4 mg every 4 hours if needed omeprazole 40 mg capsule,delayed release(DR/EC) 40 mg PO AMHS Rx Instructions: Take 1 capsule by mouth twice daily potassium chloride 10 mEq tablet extended release 20 meq PO QAM warfarin 5 mg tablet 5 mg PO UD Rx Instructions: take 1/2 tablet (2.5mg) on saturday and and 1 tablet daily on all other days lidocaine-prilocaine 2.5-2.5 % cream 1 applic topical UD Rx Instructions: apply topically to skin overlying portcath 1 hour prior to needle insertion morphine 15 mg tablet extended release 15 mg PO AMHS ondansetron HCl 4 mg Tablet 4 mg PO Q8H PRN (Reason: Nausea) capecitabine 500 mg tablet 500 mg PO UD Rx Instructions: take 2 tablets every 12 hours for 14 days followed by 7 days off of each 21 day cycle fluticasone propionate 50 mcg/actuation [place],Suspension 2 spray INTRANASAL DAILY riboflavin (vitamin B2) 400 mg Tablet 400 mg PO QAM magnesium oxide 400 mg magnesium Tablet 400 mg PO QAM torsemide 20 mg tablet 20 mg PO QAM prochlorperazine maleate 5 mg Tablet 5 mg PO Q6 PRN (Reason: Nausea) prochlorperazine [Compro] 25 mg suppository 25 mg [place] UD PRN (Reason: as directed) Referrals Referrals: Nimo Ferguson [Other] Sepsis Qualifiers: Sepsis type: sepsis due to unspecified organism Sepsis acute organ dysfunction status: without acute organ dysfunction Qualified Code(s): A41.9 - Sepsis, unspecified organism
[2022-11-20 01:05] LABS: Adenovirus PCR Not Detected (NotDetected); Bordetella parapertussis PCR Not Detected (NotDetected); Bordetella pertussis PCR Not Detected (NotDetected); Chlamydia pneumoniae PCR Not Detected (NotDetected); Coronavirus 229E PCR Not Detected (NotDetected); Coronavirus CoV-2 (COVID19)PCR Not Detected (NotDetected); Coronavirus HKU1 PCR Not Detected (NotDetected); Coronavirus NL63 PCR Not Detected (NotDetected); Coronavirus OC43PCR Not Detected (NotDetected); Human Metapneumovirus PCR Not Detected (NotDetected); Influenza A PCR Not Detected (NotDetected); Influenza B PCR Not Detected (NotDetected); Mycoplasma pneumoniae PCR Not Detected (NotDetected); Parainfluenza Virus 1 PCR Not Detected (NotDetected); Parainfluenza Virus 2 PCR Not Detected (NotDetected); Parainfluenza Virus 3 PCR Not Detected (NotDetected); Parainfluenza Virus 4 PCR Not Detected (NotDetected); Respiratory Syncytial VirusPCR Not Detected (NotDetected); Rhinovirus/Enterovirus PCR Not Detected (NotDetected)
[2022-11-20] MEDS ORDERED: NSS + 20MEQ KCL 20 MEQ/1,000 ML BAG IV ONE (01:13)
[2022-11-20] MEDS ORDERED: PIPERACILLIN/TAZOBACTAM 4.5 GM/120 ML BAG IV ONE (01:28)
[2022-11-20] MEDS ORDERED: HYDROmorphone INJ 0.5 MG/0.5 ML SYR IV STA (04:07)
--- NOTE | 2022-11-20 04:11 | History & Physical Report ---
Date of Service November 20, 2022 Assessment & Plan (1) Abdominal pain: Plan: Multifactorial: Acute cholecystitis rule out biliary tract obstruction given abnormal LFTs, possible sepsis, immunocompromise patient, pancreatic cancer status post radiation on oral chemotherapy UGIB, history GERD as per records, history paroxysmal atrial flutter on Coumadin, INR subtherapeutic, hemoglobin drop from last baseline of 12 last month, FOBT done at the ER by nursing staff positive Troponin elevation secondary to illness valvular 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 IV albumin while patient n.p.o. given ascites on imaging CS, Zosyn MRCP Re: Abnormal LFTs Appropriate to hold oral Xeloda chemotherapy given infection. Appropriate to hold Coumadin given GI bleed Continue patient's omeprazole for UGIB, unable to give IV PPI for now given Protonix allergy IV Pepcid every 6 hours if unable to give IV PPI as per pharmacy recommendations. GI consult Re: cholecystitis, abnormal LFTs, UGIB (Patient known to Dr. Horton.) Patient adamantly refusing General Surgery consult for now for cholecystitis until further discussion with GI. Basal bolus insulin adjusted for n.p.o. status ISS BG goal 1 10-1 40, update hemoglobin A1c DVT prophylaxis. SCDs Re: UGIB Full code Patient requesting updates providers. Mr. Ang Morgan, contact #[phone]. Text document was generated using [employer] voice recognition software. It may contain grammatical or spelling errors. Kindly contact undersigned for clarification of any documentation item in question. History of Present Illness Chief Complaint: Worsening abdominal pain, fever Primary Care Provider: Dr. Jimenez History obtained from patient, family, and records. Medical history significant for paroxysmal atrial flutter on Coumadin, PSVT, valvular heart disease (mild AR/MR), history of tricuspid valve repair/bioprosthetic MVR, hypertension, pancreatic cancer status post radiation on chemotherapy, DM2 diet-controlled, GERD, IBS, chronic pain on narcotics. Last confinement August 2022 for hematemesis, nonspecific colitis, Klebsiella oxytoca bacteremia status post antibiotic Rx. No endoscopy during confinement. Last week, patient noted worsening of chronic abdominal pain. Good BM. Blood-streaked emesis 2 days ago as per . No melena. Fever chills at home. Patient denies headache, chest pain, SOB. Patient weaker than usual. Patient brought to the ER for evaluation. Cefepime administered at the ER. 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 Allergies Allergy/AdvReac Type Severity Reaction Status Date / Time latex Allergy Severe RASH AND Verified 08/16/22 01:43 CAN'T BREATHE, HIVES morphine Allergy Severe HEART Verified 08/16/22 01:43 STOPPED AND "I STOPPED LIVING" pentobarbital Allergy Severe "HEART Verified 08/16/22 01:43 STOPPED" phenobarbital Allergy Severe "HEART Verified 08/16/22 01:43 STOPPED" thiopental Allergy Severe "HEART Verified 08/16/22 01:43 STOPPED" adhesive Allergy Intermediate REDNESS Verified 08/16/22 01:43 AND HIVES-TAPE ferrous sulfate Allergy Intermediate HIVES Verified 08/16/22 01:43 Iodinated Contrast Media Allergy Intermediate HIVES Verified 08/16/22 01:43 ioversol Allergy Intermediate HIVES Verified 08/16/22 01:43 lorazepam Allergy Intermediate HIVES AND Verified 08/16/22 01:43 SWEATING nickel Allergy Intermediate HIVES AND Verified 08/16/22 01:43 RASH pantoprazole Allergy Intermediate HIVES AND Verified 08/16/22 01:43 ITCHING prednisone Allergy Intermediate HIVES Verified 08/16/22 01:43 Sulfa (Sulfonamide Allergy Intermediate RASH, HIVES Verified 08/16/22 01:43 Antibiotics) aspartame AdvReac Intermediate DIZZINESS, Verified 08/16/22 01:43 MIGRAINES aspirin AdvReac Intermediate SWEATS, Verified 08/16/22 01:43 PALPITATIONS, RINGING IN EARS Benzodiazepines AdvReac Intermediate SWEATS, Verified 08/16/22 01:43 PALPITATIONS, RINGING IN EARS caffeine AdvReac Intermediate JITTERY Verified 08/16/22 01:43 codeine AdvReac Intermediate SWEATS, Verified 08/16/22 01:43 PALPITATIONS, RINGING IN EARS, HIVES diazepam AdvReac Intermediate SWEATING Verified 08/16/22 01:43 oxycodone AdvReac Intermediate HEART RACES Verified 08/16/22 01:43 propoxyphene AdvReac Intermediate SWEATS, Verified 08/16/22 01:43 PALPITATIONS, RINGING IN EARS saccharin AdvReac Intermediate FROM Verified 08/16/22 01:43 NUTRASWEET - DIZZINESS, MIGRAINES salicylates AdvReac Intermediate GERD, Verified 08/16/22 01:43 IRRITATES STOMACH, HIGH DOSE ONLY tramadol AdvReac Intermediate SWEATS, Verified 08/16/22 01:43 PALPITATIONS, RINGING IN EARS ibuprofen AdvReac Mild NUMBNESS Verified 08/16/22 01:43 NSAIDS (Non-Steroidal AdvReac Mild NUMBNESS Verified 08/16/22 01:43 Anti-Inflamma grapefruit AdvReac Unknown "CANNOT Verified 08/16/22 01:43 TAKE WITH HEART MEDICATION" Home Medications Medication Instructions Recorded Confirmed Type atorvastatin 10 mg tablet 10 mg PO 3XWK 10/30/18 11/20/22 History cholecalciferol (vitamin D3) 25 1,000 unit PO QAM 10/30/18 11/20/22 History mcg (1,000 unit) tablet docusate sodium 100 mg capsule 200 mg PO BID 10/30/18 11/20/22 History (Colace) folic acid 1 mg tablet 1 mg PO QAM 10/30/18 11/20/22 History lactulose 10 gram/15 mL oral 5 - 30 ml PO DAILY PRN Constipation 10/30/18 11/20/22 History solution metoprolol tartrate 50 mg tablet 50 mg PO BID 10/30/18 11/20/22 History sodium chloride 0.65 % nasal spray 1 spray intranasal UD 10/30/18 11/20/22 History aerosol (Saline Nose) albuterol sulfate 90 mcg/actuation 2 puff inhalation QID 04/19/19 11/20/22 History aerosol inhaler (ProAir HFA) duloxetine 60 mg capsule,delayed 60 mg PO QAM 04/19/19 11/20/22 History release cyanocobalamin (vitamin B-12) 1,000 mcg PO QAM 10/19/19 11/20/22 History 1,000 mcg tablet (Vitamin B-12) gabapentin 300 mg capsule 300 mg PO BID 02/23/21 11/20/22 History dicyclomine 10 mg capsule 10 mg PO TID PRN Abdominal 07/03/21 11/20/22 Rx Pain/Cramping #270 caps fluticasone propionate 50 2 spray intranasal DAILY 10/05/21 11/20/22 History mcg/actuation nasal spray,suspension magnesium oxide 400 mg PO QAM 10/05/21 11/20/22 History riboflavin (vitamin B2) 400 mg 400 mg PO QAM 10/05/21 11/20/22 History tablet torsemide 20 mg tablet 20 mg PO QAM 10/05/21 11/20/22 History conjugated estrogens 0.625 mg/gram 0.625 mg vaginal 2XWK #30 grams 07/11/22 11/20/22 Rx vaginal cream (Premarin) hydromorphone 2 mg tablet 1 mg PO Q4 PRN Pain 08/16/22 11/20/22 History xrymcv-yxlqwoex-jtuethq 2 cap PO .SNACKS 08/16/22 11/20/22 History 24,000-76,000-120,000 unit capsule,delayed rel (Creon) cdqacv-dikjtbvb-iyhcsfr 3 - 4 cap PO TIDWMEAL 08/16/22 11/20/22 History 24,000-76,000-120,000 unit capsule,delayed rel (Creon) prochlorperazine 25 mg rectal 25 mg [place] UD PRN as directed 09/15/22 11/20/22 History suppository (Compro) prochlorperazine maleate 5 mg 5 mg PO Q6 PRN Nausea 09/15/22 11/20/22 History tablet capecitabine 500 mg tablet 500 mg PO UD 11/20/22 11/20/22 History lidocaine-prilocaine 2.5 %-2.5 % 1 applic topical UD 11/20/22 11/20/22 History topical cream morphine 15 mg tablet,extended 15 mg PO AMHS 11/20/22 11/20/22 History release omeprazole 40 mg capsule,delayed 40 mg PO AMHS 11/20/22 11/20/22 History release ondansetron HCl 4 mg tablet 4 mg PO Q8H PRN Nausea 11/20/22 11/20/22 History potassium chloride 10 mEq 20 meq PO QAM 11/20/22 11/20/22 History tablet,extended release warfarin 5 mg tablet 5 mg PO UD 11/20/22 11/20/22 History Past Med/Surg History Medical History Atrial flutter 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 Kemp On anticoagulant therapy S/P MVR 09/2017 Rectocele Restless leg syndrome Rhinitis, non-allergic Shortness of breath SOB ON EXERTION - REASON FOR INHALER - NO USE OF INHALERS COUPLE YEARS PER PT Uterine cancer DX STAGE 1 - SURGERY Surgical History Fusion of spine HX LUMBAR AND CERVICAL (5 TOTAL SURGERIES) LIMITED ROM FOR NECK MOVING SIDE TO SIDE History of anesthesia reaction SLOW TO WAKE UP + SEE ALLERGIES-"LEFT LEG STAYS NUMB AND CAN'T MOVE LONGER PERIOD OF TIME POST OP History of bowel resection D/T BOWEL OBSTRUCTION History of cardiac cath 2017 (NO STENTS) History of cataract surgery bilat History of colonoscopy History of esophagogastroduodenoscopy (EGD) History of mitral valve replacement with bioprosthetic valve SEPTEMBER 2017 AT [facility] (WILL BRING CARD) (pig valve > [place])-ON [place] History of tooth extraction Hx of appendectomy Hx of mitral valve repair 2006; f/u Dr. 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: No Beliefs That Will Affect Care: Christian Christian Beliefs: Gnosticism Current Living Situation: Spouse current occupational status: retired Feels Safe at Home: Yes Assistive Devices: Cane Review of Systems Review of Systems: As per HPI, all other systems reviewed and negative Physical Exam Physical Exam: GENERAL: uncomfortable, no respiratory distress SKIN: Pallor, warm HEENT: Alopecia, pale palpebral conjunctivae, no ptosis, dry buccal mucosa NECK : Supple, no tenderness CHEST : CTA, no tenderness HEART : RRR, no obvious murmurs ABDOMEN: Some distention, epigastric tenderness EXTREMITIES : No LE swelling/tenderness, no other conspicuous deformities noted NEUROLOGIC : Coherent, no facial asymmetry, no other gross focality Results & Data Results & Data Vital Signs (Past 12 Hours) Vital Signs Temp Pulse Pulse Resp BP BP Pulse Ox 11/20/22 03:52 88 16 99 11/20/22 02:48 84 17 139/70 99 11/20/22 02:03 87 11/20/22 00:30 87 20 137/66 96 11/20/22 00:19 37.9 C H 11/19/22 22:17 107 H 11/19/22 22:39 39.1 C H 98 H 19 143/78 H 97 11/19/22 22:16 39.1 C H 105 H 20 143/78 H 99 O2 Del Method 11/20/22 03:52 Room Air 11/20/22 02:48 Room Air 11/20/22 02:03 11/20/22 00:30 Room Air 11/20/22 00:19 11/19/22 22:17 11/19/22 22:39 Room Air 11/19/22 22:16 Room Air Laboratory Results Laboratory Results WBC 9.70 K/ul (4.8-10.8) 11/19/22 23:08 RBC 3.22 M/uL (4.20-5.40) L 11/19/22 23:08 Hgb 11.1 g/dl (12.0-16.0) L 11/19/22 23:08 Hct 32.4 % (37.0-47.0) L 11/19/22 23:08 MCV 100.6 fL (80.0-100.0) H 11/19/22 23:08 MCH 34.5 pg (25.0-34.0) H 11/19/22 23:08 MCHC 34.3 g/dL (32.0-36.0) 11/19/22 23:08 RDW Std Deviation 69.0 fL (36.4-46.3) H 11/19/22 23:08 RDW Coeff of Angelique 18.8 % (11.5-14.5) H 11/19/22 23:08 Plt Count 180 K/uL (130-400) 11/19/22 23:08 MPV 10.8 fL (9.4-12.4) 11/19/22 23:08 Immature Gran % (Auto) 0.5 % 11/19/22 23:08 Neut % (Auto) 87.2 % 11/19/22 23:08 Lymph % (Auto) 2.4 % 11/19/22 23:08 [place] % (Auto) 9.9 % 11/19/22 23:08 Eos % (Auto) 0.0 % 11/19/22 23:08 Baso % (Auto) 0.0 % 11/19/22 23:08 Neut # (Auto) 8.46 K/uL (1.40-6.50) H 11/19/22 23:08 Lymph # (Auto) 0.23 K/uL (1.2-3.4) L 11/19/22 23:08 [place] # (Auto) 0.96 K/uL (0.11-0.59) H 11/19/22 23:08 Eos # (Auto) 0.00 K/uL (0-0.50) 11/19/22 23:08 Baso # (Auto) 0.00 K/uL (0-0.2) 11/19/22 23:08 Immature Gran # (Auto) 0.05 K/uL (0.01-0.20) 11/19/22 23:08 PT 15.1 Seconds (9.0-12.0) H 11/19/22 23:08 INR 1.4 (0.9-1.1) H 11/19/22 23:08 APTT 30.8 Seconds (21.0-31.0) 11/19/22 23:08 PTT Ratio 1.1 11/19/22 23:08 Sodium 135 mmol/L (136-145) L 11/19/22 23:08 Potassium 3.5 mmol/L (3.5-5.1) 11/19/22 23:08 Chloride 101 mmol/L (98-107) 11/19/22 23:08 Carbon Dioxide 24 mmol/L (21-32) 11/19/22 23:08 Anion Gap 10 (3-11) 11/19/22 23:08 BUN 11 mg/dl (6-23) 11/19/22 23:08 Creatinine 0.77 mg/dl (0.6-1.2) 11/19/22 23:08 Est Cr Clr Drug Dosing 59.3 ml/min 11/19/22 23:08 Est GFR ( Amer) 88.2 ml/min 11/19/22 23:08 Est GFR (Non-Af Amer) 76.1 ml/min 11/19/22 23:08 BUN/Creatinine Ratio 14.3 (10-20) 11/19/22 23:08 Glucose 207 mg/dl (70-99(Fasting)) H 11/19/22 23:08 Lactate 1.8 mmol/L (0.4-2.0) 11/19/22 23:08 Calcium 9.6 mg/dl (8.6-10.3) 11/19/22 23:08 Magnesium 1.7 mg/dl (1.7-2.4) 11/19/22 23:08 Total Bilirubin 1.4 mg/dl (0.2-1.0) H 11/19/22 23:08 Direct Bilirubin 0.5 mg/dl (0-0.2) H 11/19/22 23:08 AST 142 U/L (13-39) H 11/19/22 23:08 ALT 187 U/L (7-52) H 11/19/22 23:08 Alkaline Phosphatase 198 U/L (34-104) H 11/19/22 23:08 Troponin I High Sens 14.1 pg/ml (0-14) H 11/19/22 23:08 Total Protein 6.8 gm/dl (6.0-8.3) 11/19/22 23:08 Albumin 3.4 gm/dl (3.4-5.0) 11/19/22 23:08 Lipase 4 U/L (11-82) L 11/19/22 23:08 Procalcitonin 0.47 ng/ml (0-0.5) 11/19/22 23:08 Urine Color Dark Yellow 11/19/22 23:08 Urine Appearance Clear (Clear) 11/19/22 23:08 Urine pH 6.5 (4.5-7.5) 11/19/22 23:08 Ur Specific [place] 1.019 (1.000-1.030) 11/19/22 23:08 Urine Protein Negative (Negative) 11/19/22 23:08 Urine Glucose (UA) Negative (Negative) 11/19/22 23:08 Urine Ketones 1+ (Negative) H 11/19/22 23:08 Urine Blood Negative (Negative) 11/19/22 23:08 Urine Nitrite Negative (Negative) 11/19/22 23:08 Urine Bilirubin Negative (Negative) 11/19/22 23:08 Urine Urobilinogen Negative (Negative) 11/19/22 23:08 Ur Leukocyte Esterase Negative (Negative) 11/19/22 23:08 Adenovirus (PCR) Not Detected (NotDetected) 11/19/22 23:08 B. pertussis DNA (PCR) Not Detected (NotDetected) 11/19/22 23:08 B.parapertussis DNA PCR Not Detected (NotDetected) 11/19/22 23:08 C. pneumoniae DNA (PCR) Not Detected (NotDetected) 11/19/22 23:08 Coronavirus OC43 (PCR) Not Detected (NotDetected) 11/19/22 23:08 Coronavirus HKU1 (PCR) Not Detected (NotDetected) 11/19/22 23:08 Coronavirus 229E (PCR) Not Detected (NotDetected) 11/19/22 23:08 SARS-CoV-2 (PCR) Not Detected (NotDetected) 11/19/22 23:08 Coronavirus NL63 (PCR) Not Detected (NotDetected) 11/19/22 23:08 Human Metapneumovir PCR Not Detected (NotDetected) 11/19/22 23:08 Influenza Type A (PCR) Not Detected (NotDetected) 11/19/22 23:08 Influenza Type B (PCR) Not Detected (NotDetected) 11/19/22 23:08 M. pneumoniae (PCR) Not Detected (NotDetected) 11/19/22 23:08 Parainfluenza 1 (PCR) Not Detected (NotDetected) 11/19/22 23:08 Parainfluenza 2 (PCR) Not Detected (NotDetected) 11/19/22 23:08 Parainfluenza 3 (PCR) Not Detected (NotDetected) 11/19/22 23:08 Parainfluenza 4 (PCR) Not Detected (NotDetected) 11/19/22 23:08 RSV (PCR) Not Detected (NotDetected) 11/19/22 23:08 Entero/Rhino (PCR) Not Detected (NotDetected) 11/19/22 23:08 Impressions Abdomen/Pelvis CT 11/19/22 22:25 Exam(s): CT ABDOMEN + PELVIS Without Contrast EXAM: CT Abdomen and Pelvis Without Intravenous Contrast CLINICAL HISTORY: Reason for exam: sepsis, pain, Pancreatic CA. TECHNIQUE: Axial computed tomography images of the abdomen and pelvis without intravenous contrast. CTDI is 18.47 mGy and DLP is 914.85 mGy-cm. Automated exposure control was utilized for the study. A dose lowering technique was utilized adhering to the principles of ALARA. COMPARISON: 11/05/2022 FINDINGS: Lung bases: Unremarkable. No mass. No consolidation. ABDOMEN: Liver: Increasing periportal edema. Simple hepatic cysts are again noted. Gallbladder and bile ducts: Increasing the thick-walled gallbladder with surrounding inflammation. Metal biliary stent remains in position. No calcified stones. No ductal dilation. Pancreas: Unremarkable. No ductal dilation. Spleen: Unremarkable. No splenomegaly. Adrenals: Unremarkable. No mass. Kidneys and ureters: Unremarkable. No obstructing stones. No hydronephrosis. Stomach and bowel: Unremarkable. No obstruction. No mucosal thickening. PELVIS: Appendix: No findings to suggest acute appendicitis. Bladder: Unremarkable. No stones. Reproductive: Uterus has been removed. ABDOMEN and PELVIS: Intraperitoneal space: Mild ascites increased from prior exam. No free air. Bones/joints: No acute fracture. No dislocation. Soft tissues: See above. Vasculature: Unremarkable. No abdominal aortic aneurysm. Lymph nodes: Unremarkable. No enlarged lymph nodes. IMPRESSION: 1. Increasing the thick-walled gallbladder with surrounding inflammation. 2. Increasing periportal edema. 3. Mild ascites increased from prior exam. Electronically signed by: Coleman Germain M.D. 11/20/22 00:20 AM Diagnostic Findings Chest x-ray as per my interpretation cardiomegaly EKG as per my interpretation :Rate 110, sinus tachycardia, normal axis, T wave abnormalities septal leads
[2022-11-20] MEDS ORDERED: LORazepam 0.5 MG TAB PO PRN (04:16)
[2022-11-20] MEDS ORDERED: PROMETHAZINE HCL 6.25 MG in SODIUM CHLORIDE 0.9% 50 ML IV PRN (04:16)
[2022-11-20] MEDS ORDERED: ACETAMINOPHEN 325 MG TAB PO PRN (04:24)
[2022-11-20] MEDS ORDERED: HYDROmorphone HCL 2 MG TAB PO PRN (04:45)
[2022-11-20] MEDS ORDERED: DEXTROSE 50% 50 ML SYRINGE IV PRN (05:30)
[2022-11-20] MEDS ORDERED: CARBOHYDRATES FOR HYPOGLYCEMIA PO PRN (05:30)
[2022-11-20] MEDS ORDERED: GLUCOSE 40% GEL 15 GM TUBE PO PRN (05:30)
[2022-11-20] MEDS ORDERED: GLUCOSE 10 TAB/TUBE PO PRN (05:30)
[2022-11-20] MEDS ORDERED: GLUCAGON FOR INJ 1 MG VIAL IM PRN (05:30)
[2022-11-20] MEDS: ALBUMIN 25% 25 GM/100 ML VIAL IV SCH ×3 (05:52→21:44)
[2022-11-20 06:08] LABS: Eosinophils # (auto) 0.01 K/uL (0-0.50); Eosinophils % (auto) 0.1 %; Hematocrit (blood only) 29.6 % (37.0-47.0); Immature Granulocytes # (auto) 0.02 K/uL (0.01-0.20); Immature Granulocytes % (auto) 0.3 %; Lymphocytes # (auto) 0.37 K/uL (1.2-3.4); Lymphocytes % (auto) 4.7 %; Mean Corpuscular Hemoglobin 34.5 pg (25.0-34.0); Mean Corpuscular Hgb Conc 33.8 g/dL (32.0-36.0); Mean Corpuscular Volume 102.1 fL (80.0-100.0); Mean Platelet Volume 10.7 fL (9.4-12.4); Monocytes # (auto) 1.03 K/uL (0.11-0.59); Monocytes % (auto) 13.2 %; Neutrophils # (auto) 6.36 K/uL (1.40-6.50); Neutrophils % (auto) 81.7 %; Platelet Count 174 K/uL (130-400); RDW Coefficient of Variation 18.9 % (11.5-14.5); RDW Standard Deviation 70.8 fL (36.4-46.3); White Blood Count 7.79 K/ul (4.8-10.8)
[2022-11-20] MEDS ORDERED: FAMOTIDINE 20MG/5ML IV PUSH IV ONE ×2 (06:12→14:22)
[2022-11-20] MEDS: HYDROmorphone INJ 0.5 MG/0.5 ML SYR IV PRN ×4 (06:19→23:16)
[2022-11-20] MEDS: FAMOTIDINE 20 MG in SYRINGE 3 ML IV SCH ×4 (06:21→23:35)
[2022-11-20 06:25] LABS: Albumin Globulin Ratio 1.1 (0.9-2); Albumin Level 3.2 gm/dl (3.4-5.0); BUN Creatinine Ratio 14.5 (10-20); Creatinine Clr Calc Pharmacy 60.1 ml/min; Est GFR (African American) 89.6 ml/min; Est GFR (Non-African American) 77.3 ml/min; Potassium 3.6 mmol/L (3.5-5.1); Total Protein 6.2 gm/dl (6.0-8.3)
[2022-11-20 06:31] LABS: Troponin I High Sensitivity 12.8 pg/ml (0-14)
[2022-11-20 06:41] LABS: Partial Thromboplastin Ratio 0.9; Partial Thromboplastin Time 25.1 Seconds (21.0-31.0)
--- NOTE | 2022-11-20 07:09 | Magnetic Resonance Report ---
MRCP CLINICAL HISTORY: Abdominal pain. Abnormal liver function tests. Pancreatic cancer. TECHNIQUE: Utilizing a 1.5 Michelle magnet and dedicated coil, multiplanar, multiecho imaging of the [facility] abdomen was performed utilizing heavily T2 weighted pulsing sequences without IV contrast. COMPARISON STUDY: CTs of the abdomen pelvis November 05, 2022 and November 19, 2022. FINDINGS: Multiple hepatic cysts are noted. No suspicious hepatic lesions are identified on this unen hanced examination. A small amount of upper abdominal ascites is noted. The gallbladder is mildly dis tended. Gallbladder wall thickening is again noted. There is suspected sludge within the gallbladder. Trace gas within the gallbladder is better depicted on CT of November 19, 2022. The appearance of the ga llbladder similar to CT of November 05, 2022. A common bile duct stent is in place. There is gas within t he stent, also better depicted on CT. Mild intrahepatic biliary ductal dilatation remains unchanged s júnior CT of November 05, 2022. A 2.1 x 2.1 cm focus of restricted diffusion within the pancreatic head lik katerine reflects the primary neoplasm. Pancreatic glandular atrophy and mild pancreatic ductal dilatation are noted. This exam is compromised by motion artifact. There is no hydronephrosis. No fluid collect ion within the abdomen is identified. Narrowing of the portosplenic confluence is better depicted on recent contrast-enhanced CT. IMPRESSION: 1. Common bile duct stent in place. No change in mild intrahepatic biliary ductal dilatation. 2. 2.1 cm focus of restricted diffusion within the pancreatic head which likely reflects the known pr imary neoplasm. 3. Mildly distended gallbladder with gallbladder wall thickening and suspected sludge within the gall bladder. The appearance of the gallbladder similar to earlier CT of November 05, 2022. If right upper juhi drant pain, ultrasound is recommended to assess for cholecystitis. 4. Small amount of upper abdominal ascites. ACT 112: Negative or not required by law. Electronically signed by: Jamil Abdi M.D. 11/20/2022 7:07 AM
[2022-11-20 07:25] LABS: Estimated Average Glucose 154 mg/dl
--- NOTE | 2022-11-20 08:02 | XRay Report ---
SINGLE VIEW CHEST CLINICAL HISTORY: Sepsis. FINDINGS: An AP, portable, upright chest radiograph is compared to study dated 08/15/2022 and correlat ed with chest CT dated 11/05/2022. The patient is status post midline sternotomy. A right-sided centra l venous infusion port is unchanged in position. The heart is enlarged. The pulmonary vasculature is noncongested. There is mild elevation of the right hemidiaphragm. The lungs and pleural spaces are cl ear. No pneumothorax is seen. The skeletal structures are osteopenic. The bony thorax is grossly inta ct. Fusion hardware is noted in the lower cervical spine. A common bile duct stent is seen in the rig ht upper quadrant. IMPRESSION: Cardiomegaly with no active disease in the chest. ACT 112: Negative or not required by law. Electronically signed by: Eddie Pop M.D. 11/20/2022 8:00 AM
[2022-11-20] MEDS ORDERED: HYDROmorphone INJ 0.5 MG/0.5 ML SYR IV PRN (08:14)
[2022-11-20] MEDS ORDERED: NON-FORMULARY MEDICATION (Riboflavin (Vitamin B2) 400 mg Tablet) PO SCH (09:00)
[2022-11-20] MEDS ORDERED: FLUTICASONE PROPIONATE NA SPR 16 GM BTL SCH (09:00)
[2022-11-20] MEDS ORDERED: FOLIC ACID 1 MG TAB PO SCH (09:00)
[2022-11-20] MEDS ORDERED: PANTOprazole 40 MG TAB PO SCH (09:00)
[2022-11-20] MEDS ORDERED: DULoxetine HCL 60 MG CAP PO SCH (09:00)
[2022-11-20] MEDS ORDERED: POTASSIUM CHLORIDE CRTAB 20 MEQ TABCR PO SCH (09:00)
[2022-11-20] MEDS ORDERED: MoRPHine SULFATE CR 15 MG TABCR PO SCH (09:00)
[2022-11-20] MEDS ORDERED: CYANOCOBALAMIN (B-12) 500 MCG TABLET PO SCH (09:00)
[2022-11-20] MEDS ORDERED: PIPERACILLIN/TAZOBACTAM 4.5 GM/120ML D5W IV ONE (09:29)
[2022-11-20] MEDS: PIPERACILLIN/TAZOBACTAM 4.5 GM in DEXTROSE 5% 100 ML IV SCH ×3 (09:53→23:17)
[2022-11-20] MEDS: GABAPENTIN 300 MG CAP PO SCH ×2 (09:55→21:51)
[2022-11-20] MEDS: METOPROLOL TARTRATE 50 MG TAB PO SCH ×2 (09:55→21:51)
[2022-11-20] MEDS: LANTUS PER UNIT CHARGE SQ SCH ×2 (09:55→10:03)
[2022-11-20] MEDS: DOCUSATE SODIUM 100 MG CAP PO SCH ×2 (09:56→21:52)
--- NOTE | 2022-11-20 10:44 | Gastrointestinal Consultation ---
Date of Consultation November 20, 2022 Assessment & Plan (1) Abdominal pain: In the setting of ongoing chemotherapy for pancreatic cancer with biliary stent in place. -Would advise continuation of broad spectrum antibiotic coverage with Zosyn -Would advise primary team rule out other non-GI infectious causes of fever -Obtain acute hepatitis panel, CMV, EBV panels -Obtain an US to assess for cholecystitis as she does have abnormal imaging, elevated LFTs, and RUQ pain -Continue to monitor LFTs -Surgical evaluation and evaluation by a biliary GI service may be necessary based upon results of pending US, however patient's notes that they would not consent to any biliary procedures or surgical intervention at this facility and would only consider this be done through [facility]. To that end, other than the aforementioned recommendations, our [facility] GI service would not have further interventions to offer this patient at present. Supervising Physician Co-Signing Physician Notes Agree with USHA Brambila as above Abd: Soft, tender, ND RUQ US Reviewed with Dr. Pop: No evidence of acute cholecystitis Continue current therapy and supportive care No need for surgical intervention/endoscopic therapy History of Present Illness Reason for Consultation: Abnormal LFTs, ?cholecystitis Attending Physician: Vinny Ojeda MD History of Present Illness Patient is a 76 yo female with pancreatic cancer currently undergoing chemothe rapy at [facility]. Last dose of chemotherapy was yesterday. Her called an ambulance at home because she was disoriented, having abdominal pain, and developed n/v. She was brought to [facility] where she was found to have have fever. She is on neutropenic precautions given her immunocompromised status. Abdominal CT showed an increased thickening of the gallbladder wall, periportal edema, and ascites. MRCP indicated the followin. Common bile duct stent in place. No change in mild intrahepatic biliary ductal dilatation. 2. 2.1 cm focus of restricted diffusion within the pancreatic head which likely reflects the known primary neoplasm. 3. Mildly distended gallbladder with gallbladder wall thickening and suspected sludge within the gallbladder. The appearance of the gallbladder similar to earlier CT of November 05, 2022. If right upper quadrant pain, ultrasound is recommended to assess for cholecystitis. 4. Small amount of upper abdominal ascites. Patient is reporting RUQ pain, nausea, & vomiting. Her LFTs are bumped with an AST of 107, ALT 155, T bili 2.0, Alk phos 171. An abdominal US was recommended to assess for cholecystitis. Patient's notes she is requiring more pain medication than expected to control her discomfort. She has an appointment with her oncologist next week at [place]. [employer] respiratory panel negative for infectious process. Allergies Allergy/AdvReac Type Severity Reaction Status Date / Time latex Allergy Severe RASH AND Verified 08/16/22 01:43 CAN'T BREATHE, HIVES morphine Allergy Severe HEART Verified 08/16/22 01:43 STOPPED AND "I STOPPED LIVING" pentobarbital Allergy Severe "HEART Verified 08/16/22 01:43 STOPPED" phenobarbital Allergy Severe "HEART Verified 08/16/22 01:43 STOPPED" thiopental Allergy Severe "HEART Verified 08/16/22 01:43 STOPPED" adhesive Allergy Intermediate REDNESS Verified 08/16/22 01:43 AND HIVES-TAPE ferrous sulfate Allergy Intermediate HIVES Verified 08/16/22 01:43 Iodinated Contrast Media Allergy Intermediate HIVES Verified 08/16/22 01:43 ioversol Allergy Intermediate HIVES Verified 08/16/22 01:43 lorazepam Allergy Intermediate HIVES AND Verified 08/16/22 01:43 SWEATING nickel Allergy Intermediate HIVES AND Verified 08/16/22 01:43 RASH pantoprazole Allergy Intermediate HIVES AND Verified 08/16/22 01:43 ITCHING prednisone Allergy Intermediate HIVES Verified 08/16/22 01:43 Sulfa (Sulfonamide Allergy Intermediate RASH, HIVES Verified 08/16/22 01:43 Antibiotics) aspartame AdvReac Intermediate DIZZINESS, Verified 08/16/22 01:43 MIGRAINES aspirin AdvReac Intermediate SWEATS, Verified 08/16/22 01:43 PALPITATIONS, RINGING IN EARS Benzodiazepines AdvReac Intermediate SWEATS, Verified 08/16/22 01:43 PALPITATIONS, RINGING IN EARS caffeine AdvReac Intermediate JITTERY Verified 08/16/22 01:43 codeine AdvReac Intermediate SWEATS, Verified 08/16/22 01:43 PALPITATIONS, RINGING IN EARS, HIVES diazepam AdvReac Intermediate SWEATING Verified 08/16/22 01:43 oxycodone AdvReac Intermediate HEART RACES Verified 08/16/22 01:43 propoxyphene AdvReac Intermediate SWEATS, Verified 08/16/22 01:43 PALPITATIONS, RINGING IN EARS saccharin AdvReac Intermediate FROM Verified 08/16/22 01:43 NUTRASWEET - DIZZINESS, MIGRAINES salicylates AdvReac Intermediate GERD, Verified 08/16/22 01:43 IRRITATES STOMACH, HIGH DOSE ONLY tramadol AdvReac Intermediate SWEATS, Verified 08/16/22 01:43 PALPITATIONS, RINGING IN EARS ibuprofen AdvReac Mild NUMBNESS Verified 08/16/22 01:43 NSAIDS (Non-Steroidal AdvReac Mild NUMBNESS Verified 08/16/22 01:43 Anti-Inflamma grapefruit AdvReac Unknown "CANNOT Verified 08/16/22 01:43 TAKE WITH HEART MEDICATION" Home Medications Medication Instructions Recorded Confirmed Type atorvastatin 10 mg tablet 10 mg PO 3XWK 10/30/18 11/20/22 History cholecalciferol (vitamin D3) 25 1,000 unit PO QAM 10/30/18 11/20/22 History mcg (1,000 unit) tablet docusate sodium 100 mg capsule 200 mg PO BID 10/30/18 11/20/22 History (Colace) folic acid 1 mg tablet 1 mg PO QAM 10/30/18 11/20/22 History lactulose 10 gram/15 mL oral 5 - 30 ml PO DAILY PRN Constipation 10/30/18 11/20/22 History solution metoprolol tartrate 50 mg tablet 50 mg PO BID 10/30/18 11/20/22 History sodium chloride 0.65 % nasal spray 1 spray intranasal UD 10/30/18 11/20/22 History aerosol (Saline Nose) albuterol sulfate 90 mcg/actuation 2 puff inhalation QID 04/19/19 11/20/22 History aerosol inhaler (ProAir HFA) duloxetine 60 mg capsule,delayed 60 mg PO QAM 04/19/19 11/20/22 History release cyanocobalamin (vitamin B-12) 1,000 mcg PO QAM 10/19/19 11/20/22 History 1,000 mcg tablet (Vitamin B-12) gabapentin 300 mg capsule 300 mg PO BID 02/23/21 11/20/22 History dicyclomine 10 mg capsule 10 mg PO TID PRN Abdominal 07/03/21 11/20/22 Rx Pain/Cramping #270 caps fluticasone propionate 50 2 spray intranasal DAILY 10/05/21 11/20/22 History mcg/actuation nasal spray,suspension magnesium oxide 400 mg PO QAM 10/05/21 11/20/22 History riboflavin (vitamin B2) 400 mg 400 mg PO QAM 10/05/21 11/20/22 History tablet torsemide 20 mg tablet 20 mg PO QAM 10/05/21 11/20/22 History conjugated estrogens 0.625 mg/gram 0.625 mg vaginal 2XWK #30 grams 07/11/22 11/20/22 Rx vaginal cream (Premarin) hydromorphone 2 mg tablet 1 mg PO Q4 PRN Pain 08/16/22 11/20/22 History oxmgeu-hsmphnyf-ynsqwxa 2 cap PO .SNACKS 08/16/22 11/20/22 History 24,000-76,000-120,000 unit capsule,delayed rel (Creon) onmxwd-kglrvltr-hkxjhzy 3 - 4 cap PO TIDWMEAL 08/16/22 11/20/22 History 24,000-76,000-120,000 unit capsule,delayed rel (Creon) prochlorperazine 25 mg rectal 25 mg DE UD PRN as directed 09/15/22 11/20/22 History suppository (Compro) prochlorperazine maleate 5 mg 5 mg PO Q6 PRN Nausea 09/15/22 11/20/22 History tablet capecitabine 500 mg tablet 500 mg PO UD 11/20/22 11/20/22 History lidocaine-prilocaine 2.5 %-2.5 % 1 applic topical UD 11/20/22 11/20/22 History topical cream morphine 15 mg tablet,extended 15 mg PO AMHS 11/20/22 11/20/22 History release omeprazole 40 mg capsule,delayed 40 mg PO AMHS 11/20/22 11/20/22 History release ondansetron HCl 4 mg tablet 4 mg PO Q8H PRN Nausea 11/20/22 11/20/22 History potassium chloride 10 mEq 20 meq PO QAM 11/20/22 11/20/22 History tablet,extended release warfarin 5 mg tablet 5 mg PO UD 11/20/22 11/20/22 History Patient History Medical History Atrial 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 Kemp On anticoagulant therapy S/P MVR 09/2017 Rectocele Restless leg syndrome Rhinitis, non-allergic Shortness of breath SOB ON EXERTION - REASON FOR INHALER - NO USE OF INHALERS COUPLE YEARS PER PT Uterine cancer DX STAGE 1 - SURGERY Surgical History Fusion of spine HX LUMBAR AND CERVICAL (5 TOTAL SURGERIES) LIMITED ROM FOR NECK MOVING SIDE TO SIDE History of anesthesia reaction SLOW TO WAKE UP + SEE ALLERGIES-"LEFT LEG STAYS NUMB AND CAN'T MOVE LONGER PERIOD OF TIME POST OP History of bowel resection D/T BOWEL OBSTRUCTION History of cardiac cath 2017 (NO STENTS) History of cataract surgery bilat History of colonoscopy History of esophagogastroduodenoscopy (EGD) History of mitral valve replacement with bioprosthetic valve SEPTEMBER 2017 AT [facility] (WILL BRING CARD) (pig valve > [place])-ON [place] History of tooth extraction Hx of appendectomy Hx of mitral valve repair 2006; f/u Dr. Kemp Hx of total hysterectomy with removal of both tubes and ovaries Family History Other Asthma Family history of reaction to anesthesia Heart disease Hypertension Social History Smoking Status: Never smoker Second Hand Exposure: No; Do You Dip or Chew Tobacco: No; Hx Alcohol Use: No Hx Substance Use: No Preferred Language: Ecuadorean Communication Ability: Effective Gray Tender Required: No Beliefs That Will Affect Care: Cheondoism Cheondoism Beliefs: Rastafari Current Living Situation: Spouse current occupational status: retired Feels Safe at Home: Yes Assistive Devices: Cane Review of Systems Constitutional: + fever and + weakness; no chills Respiratory: no cough and no dyspnea Cardiovascular: no chest pain Gastrointestinal: + abdominal pain (RUQ), + nausea and + vomiting Psychiatric: no problem reported Physical Exam Constitutional: + ill appearing Neck: normal visual inspection Cardiovascular: Rate/Rhythm: regular rate Gastrointestinal (Abdomen): Inspection/Auscultation: abdomen not distended Percussion/Palpation: + abdomen tender Musculoskeletal: Head/Neck/Chest: normocephalic Psychiatric: Orientation: alert and oriented x 3 Results & Data Vital Signs (Past 12 Hours) Vital Signs Temp Pulse Pulse Resp BP BP Pulse Ox 11/20/22 07:00 141/84 H 11/20/22 07:00 87 15 98 11/20/22 06:00 150/75 H 11/20/22 06:00 82 14 100 11/20/22 06:40 11/20/22 03:52 88 16 99 11/20/22 02:48 84 17 139/70 99 11/20/22 02:03 87 11/20/22 00:30 87 20 137/66 96 11/20/22 00:19 37.9 C H 11/19/22 22:39 39.1 C H 98 H 19 143/78 H 97 Pulse Ox O2 Del Method O2 Del Method O2 Flow Rate 11/20/22 07:00 11/20/22 07:00 Room Air 11/20/22 06:00 11/20/22 06:00 Room Air 11/20/22 06:40 100 Room Air 0 11/20/22 03:52 Room Air 11/20/22 02:48 Room Air 11/20/22 02:03 11/20/22 00:30 Room Air 11/20/22 00:19 11/19/22 22:39 Room Air PG Care Time/CCT Total # of Minutes Spent Total Time Spent with Patient: Total time spent is greater than 50% in coordination of care (as documented) at patient's floor/unit and/or counseling patient: Coding Level of Care Code 85715 INT INP/OBS CARE 3/75MIN Diagnoses Abdominal pain R10.9
--- NOTE | 2022-11-20 12:44 | Surgery Consultation ---
Date of Consultation November 20, 2022 Assessment & Plan (1) Abdominal pain: Patient is a 76 year old female with a PMH of Pancreatic cancer (currently on a chemo regimen at [place]), Colitis, a-flutter, Choledocholithiasis, IBS, GERD, Bioprosthetic valve replacement, that presented to the ER 11/19/22 with complaint of abdominal pain, nausea, and vomiting. Patient was noted to have a fever upon arrival to the ER. She is currently on neutropenic precautions. Total bilirubin 2, AST 107, ALT 155, Alkaline phosphate 171. Patient underwent an MRCP that shows she has a CBD stent in place, 2.1 cm focus of restricted diffusion within pancreatic head, mildly distended gallbladder with wall thickening and suspected sludge within the gallbladder, small amount of abdominal ascites. An ultrasound was ordered to further evaluate the gallbladder for the possibility of acute cholecystitis. Patient reports her past surgical history is a bowel resection, MVR with bioprosthetic valve, total hysterectomy, cervical and lumbar fusions. Patient is currently taking Warfarin, and was noted to have a positive FOBT in the ER. Given the patients PMH and comorbidities it is advised that if the patient needs surgical intervention that she be transferred to a tertiary care center. Supervising Physician Co-Signing Physician Notes Patient seen and examined, labs and imaging reviewed, agree with above. 76-year-old female with multiple medical problems including pancreatic cancer with history of biliary stent placement and radiation therapy to the abdomen currently on chemotherapy presented with abdominal pain. Imaging studies had suspicion for cholecystitis. On exam she is currently febrile with no tachycardia and hypertensive. Her abdomen is soft, she is mildly tender to palpation across her upper abdomen. WBC normal, LFTs and bilirubin moderately elevated. CT and MRI personally reviewed and interpreted and agree with the assessment of a biliary stent in place with mildly distended and thick-walled gallbladder. It is difficult to appreciate whether this represents cholecystitis and ultrasound has been ordered. Given her history she is not a surgical candidate at this facility If it is felt that her biliary stent is patent, and that her symptoms are related to cholecystitis, then would recommend antibiotics. She may require a less invasive drainage procedure such as percutaneous cholecystostomy tube versus endoscopic intervention such as axial stent. Given her history this would need to be performed at a tertiary center Discussion should be had with her cancer team down at [facility], and she may benefit from completing this evaluation at a tertiary center Surgery will follow peripherally, call with questions or concerns History of Present Illness Attending Physician: Vinny Ojeda MD History of Present Illness Patient is a 76 year old female with a PMH of Pancreatic cancer (currently on a chemo regimen), Colitis, a-flutter, Choledocholithiasis, IBS, GERD, Bioprosthetic valve replacement, that presented to the ER 11/19/22 with complaint of abdominal pain, nausea, and vomiting. Patient was noted to have a fever upon arrival to the ER. She is currently on neutropenic precautions. Allergies Allergy/AdvReac Type Severity Reaction Status Date / Time latex Allergy Severe RASH AND Verified 08/16/22 01:43 CAN'T BREATHE, HIVES morphine Allergy Severe HEART Verified 08/16/22 01:43 STOPPED AND "I STOPPED LIVING" pentobarbital Allergy Severe "HEART Verified 08/16/22 01:43 STOPPED" phenobarbital Allergy Severe "HEART Verified 08/16/22 01:43 STOPPED" thiopental Allergy Severe "HEART Verified 08/16/22 01:43 STOPPED" adhesive Allergy Intermediate REDNESS Verified 08/16/22 01:43 AND HIVES-TAPE ferrous sulfate Allergy Intermediate HIVES Verified 08/16/22 01:43 Iodinated Contrast Media Allergy Intermediate HIVES Verified 08/16/22 01:43 ioversol Allergy Intermediate HIVES Verified 08/16/22 01:43 lorazepam Allergy Intermediate HIVES AND Verified 08/16/22 01:43 SWEATING nickel Allergy Intermediate HIVES AND Verified 08/16/22 01:43 RASH pantoprazole Allergy Intermediate HIVES AND Verified 08/16/22 01:43 ITCHING prednisone Allergy Intermediate HIVES Verified 08/16/22 01:43 Sulfa (Sulfonamide Allergy Intermediate RASH, HIVES Verified 08/16/22 01:43 Antibiotics) aspartame AdvReac Intermediate DIZZINESS, Verified 08/16/22 01:43 MIGRAINES aspirin AdvReac Intermediate SWEATS, Verified 08/16/22 01:43 PALPITATIONS, RINGING IN EARS Benzodiazepines AdvReac Intermediate SWEATS, Verified 08/16/22 01:43 PALPITATIONS, RINGING IN EARS caffeine AdvReac Intermediate JITTERY Verified 08/16/22 01:43 codeine AdvReac Intermediate SWEATS, Verified 08/16/22 01:43 PALPITATIONS, RINGING IN EARS, HIVES diazepam AdvReac Intermediate SWEATING Verified 08/16/22 01:43 oxycodone AdvReac Intermediate HEART RACES Verified 08/16/22 01:43 propoxyphene AdvReac Intermediate SWEATS, Verified 08/16/22 01:43 PALPITATIONS, RINGING IN EARS saccharin AdvReac Intermediate FROM Verified 08/16/22 01:43 NUTRASWEET - DIZZINESS, MIGRAINES salicylates AdvReac Intermediate GERD, Verified 08/16/22 01:43 IRRITATES STOMACH, HIGH DOSE ONLY tramadol AdvReac Intermediate SWEATS, Verified 08/16/22 01:43 PALPITATIONS, RINGING IN EARS ibuprofen AdvReac Mild NUMBNESS Verified 08/16/22 01:43 NSAIDS (Non-Steroidal AdvReac Mild NUMBNESS Verified 08/16/22 01:43 Anti-Inflamma grapefruit AdvReac Unknown "CANNOT Verified 08/16/22 01:43 TAKE WITH HEART MEDICATION" Home Medications Medication Instructions Recorded Confirmed Type atorvastatin 10 mg tablet 10 mg PO 3XWK 10/30/18 11/20/22 History cholecalciferol (vitamin D3) 25 1,000 unit PO QAM 10/30/18 11/20/22 History mcg (1,000 unit) tablet docusate sodium 100 mg capsule 200 mg PO BID 10/30/18 11/20/22 History (Colace) folic acid 1 mg tablet 1 mg PO QAM 10/30/18 11/20/22 History lactulose 10 gram/15 mL oral 5 - 30 ml PO DAILY PRN Constipation 10/30/18 11/20/22 History solution metoprolol tartrate 50 mg tablet 50 mg PO BID 10/30/18 11/20/22 History sodium chloride 0.65 % nasal spray 1 spray intranasal UD 10/30/18 11/20/22 History aerosol (Saline Nose) albuterol sulfate 90 mcg/actuation 2 puff inhalation QID 04/19/19 11/20/22 History aerosol inhaler (ProAir HFA) duloxetine 60 mg capsule,delayed 60 mg PO QAM 04/19/19 11/20/22 History release cyanocobalamin (vitamin B-12) 1,000 mcg PO QAM 10/19/19 11/20/22 History 1,000 mcg tablet (Vitamin B-12) gabapentin 300 mg capsule 300 mg PO BID 02/23/21 11/20/22 History dicyclomine 10 mg capsule 10 mg PO TID PRN Abdominal 07/03/21 11/20/22 Rx Pain/Cramping #270 caps fluticasone propionate 50 2 spray intranasal DAILY 10/05/21 11/20/22 History mcg/actuation nasal spray,suspension magnesium oxide 400 mg PO QAM 10/05/21 11/20/22 History riboflavin (vitamin B2) 400 mg 400 mg PO QAM 10/05/21 11/20/22 History tablet torsemide 20 mg tablet 20 mg PO QAM 10/05/21 11/20/22 History conjugated estrogens 0.625 mg/gram 0.625 mg vaginal 2XWK #30 grams 07/11/22 11/20/22 Rx vaginal cream (Premarin) hydromorphone 2 mg tablet 1 mg PO Q4 PRN Pain 08/16/22 11/20/22 History dxeuth-emyohpip-zwenmfd 2 cap PO .SNACKS 08/16/22 11/20/22 History 24,000-76,000-120,000 unit capsule,delayed rel (Creon) zkonnq-eogxbtmz-vusepvm 3 - 4 cap PO TIDWMEAL 08/16/22 11/20/22 History 24,000-76,000-120,000 unit capsule,delayed rel (Creon) prochlorperazine 25 mg rectal 25 mg OH UD PRN as directed 09/15/22 11/20/22 History suppository (Compro) prochlorperazine maleate 5 mg 5 mg PO Q6 PRN Nausea 09/15/22 11/20/22 History tablet capecitabine 500 mg tablet 500 mg PO UD 11/20/22 11/20/22 History lidocaine-prilocaine 2.5 %-2.5 % 1 applic topical UD 11/20/22 11/20/22 History topical cream morphine 15 mg tablet,extended 15 mg PO AMHS 11/20/22 11/20/22 History release omeprazole 40 mg capsule,delayed 40 mg PO AMHS 11/20/22 11/20/22 History release ondansetron HCl 4 mg tablet 4 mg PO Q8H PRN Nausea 11/20/22 11/20/22 History potassium chloride 10 mEq 20 meq PO QAM 11/20/22 11/20/22 History tablet,extended release warfarin 5 mg tablet 5 mg PO UD 11/20/22 11/20/22 History Patient History Medical History Atrial flutter 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 Kemp On anticoagulant therapy S/P MVR 09/2017 Rectocele Restless leg syndrome Rhinitis, non-allergic Shortness of breath SOB ON EXERTION - REASON FOR INHALER - NO USE OF INHALERS COUPLE YEARS PER PT Uterine cancer DX STAGE 1 - SURGERY Surgical History Fusion of spine HX LUMBAR AND CERVICAL (5 TOTAL SURGERIES) LIMITED ROM FOR NECK MOVING SIDE TO SIDE History of anesthesia reaction SLOW TO WAKE UP + SEE ALLERGIES-"LEFT LEG STAYS NUMB AND CAN'T MOVE LONGER PERIOD OF TIME POST OP History of bowel resection D/T BOWEL OBSTRUCTION History of cardiac cath 2017 (NO STENTS) History of cataract surgery bilat History of colonoscopy History of esophagogastroduodenoscopy (EGD) History of mitral valve replacement with bioprosthetic valve SEPTEMBER 2017 AT [facility] (WILL BRING CARD) (pig valve > [place])-ON WARFARIN History of tooth extraction Hx of appendectomy Hx of mitral valve repair 2006; f/u Dr. Kemp Hx of total hysterectomy with removal of both tubes and ovaries Family History Other Asthma Family history of reaction to anesthesia Heart disease Hypertension Social History Smoking Status: Never smoker Second Hand Exposure: No; Do You Dip or Chew Tobacco: No; Hx Alcohol Use: No Hx Substance Use: No Preferred Language: Swedish Communication Ability: Effective Post Acute Care Nurse Required: No Beliefs That Will Affect Care: Caodaism Caodaism Beliefs: Yarsani Current Living Situation: Spouse current occupational status: retired Feels Safe at Home: Yes Assistive Devices: Cane Review of Systems Constitutional: + fever Gastrointestinal: + abdominal pain, + nausea and + vomiting Genitourinary: no problem reported Physical Exam Constitutional: cooperative and comfortable Respiratory: able to speak in complete sentences; no respiratory distress Cardiovascular: Rate/Rhythm: regular rate Gastrointestinal (Abdomen): Percussion/Palpation: + abdomen tender and abdomen soft; no guarding Results & Data Vital Signs (Past 12 Hours) Vital Signs Pulse Resp BP Pulse Ox Pulse Ox O2 Del Method O2 Del Method 11/20/22 07:00 141/84 H 11/20/22 07:00 87 15 98 Room Air 11/20/22 06:00 150/75 H 11/20/22 06:00 82 14 100 Room Air 11/20/22 06:40 100 Room Air 11/20/22 03:52 88 16 99 Room Air 11/20/22 02:48 84 17 139/70 99 Room Air 11/20/22 02:03 87 O2 Flow Rate 11/20/22 07:00 11/20/22 07:00 11/20/22 06:00 11/20/22 06:00 11/20/22 06:40 0 11/20/22 03:52 11/20/22 02:48 11/20/22 02:03 Diagnostic Findings [place], [place] [phone] Magnetic Resonance Report Patient:MEME TELLEZ Admit Date:11/20/22 MR#:[id number] Address1:[address] [facility] Acct ID:[id number] Address2: Date:1945 [address] [facility] Zip:[place] [address] Age:76 Location:[facility] Sex:F Room/Bed:[place] [address] Att Phy:Vinny Ojeda MD Diagnosis:SEPSIS Tran Phy:Nimo Ferguson Service Date:11/20/22 Fam Phy:Almas Flores M.D. Interpreting Phy[facility] Phy:Jacky Benton MD Ordering Phy:Jacky Benton MD cc: ~ MRCP CLINICAL HISTORY: Abdominal pain. Abnormal liver function tests. Pancreatic cancer. TECHNIQUE: Utilizing a 1.5 Michelle magnet and dedicated coil, multiplanar, multiecho imaging of the upper abdomen was performed utilizing heavily T2 weighted pulsing sequences without IV contrast. COMPARISON STUDY: CTs of the abdomen pelvis November 05, 2022 and November 19, 2022. FINDINGS: Multiple hepatic cysts are noted. No suspicious hepatic lesions are identified on this unenhanced examination. A small amount of upper abdominal ascites is noted. The gallbladder is mildly distended. Gallbladder wall thickening is again noted. There is suspected sludge within the gallbladder. Trace gas within the gallbladder is better depicted on CT of November 19, 2022. The appearance of the gallbladder similar to CT of November 05, 2022. A common bile duct stent is in place. There is gas within the stent, also better depicted on CT. Mild intrahepatic biliary ductal dilatation remains unchanged since CT of November 05, 2022. A 2.1 x 2.1 cm focus of restricted diffusion within the pancreatic head likely reflects the primary neoplasm. Pancreatic glandular atrophy and mild pancreatic ductal dilatation are noted. This exam is compromised by motion artifact. There is no hydronephrosis. No fluid collection within the abdomen is identified. Narrowing of the portosplenic confluence is better depicted on recent contrast-enhanced CT. IMPRESSION: 1. Common bile duct stent in place. No change in mild intrahepatic biliary ductal dilatation. 2. 2.1 cm focus of restricted diffusion within the pancreatic head which likely reflects the known primary neoplasm. 3. Mildly distended gallbladder with gallbladder wall thickening and suspected sludge within the gallbladder. The appearance of the gallbladder similar to earlier CT of November 05, 2022. If right upper quadrant pain, ultrasound is recommended to assess for cholecystitis. 4. Small amount of upper abdominal ascites. ACT 112: Negative or not required by law. Electronically signed by: Jamil Abdi M.D. 11/20/2022 7:07 AM Dictated:11/20/22654 Transcribed: 11/20/22654 PG Care Time/CCT Total # of Minutes Spent Total Time Spent with Patient: Total time spent is greater than 50% in coordination of care (as documented) at patient's floor/unit and/or counseling patient: Coding Level of Care Code 71022 OP VST NEW LOW 30-44 MIN Diagnoses Abdominal pain R10.9
--- NOTE | 2022-11-20 14:38 | Ultrasound Report ---
ABDOMINAL ULTRASOUND, RIGHT UPPER QUADRANT HISTORY: RUQ pain, concern for cholecystitis. Pancreatic cancer. COMPARISON: CT of the abdomen and pelvis November 19, 2022 and MRCP November 20, 2022. FINDINGS: A small amount of perihepatic ascites is noted. Several hepatic cysts measure up to 2 cm. C ommon bile duct stent is in place. This makes evaluation for biliary ductal dilatation difficult merino jameel there is no significant intrahepatic biliary ductal dilatation. The known pancreatic head mass is not well visualized by sonography. The gallbladder is sludge-filled. The gallbladder wall is mildly thickened, measuring 5 mm in thickness. However, no sonographic Mercer sign was elicited. There is no right hydronephrosis. IMPRESSION: 1. Sludge-filled gallbladder with gallbladder wall thickening. However, no sonographic Mercer sign. T herefore, the findings are not strongly suggestive of acute cholecystitis. 2. Known pancreatic head mass, not well visualized by sonography. 3. Common bile duct stent in place. 4. Trace perihepatic ascites. ACT 112: Negative or not required by law. Electronically signed by: Jamil Abdi M.D. 11/20/2022 2:36 PM
--- NOTE | 2022-11-20 17:42 | Communication Note ---
Date of Service: November 20, 2022 Ms Smitha Morgan is a 77 year old female with a has a history of pancreatic cancer with +peritoneal LN, currently getting chemotherapy (Xeloda) with Dr Flores at [facility]. Prior plan for Whipple's procedure was aborted when she was found to have +peritoneal LN. She has a known CBD [place] [facility] At the same time she also had a pancreatic ductal stent placed but patient tells me the pancreatic duct stent has since been removed, the CBD stent however remains. Patient presents to [facility] ER yesterday with abdominal pain, nausea/vomiting for several days and was found to also have a fever. Labwork is significant for elevated LFTs and T bili (her LFTs here from 08/2022 were normal with the exception of Alk Phos). CT A/P showed presence of CBD stent and also mild GB wall thickening and dilation. She had a subsequent MRCP and RUQ u/s which again shows the same. Patient has been on bowel rest, zosyn and IV fluids since admission. Her fever has defervesced and she remains hemodynamically stable. With her symptoms, presence of CBD stent and abnormal LFTs--> there is concern about patency of her stent. I discussed the case with the virtualization consultant Oncologist at [facility] (Dr Umana) and she has been accepted for transfer. I have been told there is no bed at [facility] [place], so she will remain here until then. If she becomes hemodynamically unstable, will need to reach out to [facility]. Currently she will be going to med/surg level of care.
[2022-11-20] MEDS ORDERED: D5W AND NSS 1,000 ML IV SCH (19:45)
--- NOTE | 2022-11-21 00:52 | Discharge Summary ---
Date of Service November 21, 2022 Admission HPI Per Admitting Provider History obtained from patient, family, and records. Medical history significant for paroxysmal atrial flutter on Coumadin, PSVT, valvular heart disease (mild AR/MR), history of tricuspid valve repair/bioprosthetic MVR, hypertension, pancreatic cancer status post radiation on chemotherapy, DM2 diet-controlled, GERD, IBS, chronic pain on narcotics. Last confinement August 2022 for hematemesis, nonspecific colitis, Klebsiella oxytoca bacteremia status post antibiotic Rx. No endoscopy during confinement. Last week, patient noted worsening of chronic abdominal pain. Good BM. Blood-streaked emesis 2 days ago as per . No melena. Fever chills at home. Patient denies headache, chest pain, SOB. Patient weaker than usual. Patient brought to the ER for evaluation. Cefepime administered at the ER. 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 Principal Diagnosis Sepsis secondary to cholecystitis/cholangitis UGIB Discharge Data Allergies Allergy/AdvReac Type Severity Reaction Status Date / Time latex Allergy Severe RASH AND Verified 08/16/22 01:43 CAN'T BREATHE, HIVES morphine Allergy Severe HEART Verified 08/16/22 01:43 STOPPED AND "I STOPPED LIVING" pentobarbital Allergy Severe "HEART Verified 08/16/22 01:43 STOPPED" phenobarbital Allergy Severe "HEART Verified 08/16/22 01:43 STOPPED" thiopental Allergy Severe "HEART Verified 08/16/22 01:43 STOPPED" adhesive Allergy Intermediate REDNESS Verified 08/16/22 01:43 AND HIVES-TAPE ferrous sulfate Allergy Intermediate HIVES Verified 08/16/22 01:43 Iodinated Contrast Media Allergy Intermediate HIVES Verified 08/16/22 01:43 ioversol Allergy Intermediate HIVES Verified 08/16/22 01:43 lorazepam Allergy Intermediate HIVES AND Verified 08/16/22 01:43 SWEATING nickel Allergy Intermediate HIVES AND Verified 08/16/22 01:43 RASH pantoprazole Allergy Intermediate HIVES AND Verified 08/16/22 01:43 ITCHING prednisone Allergy Intermediate HIVES Verified 08/16/22 01:43 Sulfa (Sulfonamide Allergy Intermediate RASH, HIVES Verified 08/16/22 01:43 Antibiotics) aspartame AdvReac Intermediate DIZZINESS, Verified 08/16/22 01:43 MIGRAINES aspirin AdvReac Intermediate SWEATS, Verified 08/16/22 01:43 PALPITATIONS, RINGING IN EARS Benzodiazepines AdvReac Intermediate SWEATS, Verified 08/16/22 01:43 PALPITATIONS, RINGING IN EARS caffeine AdvReac Intermediate JITTERY Verified 08/16/22 01:43 codeine AdvReac Intermediate SWEATS, Verified 08/16/22 01:43 PALPITATIONS, RINGING IN EARS, HIVES diazepam AdvReac Intermediate SWEATING Verified 08/16/22 01:43 oxycodone AdvReac Intermediate HEART RACES Verified 08/16/22 01:43 propoxyphene AdvReac Intermediate SWEATS, Verified 08/16/22 01:43 PALPITATIONS, RINGING IN EARS saccharin AdvReac Intermediate FROM Verified 08/16/22 01:43 NUTRASWEET - DIZZINESS, MIGRAINES salicylates AdvReac Intermediate GERD, Verified 08/16/22 01:43 IRRITATES STOMACH, HIGH DOSE ONLY tramadol AdvReac Intermediate SWEATS, Verified 08/16/22 01:43 PALPITATIONS, RINGING IN EARS ibuprofen AdvReac Mild NUMBNESS Verified 08/16/22 01:43 NSAIDS (Non-Steroidal AdvReac Mild NUMBNESS Verified 08/16/22 01:43 Anti-Inflamma grapefruit AdvReac Unknown "CANNOT Verified 08/16/22 01:43 TAKE WITH HEART MEDICATION" Consultations 11/20/22 00:42 ED Decision to Admit Stat 11/20/22 04:45 Consult Gastroenterology Routine 11/20/22 10:58 Consult General Surgery Routine 11/20/22 22:59 Burn CD for patient Stat Ordered Studies 11/19/22 22:25 CT abd pelvis wo con Stat 11/20/22 04:16 MR MRCP Stat 11/20/22 10:33 US abdomen limited Stat Hospital Course (1) Abdominal pain: Multifactorial: Acute cholecystitis rule out biliary tract obstruction given abnormal LFTs, possible sepsis, immunocompromise patient, pancreatic cancer status post radiation on oral chemotherapy UGIB, history GERD as per records, history paroxysmal atrial flutter on Coumadin, INR subtherapeutic, hemoglobin drop from last baseline of 12 last month, FOBT done at the ER by nursing staff positive Troponin elevation secondary to illness valvular 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 IV albumin while patient n.p.o. given ascites on imaging CS, Zosyn MRCP Re: Abnormal LFTs Appropriate to hold oral Xeloda chemotherapy given infection. Appropriate to hold Coumadin given GI bleed Continue patient's omeprazole for UGIB, unable to give IV PPI for now given Protonix allergy IV Pepcid every 6 hours if unable to give IV PPI as per pharmacy recommendations. GI consult Re: cholecystitis, abnormal LFTs, UGIB (Patient known to Dr. Horton.) Patient adamantly refusing General Surgery consult for now for cholecystitis until further discussion with GI. Basal bolus insulin adjusted for n.p.o. status ISS BG goal 1 10-1 40, update hem oglobin A1c DVT prophylaxis. SCDs Re: UGIB Full code Patient requesting updates providers. Mr. Ang Morgan, contact #[phone]. 11/20 Documentation in italics below as per daytime hospitalist. Ms Smitha Morgan is a 77 year old female with a has a history of pancreatic cancer with +peritoneal LN, currently getting chemotherapy (Xeloda) with Dr Flores at [facility]. Prior plan for Whipple's procedure was aborted when she was found to have +peritoneal LN. She has a known CBD stent placed by Dr Linares 10/09/2022 at [facility]. At the same time she also had a pancreatic ductal stent placed but patient tells me the pancreatic duct stent has since been removed, the CBD stent however remains. Patient presents to [facility] ER yesterday with abdominal pain, nausea/vomiting for several days and was found to also have a fever. Labwork is significant for elevated LFTs and T bili (her LFTs here from 08/2022 were normal with the exception of Alk Phos). CT A/P showed presence of CBD stent and also mild GB wall thickening and dilation. She had a subsequent MRCP and RUQ u/s which again shows the same. Patient has been on bowel rest, zosyn and IV fluids since admission. Her fever has defervesced and she remains hemodynamically stable. With her symptoms, presence of CBD stent and abnormal LFTs--> there is concern about patency of her stent. I discussed the case with the national accounts sales Oncologist at [facility] (Dr Umana) and she has been accepted for transfer. In addition, GI service recommended General Surgery evaluation for possible cholecystitis. General surgery recommended transfer to tertiary center in light of patient complex history and patient family preference. 11/21 Patient discharged to [facility] after notification of bed availability. Total time preparing this discharge summary was less than 10 minutes. Text document was generated using [employer] voice recognition software. It may contain grammatical or spelling errors. Kindly contact undersigned for clarification of any documentation item in question. Total Time Total Time Spent Total Time Spent (In Minutes): Less than 10 minutes Discharge Plan Discharge Items Patient Disposition: Transfer Acute Care Hospital Reason For Visit: SEPSIS Discharge Diagnosis: Sepsis, cholecystitis, cholangitis Condition on Discharge: Fair Activity: Resume your previous activity Non-emergency contact: Primary Care Provider Call non-emergency contact if: you have any medication questions Follow-up/Referrals: Ramon Jimenez MD [Primary Care Provider] - Diet: Nothing by Mouth Addtl Attending Provider Instructions: N/A Stand-Alone Forms: My [facility] Skilled Items Patient informed of condition?: Yes Discharge Level of Care: Other Communicable Disease: No Discharge Prognosis: Stable Lines: Peripheral IV Urinary Catheter: No Medications and DC Order Prescriptions: Continued Premarin 0.625 mg/gram cream 0.625 mg vaginal 2XWK Qty: 30 1RF Rx Instructions: Use on Mon and Fri gabapentin 300 mg capsule 300 mg PO BID Rx Instructions: ordered tid but per caregiver she usually takes twice a day dicyclomine 10 mg capsule 10 mg PO TID PRN (Reason: Abdominal Pain/Cramping) Qty: 270 1RF metoprolol tartrate 50 mg tablet 50 mg PO BID docusate sodium [Colace] 100 mg Capsule 200 mg PO BID Rx Instructions: 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 cholecalciferol (vitamin D3) 1,000 unit Tablet 1,000 unit PO QAM folic acid 1 mg Tablet 1 mg PO QAM albuterol sulfate [ProAir HFA] 90 mcg/actuation HFA aerosol inhaler 2 puff INHALATION QID Rx Instructions: morning,noon,evening,before bedtime duloxetine 60 mg capsule,delayed release(DR/EC) 60 mg PO QAM cyanocobalamin (vitamin B-12) [Vitamin B-12] 1,000 mcg Tablet 1,000 mcg PO QAM hydromorphone 2 mg tablet 1 mg PO Q4 PRN (Reason: Pain) Rx Instructions: per oncologist can take up to 4 mg every 4 hours if needed omeprazole 40 mg capsule,delayed release(DR/EC) 40 mg PO AMHS Rx Instructions: Take 1 capsule by mouth twice daily lidocaine-prilocaine 2.5-2.5 % cream 1 applic topical UD Rx Instructions: apply topically to skin overlying portcath 1 hour prior to needle insertion morphine 15 mg tablet extended release 15 mg PO [facility]HS ondansetron HCl 4 mg Tablet 4 mg PO Q8H PRN (Reason: Nausea) riboflavin (vitamin B2) 400 mg Tablet 400 mg PO QAM magnesium oxide 400 mg magnesium Tablet 400 mg PO QAM prochlorperazine maleate 5 mg Tablet 5 mg PO Q6 PRN (Reason: Nausea) prochlorperazine [Compro] 25 mg suppository 25 mg OH UD PRN (Reason: as directed) Held atorvastatin 10 mg tablet 10 mg PO 3XWK Hold Instructions: Until cleared by GI Rx Instructions: TAKES MON, WED, & FRI. Creon 24,000-76,000 -120,000 unit capsule,delayed release(DR/EC) 3 - 4 cap PO TIDWMEAL Hold Instructions: as per attending service Creon 24,000-76,000 -120,000 unit capsule,delayed release(DR/EC) 2 cap PO .SNACKS Hold Instructions: as per attending service warfarin 5 mg tablet 5 mg PO UD Hold Instructions: until cleared by GI Rx Instructions: take 1/2 tablet (2.5mg) on saturday and and 1 tablet daily on all other days capecitabine 500 mg tablet 500 mg PO UD Hold Instructions: Until cleared by medical team Rx Instructions: take 2 tablets every 12 hours for 14 days followed by 7 days off of each 21 day cycle No Action Saline Nose 0.65 % Aerosol,[place] 1 spray intranasal UD Rx Instructions: flush each nostril morning and night and every 2-4 hours as needed for nasal dryness or congestion lactulose 10 gram/15 mL Solution 5 - 30 ml PO DAILY PRN (Reason: Constipation) Rx Instructions: 1 tablespoon potassium chloride 10 mEq tablet extended release 20 meq PO QAM fluticasone propionate 50 mcg/actuation [place],Suspension 2 spray INTRANASAL DAILY torsemide 20 mg tablet 20 mg PO QAM Discharge Orders: Discharge Order (Routine); Ordered 11/21/22 Ordered By: Jacky Carpenter/Other Patient Handouts: Diabetes: Meal Planning, Type 2 Diabetes Admission Data Admit Date/Time: 11/20/22 04:14 Attending Provider: Vinny Ojeda Admit Provider: Jacky Benton Primary Care Provider: Ramon Jimenez Other Providers: Jacky Benton ; Jeff Gutierrez ; Aron Horton ; Corinne Diaz ; Aby Chavez ; Kim Boudreaux ; Elicia Lozano ; Kang Blanco ; Дмитрий Frank ; Bruno Barkley ; Negar Lowe ; Luis Manuel Dumas ; Porsche Mitchell ; Chantell Yu ; Winnie Zelaya ; Sindy Chu ; Marshal Gordon ; Nuno Keys ; Horacio Morrow ; Norma Virk ; Emily Khanna Jr ; Allan Camarillo
[2022-11-21] MEDS: HYDROmorphone INJ 0.5 MG/0.5 ML SYR IV PRN (01:36)
[2022-11-21] MEDS ORDERED: HEPARIN 100 UNIT/ML 5ML FLUSH FLUSH PRN (02:20)
[2022-11-21 13:56] LABS: EBV Nuclear Ag Antibody >600.00 U/mL; EBV Virus Capsid Ag IgG Ab >750.00 U/mL
[2022-11-21 14:16] LABS: CMV IgG Antibody >10.00 U/mL; CMV IgM Antibody <30.00 AU/mL; HBSAG NON-REACTIVE (NON-REACTIVE); Hepatitis A Antibody IgM NON-REACTIVE (NON-REACTIVE); Hepatitis B Core Antibody IgM NON-REACTIVE (NON-REACTIVE)
--- NOTE | 2022-11-21 23:09 | Electrocardiogram Report ---
Test Reason : Blood Pressure : / mmHG Vent. Rate : 109 BPM Atrial Rate : 109 BPM P-R Int : 146 ms QRS Dur : 064 ms QT Int : 320 ms P-R-T Axes : 061 059 066 degrees QTc Int : 430 ms Sinus tachycardia Abnormal ECG When compared with ECG of 15-SEP-2022 11:01, Vent. rate has increased BY 45 BPM Non-specific change in ST segment in Inferior leads ST now depressed in Anterior leads Confirmed by Jin Salmon ([id number]) on 11/21/2022 11:08:33 PM Referred By: REFERRED SELF Confirmed By:Jin Salmon
== END 2022-11-21 02:15 | disposition short-term general hospital (02) | DRG 872 ==
LOC: ED 22:04 → EDINP 11-20 04:14 → SUPCPDRO 11-20 04:14 → EDINP 11-20 04:36 → 2W 11-20 16:47
DX: Z79.83 Long term (current) use of bisphosphonates; Z79.899 Other long term (current) drug therapy; Z88.6 Allergy status to analgesic agent; C25.9 Malignant neoplasm of pancreas, unspecified; Z91.041 Radiographic dye allergy status; Z88.2 Allergy status to sulfonamides; A41.9 Sepsis, unspecified organism; K83.09 Other cholangitis; Z79.811 Long term (current) use of aromatase inhibitors; Z98.51 Tubal ligation status; Z91.018 Allergy to other foods; Z79.01 Long term (current) use of anticoagulants; Z90.49 Acquired absence of other specified parts of digestive tract; E78.5 Hyperlipidemia, unspecified; Z91.040 Latex allergy status; K21.9 Gastro-esophageal reflux disease without esophagitis; Z98.1 Arthrodesis status; K81.9 Cholecystitis, unspecified; Z88.8 Allergy status to other drugs, medicaments and biological substances; Z88.5 Allergy status to narcotic agent; Z91.02 Food additives allergy status; Z90.710 Acquired absence of both cervix and uterus; Z88.4 Allergy status to anesthetic agent; Z91.048 Other nonmedicinal substance allergy status; I10 Essential (primary) hypertension; E11.9 Type 2 diabetes mellitus without complications; K92.2 Gastrointestinal hemorrhage, unspecified; Z95.4 Presence of other heart-valve replacement